=== PATIENT | female | born 1960 | race Caucasian/White ===

== ENCOUNTER 2020-02-04 23:28 | Inpatient (IN) | payer MEDICARE, MEDICAID, SELFPAY ==
--- NOTE | ~2020-02-04 | CT_ITS ---
EXAMINATION: CT brain wo con DATE: 02/05/2020 00:12 INDICATION: Altered mental status. TECHNIQUE: Computed tomography (CT) of the head was performed without intravenous contrast. Sagittal and coronal reconstructions were performed. The mA was adjusted according to patient size. Iterative reconstruction technique was employed. The dose-length product was 605.33 mGy-cm. COMPARISON: None FINDINGS: Regions of chronic encephalomalacia in the left middle cerebral artery vascular distribution includin g the left frontal and temporal lobes, intervening insula and left basal ganglia. Region of decreased attenuation in the right temporal lobe at the middle cranial fossa which appears more likely related to streak artifact than infarct. No acute intracranial hemorrhage or abnormal extra axial fluid macario ection. There is mild scattered white matter hypoattenuation consistent with chronic small vessel isc hemic disease. Mild expected dilation of the left lateral ventricle. Ventricles are otherwise normal. No mass/mass effect. The orbits, paranasal sinuses and mastoid air cells are normal. Intracranial ca lcified cerebral atherosclerosis is noted. IMPRESSION: 1. Encephalomalacia consistent with chronic infarct involving portions of the left middle cerebral ar thao vascular distribution. 2. Decreased attenuation in the right temporal lobe more likely streak artifact than age-indeterminat e infarct. 3. Moderate scattered white matter hypoattenuation consistent with chronic small vessel ischemic dise ase. Reviewed, dictated and finalized at location A. IMPRESSION: 1. Encephalomalacia consistent with chronic infarct involving portions of the l eft middle cerebral artery vascular distribution. 2. Decreased attenuation in the right temporal lobe more likely streak artifact than age-indeterminate infarct. 3. Moderate scattered white matter hypoattenuation consistent with chronic smal l vessel ischemic disease.
--- NOTE | ~2020-02-04 | XR_ITS ---
EXAMINATION: XR chest 2V DATE: 02/05/2020 00:18 INDICATION: Transient alteration of awareness TECHNIQUE: frontal and lateral views of the chest were obtained. COMPARISON: Chest radiograph dated 09/28/2019 FINDINGS: The lungs remain clear with no focal airspace opacities, pulmonary edema, pleural effusion or pneumot horax. The cardiomediastinal silhouette is normal. Visualized bones and soft tissues are unremarkable . IMPRESSION: 1. No acute cardiopulmonary disease. Reviewed, dictated and finalized at location A.
[2020-02-04 23:25] VITALS: BP 134/61; PULSE 58; RESP 16; TEMP 36.6; O2SAT 100
--- NOTE | 2020-02-04 23:27 | ED.GENADULT ---
HPI - General Adult General Chief complaint: Recheck/Abnormal Lab/Rx Stated complaint: abn labs Source: EMS Mode of arrival: EMS Limitations: altered mental status History of Present Illness HPI narrative: Patient is a 59-year-old female who presents to the emergency department via EMS from [facility] with abnormal labs. Patient reportedly had abnormal lab draw at the facility, and the physician's butcher's assistant had the patient sent to the emergency department tonight. Patient has a history of CVA with residual right-sided weakness, no longer can communicate due to CVA. Patient cannot provide any history. Per paper sent with patient, she seems has been elevation in her creatinine, potassium from previous labs. There is no additional history obtained from the patient's transfer sheets. Related Data Home Medications Medication Instructions Recorded Confirmed Antifungal (tolnaftate) 1 applic TOPICAL BID PRN 09/28/19 09/28/19 Basaglar KwikPen U-100 Insulin 24 unit SUBCUT HS 09/28/19 09/28/19 Vitamin D3 50,000 unit PO WEEKLY 09/28/19 09/28/19 acetaminophen 650 mg PO Q6H PRN 09/28/19 09/28/19 ascorbic acid (vitamin C) [Vitamin 500 mg PO DAILY 09/28/19 09/28/19 C] aspirin [Enteric Coated Aspirin] 81 mg PO DAILY 09/28/19 09/28/19 atorvastatin 80 mg PO HS 09/28/19 09/28/19 clopidogrel 75 mg PO DAILY 09/28/19 09/28/19 diphenhydramine HCl [Allergy 25 mg PO Q6H PRN 09/28/19 09/28/19 (diphenhydramine)] docusate sodium 100 mg PO DAILY PRN 09/28/19 09/28/19 fluoxetine 20 mg PO DAILY 09/28/19 09/28/19 gabapentin 300 mg PO TID 09/28/19 09/28/19 hydrocortisone 1 applic TOPICAL DAILY PRN 09/28/19 09/28/19 ibuprofen 600 mg PO Q6H PRN 09/28/19 09/28/19 insulin lispro [Admelog U-100 12 unit SUBCUT AC 09/28/19 09/28/19 Insulin lispro] insulin lispro [Admelog U-100 See Protocol SUBCUT AC 09/28/19 09/28/19 Insulin lispro] loperamide See Rx Instructions .ROUTE 09/28/19 09/28/19 .COMPLEX PRN MDD 8 CAPSULES PER DAY memantine 10 mg PO BID 09/28/19 09/28/19 multivitamin [Daily Vitamin 1 tablet PO DAILY 09/28/19 09/28/19 Formula] nystatin [Nystop] 1 applic TOPICAL BID PRN 09/28/19 09/28/19 Allergies Allergy/AdvReac Type Severity Reaction Status Date / Time No Known Allergies Allergy Unverified 02/02/19 08:54 Review of Systems Review of Systems: Narrative: Unable to obtain secondary to clinical condition PMFSH Past Medical History Medical History CVA (cerebral vascular accident) With expressive aphasia Dementia Eczema Essential hypertension Hyperlipidemia Obesity, morbid, BMI 50 or higher Type 2 diabetes mellitus, with long-term current use of insulin UTI (urinary tract infection) Vitamin D deficiency Surgical History Surgical History No pertinent past surgical history Family History Family History Other Unknown family medical history Social History Social History Social History: Patient is a long-term resident at [facility]. Patient evidently used to smoke heavily and quit smoking in 2014. Patient is denied history of alcohol use but is a poor historian. Code status: Full code Primary care physician: Dr. Giovanny Franco Smoking status: Former smoker Tobacco type: cigarettes Second hand tobacco smoke exposure: Yes Alcohol intake: never Substance use: never Substance use type: does not use Gender identity (if verbalized by the patient): Female Spiritual care concerns: No Agree to blood products: Yes Exam Narrative: Exam Narrative: GENERAL: Awake, alert, conversant HEAD: Normocephalic, atraumatic. EYES: PERRLA and EOMI. ENT: Nares clear, no rhinorrhea or epistaxis. Mucous membranes dry NECK: Supple. CHEST: No respiratory distress, mary
--- NOTE | 2020-02-04 23:28 | ECG_ITS ---
Measurements Intervals Half Way Rate: 60 P: 34 KS: 129 QRS: -27 QRSD: 93 T: 104 QT: 438 QTc: 438 Interpretive Statements SINUS RHYTHM DELAYED PRECORDIAL R/S TRANSITION BORDERLINE ST-T WAVE ABNORMALITY- LATERAL LEADS BASELINE WANDER- AVR, AVL, AVF, V4-V6 BORDERLINE ECG Electronically Signed On 02-05-2020 7:12:10 CDT by Anjel Parham D.O.
[2020-02-04 23:52] LABS: Glucose Point of Care 114 (65-105)
[2020-02-04 23:53] LABS: Basophils Absolute Auto 0.1 K/mm3 (0.0-0.1); Basophils Percent Auto 0.7 % (0.2-1.2); Eosinophils Absolute Auto 0.6 K/mm3 (0-0.3); Eosinophils Percent Auto 5.2 % (0-4.4); Hematocrit 35.7 % (37.0-47.0); Hemoglobin 11.6 g/dL (12.0-15.0); Immature Granulocyte Absolute 0.04 K/mm3 (0.00-0.031); Immature Granulocyte Percent A 0.4 % (0-0.5); Lymphocytes Absolute Auto 2.58 K/mm3 (0.9-3.2); Mean Corpuscular HGB Conc 32.5 g/dl (32-36); Mean Corpuscular Hemoglobin 28.2 pg (26-34); Mean Corpuscular Volume 86.7 fl (80-100); Mean Platelet Volume 10.3 fl (7.4-10.4); Monocytes Absolute Auto 0.7 K/mm3 (0.1-0.6); Monocytes Percent Auto 6.1 % (2.6-8.5); Neutrophils Absolute Auto 6.8 K/mm3 (1.3-6.7); Neutrophils Percent Auto 63.6 % (45.5-73.1); Platelet Count Result 315 k/mm3 (150-375); Red Blood Count 4.12 M/mm3 (4.2-5.4); Red Cell Distribution Width 14.5 % (11.5-14.5); White Blood Count 10.7 K/mm3 (4.5-10.0)
[2020-02-04 23:54] LABS: Alveolar/Arterial O2 Gradient 20.1 mmHg; Base Excess ABG -6.3 mEq/l (+/-2.0); Carboxyhemoglobin 0.2 % THb (0-2.0); Fractional Inspired Oxygen 21 %; HCO3 ABG 18.7 mEq/l (22.0-26.0); Methemoglobin ABG 0.1 %THb (0-1.5); Oxygen Content ABG 15.6 %vol (16.0-22.0); Oxygen Saturation ABG 96.2 % (95.0-100.0); Oxyhemoglobin 95.1 % THb (90.0-100.0); PCO2 ABG 35.7 mmHg (35.0-45.0); PO2 ABG 86.9 mmHg (80.0-100.0); PO2 FiO2 Ratio Arterial Blood 4.14 %; Reduced Hemoglobin 4.6 %THb (0-5.0); Total Hemoglobin 11.6 g/dL (12.0-18.0); pH ABG 7.338 (7.350-7.450)
[2020-02-04 23:55] LABS: Device ROOM AIR; Modified Allen's Test Pass; Site Drawn LEFT RADIAL
[2020-02-04] MEDS: SODIUM CHLORIDE 0.9% IV 1,000 ML 999 ML IV CONT (23:56)
[2020-02-05] VITALS (9 sets, daily range): BP systolic 117–146; BP diastolic 42–78; PULSE 56–62; RESP 12–20; TEMP 36.1–37.1; O2SAT 94–100; BMI 52.0
[2020-02-05 00:02] LABS: INR 0.9; Prothrombin Time 12.3 Seconds (11.1-14.7)
[2020-02-05 00:03] LABS: Partial Thromboplastin Time 28.8 SECONDS (22.3-36.8)
[2020-02-05 00:05] LABS: Alanine Aminotransferase 9 U/L (4-35); Albumin Level 3.9 g/dL (3.5-5.1); Alkaline Phosphatase 180 U/L (38-126); Aspartate Amino Transferase 16 U/L (14-36); Bilirubin,Total 0.4 mg/dL (0.2-1.3); Blood Urea Nitrogen 64 mg/dL (7-17); Calcium 9.1 mg/dL (8.4-10.2); Carbon Dioxide 24 mmol/L (22-30); Chloride 103 mmol/L (98-107); Estimated Glomerular Filt Rate 21; Glucose 111 mg/dL (65-105); Magnesium 1.8 mg/dL (1.6-2.3); Phosphorus 5.4 mg/dL (2.5-4.5); Potassium 4.8 mmol/L (3.4-5.0); Sodium 136 mmol/L (137-145)
[2020-02-05 00:09] LABS: Lactic Acid Reflex 0.9 mmol/L (0.7-2.1)
[2020-02-05 00:10] LABS: Ammonia < 9 umol/L (9-30)
[2020-02-05 00:13] LABS: Beta-Hydroxybutyrate/Acetoacetate 0.06 mmol/L (0.02-0.27)
[2020-02-05 00:16] LABS: Troponin I 0.014 ng/mL (0.000-0.034)
[2020-02-05 00:30] LABS: Add Urine Microscopic? YES; Appearance Urine Turbid (Clear); Bacteria Urine 3+ /hpf; Bilirubin Urine Negative (Negative); Blood Urine 1+ (Negative); Color Urine Yellow (Yellow); Glucose Urine UA Negative (Negative); Hyaline Casts Urine 15-19 /lpf; Ketones Urine Negative (Negative); Leukocyte Esterase Ur 3+ LEU/UL (Negative); Nitrate Urine Negative (Negative); Protein Urine 2+ mg/dL (Negative); Squamous Epithelial Cell Urine Occasional /hpf (Few); Urobilinogen Urine Negative mg/dL (<2.0); WBC Urine >75 /hpf
--- NOTE | 2020-02-05 02:28 | ADMGEN ---
This patient, Dalila Rose, was admitted to Medical Room 245-. Patient/family oriented to hospital policies and general routines including ID bracelet, bed and alarms, visiting hours, pain management, procedures, bathroom and other care routines, personal items, smoking policy, room service/diet, and visiting hours. Valuables list has been completed. Information on how to activate the Rapid Response Team has been discussed. Patient/Family are encouraged to report perceived risks to care and to ask questions if they do not understand what they are told or what they should do.
--- NOTE | 2020-02-05 03:11 | PM.IMHP ---
H&P: HPI History of Present Illness Chief complaint: Sent in from half-way for renal failure Narrative: Date and time of patient contact: 02/05/2020 at 4:00 a.m. Dalila Rose is a 59 year old female with a past medical history chronic kidney disease stage 3, dementia, multiple CVA's and multiple urinary tract infections who presented to the ER from [facility] due to abnormal labs. The patient a supposedly alert orient x3 according to EMS. Time of prior admissions the patient had also been confused. She does have some expressive aphasia due to history of CVA. She responds to her name. She otherwise did not provide me with any other answers to questions. When I asked her if she was having pain she shook her head no. Then with other questions she would initially shake her head no in then change it to a nod. So the reliability of the patient's history is in question. At the time of my evaluation the patient had marked pain palpation of the left lower quadrant. She became a quite irritated when I palpated the right lower quadrant. When I asked her if the rest of her abdomen hurt she emphatically said no. Source of information: Past medical records and ER records. Review of Systems Review of Systems: ROS unobtainable: Yes unobtainable due to medical condition and unobtainable due to mental status PMFSH Past Medical History Medical History CVA (cerebral vascular accident) With expressive aphasia Dementia Eczema Essential hypertension Hyperlipidemia Obesity, morbid, BMI 50 or higher Type 2 diabetes mellitus, with long-term current use of insulin UTI (urinary tract infection) Vitamin D deficiency Surgical History Surgical History No pertinent past surgical history Family History Family History Other Unknown family medical history Social History Social History Social History: Patient is a long-term resident at [facility]. Patient evidently used to smoke heavily and quit smoking in 2014. Patient is denied history of alcohol use but is a poor historian. Code status: Full code Primary care physician: Dr. Giovanny Franco Smoking status: Unknown if ever smoked Tobacco type: cigarettes Second hand tobacco smoke exposure: Yes Alcohol intake: never Substance use: never Substance use type: does not use Gender identity (if verbalized by the patient): Female Spiritual care concerns: No Agree to blood products: Yes Meds Home Medications and Allergies Home Medications Medication Instructions Recorded Confirmed Type Anabelle Lala U-100 Insulin 28 unit SUBCUT 09/28/19 02/05/20 History aspirin [Enteric Coated Aspirin] 81 mg PO DAILY 09/28/19 02/05/20 History fluoxetine 20 mg PO DAILY 09/28/19 02/05/20 History gabapentin 300 mg PO TID 09/28/19 02/05/20 History insulin lispro [Admelog U-100 16 unit SUBCUT 09/28/19 02/05/20 History Insulin lispro] insulin lispro [Admelog U-100 See Protocol SUBCUT 09/28/19 02/05/20 History Insulin lispro] memantine 10 mg PO BID 09/28/19 02/05/20 History furosemide 60 mg PO BID #60 tablet 10/03/19 02/05/20 Rx lisinopril 30 mg PO DAILY #30 tablet 10/03/19 02/05/20 Rx metoprolol succinate 50 mg PO HS #30 tablet 10/03/19 02/05/20 Rx Allergies Allergy/AdvReac Type Severity Reaction Status Date / Time No Known Allergies Allergy Unverified 02/02/19 08:54 Vital Signs Vital Signs - 24 hr 02/04/20 23:25 02/05/20 00:32 02/05/20 00:58 Temperature 97.9 F 98.7 F Pulse Rate 58 L 59 L 62 Respiratory Rate 16 15 13 Blood Pressure 134/61 137/52 L 138/78 Pulse Oximetry 100 99 100 02/05/20 01:46 02/05/20 02:20 Temperature 97 F L Pulse Rate 61 62 Respiratory Rate 12 20 Blood Pressure 137
[2020-02-05] MEDS: SODIUM CHLORIDE 0.9% IV 1,000 ML 125 ML IV CONT (03:19)
[2020-02-05 07:49] LABS: Glucose Point of Care 101 (65-105)
[2020-02-05 07:58] LABS: Blood Urea Nitrogen 62 mg/dL (7-17); Calcium 8.8 mg/dL (8.4-10.2); Carbon Dioxide 23 mmol/L (22-30); Chloride 108 mmol/L (98-107); Estimated CRCL calculation 32 ml/min; Estimated Glomerular Filt Rate 24; Glucose 109 mg/dL (65-105); Potassium 4.9 mmol/L (3.4-5.0); Sodium 138 mmol/L (137-145)
--- NOTE | 2020-02-05 09:00 | PM.IMPN ---
Progress Note: A&P Assessment and Plan (1) Acute UTI: Code(s): N39.0 - Urinary tract infection, site not specified Status: Acute Assessment and Plan: UA suggestive of UTI; Urine cultures pending. Empiric antibiotic therapy with Rocephin has been initiated; will continue Tailor antibiotics to culture/sensitivities (2) Acute renal failure: Qualifiers: Acute renal failure type: unspecified Qualified Code(s): N17.9 - Acute kidney failure, unspecified Code(s): N17.9 - Acute kidney failure, unspecified Status: Acute Assessment and Plan: Likely due to dehydration and medication effect. Cr 2.10 this morning; improvement Continue to hold Lasix and lisinopril. Continue IV fluid hydration at fluid rate of 100 mL/hr Trend BMP tomorrow Avoid nephrotoxic agents; renall dose medications if applicable (3) Type 2 diabetes mellitus, with long-term current use of insulin: Qualifiers: Diabetes mellitus complication status: with hyperglycemia Qualified Code(s): E11.65 - Type 2 diabetes mellitus with hyperglycemia; Z79.4 - ict development manager (current) use of insulin Code(s): E11.9 - Type 2 diabetes mellitus without complications; Z79.4 - ict development manager (current) use of insulin Status: Acute Assessment and Plan: BGL 100s this morning Will continue patient's home Lantus; reduce home mealtime bolus insulin to 12 units due to low BGL; will increase as patient PO intake improves Accuchecks ACHS, hypoglycemia protocol, correctional insulin, diabetic diet Monitor (4) CVA (cerebral vascular accident): Code(s): I63.9 - Cerebral infarction, unspecified Status: Acute Assessment and Plan: Known old CVA with expression aphasia and associate dementia Continue memantine (5) Essential hypertension: Code(s): I10 - Essential (primary) hypertension Status: Acute Assessment and Plan: BP reviewed and 140s sys Will continue home metoprolol Continue to hold Lasix and lisinopril due to MADAY Monitor Subjective Date/time seen: 02/05/20 09:00 Interval history: Patient is a 59 yo F with history of chronic kidney disease stage 3, dementia, multiple CVA's and multiple urinary tract infections who is here for likely UTI and MADAY. Patient able to answer yes/no questions and is able to say hello to me, smiling. However, history may be limited; she is unable to express herself. When asked where she is, she points to the board that says [facility] . When questioned, she denies f/c/s, cp/palpitations, sob/cough, n/v/d/c, abd pain, changes in BMs, dysuria, hematuria, cloudy urine, calf pain/swelling. Review of Systems Review of Systems: ROS unobtainable: Yes unobtainable due to medical condition (please see above) Exam Narrative: Exam Narrative: Patient sitting upright in bed, watching TV Const: General: cooperative, comfortable, no acute distress, well developed, alert and awake Nutritional Appearance: obese Orientation/consciousness: oriented to place (Points to [facility] on board in room) and Other orientation findings HENMT: Head: normocephalic and atraumatic General nose exam: Normal nares present Face and sinus: face symmetric Mouth: Yes dry mucous membranes Eyes: General: appearance normal, both eyes and all related structures EOM: EOMs intact bilaterally Neck: Neck: trachea midline and supple Resp: Effort & Inspection: normal respiratory effort Auscultation: clear to auscultation bilaterally Cardio: Rate: regular rate Rhythm: regular rhythm Heart sounds: no murmurs GI: Inspection: non-distended, Pannus present and obesity GI Palp: Yes abdominal tenderness (wincing in RLQ) and Yes Soft to palpation Auscultation: normal bowel sounds and
[2020-02-05] MEDS: GABAPENTIN 300 MG CAPSULE PO ×3 (09:18→17:22)
[2020-02-05] MEDS: FLUOXETINE HCL 20 MG CAP PO (09:18)
[2020-02-05] MEDS: MEMANTINE 10 MG TABLET PO ×2 (09:18→20:27)
[2020-02-05] MEDS: ENOXAPARIN 40 MG/0.4 ML SYRINGE SUB-Q (09:18)
[2020-02-05] MEDS: ASPIRIN 81 MG ENTERIC TABLET PO (09:18)
[2020-02-05 11:22] LABS: Glucose Point of Care 137 (65-105)
[2020-02-05] MEDS: INSULIN ASPART (*BKC) 100 UNITS/ML 12 UNITS SUB-Q (11:36)
[2020-02-05 16:17] LABS: Glucose Point of Care 97 (65-105)
[2020-02-05] MEDS: SODIUM CHLORIDE 0.9% IV 1,000 ML 100 ML IV CONT (17:22)
[2020-02-05] MEDS: METOPROLOL SUCCINATE EXT REL 50 MG TABCR PO (20:21)
[2020-02-05] MEDS: INSULIN GLARGINE (*BKC) 100 UNITS/ML 20 UNITS SUB-Q (20:58)
[2020-02-05 21:16] LABS: Glucose Point of Care 111 (65-105)
[2020-02-06 05:34] LABS: Basophils Absolute Auto 0.1 K/mm3 (0.0-0.1); Basophils Percent Auto 0.7 % (0.2-1.2); Eosinophils Absolute Auto 0.5 K/mm3 (0-0.3); Eosinophils Percent Auto 6.1 % (0-4.4); Hematocrit 30.4 % (37.0-47.0); Hemoglobin 9.8 g/dL (12.0-15.0); Immature Granulocyte Absolute 0.03 K/mm3 (0.00-0.031); Immature Granulocyte Percent A 0.4 % (0-0.5); Lymphocytes Absolute Auto 2.35 K/mm3 (0.9-3.2); Mean Corpuscular HGB Conc 32.2 g/dl (32-36); Mean Corpuscular Hemoglobin 28.7 pg (26-34); Mean Corpuscular Volume 89.1 fl (80-100); Mean Platelet Volume 10.6 fl (7.4-10.4); Monocytes Absolute Auto 0.5 K/mm3 (0.1-0.6); Monocytes Percent Auto 6.5 % (2.6-8.5); Neutrophils Absolute Auto 4.2 K/mm3 (1.3-6.7); Neutrophils Percent Auto 55.3 % (45.5-73.1); Platelet Count Result 227 k/mm3 (150-375); Red Blood Count 3.41 M/mm3 (4.2-5.4); Red Cell Distribution Width 14.5 % (11.5-14.5); White Blood Count 7.6 K/mm3 (4.5-10.0)
[2020-02-06 05:59] VITALS: BP 141/46; PULSE 57; RESP 20; TEMP 36.1; O2SAT 99
[2020-02-06 06:09] LABS: Blood Urea Nitrogen 51 mg/dL (7-17); Calcium 8.8 mg/dL (8.4-10.2); Carbon Dioxide 23 mmol/L (22-30); Chloride 112 mmol/L (98-107); Estimated CRCL calculation 39 ml/min; Estimated Glomerular Filt Rate 31; Glucose 90 mg/dL (65-105); Magnesium 1.8 mg/dL (1.6-2.3); Potassium 4.8 mmol/L (3.4-5.0); Sodium 140 mmol/L (137-145)
[2020-02-06 08:08] LABS: Glucose Point of Care 96 (65-105)
[2020-02-06] MEDS: GABAPENTIN 300 MG CAPSULE PO ×3 (09:20→17:30)
[2020-02-06] MEDS: MEMANTINE 10 MG TABLET PO ×2 (09:20→21:05)
[2020-02-06] MEDS: ASPIRIN 81 MG ENTERIC TABLET PO (09:20)
[2020-02-06] MEDS: ENOXAPARIN 40 MG/0.4 ML SYRINGE SUB-Q (09:20)
[2020-02-06] MEDS: FLUOXETINE HCL 20 MG CAP PO (09:20)
[2020-02-06 11:55] LABS: Glucose Point of Care 116 (65-105)
[2020-02-06 14:00] VITALS: BP 146/62; PULSE 62; RESP 18; TEMP 36.4; O2SAT 98
--- NOTE | 2020-02-06 15:21 | PM.IMPN ---
Progress Note: A&P Assessment and Plan (1) Acute UTI: Code(s): N39.0 - Urinary tract infection, site not specified Status: Acute Assessment and Plan: UC grew klebsiella pneumoniae; sensitive to rocephin. Patient appears to be clinically improving. Wants to leave Will continue with Rocephin; likely discharge on PO cefdinir at discharge (2) Acute renal failure: Qualifiers: Acute renal failure type: unspecified Qualified Code(s): N17.9 - Acute kidney failure, unspecified Code(s): N17.9 - Acute kidney failure, unspecified Status: Acute Assessment and Plan: Likely due to dehydration and medication effect. Cr 1.70 this morning; improvement Continue to hold Lasix and lisinopril. Continue IV fluid hydration at fluid rate of 100 mL/hr Trend BMP tomorrow Avoid nephrotoxic agents; renally dose medications if applicable (3) Type 2 diabetes mellitus, with long-term current use of insulin: Qualifiers: Diabetes mellitus complication status: with hyperglycemia Qualified Code(s): E11.65 - Type 2 diabetes mellitus with hyperglycemia; Z79.4 - remote computer terminal operator (current) use of insulin Code(s): E11.9 - Type 2 diabetes mellitus without complications; Z79.4 - remote computer terminal operator (current) use of insulin Status: Acute Assessment and Plan: BGL 90-100s this morning Will continue patient's home Lantus; mealtime bolus insulin of 12 units has been held due to lower BGL; will increase as patient PO intake/BGL improves Accuchecks ACHS, hypoglycemia protocol, correctional insulin, diabetic diet Monitor (4) CVA (cerebral vascular accident): Code(s): I63.9 - Cerebral infarction, unspecified Status: Acute Assessment and Plan: Known old CVA with expression aphasia and associate dementia Continue memantine (5) Essential hypertension: Code(s): I10 - Essential (primary) hypertension Status: Acute Assessment and Plan: BP reviewed and 140s sys Will continue home metoprolol Continue to hold Lasix and lisinopril due to MADAY Monitor Subjective Date/time seen: 02/06/20 roughly 14:45 Interval history: Patient is a 59 yo F with history of chronic kidney disease stage 3, dementia, multiple CVA's and multiple urinary tract infections who is here for likely UTI and MADAY. Patient able to answer yes/no questions and is able to say hello. She initially was answering yes/no questions but then shouted hospital , pointing out the window; when asked if she meant she wanted to go back to her NH, she nodded, then began to cry. When nursing entered room, it was explained she needed to stay for further monitoring. She seem to calm down and agreed for further treatment. ROS was limited as she refused to answer any furhter questions after denying f/c/s, cp/palpitations, or sob/cough. She refused physical exam today. Review of Systems Review of Systems: ROS unobtainable: Yes unobtainable due to medical condition (please see above) Exam Narrative: Exam Narrative: Patient lying in semi-murray's position at time of visit. Nursing entered room when patient began to get upset and cry. No other signs of distress; otherwise appears comfortable. Patient refused any further PE Objective Data Vital Signs Vital Signs: Last Vital Signs Temp 97.6 F 02/06/20 14:00 Pulse 62 02/06/20 14:00 Resp 18 02/06/20 14:00 BP 146/62 H 02/06/20 14:00 Pulse Ox 98 02/06/20 14:00 Intake/Output Intake/Output: Intake & Output 02/03/20 02/04/20 02/05/20 02/06/20 23:59 23:59 23:59 23:59 Intake Total 2825 620 Output Total 550 400 Balance 2275 220 Meds/Results Medications: Active Medications Generic Name Dose Route Start Last Admin Trade Name Freq PRN Reason Stop Dose Admi
[2020-02-06 16:44] LABS: Glucose Point of Care 102 (65-105)
--- NOTE | 2020-02-06 17:29 | PC.NURSE ---
Instructed patient to keep arm straight, pt removed arm board and refuses to allow it to be replaced. Attempts at a new IV site have been made by two RN's and the house decorator with no access available.
[2020-02-06] MEDS: METOPROLOL SUCCINATE EXT REL 50 MG TABCR PO (21:05)
[2020-02-06] MEDS: INSULIN GLARGINE (*BKC) 100 UNITS/ML 14 UNITS SUB-Q (21:07)
[2020-02-06 22:00] VITALS: BP 146/45; PULSE 66; RESP 20; TEMP 35.8; O2SAT 97
[2020-02-06 22:16] LABS: Glucose Point of Care 140 (65-105)
[2020-02-07 04:56] LABS: Hematocrit 31.4 % (37.0-47.0); Hemoglobin 10.1 g/dL (12.0-15.0); Mean Corpuscular HGB Conc 32.2 g/dl (32-36); Mean Corpuscular Hemoglobin 28.5 pg (26-34); Mean Corpuscular Volume 88.7 fl (80-100); Platelet Count Result 236 k/mm3 (150-375); Red Blood Count 3.54 M/mm3 (4.2-5.4); Red Cell Distribution Width 14.4 % (11.5-14.5); White Blood Count 7.3 K/mm3 (4.5-10.0)
[2020-02-07 05:25] LABS: Blood Urea Nitrogen 35 mg/dL (7-17); Calcium 8.9 mg/dL (8.4-10.2); Carbon Dioxide 26 mmol/L (22-30); Chloride 115 mmol/L (98-107); Estimated CRCL calculation 50 ml/min; Estimated Glomerular Filt Rate 42; Glucose 109 mg/dL (65-105); Magnesium 1.9 mg/dL (1.6-2.3); Potassium 4.9 mmol/L (3.4-5.0); Sodium 143 mmol/L (137-145)
[2020-02-07 05:30] VITALS: BP 156/59; PULSE 57; RESP 16; TEMP 35.9; O2SAT 99
[2020-02-07 07:52] LABS: Glucose Point of Care 91 (65-105)
[2020-02-07] MEDS: SODIUM CHLORIDE 0.9% IV 1,000 ML 100 ML IV CONT (07:59)
[2020-02-07] MEDS: ASPIRIN 81 MG ENTERIC TABLET PO (07:59)
[2020-02-07] MEDS: ENOXAPARIN 40 MG/0.4 ML SYRINGE SUB-Q (08:00)
[2020-02-07] MEDS: GABAPENTIN 300 MG CAPSULE PO (08:00)
[2020-02-07] MEDS: MEMANTINE 10 MG TABLET PO (08:00)
[2020-02-07] MEDS: FLUOXETINE HCL 20 MG CAP PO (08:00)
--- NOTE | 2020-02-07 09:19 | PM.DS ---
DS: Diagnosis Admitting Diagnosis Admitting Diagnosis: Urinary tract infection, site not specified Discharge Diagnosis (1) Acute UTI: Code(s): N39.0 - Urinary tract infection, site not specified Status: Acute Assessment and Plan: UC grew klebsiella pneumoniae; sensitive to rocephin. Patient appears to be clinically improving. Wants to leave; very excited about discharge. WBC WNL Discharge today on PO cefdinir through 02/09 (2) Acute renal failure: Qualifiers: Acute renal failure type: unspecified Qualified Code(s): N17.9 - Acute kidney failure, unspecified Code(s): N17.9 - Acute kidney failure, unspecified Status: Acute Assessment and Plan: Likely due to dehydration and medication effect. Cr 1.30 this morning; improvement Continue to hold Lasix and lisinopril at discharge; recommend resuming in 2-3 days or after OP BMP BMP on 02/09 Trend BMP tomorrow (3) Type 2 diabetes mellitus, with long-term current use of insulin: Qualifiers: Diabetes mellitus complication status: with hyperglycemia Qualified Code(s): E11.65 - Type 2 diabetes mellitus with hyperglycemia; Z79.4 - long term care social worker (current) use of insulin Code(s): E11.9 - Type 2 diabetes mellitus without complications; Z79.4 - [facility] (current) use of insulin Status: Acute Assessment and Plan: BGL 90-100s this morning Will continue home insulin regimen at [facility] Accuchecks ACHS, hypoglycemia protocol, correctional insulin, diabetic diet during stay Monitor (4) CVA (cerebral vascular accident): Code(s): I63.9 - Cerebral infarction, unspecified Status: Acute Assessment and Plan: Known old CVA with expression aphasia and associate dementia Continue memantine (5) Essential hypertension: Code(s): I10 - Essential (primary) hypertension Status: Acute Assessment and Plan: BP reviewed and 150s sys this morning prior to medications Will continue home metoprolol Continue to hold Lasix and lisinopril due to MADAY; recommend resuming in 2-3 days or after BMP and MADAY resolved. DS: Summary Hospital Course Reason for hospitalization: UTI, MADAY Hospital Course: Patient is a 59 yo F with history of chronic kidney disease stage 3, dementia, multiple CVA's and multiple urinary tract infections who presented to the ER on 02/03 from [facility] due to abnormal labs. Patient has expressive aphasia due to history of CVA but is able to answer yes/no questions. Upon arrival to ER, she was found to have UA suggestive of UTI and MADAY. Please see H&P for further details. Presenting VS: Temp Pulse Resp BP Pulse Ox 97.9 F 58 L 16 134/61 100 02/04/20 23:25 02/04/20 23:25 02/04/20 23:25 02/04/20 23:25 02/04/20 23:25 Presenting Pertinent labs: WBC 10.7, H&H 11.6/35.7, MCV 86.7, BUN 64, Cr 2.40 (02/06: 1.30). UA showed turbid urine, 2+ protein, 1+ blood, 3+ leuk est, 11-20 RBC, >75 WBC, occasional squam epith cells, 3+ bacteria, 15-19 hyaline casts Micro: UC grew klebsiella pnemoniae sensitive to Rocephin Imaging: Chest X-Ray 02/05/20 07:32 IMPRESSION: 1. No acute cardiopulmonary disease. Head CT 02/05/20 07:42 IMPRESSION: 1. Encephalomalacia consistent with chronic infarct involving portions of the left middle cerebral artery vascular distribution. 2. Decreased attenuation in the right temporal lobe more likely streak artifact than age-indeterminate infarct. 3. Moderate scattered white matter hypoattenuation consistent with chronic small vessel ischemic disease ECG: Interpretive Statements SINUS RHYTHM DELAYED PRECORDIAL R/S TRANSITION BORDERLINE ST-T WAVE ABNORMALITY- LATERAL LEADS BASELINE WANDER- AVR, AVL, AVF, V4-V6 BORDERLINE ECG Patient was admitted to the hospit
[2020-02-07] MEDS: CEFDINIR 300 MG CAPSULE PO (10:12)
== END 2020-02-07 10:48 | DRG 683 ==
LOC: ANHED 02-05 01:12 → ANH2MED 02-05 01:27
PROVIDERS: Physician Assistant; Admitting Provider Internal Medicine; Emergency Provider Emergency Medicine; Visit Provider Internal Medicine
DX: N17.9 Acute kidney failure, unspecified (principal); N39.0 Urinary tract infection, site not specified; I69.351 Hemiplegia and hemiparesis following cerebral infarction affecting right dominant side; Z68.43 Body mass index [BMI] 50.0-59.9, adult; E66.9 Obesity, unspecified; B96.1 Klebsiella pneumoniae [K. pneumoniae] as the cause of diseases classified elsewhere; E86.0 Dehydration; E11.22 Type 2 diabetes mellitus with diabetic chronic kidney disease; E11.65 Type 2 diabetes mellitus with hyperglycemia; I12.9 Hypertensive chronic kidney disease with stage 1 through stage 4 chronic kidney disease, or unspecified chronic kidney disease; N18.3 Chronic kidney disease, stage 3 (moderate); I69.320 Aphasia following cerebral infarction; I69.318 Other symptoms and signs involving cognitive functions following cerebral infarction; F01.50 Vascular dementia, unspecified severity, without behavioral disturbance, psychotic disturbance, mood disturbance, and anxiety; E55.9 Vitamin D deficiency, unspecified; L30.9 Dermatitis, unspecified; Z79.4 Long term (current) use of insulin; Z87.440 Personal history of urinary (tract) infections; Z87.891 Personal history of nicotine dependence
CPT/HCPCS: 36415; 36600; 51701; 70450; 71046; 80048; 80053; 81001; 82010; 82140; 82375; 82805; 82948; 83050; 83605; 83735; 84100; 84443; 84484; 85025; 85027; 85610; 85730; 87040; 87077; 87086; 87088; 87186; 93005; 96361; 96365; 96372; 99285; A9270; G0378; J0696; J1650; J1815; J7030

== ENCOUNTER 2020-08-18 13:11 | Emergency (ER) | payer MEDICARE, SELFPAY ==
[2020-08-18] VITALS (10 sets, daily range): BP systolic 162–168; BP diastolic 36–63; PULSE 52–57; RESP 11–18; TEMP 36.6–36.8; O2SAT 95–100
--- NOTE | 2020-08-18 13:29 | ED.RECABL ---
HPI - Recheck/Abnormal Lab/Rx General Chief Complaint: Recheck/Abnormal Lab/Rx Stated Complaint: ABN LABS Time Seen by Provider: 08/18/20 13:29 History of Present Illness HPI narrative: Brought in by EMS from [place] for abnormal labs. She reportedly had elevated BUN and creatinine, which they thought was new. No report of what these numbers were. The patient denies any symptoms. She reportedly tested negative for COVID-19 today. History limited by aphasia. Related Data Home Medications Medication Instructions Recorded Confirmed Basaglar KwikPen U-100 Insulin 28 unit SUBCUT HS 09/28/19 02/05/20 aspirin [Enteric Coated Aspirin] 81 mg PO DAILY 09/28/19 02/05/20 fluoxetine 20 mg PO DAILY 09/28/19 02/05/20 gabapentin 300 mg PO TID 09/28/19 02/05/20 insulin lispro [Admelog U-100 16 unit SUBCUT AC 09/28/19 02/05/20 Insulin lispro] insulin lispro [Admelog U-100 See Protocol SUBCUT AC 09/28/19 02/05/20 Insulin lispro] memantine 10 mg PO BID 09/28/19 02/05/20 Allergies Allergy/AdvReac Type Severity Reaction Status Date / Time No Known Allergies Allergy Unverified 02/02/19 08:54 Review of Systems Review of Systems: ROS unobtainable: Yes other (limited by aphasia) Constitutional: Constitutional: Denies fever(s) Cardiovascular: Cardiovascular: Denies chest pain Respiratory: Respiratory: Denies dyspnea Gastrointestinal: Gastrointestinal: Denies abdominal pain PMFSH Past Medical History Medical History (Updated 08/19/20 @ 00:00 by Background Daemon) CVA (cerebral vascular accident) With expressive aphasia Dementia Eczema Essential hypertension Hyperlipidemia Obesity, morbid, BMI 50 or higher Type 2 diabetes mellitus, with long-term current use of insulin UTI (urinary tract infection) Vitamin D deficiency Surgical History Surgical History No pertinent past surgical history Family History Family History Other Unknown family medical history Social History Social History Social History: Patient is a long-term resident at [facility]. Patient evidently used to smoke heavily and quit smoking in 2014. Patient is denied history of alcohol use but is a poor historian. Code status: Full code Primary care physician: Dr. Giovanny Franco Smoking status: Unknown if ever smoked Tobacco type: cigarettes Second hand tobacco smoke exposure: Yes Alcohol intake: never Substance use: never Substance use type: does not use Gender identity (if verbalized by the patient): Female Spiritual care concerns: No Agree to blood products: Yes Exam Const: General: no acute distress and alert Nutritional Appearance: obese HENMT: Head: normal to inspection Resp: Effort & Inspection: normal respiratory effort Auscultation: clear to auscultation bilaterally Cardio: Rate: regular rate Rhythm: regular rhythm GI: GI Palp: Yes Soft to palpation and No Tenderness to palpation present (GI) Skin: General skin exam: normal color Neuro: General: moves all extremities and CN's II-XI intact bilaterally Other: expressive aphasia Extrem: General: edema (1+) bilateral Course Vital Signs Vital signs: Vital Signs Temperature 36.6 C 08/18/20 13:46 Pulse Rate 53 L 08/18/20 13:46 Respiratory Rate 12 08/18/20 13:46 Blood Pressure 162/36 H 08/18/20 13:46 Pulse Oximetry 97 08/18/20 13:46 Temperature 36.8 C 08/18/20 15:51 Pulse Rate 53 L 08/18/20 15:17 Respiratory Rate 12 08/18/20 15:17 Blood Pressure 168/63 H 08/18/20 15:17 Pulse Oximetry 96 08/18/20 15:17 Procedures Other Procedure Procedure 1: Other Procedure: Ultrasound guided IV Location: left forearm Area cleaned with chlohexadine Hand hygiene and clean gloves used 20g IV catheter inserted under US guidance Good blood ret
[2020-08-18 14:44] LABS: Basophils Absolute Auto 0.1 K/mm3 (0.0-0.1); Basophils Percent Auto 0.7 % (0.2-1.2); Eosinophils Absolute Auto 0.6 K/mm3 (0-0.3); Eosinophils Percent Auto 5.1 % (0-4.4); Hematocrit 43.6 % (37.0-47.0); Hemoglobin 14.2 g/dL (12.0-15.0); Immature Granulocyte Absolute 0.04 K/mm3 (0.00-0.031); Immature Granulocyte Percent A 0.4 % (0-0.5); Lymphocytes Absolute Auto 2.48 K/mm3 (0.9-3.2); Lymphocytes Percent Auto 22.9 % (18.3-44.2); Mean Corpuscular HGB Conc 32.6 g/dl (32-36); Mean Corpuscular Hemoglobin 27.2 pg (26-34); Mean Corpuscular Volume 83.4 fl (80-100); Mean Platelet Volume 10.3 fl (7.4-10.4); Monocytes Absolute Auto 0.5 K/mm3 (0.1-0.6); Neutrophils Absolute Auto 7.1 K/mm3 (1.3-6.7); Neutrophils Percent Auto 65.9 % (45.5-73.1); Platelet Count Result 273 k/mm3 (150-375); Red Blood Count 5.23 M/mm3 (4.2-5.4); Red Cell Distribution Width 13.7 % (11.5-14.5); White Blood Count 10.8 K/mm3 (4.5-10.0)
[2020-08-18 14:52] LABS: INR 0.9; Prothrombin Time 13.1 Seconds (11.1-14.7)
[2020-08-18 14:53] LABS: Partial Thromboplastin Time 26.5 SECONDS (22.3-36.8)
[2020-08-18 14:54] LABS: Alanine Aminotransferase 8 U/L (4-35); Albumin Level 3.8 g/dL (3.5-5.1); Alkaline Phosphatase 158 U/L (38-126); Anion Gap 7 mmol/L (8-16); Aspartate Amino Transferase 20 U/L (14-36); Bilirubin,Total 0.7 mg/dL (0.2-1.3); Blood Urea Nitrogen 19 mg/dL (7-17); Calcium 9.2 mg/dL (8.4-10.2); Carbon Dioxide 36 mmol/L (22-30); Chloride 95 mmol/L (98-107); Estimated Glomerular Filt Rate 38; Glucose 99 mg/dL (65-105); Potassium 3.3 mmol/L (3.4-5.0); Sodium 138 mmol/L (137-145)
--- NOTE | 2020-08-18 15:32 | PC.NURSE ---
patient ready for discharge per MD. will discharge back to [place]. monitors removed. SL removed intact and without difficulty. no redness or swelling at site. ED insurance verification clerk has called for BLS transfer back to [facility]. patient is aware. copy of chart from this ED visit, labs and patient's discharge instructions all in envelope for EMS and transfer.
== END 2020-08-18 15:52 ==
PROVIDERS: Emergency Provider Emergency Medicine
DX: E11.22 Type 2 diabetes mellitus with diabetic chronic kidney disease (principal); I12.9 Hypertensive chronic kidney disease with stage 1 through stage 4 chronic kidney disease, or unspecified chronic kidney disease; N18.9 Chronic kidney disease, unspecified; I69.920 Aphasia following unspecified cerebrovascular disease; F03.90 Unspecified dementia, unspecified severity, without behavioral disturbance, psychotic disturbance, mood disturbance, and anxiety; E78.5 Hyperlipidemia, unspecified; E66.01 Morbid (severe) obesity due to excess calories; Z79.4 Long term (current) use of insulin; E55.9 Vitamin D deficiency, unspecified; Z87.440 Personal history of urinary (tract) infections
CPT/HCPCS: 36415; 80053; 85025; 85610; 85730; 99283

== ENCOUNTER 2020-10-14 08:53 | Outpatient (CLI) | payer MEDICARE, MEDICAID, SELFPAY ==
--- NOTE | ~2020-10-14 | CT_ITS ---
EXAMINATION: CT abdomen pelvis w con INDICATION: Abdominal wall mass TECHNIQUE: Computed tomographic images of the abdomen and pelvis were obtained after the administrati on of 100 cc of Omnipaque 350 intravenous contrast. The dose-length product (DLP) was 1486.54 mGy-cm. Automated exposure control and iterative reconstruction technique were employed. COMPARISON: None available FINDINGS: Minimal dependent atelectasis is present in the lung bases. The heart size is normal. The l iver, spleen, pancreas, and adrenal glands are normal. Stones are present in the nondistended gallbla dder. Cysts of the kidneys measure up to 1.8 cm on the left. There is mild atrophy of the right kidne y. There is calcified atherosclerosis of the aorta and many of the other arteries. No pathologically enlarged abdominal or pelvic lymph nodes are identified. There is no free intraperitoneal gas or evid ence of bowel obstruction. There is a large ventral hernia the right lower quadrant abdominal wall co ntaining fat. A calcified fibroid is present in the uterine fundus. There is severe lumbar spondylosi s at L4-5. IMPRESSION: 1. Large fat-containing ventral hernia of the right lower quadrant. 2. Cholelithiasis without evidence of cholecystitis. Reviewed, dictated and finalized at location A. CHDOWNS TOE FORMER
[2020-10-14 10:26] LABS: Estimated Glomerular Filt Rate 46
== END 2020-10-14 08:54 | disposition home or self-care (01) ==
DX: R19.00 Intra-abdominal and pelvic swelling, mass and lump, unspecified site (principal); K43.9 Ventral hernia without obstruction or gangrene; K80.20 Calculus of gallbladder without cholecystitis without obstruction
CPT/HCPCS: 74177; Q9967

== ENCOUNTER → 2020-11-19 07:43 | Day surgery (SDC) | payer MEDICARE, MEDICAID, SELFPAY ==
[2020-11-19 10:21] VITALS: BP 120/74; PULSE 72; RESP 18; TEMP 36.5; O2SAT 100
--- NOTE | 2020-11-19 13:46 | SUR.PREOP ---
1150 MD HERE TO SEE PT.
== END ==
PROVIDERS: Visit Provider Surgery
DX: R19.04 Left lower quadrant abdominal swelling, mass and lump (principal); Z53.9 Procedure and treatment not carried out, unspecified reason
CPT/HCPCS: 99211; G0463

== ENCOUNTER 2022-08-13 13:49 | Emergency (ER) | payer OTHER, SELFPAY ==
--- NOTE | ~2022-08-13 | XR_ITS ---
XR chest 1V portable DATE: 08/13/2022 16:30 INDICATION: Chest pain. Right lower extremity edema. History of congestive heart failure. TECHNIQUE: Portable supine AP chest on 08/13/2022 at 1625 hours COMPARISON: 02/05/2020 AP and lateral chest FINDINGS: Heart size is likely within normal limits considering magnification associated with AP proj ection. There is aortic arch calcification. There is mild elevation right leaf of the diaphragm. No pulmonary infiltrate or consolidation, pleural effusion or pulmonary vascular congestion or pneumo thorax is detected. Osteopenia. IMPRESSION: No active cardiac pulmonary disease Aortic atherosclerosis Reviewed, dictated and finalized at location A. P PICKER
--- NOTE | ~2022-08-13 | XR_ITS ---
XR tibia fibula RT 2V DATE: 08/13/2022 17:13 INDICATION: Right lower extremity pain. No injury. TECHNIQUE: AP and lateral views COMPARISON: None FINDINGS: Prominent diffuse osteopenia. No fracture or dislocation, periosteal reaction or bone destruction of the tibia or fibula is evident . Plantar calcaneal enthesopathy. Anterior and posterior tibial artery calcifications, dorsalis pedis and popliteal artery calcificatio n IMPRESSION: Osteopenia Plantar calcaneal enthesopathy Reviewed, dictated and finalized at location A. NTING BULK MATERIAL OPERATOR
--- NOTE | ~2022-08-13 | US_ITS ---
EXAMINATION: US venous doppler LE RT DATE: 08/13/2022 14:27 INDICATION: Right lower limb swelling and pain TECHNIQUE: Morrison scale images without and with compression and Doppler images of the right lower extre mity veins were obtained. COMPARISON: 02/03/2019 FINDINGS: The right common femoral vein, profunda femoral vein, femoral vein, popliteal vein, peronea l trunk, posterior tibial veins, and greater saphenous vein are patent. IMPRESSION: 1. Patent right lower extremity veins. No evidence of deep venous thrombosis. Reviewed, dictated and finalized at location A. RINARY PRACTITIONER
[2022-08-13 13:48] VITALS: BP 196/82; PULSE 106; RESP 15; TEMP 36.6; O2SAT 99
--- NOTE | 2022-08-13 13:56 | ED.EXTPRO ---
HPI - Extremity Problem General Chief complaint: Extremity Problem,Nontraumatic Stated complaint: r/o dvt History of Present Illness HPI Narrative: 62-year-old female history of CVA with right-sided weakness, expressive aphasia, CHF, hypertension diabetes obesity presents to the emergency room be but EMS from [facility] for evaluation of right calf swelling and tenderness for 4 days. Denies any shortness of breath or difficulty breathing. Related Data Home Medications Medication Instructions Recorded Confirmed aspirin 81 mg tablet,delayed 81 mg PO DAILY 09/28/19 12/29/20 release (Enteric Coated Aspirin) fluoxetine 20 mg capsule 20 mg PO DAILY 09/28/19 12/29/20 gabapentin 300 mg capsule 300 mg PO TID 09/28/19 12/29/20 insulin glargine 100 unit/mL (3 28 unit subcut HS 09/28/19 12/29/20 mL) subcutaneous pen (Basaglar KwikPen U-100 Insulin) insulin lispro 100 unit/mL 16 unit subcut AC 09/28/19 12/29/20 subcutaneous solution (Admelog U-100 Insulin lispro) insulin lispro 100 unit/mL See Protocol subcut AC 09/28/19 12/29/20 subcutaneous solution (Admelog U-100 Insulin lispro) memantine 10 mg tablet 10 mg PO BID 09/28/19 12/29/20 atorvastatin 10 mg tablet 10 mg PO DAILY 11/11/20 12/29/20 glucagon HCl 1 mg solution for 1 mg subcut Q20M PRN Hypoglycemia 11/11/20 12/29/20 injection (Glucagon (HCl) Emergency Kit) potassium chloride 10 mEq 10 meq PO DAILY 11/11/20 12/29/20 tablet,extended release (Klor-Con) loperamide 2 mg tablet 2 mg PO Q6H PRN 12/29/20 12/29/20 Allergies Allergy/AdvReac Type Severity Reaction Status Date / Time Bleach (Sodium Hypochlorite) AdvReac Unknown Verified 08/13/22 15:06 perfume AdvReac Unknown Verified 08/13/22 15:06 Review of Systems Review of Systems: CONSTITUTIONAL: Denies fever, chills, or sweats. EYES: Denies visual changes, redness, or discharge. ENT: Denies rhinorrhea, congestion, sore throat, or otalgia. CARDIOVASCULAR: Denies chest pain, palpitations, or edema. RESPIRATORY: Denies cough or dyspnea. GASTROINTESTINAL: Denies abdominal pain, nausea, vomiting, or diarrhea. GENITOURINARY: Denies dysuria or hematuria. SKIN: Denies rash or itching. MUSCULOSKELETAL: Reports right calf pain and swelling NEUROLOGIC: Denies headache, numbness, dizziness, or weakness. PSYCHIATRIC: Denies anxiety or depression. [facility] Past Medical History Medical History (Updated 08/13/22 @ 17:57 by Juan Sheridan APRN) CVA (cerebral vascular accident) With expressive aphasia Dementia Eczema Essential hypertension Hyperlipidemia Obesity, morbid, BMI 50 or higher Type 2 diabetes mellitus, with long-term current use of insulin UTI (urinary tract infection) Vitamin D deficiency Surgical History Surgical History No pertinent past surgical history Family History Family History Other Unknown family medical history Social History Social History Social History: Patient is a long-term resident at [facility]. Patient evidently used to smoke heavily and quit smoking in 2014. Patient is denied history of alcohol use but is a poor historian. Code status: Full code Primary care physician: Dr. Giovanny Franco Smoking status: Never smoker Tobacco type: cigarettes Second hand tobacco smoke exposure: Yes Alcohol intake: never Substance use: never Substance use type: does not use Gender identity (if verbalized by the patient): Female Spiritual care concerns: No Agree to blood products: Yes Exam Narrative: GENERAL: Well-appearing, well-nourished, no physical limitations, and in no acute distress. HEAD: Normocephalic, atraumatic. EYES: Conjunctivae normal, PERRLA and EOMI. CHEST: Clear to auscultation. No respiratory distress. No wheezes rales or rhonchi. HEART: Regular rate and
[2022-08-13 14:02] VITALS: BP 148/47; PULSE 85; RESP 17; O2SAT 97
--- NOTE | 2022-08-13 14:48 | PC.NURSE ---
Attempted to call sister twice. Went straight to a generic voicemail.
[2022-08-13 15:40] LABS: Basophils Absolute Auto 0.1 K/mm3 (0.0-0.1); Basophils Percent Auto 0.5 % (0.2-1.2); Eosinophils Absolute Auto 0.4 K/mm3 (0-0.3); Eosinophils Percent Auto 3.3 % (0-4.4); Hematocrit 37.8 % (37.0-47.0); Hemoglobin 11.9 g/dL (12.0-15.0); Immature Granulocyte Absolute 0.02 K/mm3 (0.00-0.031); Immature Granulocyte Percent A 0.2 % (0-0.5); Lymphocytes Absolute Auto 1.31 K/mm3 (0.9-3.2); Lymphocytes Percent Auto 12.4 % (18.3-44.2); Mean Corpuscular HGB Conc 31.5 g/dl (32-36); Mean Corpuscular Hemoglobin 29.1 pg (26-34); Mean Corpuscular Volume 92.4 fl (80-100); Mean Platelet Volume 10.2 fl (7.4-10.4); Monocytes Absolute Auto 0.7 K/mm3 (0.1-0.6); Monocytes Percent Auto 6.3 % (2.6-8.5); Neutrophils Absolute Auto 8.2 K/mm3 (1.3-6.7); Neutrophils Percent Auto 77.3 % (45.5-73.1); Platelet Count Result 260 k/mm3 (150-375); Red Blood Count 4.09 M/mm3 (4.2-5.4); Red Cell Distribution Width 13.3 % (11.5-14.5); White Blood Count 10.6 K/mm3 (4.5-10.0)
[2022-08-13 15:51] LABS: Anion Gap 14 mmol/L (8-16); Blood Urea Nitrogen 35 mg/dL (7-17); Carbon Dioxide 26 mmol/L (22-30); Chloride 102 mmol/L (98-107); Estimated Glomerular Filt Rate 33; Glucose 125 mg/dL (65-110); Potassium 4.5 mmol/L (3.4-5.0); Sodium 142 mmol/L (137-145)
[2022-08-13 15:53] LABS: INR 1.1; Prothrombin Time 13.5 Seconds (11.1-14.7)
[2022-08-13 15:54] LABS: Partial Thromboplastin Time 29.3 SECONDS (22.3-36.8)
[2022-08-13 16:00] LABS: NT Pro B Type Natriuretic Pept 3000 pg/mL (5-100)
[2022-08-13 17:31] LABS: SARS-CoV-2 RNA PCR Negative
--- NOTE | 2022-08-13 18:20 | PC.NURSE ---
Kajal Ems accepted return to [facility] on lana zhoa 20:00p trip # [phone]
--- NOTE | 2022-08-13 19:01 | PC.NURSE ---
Deputy Luis Manuel Arenas, [facility]. Dept at ED
[2022-08-14 00:26] VITALS: BP 196/87; PULSE 97; RESP 20; O2SAT 96
== END 2022-08-14 00:33 ==
PROVIDERS: Emergency Provider Nurse Practitioner Family
DX: R22.41 Localized swelling, mass and lump, right lower limb (principal); I11.0 Hypertensive heart disease with heart failure; I50.9 Heart failure, unspecified; E11.9 Type 2 diabetes mellitus without complications; E78.5 Hyperlipidemia, unspecified; F03.90 Unspecified dementia, unspecified severity, without behavioral disturbance, psychotic disturbance, mood disturbance, and anxiety; Z86.73 Personal history of transient ischemic attack (TIA), and cerebral infarction without residual deficits; Z20.822 Contact with and (suspected) exposure to COVID-19
CPT/HCPCS: 36415; 71045; 73590; 80048; 83880; 85025; 85610; 85730; 93971; 96365; 99284; J0131; U0003; U0005

== ENCOUNTER 2023-05-09 14:48 | Emergency (ER) | payer OTHER, SELFPAY ==
--- NOTE | ~2023-05-09 | XR_ITS ---
EXAM: XR ankle LT 2V DATE: 05/09/2023 17:31 HISTORY: Left ankle pain post fall . COMPARISON: None available. FINDINGS: Severely decreased mineralization. No fracture or dislocation. No lytic or blastic lesion. Moderate degenerative change in the tibiotalar joint. Large erosion along the posterior calcaneus. S ignificant diffuse cortical step-off along the superior margin of the calcaneus, likely related to re mote trauma. No erosion or periosteal change. Soft tissues within normal limits. IMPRESSION: Large erosion along the posterior aspect of the calcaneus. If accompanied by an overlying decubitus ulcer this would be suspicious for osteomyelitis. Otherwise this more likely to be seconda ry to inflammatory arthropathy such as rheumatoid arthritis. Reviewed, dictated and finalized at location K. IMPRESSION: Large erosion along the posterior aspect of the calcaneus. If accom panied by an overlying decubitus ulcer this would be suspicious for osteomyelit is. Otherwise this more likely to be secondary to inflammatory arthropathy such as rheumatoid arthritis.
--- NOTE | ~2023-05-09 | XR_ITS ---
EXAM: [id number]_[id number]_CR DATE: 05/09/2023 17:31 HISTORY: Left knee pain post fall . COMPARISON: None available. FINDINGS: Prior ACL repair. Severely decreased mineralization. No fracture or dislocation. No lytic or blastic lesion. Moderate medial and lateral joint space narrowing with osteophytosis and chondroca lcinosis. No erosion or periosteal change. Soft tissues within normal limits. IMPRESSION: Severe osteopenia. No definite acute osseous finding in the left knee. Reviewed, dictated and finalized at location K. IMPRESSION: Severe osteopenia. No definite acute osseous finding in the left kn ee.
--- NOTE | ~2023-05-09 | XR_ITS ---
EXAM: XR hip LT 2V w AP pelvis DATE: 05/09/2023 17:31 HISTORY: Left hip pain post fall . COMPARISON: 09/28/2019; CT abdomen pelvis 10/14/2020. FINDINGS: Severe mineralization. No fracture or dislocation. No lytic or blastic lesion. Lumbar dege nerative disc disease. Mild bilateral hip osteoarthritis. No erosion or periosteal change. Amorphous pelvic calcifications correspond to a calcified fibroid. IMPRESSION: Severe osteopenia. No definite acute osseous finding in the pelvis or left hip. Reviewed, dictated and finalized at location K.
--- NOTE | ~2023-05-09 | XR_ITS ---
EXAM: XR shoulder RT min 2V DATE: 05/09/2023 21:04 HISTORY: shoulder pain, repeat d/t inadequate position . COMPARISON: None available. FINDINGS: Severely limited examination due to body habitus and difficulties positioning. CT was atte mpted but could not be completed. Nondisplaced fracture at the surgical neck of the right humerus. Gr eater tuberosity fracture with slight distraction. IMPRESSION: Nondisplaced fracture of the surgical neck of the right humerus, with slightly distracted fracture of the greater tuberosity. Reviewed, dictated and finalized at location K. IMPRESSION: Nondisplaced fracture of the surgical neck of the right humerus, wi th slightly distracted fracture of the greater tuberosity.
--- NOTE | ~2023-05-09 | XR_ITS ---
EXAMINATION: XR shoulder RT min 2V DATE: 05/09/2023 17:22 INDICATION: Right shoulder pain. Fall. TECHNIQUE: 3 views of right shoulder were obtained. COMPARISON: None. FINDINGS: Sensitivity is decreased by nonstandard positioning. Bone alignment is normal. No fracture. There is mild osteoarthritis of acromioclavicular joint. The glenohumeral joint is not well profiled . IMPRESSION: 1. No fracture. Reviewed, dictated and finalized at location A. IMPRESSION: 1. No fracture.
--- NOTE | ~2023-05-09 | XR_ITS ---
EXAM: XR elbow RT 2V DATE: 05/09/2023 17:22 HISTORY: FALL/PAIN . COMPARISON: None available. FINDINGS: Severely decreased mineralization. No fracture or dislocation. No lytic or blastic lesion. Joint spaces are maintained. No erosion or periosteal change. Soft tissues within normal limits. IMPRESSION: Severe osteopenia. No definite acute osseous finding in the right elbow. Reviewed, dictated and finalized at location K. IMPRESSION: Severe osteopenia. No definite acute osseous finding in the right e lbow.
[2023-05-09 14:50] VITALS: BP 155/119; PULSE 95; RESP 20; TEMP 36.3; O2SAT 94
[2023-05-09] MEDS: HYDROmorphone HCL INJ (*CRX) 1 MG/ML SYR 0.5 MG IV PUSH (16:36)
--- NOTE | 2023-05-09 16:50 | ED.FALL ---
HPI - Fall General Chief Complaint: Fall Stated Complaint: fall Time Seen by Provider: 05/09/23 16:20 History of Present Illness HPI Narrative: Patient is a 62-year-old female with a history of CVA with expressive aphasia, diabetes, hyperlipidemia, hypertension, dementia presenting after a fall. Patient resides at a nursing facility and reportedly fell from a chair while they were trying to help her stand. Complaining of right shoulder and left hip pain since this time. She denies striking her head or losing consciousness. No neck or back pain. Currently states that her right shoulder and left ankle are bothering her. Denies further complaints. Related Data Home Medications Medication Instructions Recorded Confirmed aspirin 81 mg tablet,delayed 81 mg PO DAILY 09/28/19 12/29/20 release (Enteric Coated Aspirin) fluoxetine 20 mg capsule 20 mg PO DAILY 09/28/19 12/29/20 gabapentin 300 mg capsule 300 mg PO TID 09/28/19 12/29/20 insulin glargine 100 unit/mL (3 28 unit subcut HS 09/28/19 12/29/20 mL) subcutaneous pen (Basaglar KwikPen U-100 Insulin) insulin lispro 100 unit/mL 16 unit subcut AC 09/28/19 12/29/20 subcutaneous solution (Admelog U-100 Insulin lispro) insulin lispro 100 unit/mL See Protocol subcut AC 09/28/19 12/29/20 subcutaneous solution (Admelog U-100 Insulin lispro) memantine 10 mg tablet 10 mg PO BID 09/28/19 12/29/20 atorvastatin 10 mg tablet 10 mg PO DAILY 11/11/20 12/29/20 glucagon HCl 1 mg solution for 1 mg subcut Q20M PRN Hypoglycemia 11/11/20 12/29/20 injection (Glucagon (HCl) Emergency Kit) potassium chloride 10 mEq 10 meq PO DAILY 11/11/20 12/29/20 tablet,extended release (Klor-Con) loperamide 2 mg tablet 2 mg PO Q6H PRN 12/29/20 12/29/20 Allergies Allergy/AdvReac Type Severity Reaction Status Date / Time Bleach (Sodium Hypochlorite) AdvReac Unknown Verified 08/13/22 15:06 perfume AdvReac Unknown Verified 08/13/22 15:06 Review of Systems Review of Systems: All systems reviewed & are unremarkable except as noted in HPI and below PMFSH Past Medical History Medical History (Updated 05/11/23 @ 00:00 by Background Daemon) CVA (cerebral vascular accident) With expressive aphasia Dementia Eczema Essential hypertension Hyperlipidemia Obesity, morbid, BMI 50 or higher Type 2 diabetes mellitus, with long-term current use of insulin UTI (urinary tract infection) Vitamin D deficiency Surgical History Surgical History No pertinent past surgical history Family History Family History Other Unknown family medical history Social History Social History Social History: Patient is a long-term resident at [facility]. Patient evidently used to smoke heavily and quit smoking in 2014. Patient is denied history of alcohol use but is a poor historian. Code status: Full code Primary care physician: Dr. Giovanny Franco Smoking status: Never smoker Tobacco type: cigarettes Second hand tobacco smoke exposure: Yes Alcohol intake: never Substance use: never Substance use type: does not use Living arrangements: skilled nursing Gender identity (if verbalized by the patient): Female Spiritual care concerns: No Agree to blood products: Yes Exam Narrative: GENERAL: Chronically ill-appearing, intermittently screaming out secondary to pain HEAD: Normocephalic, atraumatic. EYES: PERRLA and EOMI. ENT: Nares clear, no rhinorrhea or epistaxis. Mucous membranes moist. NECK: Supple. CHEST: No respiratory distress. HEART: Regular rate and rhythm. Normal peripheral pulses. ABDOMEN: Soft, nontender EXTREMITIES: Diffuse tenderness of right upper extremity especially over right shoulder, unwilling to try to move it secondary to pain, tenderness of left ankle and left hip SKIN: Warm
[2023-05-09] MEDS: ONDANSETRON INJ 4 MG/2 ML VIAL IV PUSH (17:36)
--- NOTE | 2023-05-09 19:05 | PC.NURSE ---
This RN assumed care of patient. This RN took patient report from ZENON Martini.
--- NOTE | 2023-05-09 20:21 | PC.NURSE ---
Lianet from [facility] called for an update. This RN provided an update about pt.
[2023-05-09] MEDS: ONDANSETRON HCL ODT 4 MG TABLET PO (22:17)
[2023-05-09] MEDS: HYDROcodone/acetaminophen (*CRX) 5-325 MG TABLET 1 TAB PO (22:18)
--- NOTE | 2023-05-10 01:26 | PC.NURSE ---
[facility] ARRIVED @ 0125.
[2023-05-10 01:38] VITALS: BP 143/75; PULSE 100; RESP 18; O2SAT 95
== END 2023-05-10 01:33 | disposition home or self-care (01) ==
PROVIDERS: Emergency Provider Emergency Medicine
DX: M25.552 Pain in left hip (principal); S42.202A Unspecified fracture of upper end of left humerus, initial encounter for closed fracture; M25.572 Pain in left ankle and joints of left foot; I69.920 Aphasia following unspecified cerebrovascular disease; F03.90 Unspecified dementia, unspecified severity, without behavioral disturbance, psychotic disturbance, mood disturbance, and anxiety; I10 Essential (primary) hypertension; E78.5 Hyperlipidemia, unspecified; E11.9 Type 2 diabetes mellitus without complications; Z79.4 Long term (current) use of insulin; W07.XXXA Fall from chair, initial encounter
CPT/HCPCS: 73030; 73070; 73502; 73560; 73600; 96374; 96375; 99284; A4565; A9270; J1170; J2405

== ENCOUNTER 2023-06-28 17:12 | Inpatient (IN) | payer OTHER, SELFPAY ==
[2023-06-28] VITALS (28 sets, daily range): BP systolic 59–124; BP diastolic 25–80; PULSE 79–99; RESP 15–26; TEMP 38.4–38.8; O2SAT 92–100
--- NOTE | ~2023-06-28 | XR_ITS ---
EXAMINATION: XR chest 1V INDICATION: Fever, altered mental status TECHNIQUE: Frontal view of the chest is obtained. COMPARISON: 08/13/2022 FINDINGS: There is a mild diffuse interstitial pattern. No pleural effusion or pneumothorax. Cardiome carmelina is noted. IMPRESSION: 1. Mild diffuse interstitial pattern which could reflect pulmonary edema versus pneumonia. 2. Cardiomegaly. Reviewed, dictated and finalized at location F.
--- NOTE | ~2023-06-28 | CT_ITS ---
EXAMINATION: CT brain wo con INDICATION: Altered mental status COMPARISON: 02/05/2020 TECHNIQUE: Standard unenhanced head CT. The dose-length product (DLP) was 1135.00 mGy-cm. The mA was adjusted according to patient size. Iterative reconstruction technique was employed. FINDINGS: No acute intraparenchymal hemorrhage. No evidence of mass lesion. No evidence of acute infa rction. There is an old left middle cerebral artery distribution infarct. There is mild periventricul ar and subcortical hypodensity probably related to small vessel ischemic disease. There is mild promi nence of the sulci and ventricles related to cerebral atrophy. Intracranial calcified cerebral athero sclerosis is noted. No extra-axial collections. No mass effect or midline shift. The orbits and soft tissues are unremarkable. There is mild mucosal thickening of the paranasal sinuses. IMPRESSION: 1. Old left middle cerebral artery distribution infarct without acute intracranial abnormality. 2. Age related findings. Reviewed, dictated and finalized at location F. IMPRESSION: 1. Old left middle cerebral artery distribution infarct without acute intracran ial abnormality. 2. Age related findings.
--- NOTE | ~2023-06-28 | CT_ITS ---
EXAMINATION: CT abdomen pelvis wo con DATE: 06/28/2023 19:58 INDICATION: Urinary tract infection, septic shock TECHNIQUE: Computed tomography (CT) of the abdomen and pelvis was performed without intravenous contr ast. The dose-length product (DLP) was 1468.99 mGy-cm. Automated exposure control and iterative recon struction technique were employed. COMPARISON: 10/14/2020 FINDINGS: Minimal dependent atelectasis is present in the lung bases. The heart size is normal. There are stones in the gallbladder. The liver, spleen, pancreas, and adrenal glands are normal. There is cortical thinning of the kidneys. Nonobstructing stones of the right kidney measure up to 9 mm. There is calcified atherosclerosis of the aorta and many of the other arteries. No pathologically enlarged abdominal or pelvic lymph nodes are identified. No free intraperitoneal gas or evidence of bowel obs truction. There is a right lower abdominal wall hernia containing a short segment of the ascending co roberto carlos. Anasarca is noted. There are calcified uterine fibroids. IMPRESSION: 1. No CT correlate for the patient's symptoms. 2. Nonobstructing right nephrolithiasis. 3. Right lower abdominal hernia containing part of the nonobstructed ascending colon. Reviewed, dictated and finalized at location F.
--- NOTE | 2023-06-28 17:14 | ECG_ITS ---
Measurements Intervals [place] Rate: 100 P: 19 ME: 144 QRS: -12 QRSD: 88 T: 5 QT: 366 QTc: 474 Interpretive Statements SINUS TACHYCARDIA VENTRICULAR PREMATURE COMPLEX DELAYED PRECORDIAL R/S TRANSITION NONSPECIFIC ST & T-WAVE ABNORMALITY- INF/HIGH LAT LEADS BORDERLINE ECG COMPARED TO ECG 02/04/2020 23:42:40 SINUS TACHYCARDIA NOW PRESENT Electronically Signed On 06-29-2023 6:14:46 CDT by Anjel Parham D.O.
--- NOTE | 2023-06-28 17:21 | ED.AMS ---
HPI - Altered Mental Status General Chief Complaint: Altered Mental Status <CARL Haque Last Filed: 06/29/23 02:49> Stated Complaint: AMS <CARL Haque Last Filed: 06/29/23 02:49> Time Seen by Provider: 06/28/23 17:15 <CARL Haque Last Filed: 06/29/23 02:49> Source: patient and old records reviewed <CARL Haque Last Filed: 06/29/23 02:49> Mode of arrival: EMS <CARL Haque Last Filed: 06/29/23 02:49> Limitations: altered mental status and clinical condition <CARL Haque Last Filed: 06/29/23 02:49> History of Present Illness HPI narrative: Patient is a 63 y/o female, with PMH of CVA with expressive aphasia/chronic Rsided hemiplegia, who presents to the ED via EMS with report of AMS. Patient is a resident of [facility]. Per group home report, patient has history of CVA and has a limited vocabulary at baseline. Today, patient became increasingly altered, had a fever, and began yelling out repetitive words. Staff reported this is abnormal for her. She was then sent here for further evaluation. Patient unable to provide any useful information. Unable to tell me if she has any pain. Per group home report, patient was given medications for constipation today and had an appropriate bowel movement afterwards. <CARL Haque Last Filed: 06/29/23 02:49> Related Data Home Medications: Home Medications Medication Instructions Recorded Confirmed aspirin 81 mg tablet,delayed 81 mg PO DAILY 09/28/19 06/28/23 release (Enteric Coated Aspirin) gabapentin 300 mg capsule 300 mg PO TID 09/28/19 06/28/23 insulin glargine 100 unit/mL (3 33 unit subcut HS 09/28/19 06/29/23 mL) subcutaneous pen (Basaglar KwikPen U-100 Insulin) memantine 10 mg tablet 10 mg PO BID 09/28/19 06/28/23 atorvastatin 10 mg tablet 20 mg PO DAILY 11/11/20 06/28/23 glucagon HCl 1 mg solution for 1 mg subcut Q20M PRN Hypoglycemia 11/11/20 06/29/23 injection (Glucagon (HCl) Emergency Kit) potassium chloride 10 mEq 20 meq PO DAILY 11/11/20 06/28/23 tablet,extended release (Klor-Con) diphenhydramine HCl 25 mg tablet 25 mg PO Q6H PRN Itching 06/28/23 06/28/23 (Allergy (diphenhydramine)) famotidine 20 mg tablet 20 mg PO BID 06/28/23 06/28/23 glucagon 1 mg/0.2 mL subcutaneous 1 mg subcut ONCE PRN Hypoglycemia 06/28/23 06/28/23 syringe (Belly PFS 1-Pack) loratadine 10 mg tablet 10 mg PO DAILY 06/28/23 06/28/23 metolazone 2.5 mg tablet 2.5 mg PO DAILY 06/28/23 06/28/23 sennosides 8.6 mg-docusate sodium 1 tablet PO BID PRN Constipation 06/28/23 06/28/23 50 mg tablet (Senexon-S) silver sulfadiazine 1 % topical 1 applic topical DAILY 06/28/23 06/29/23 cream (SSD) tramadol 50 mg tablet 50 mg PO Q6H PRN Pain 06/28/23 06/28/23 furosemide 20 mg tablet 80 mg PO BID 06/29/23 06/28/23 insulin glargine 100 unit/mL (3 12 unit subcut DAILY 06/29/23 06/29/23 mL) subcutaneous pen (Basaglar KwikPen U-100 Insulin) <Анна Lopez PA-C - Last Filed: 06/29/23 02:49> Allergies/Adverse Reactions: Allergies Allergy/AdvReac Type Severity Reaction Status Date / Time Bleach (Sodium Hypochlorite) AdvReac Unknown Verified 08/13/22 15:06 perfume AdvReac Unknown Verified 08/13/22 15:06 <Анна Lopez PA-C - Last Filed: 06/29/23 02:49> Review of Systems Review of Systems: ROS unobtainable: Yes unobtainable due to mental status <Анна Lopez PA-C - Last Filed: 06/29/23 02:49> [facility] Past Medical History Medical History: Medical History CVA (cerebral vascular accident) (~2014) With expressive aphasia Dementia Eczema Essential hypertension Hyperlipidemia Obesity, morbid, BMI 50 or higher Obstructive sleep apnea Noncompliant with CPAP therapy Right heart failure due to pulmonary hyperten
[2023-06-28 17:54] LABS: Hematocrit 33.7 % (37.0-47.0); Immature Platelet Fraction Pct 5.8 % (0.9-11.2); Mean Corpuscular HGB Conc 29.7 g/dl (32-36); Mean Corpuscular Hemoglobin 28.7 pg (26-34); Mean Corpuscular Volume 96.6 fl (80-100); Platelet Count Result 200 k/mm3 (150-375); Red Blood Count 3.49 M/mm3 (4.2-5.4); Red Cell Distribution Width 16.8 % (11.5-14.5); White Blood Count 21.9 K/mm3 (4.5-10.0)
[2023-06-28 17:55] LABS: Glucose Point of Care 181 mg/dl (65-105)
--- NOTE | 2023-06-28 18:02 | PC.NURSE ---
attempted to call phlebotomy x3 at this time to get cultures and lactic. no one answered
[2023-06-28 18:10] LABS: Alanine Aminotransferase 20 U/L (6-35); Albumin Level 3.6 g/dL (3.5-5.1); Alkaline Phosphatase 136 U/L (38-126); Anion Gap 7 mmol/L (8-16); Aspartate Amino Transferase 28 U/L (14-36); Bilirubin,Total 0.9 mg/dL (0.2-1.3); Blood Urea Nitrogen 68 mg/dL (7-17); Calcium 8.6 mg/dL (8.4-10.2); Carbon Dioxide 29 mmol/L (22-30); Chloride 101 mmol/L (98-107); Estimated CRCL calculation 35 ml/min; Estimated Glomerular Filt Rate 24; Glucose 185 mg/dL (65-110); Potassium 4.4 mmol/L (3.4-5.0); Sodium 137 mmol/L (137-145)
[2023-06-28] MEDS: ACETAMINOPHEN 325 MG TABLET 650 MG PO (18:23)
[2023-06-28 18:32] LABS: Hypochromasia 1+ (NORMAL); Platelet Estimate Adequate (Adequate)
[2023-06-28 18:33] LABS: Ovalocytes 1+ (NORMAL); Schistocytes None Seen (NORMAL); Stomatocytes 1+ (NORMAL)
[2023-06-28] MEDS: LORazepam INJ (*CRX) 2 MG/ML VIAL 1 MG IV PUSH (18:42)
[2023-06-28] MEDS: SODIUM CHLORIDE 0.9% IV 1,000 ML 999 ML IV CONT (18:42)
[2023-06-28 18:46] LABS: Appearance Urine Turbid (Clear); Bacteria Urine 4+ /hpf; Bilirubin Urine Negative (Negative); Blood Urine 2+ (Negative); Color Urine Yellow (Yellow); Glucose Urine UA Negative (Negative); Ketones Urine Negative (Negative); Leukocyte Esterase Ur 3+ LEU/UL (Negative); Need Manual Microscopic Reviewed; Nitrate Urine Negative (Negative); Non Pathogenic Casts >20; Protein Urine 3+ mg/dL (Negative); RBC Urine 0-2 /hpf (0-2); Specific Grav Ur 1.014 (1.001-1.035); Squamous Epithelial Cell Urine Occasional /hpf (Few); WBC Urine >100 /hpf; pH Urine 6.5 (5.0-9.0)
[2023-06-28 18:48] LABS: Add Urine Microscopic? YES
[2023-06-28 19:00] LABS: CRP 6.1 mg/dL (<1.0)
[2023-06-28 19:17] LABS: NT Pro B Type Natriuretic Pept 17800 pg/mL (19.9-100)
[2023-06-28 19:20] LABS: Influenza A QL RT-PCR Negative (Negative); Influenza B QL RT-PCR Negative (Negative); SARS-CoV-2 RNA PCR Negative (Negative)
[2023-06-28 19:46] LABS: Lactic Acid Reflex 1.4 mmol/L (0.7-2.0)
[2023-06-28 19:46] LABS: Magnesium 1.7 mg/dL (1.6-2.3)
[2023-06-28 19:47] LABS: INR 1.2; Prothrombin Time 15.3 Seconds (11.1-14.7)
[2023-06-28 19:48] LABS: Partial Thromboplastin Time 31.4 SECONDS (22.3-36.8)
[2023-06-28] MEDS: NOREPINEPHRINE 8 MG/D5W 250 ML 8 MG/250 ML BAG 9.38 MG IV CONT (19:50)
[2023-06-28] MEDS: CEFEPIME 2 GM/NS 50 ML 2 GM/50 ML BAG IVPB (20:11)
--- NOTE | 2023-06-28 20:49 | PM.IMHP ---
H&P: HPI History of Present Illness Date/Time: 06/28/23 20:49 Chief Complaint: Fever Narrative: 63-year-old female with a past medical history of multiple CVAs, chronic kidney disease stage 3, insulin-dependent diabetes mellitus, essential hypertension, and dementia who presented [facility] due to fever and change in mentation. The patient usually can mumble a word or 2. Most of what she wants is communicated with her sister and nursing staff that knows her. But the patient historically cannot carry on a conversation. Thus most of they HPI comes from the sister's report who was at bedside. The patient's aunt is also at bedside. [facility] nursing rehab since the patient in due to her developing a fever. The patient is chronically incontinent of urine and bowel. She is bed bound in only he is transferred for via Jagdish lift at the alf. Today she began yelling and screaming more than usual. They thought the patient may be constipated she did not have bowel movement a couple days and received medications and had a bowel movement prior to EMS arrival. On arrival to the hospital patient was febrile temperature 101.8?. She was agitated and yelling out. She was repetitively trying to grab at staff and hold her hands. She was difficult to redirect. Her sister says that she is more agitated than usual but her ability to communicate isn't much changed from baseline. Her sister sees her on a daily basis. In the ER UA was obtained which demonstrated evidence of UTI. CT of the abdomen pelvis did not demonstrate any evidence of obstructing stone or other acute process. White count was elevated 21,000. Patient was tachycardic and the respiratory rate of 30. Patient was persistently hypotensive with blood pressures as low as 59/25 in the ER. The ER provider discussed central line placement with the family. They were not interested in aggressive interventions. They want the patient to be a DNR DNI but were okay with peripheral pressors and antibiotics. They are okay with IV fluids but understood that if these measures did not work that patient may . They agreed the patient's code status should be changed to DNR DNI and wanted to proceed with more conservative treatment options. I did discuss patient's care and options at bedside and family was still adamant that they wanted the patient to be treated only with peripheral pressors despite risk of complications of infiltration if you were to occur. Patient was on Levophed of 7 mcg per min in the ER patient's blood pressures were variable in the ER in would fluctuate widely between overtly hypotensive and hypertensive. Patient is chronically incontinent of urine a Lopez catheter was placed in the ER. On initial presentation patient was not having oxygen requirement. After only 1 L fluid bolus patient was requiring 2 L nasal cannula. Review of Systems Review of Systems: 12 systems were reviewed with pertinent positives and negatives per HPI. Except as documented in the HPI, all other systems were reviewed and are negative. [facility] Past Medical History Medical History (Updated 06/29/23 @ 02:01 by Deyanira Arguello DO) CVA (cerebral vascular accident) (~2014) With expressive aphasia Dementia Eczema Essential hypertension Hyperlipidemia Obesity, morbid, BMI 50 or higher Obstructive sleep apnea Noncompliant with CPAP therapy Right heart failure due to pulmonary hypertension Echocardiogram September 2019 demonstrated EF of 55-60% with severe pulmonary hypertension Severe pulmonary hypertension Type 2 diabetes mellitus, with long-term current use of insulin Umbilical hernia without obstruction and without gangrene UTI (urinary tract infection) Vitamin D deficiency Surgical History Surgical History (Updated 06/29/23 @ 01:49 by Deyanira Arguello DO) History of tonsillectomy Family History Family History (Reviewed 06/29/23 @ 01:52 by Deyanira Rock
[2023-06-28] MEDS: VANCOMYCIN 1,250 MG/NS 250 ML 1,250 MG/250 ML BAG 166.67 MG IVPB ×2 (20:57→23:18)
--- NOTE | 2023-06-28 21:24 | PC.NURSE ---
Per verbal order read back from Dr. Arguello keep Levophed running at 7mcg/min. Unable to obtain accurate blood pressure readings due to pt's current condition and pt agitation.
[2023-06-28] MEDS: SODIUM CHLORIDE 0.9% IV 1,000 ML 100 ML IV CONT (23:16)
[2023-06-28 23:24] LABS: Glucose Point of Care 178 mg/dl (65-105)
--- NOTE | 2023-06-28 23:46 | ADMGEN ---
22:30: This patient, Dalila Rose, was admitted to Intensive Care Unit-1. Patient/family oriented to hospital policies and general routines including ID bracelet, bed and alarms, visiting hours, pain management, procedures, bathroom and other care routines, personal items, smoking policy, room service/diet, and visiting hours. Information on how to activate the Rapid Response Team has been discussed. Patient/Family are encouraged to report perceived risks to care and to ask questions if they do not understand what they are told or what they should do.
[2023-06-29] VITALS (23 sets, daily range): BP systolic 95–136; BP diastolic 32–73; PULSE 67–82; RESP 15–30; TEMP 37.7–38.1; O2SAT 90–100; BMI 49.1
[2023-06-29 03:45] LABS: Hematocrit 33.7 % (37.0-47.0); Hemoglobin 9.8 g/dL (12.0-15.0); Mean Corpuscular HGB Conc 29.1 g/dl (32-36); Mean Corpuscular Hemoglobin 29.3 pg (26-34); Mean Corpuscular Volume 100.6 fl (80-100); Mean Platelet Volume 10.3 fl (7.4-10.4); Platelet Count Result 244 k/mm3 (150-375); Red Blood Count 3.35 M/mm3 (4.2-5.4); White Blood Count 23.6 K/mm3 (4.5-10.0)
[2023-06-29 03:57] LABS: Alanine Aminotransferase 18 U/L (6-35); Albumin Level 3.4 g/dL (3.5-5.1); Alkaline Phosphatase 124 U/L (38-126); Anion Gap 10 mmol/L (8-16); Aspartate Amino Transferase 25 U/L (14-36); Bilirubin,Total 1.1 mg/dL (0.2-1.3); Blood Urea Nitrogen 67 mg/dL (7-17); Calcium 8.4 mg/dL (8.4-10.2); Carbon Dioxide 26 mmol/L (22-30); Chloride 103 mmol/L (98-107); Estimated CRCL calculation 32 ml/min; Estimated Glomerular Filt Rate 21; Glucose 190 mg/dL (65-110); Potassium 4.3 mmol/L (3.4-5.0); Sodium 139 mmol/L (137-145)
--- NOTE | 2023-06-29 06:06 | PC.NURSE ---
MD Arguello notified that levophed remains at 9 mcg/min
--- NOTE | 2023-06-29 09:30 | WPDCNINT ---
Assessment and Plan Assessment and plan (1) Septic shock: Code(s): A41.9 - Sepsis, unspecified organism; R65.21 - Severe sepsis with septic shock Status: Acute Assessment and Plan: Patient presented with septic shock secondary to urinary tract infection Urine and blood cultures have been sent Continue empiric broad spectrum antibiotics for now vanco and cefepime Patient only received limited amount of IV fluids due to concerns of congestive heart failure and the fact the patient is DNR Continue Levophed titration to maintain arterial pressure I will give 500 cc of 5% albumin bolus Add hydrocortisone if pressor requirements remain high (2) UTI (urinary tract infection): Qualifiers: Hematuria presence: without hematuria Urinary tract infection type: acute cystitis Qualified Code(s): N30.00 - Acute cystitis without hematuria Code(s): N39.0 - Urinary tract infection, site not specified Status: Acute Assessment and Plan: See above (3) Kidney stone on right side: Code(s): N20.0 - Calculus of kidney Status: Acute Assessment and Plan: Nonobstructive kidney stone on the right. No intervention at this time (4) Acute on chronic renal failure: Code(s): N17.9 - Acute kidney failure, unspecified; N18.9 - Chronic kidney disease, unspecified Status: Acute Assessment and Plan: Last recorded creatinine was 1.6 in August of 2022. Patient presented with creatinine of 2.1 which is at 2.3 this morning Likely multifactorial failure secondary to sepsis hypotension and shock Conservative IV fluids due to congestive heart failure. Maintain mean arterial pressure with Levophed Hold diuretics Monitor urine output electrolytes and creatinine (5) Congestive heart failure: Code(s): I50.9 - Heart failure, unspecified Status: Acute Assessment and Plan: Patient has elevated BNP and chest x-ray suggestive of congestive heart failure. Bases of the lung on CT abdomen do not show significant pulmonary edema but patient does have anasarca and lower extremity edema. I will give albumin bolus to see if I can wean down Levophed. Will have to be conservative with IV fluids considering patient is DNI (6) Type 2 diabetes mellitus, with long-term current use of insulin: Qualifiers: Diabetes mellitus complication status: with hyperglycemia Qualified Code(s): E11.65 - Type 2 diabetes mellitus with hyperglycemia; Z79.4 - MCC (current) use of insulin Code(s): E11.9 - Type 2 diabetes mellitus without complications; Z79.4 - intermediate designer (current) use of insulin Status: Acute Assessment and Plan: Continue Lantus and sliding scale insulin Plan DVT prophylaxis -start Lovenox Stress ulcer prophylaxis -patient is on PPI Nutrition -consult speech for swallow evaluation Code Status -patient is DNR DNI and family does not want any invasive procedures. I confirmed this with patient's aunt at bedside. They want to try conservative approach with fluids medications and antibiotics to see patient improved and keep her comfortable. I explained them the patient is currently in septic shock and has kidney failure and possibly heart failure and current plan. I answered their questions Total Critical Care Time - 40 minutes Due to a high probability of clinically significant, life threatening deterioration, the patient required my highest level of preparedness to intervene emergently and I personally spent this critical care time directly and personally managing the patient. This critical care time included obtaining a history; examining the patient; pulse oximetry; ordering and review of studies; arranging urgent treatment with development of a management plan; evaluation of patient's response to treatment; frequent reassessment; and discussions with other providers. It was exclusive of separately billable procedures and treating other patients and teachi
[2023-06-29] MEDS: CEFEPIME 1 GM/NS 50 ML 1 GM/50 ML BAG IVPB (09:34)
[2023-06-29] MEDS: PANTOPRAZOLE SODIUM IV 40 MG VIAL IV PUSH (09:34)
[2023-06-29] MEDS: MIDODRINE HCL 10 MG TABLET PO ×3 (09:35→17:08)
[2023-06-29] MEDS: INSULIN GLARGINE (*BKC) 100 UNITS/ML 12 UNITS SUB-Q (09:35)
[2023-06-29] MEDS: ALBUMIN HUMAN 5% 25 GM/500 ML BTL IV CONT (09:35)
[2023-06-29] MEDS: SODIUM CHLORIDE 0.9% IV 1,000 ML 100 ML IV CONT (10:06)
[2023-06-29 10:26] LABS: Glucose Point of Care 245 mg/dl (65-105)
[2023-06-29 12:47] LABS: Glucose Point of Care 198 mg/dl (65-105)
--- NOTE | 2023-06-29 12:50 | PCSTNOTE ---
Bedside swallowing evaluation completed. Patient positioned upright in bed with head of bed elevated. Cursory oral peripheral examination completed and results are within functional limits. Trials of thin liquid by spoon, cup, and straw, moderately thick liquids by cup and pureed consistency by spoon were all within functional limits. No signs of aspiration. Based on the results of this evaluation recommendation is for regular diet with thin liquids. No further speech therapy is recommended. Please note that silent aspiration cannot be ruled out at bedside and can be evaluated with a modified barium swallow study. Thank you for the referral of this patient.
[2023-06-29] MEDS: CEFEPIME 2 GM/NS 50 ML 2 GM/50 ML BAG IVPB (15:25)
--- NOTE | 2023-06-29 15:48 | PM.IMPN ---
Progress Note: A&P Assessment and Plan (1) Septic shock: Code(s): A41.9 - Sepsis, unspecified organism; R65.21 - Severe sepsis with septic shock Status: Acute Assessment and Plan: Patient presents with altered mental status and found to have septic shock. Blood pressure was 59/25 in the emergency room. CXR showing mild diffuse interstitial pattern. Central line was placed and patient was started on Levophed after limited fluid resuscitation (due to concern for CHF). CT A/P showing nonobstructing right nephrolithiasis and right lower abd hernia with nonobstructing ascending colon. UA consistent with UTI. Etiology of sepsis felt related to UTI. WBC 22K and higher today. BCx 06/28 NGTD UCx 06/28 pending MRSA screen 06/28 pending. Patient started on empiric broad spectrum antibiotics with Vancomycin and cefepime Levophed weaned off today. Albumin ordered. Appreciate public transportation inspector input. (2) UTI (urinary tract infection): Qualifiers: Hematuria presence: without hematuria Urinary tract infection type: acute cystitis Qualified Code(s): N30.00 - Acute cystitis without hematuria Code(s): N39.0 - Urinary tract infection, site not specified Status: Acute Assessment and Plan: UA consistent with UTI. Prior UCx grew Klebsiella that was turner sensitive. As above. Follow up on UCx. (3) Acute on chronic renal failure: Code(s): N17.9 - Acute kidney failure, unspecified; N18.9 - Chronic kidney disease, unspecified Status: Acute Assessment and Plan: Last recorded creatinine was 1.6 in August of 2022. Patient presented with creatinine of 2.1. MADAY likely multifactorial secondary to dehydration, sepsis, UTI and shock. Conservative IV fluids due to congestive heart failure. Maintain MAP for renal perfusion Hold diuretics. Repeat Cr 2.3 today. Monitor urine output, electrolytes and renal function (4) Congestive heart failure: Code(s): I50.9 - Heart failure, unspecified Status: Acute Assessment and Plan: Patient has elevated BNP to 17.8K. CXR as above. Concerning for CHF exacerbation so she was not aggressively hydrated. Suspect she is still intravascular depleted related to above. Levophed weaned off. Albumin bolus given. Diet started. Allow patient to rehydrate orally. Lasix held. Check Echo (5) Type 2 diabetes mellitus, with long-term current use of insulin: Qualifiers: Diabetes mellitus complication status: with hyperglycemia Qualified Code(s): E11.65 - Type 2 diabetes mellitus with hyperglycemia; Z79.4 - bed bug exterminator (current) use of insulin Code(s): E11.9 - Type 2 diabetes mellitus without complications; Z79.4 - bed bug exterminator (current) use of insulin Status: Acute Assessment and Plan: The patient's blood glucose was reviewed on 06/29 Glucose remains elevated at times Continue AccuCheks covering with sliding scale. Hypoglycemia protocol available as needed. Continue to monitor (6) Kidney stone on right side: Code(s): N20.0 - Calculus of kidney Status: Acute Assessment and Plan: Nonobstructive kidney stones of the right kidney noted by CT scan. No intervention needed at this time Plan DVT prophylaxis - Lovenox Stress ulcer prophylaxis - PPI Nutrition - no swallowing concerns per Speech. Diabetic diet Code Status - DNR DNI Subjective Date/time seen: 06/29/23 15:48 Interval history: 63-year-old female with a past medical history of multiple CVAs, chronic kidney disease stage 3, insulin-dependent diabetes mellitus, essential hypertension, and dementia who presented [facility] the [facility] due to fever and change in mentation.?? Assuming care. Chart reviewed. Levophed has been weaned off earlier today. 5% albumin is being given. Patient denies any chest pain or abdominal pain. She does not wear oxygen at the custodial. Patient denies shortness of mary
[2023-06-29 17:15] LABS: Glucose Point of Care 178 mg/dl (65-105)
[2023-06-29] MEDS: MEMANTINE 10 MG TABLET PO (19:55)
[2023-06-29] MEDS: SENNA/DOCUSATE SODIUM TABLET 1 TAB PO (19:55)
[2023-06-29 20:02] LABS: Glucose Point of Care 167 mg/dl (65-105)
[2023-06-30] VITALS (12 sets, daily range): BP systolic 95–151; BP diastolic 43–86; PULSE 61–83; RESP 12–28; TEMP 36.2–37.7; O2SAT 91–100
--- NOTE | 2023-06-30 | ECHO_ITS ---
Patient Info Name: Dalila Rose Age: 63 years : 1960 Gender: Female Ht: 64 in Wt: 286 lbs BSA: 2.50 m2 HR: 68 bpm BP: 115 / 59 mmHg Heart Rhythm: Sinus Rhythm Technical Quality: Poor Exam Date: 06/30/2023 10:24 AM Exam Location: [facility] Room: ICU1 Patient Status: Inpatient Admit Date: 06/28/2023 Staff Ordering Physician: Facundo Olivas MD Underground Electrician: Gretel Wells RDCS Attending Provider: Deyanira Arguello DO Exam Type: CA echo dop color flow w con Study Info Indications - CHF Complete two-dimensional, color flow and Doppler transthoracic echocardiogram is performed with contrast to opacify the left ventricle and to improve the deliniation of the left ventricle endocardial borders. Contrast/Agitated Saline Contrast/Ag. Saline: Definity Amount: 2.00 ml Administered By: Gretel Wells [facility] Existing IV Access: Yes IV Access Condition: patent with no signs of infiltration Reason for Poor Study: patient body habitus Summary 1. Technically challenging echocardiogram because of obesity, definity contrast utilized. 2. Normal left ventricular size and systolic function with concentric LVH. 3. Grade 2 diastolic noncompliance. 4. Mild mitral regurgitation. 5. Tricuspid regurgitant velocity suggests that PA pressures are severely elevated. Left Ventricle Left ventricular chamber dimension is normal. Left ventricular systolic function is normal, estimated at 60-65%. There is mild concentric increased left ventricular wall thickness. The left ventricular diastolic function is grade II diastolic dysfunction. Right Ventricle Right ventricular chamber dimension is not well visualized. Left Atria Left atrial chamber dimension is mildly enlarged. Right Atria Right atrial chamber dimension is not well visualized. Aortic Valve The aortic valve is trileaflet. There is mild aortic valve sclerosis. Pulmonic Valve The pulmonic valve is not well visualized. Mitral Valve The mitral valve has normal leaflets. There is mild mitral valve regurgitation. The mitral valve annulus is mildly calcified. Tricuspid Valve The tricuspid valve leaflets are not well visualized. There is mild tricuspid valve regurgitation. Severe pulmonary hypertension, estimated pulmonary arterial systolic pressure is 77 mmHg. Pericardium/Pleural The pericardium appears normal. Aorta The aortic root size at the sinus of Valsalva is normal. Left Ventricular Outflow Tract Name Value Normal LVOT 2D LVOT Diameter 2.09 cm LVOT Doppler LVOT Peak Gradient 5 mmHg LVOT Mean Gradient 3 mmHg LVOT VTI 27.15 cm LVOT VTI/AV VTI Ratio 0.89 LVOT Stroke Volume 93.01 ml LVOT CO 18.22 l/min LVOT CI 7.29 L/min/m2 Pulmonic Valve Name Value Normal PV Doppler
[2023-06-30 03:45] LABS: Hematocrit 28.6 % (37.0-47.0); Hemoglobin 8.7 g/dL (12.0-15.0); Mean Corpuscular HGB Conc 30.4 g/dl (32-36); Mean Corpuscular Hemoglobin 29.2 pg (26-34); Mean Platelet Volume 10.5 fl (7.4-10.4); Platelet Count Result 179 k/mm3 (150-375); Red Blood Count 2.98 M/mm3 (4.2-5.4); Red Cell Distribution Width 16.8 % (11.5-14.5); White Blood Count 11.1 K/mm3 (4.5-10.0)
[2023-06-30 04:01] LABS: Alanine Aminotransferase 14 U/L (6-35); Albumin Level 3.2 g/dL (3.5-5.1); Alkaline Phosphatase 99 U/L (38-126); Anion Gap 5 mmol/L (8-16); Aspartate Amino Transferase 18 U/L (14-36); Bilirubin,Total 0.8 mg/dL (0.2-1.3); Blood Urea Nitrogen 67 mg/dL (7-17); Calcium 8.2 mg/dL (8.4-10.2); Carbon Dioxide 29 mmol/L (22-30); Chloride 105 mmol/L (98-107); Estimated CRCL calculation 39 ml/min; Estimated Glomerular Filt Rate 29; Glucose 135 mg/dL (65-110); Magnesium 1.9 mg/dL (1.6-2.3); Phosphorus 4.2 mg/dL (2.5-4.5); Potassium 3.9 mmol/L (3.4-5.0); Sodium 139 mmol/L (137-145)
[2023-06-30] MEDS: CEFEPIME 2 GM/NS 50 ML 2 GM/50 ML BAG IVPB ×2 (04:29→15:10)
--- NOTE | 2023-06-30 07:51 | PM.IMPN ---
Progress Note: A&P Assessment and Plan (1) Septic shock: Code(s): A41.9 - Sepsis, unspecified organism; R65.21 - Severe sepsis with septic shock Status: Acute Assessment and Plan: Patient presents with altered mental status and found to have septic shock. Blood pressure was 59/25 in the emergency room. CXR showing mild diffuse interstitial pattern. Patient was started on Levophed after limited fluid resuscitation (due to concern for CHF). CT A/P showing nonobstructing right nephrolithiasis and right lower abd hernia with nonobstructing ascending colon. UA consistent with UTI. Etiology of sepsis felt related to UTI. WBC 22K and febrile. LA normal. BCx 06/28 NGTD UCx 06/28 pending MRSA screen 06/28 pending. Patient started on empiric broad spectrum antibiotics with Vancomycin and cefepime Levophed weaned off 06/29. Albumin given x 1 WBC 11K. Fevers waning. Appreciate percussion tuner input. (2) UTI (urinary tract infection): Qualifiers: Hematuria presence: without hematuria Urinary tract infection type: acute cystitis Qualified Code(s): N30.00 - Acute cystitis without hematuria Code(s): N39.0 - Urinary tract infection, site not specified Status: Acute Assessment and Plan: UA consistent with UTI. Prior UCx grew Klebsiella that was turner sensitive. As above. Follow up on UCx. (3) Acute on chronic renal failure: Code(s): N17.9 - Acute kidney failure, unspecified; N18.9 - Chronic kidney disease, unspecified Status: Acute Assessment and Plan: Last recorded creatinine was 1.6 in August of 2022. Patient presented with creatinine of 2.1. MADAY likely multifactorial secondary to dehydration, sepsis, UTI and shock. Conservative IV fluids due to congestive heart failure. Maintain MAP for renal perfusion Hold diuretics. Repeat Cr 1.8 Monitor urine output, electrolytes and renal function (4) Congestive heart failure: Code(s): I50.9 - Heart failure, unspecified Status: Acute Assessment and Plan: Patient has elevated BNP to 17.8K. CXR as above. Concerning for CHF exacerbation so she was not aggressively hydrated. Suspect she is still intravascular depleted related to above. Levophed weaned off. Albumin bolus given. Diet started. Allow patient to rehydrate orally. Lasix held. Echo ordered (5) Type 2 diabetes mellitus, with long-term current use of insulin: Qualifiers: Diabetes mellitus complication status: with hyperglycemia Qualified Code(s): E11.65 - Type 2 diabetes mellitus with hyperglycemia; Z79.4 - shelter (current) use of insulin Code(s): E11.9 - Type 2 diabetes mellitus without complications; Z79.4 - terminal gauger (current) use of insulin Status: Acute Assessment and Plan: The patient's blood glucose was reviewed on 06/30 Glucose better controlled Continue AccuCheks covering with sliding scale. Hypoglycemia protocol available as needed. Continue to monitor (6) Kidney stone on right side: Code(s): N20.0 - Calculus of kidney Status: Acute Assessment and Plan: Nonobstructive kidney stones of the right kidney noted by CT scan. No intervention needed at this time Plan Bed sore - present on admission. Not visualized today. Pictures taken on admission reviewed. Wound care consulted. Continue current wound care. DVT prophylaxis - Lovenox Stress ulcer prophylaxis - PPI Nutrition - no swallowing concerns per Speech. Diabetic diet Code Status - DNR DNI Subjective Date/time seen: 06/30/23 07:51 Interval history: 63-year-old female with a past medical history of multiple CVAs, chronic kidney disease stage 3, insulin-dependent diabetes mellitus, essential hypertension, and dementia who presented to the ER from [facility] due to fever and change in mentation.?? Patient slept well. No CP or abd pain. No SOB or cough. Patient did have a right buttock bed
[2023-06-30 08:17] LABS: Glucose Point of Care 172 mg/dl (65-105)
--- NOTE | 2023-06-30 09:03 | WPDINTPN ---
Progress Note: A&P Assessment and Plan (1) Septic shock: Code(s): A41.9 - Sepsis, unspecified organism; R65.21 - Severe sepsis with septic shock Status: Acute Assessment and Plan: Patient presented with septic shock secondary to urinary tract infection Urine and blood cultures have been sent Continue empiric broad spectrum antibiotics for now vanco and cefepime Patient only received limited amount of IV fluids due to concerns of congestive heart failure and the fact the patient is DNR/DNI to minimize risk of pulmonary edema. Patient was also given a 5% albumin bolus Levophed has been weaned Monitor (2) UTI (urinary tract infection): Qualifiers: Hematuria presence: without hematuria Urinary tract infection type: acute cystitis Qualified Code(s): N30.00 - Acute cystitis without hematuria Code(s): N39.0 - Urinary tract infection, site not specified Status: Acute Assessment and Plan: See above (3) Kidney stone on right side: Code(s): N20.0 - Calculus of kidney Status: Acute Assessment and Plan: Nonobstructive kidney stone on the right. No intervention at this time (4) Acute on chronic renal failure: Code(s): N17.9 - Acute kidney failure, unspecified; N18.9 - Chronic kidney disease, unspecified Status: Acute Assessment and Plan: Last recorded creatinine was 1.6 in August of 2022. Patient presented with creatinine of 2.1 which is at 2.3 this morning Likely multifactorial failure secondary to sepsis hypotension and shock Conservative IV fluids given due to congestive heart failure. Maintain mean arterial pressure with Levophed Creatinine has improved and is close to baseline at 1.8 today Monitor urine output electrolytes and creatinine (5) Congestive heart failure: Code(s): I50.9 - Heart failure, unspecified Status: Acute Assessment and Plan: Patient has elevated BNP and chest x-ray suggestive of congestive heart failure. Bases of the lung on CT abdomen do not show significant pulmonary edema but patient does have anasarca and lower extremity edema. Patient was given albumin bolus and conservative IV fluids considering patient is DNI (6) Type 2 diabetes mellitus, with long-term current use of insulin: Qualifiers: Diabetes mellitus complication status: with hyperglycemia Qualified Code(s): E11.65 - Type 2 diabetes mellitus with hyperglycemia; Z79.4 - buttermaker (current) use of insulin Code(s): E11.9 - Type 2 diabetes mellitus without complications; Z79.4 - FDC (current) use of insulin Status: Acute Assessment and Plan: Continue Lantus and sliding scale insulin Plan DVT prophylaxis -start Lovenox Stress ulcer prophylaxis -patient is on PPI Nutrition -tolerating p.o. diet Code Status -patient is DNR DNI and family does not want any invasive procedures. I I spoke to her sister at bedside and requested her to update the patient's POLST form to be consistent with patient's goals of care PT OT consult Transfer out of ICU today Subjective Date/time seen: 06/30/23 Overnight events reviewed. Afebrile Off vasopressor Much more awake this morning and able to hold conversation. Denies any complaints. Denies any abdominal pain today. Patient denies fever, chest pain, shortness of breath, cough, nausea vomiting, , diarrhea, headache or constipation. All other systems were reviewed and were negative although her review of system is not very reliable. Tolerating p.o. diet Other vitals acceptable Interval history: 63-year-old female with a past medical history of multiple CVAs, chronic kidney disease stage 3, insulin-dependent diabetes mellitus, essential hypertension, and dementia who presented to the ER from [facility] due to fever and change in mentation and was found to be having UTI and sepsis Review of Systems Review of Systems: All systems reviewed & are unremark
[2023-06-30] MEDS: ASPIRIN 81 MG ENTERIC TABLET PO (09:27)
[2023-06-30] MEDS: ATORVASTATIN 20 MG TABLET PO (09:27)
[2023-06-30] MEDS: ENOXAPARIN 40 MG/0.4 ML SYRINGE SUB-Q (09:27)
[2023-06-30] MEDS: INSULIN GLARGINE (*BKC) 100 UNITS/ML 12 UNITS SUB-Q (09:28)
[2023-06-30] MEDS: PANTOPRAZOLE SODIUM IV 40 MG VIAL IV PUSH (09:29)
[2023-06-30] MEDS: MIDODRINE HCL 10 MG TABLET PO ×3 (09:29→17:34)
[2023-06-30] MEDS: polyethylene glycoL 3350 17 GM POWD.PACK PO (09:29)
[2023-06-30] MEDS: MEMANTINE 10 MG TABLET PO ×2 (09:29→21:15)
--- NOTE | 2023-06-30 10:50 | PCFNICU ---
ICU Rounding Note: Pt current nutrition is DBCC with Mickey BID Last recorded weight is 129.4 kg, stable Bowel Motility:No BM reported. Labs Reviewed:Glu 135, Cr 1.8,BUN 67, GFR 29, Alb 3.2,Hct 28.6,Hgb 8.7 Meds Noted: Miralax, Lovenox, Senokot Skin: Stage III-right saccum Additional Notes: Patient remains on a DBCC diet with Mickey BID. Oral Intake reported about 85% of meal yesterday. Refused breakfast this morning. She is a very picky eater according to family. She has been consuming protein modular of Mickey BID for wound healing. Agree with diet orders. Following daily in ICU rounds. Will monitor, weight, labs, skin, oral intake every 5 days.
[2023-06-30] MEDS: PERFLUTREN LIPID MICROSPHERES 1.5 ML VIAL DILUTED TO 10 ML TOTAL VOLUME IV PUSH (11:10)
[2023-06-30 11:47] LABS: Glucose Point of Care 204 mg/dl (65-105)
[2023-06-30] MEDS: INSULIN ASPART (*BKC) 100 UNITS/ML SUB-Q (11:57)
--- NOTE | 2023-06-30 12:10 | IVDEFINITY ---
Prior to administration of IV Definity the patient was educated on the risks and benefits of the imaging enhancing agent including potential adverse side effects. The patient verbalized understanding. Allergies were verified. No exclusion criteria were identified and at least one of the following inclusion criteria were met: 1) physician request, 2) patient technically difficult to image (per the [place] [employer] guidelines of two or more segments not discernable within the apical view), or 3) questionable left ventricular function. ?
[2023-06-30 17:05] LABS: Glucose Point of Care 112 mg/dl (65-105)
--- NOTE | 2023-06-30 17:36 | PC.NURSE ---
This patient, Dalila Rose, was transferred to [facility] on 06/30/23 at 1736. Personal belongings sent with patient. Report given to ZENON Gtz. Appropriate documentation sent with patient.
--- NOTE | 2023-06-30 18:13 | PC.NURSE ---
Called sibling Ladi Castro at [phone] to notify of patient's move to room 328. No answer. Left message to call back.
[2023-06-30 20:02] LABS: Glucose Point of Care 140 mg/dl (65-105)
[2023-06-30] MEDS: ACETAMINOPHEN 325 MG TABLET 650 MG PO (21:14)
[2023-06-30] MEDS: SENNA/DOCUSATE SODIUM TABLET 1 TAB PO (21:15)
--- NOTE | 2023-06-30 21:16 | PC.NURSE ---
patient calling out May May hurts! tylenol administered and patient repositioned will follow up with pain reassessment
[2023-07-01] MEDS: CEFEPIME 2 GM/NS 50 ML 2 GM/50 ML BAG IVPB ×2 (02:22→15:14)
[2023-07-01 05:48] VITALS: BP 149/64; PULSE 84; RESP 16; TEMP 36; O2SAT 98
[2023-07-01 06:36] LABS: Hematocrit 32.2 % (37.0-47.0); Hemoglobin 9.6 g/dL (12.0-15.0); Mean Corpuscular HGB Conc 29.8 g/dl (32-36); Mean Corpuscular Hemoglobin 28.7 pg (26-34); Mean Corpuscular Volume 96.1 fl (80-100); Mean Platelet Volume 10.6 fl (7.4-10.4); Platelet Count Result 205 k/mm3 (150-375); Red Blood Count 3.35 M/mm3 (4.2-5.4); Red Cell Distribution Width 16.5 % (11.5-14.5); White Blood Count 8.1 K/mm3 (4.5-10.0)
[2023-07-01 06:49] LABS: Alanine Aminotransferase 12 U/L (6-35); Albumin Level 3.5 g/dL (3.5-5.1); Alkaline Phosphatase 109 U/L (38-126); Anion Gap 4 mmol/L (8-16); Aspartate Amino Transferase 17 U/L (14-36); Blood Urea Nitrogen 56 mg/dL (7-17); Carbon Dioxide 32 mmol/L (22-30); Chloride 104 mmol/L (98-107); Estimated CRCL calculation 51 ml/min; Estimated Glomerular Filt Rate 35; Glucose 171 mg/dL (65-110); Magnesium 2.2 mg/dL (1.6-2.3); Phosphorus 3.7 mg/dL (2.5-4.5); Potassium 4.1 mmol/L (3.4-5.0); Sodium 140 mmol/L (137-145)
[2023-07-01 07:49] LABS: Glucose Point of Care 172 mg/dl (65-105)
[2023-07-01 09:15] LABS: Vancomycin Trough 16.5 ug/mL (10.0-20.0)
[2023-07-01] MEDS: ONDANSETRON INJ 4 MG/2 ML VIAL IV PUSH (09:54)
[2023-07-01] MEDS: INSULIN GLARGINE (*BKC) 100 UNITS/ML 12 UNITS SUB-Q (09:54)
[2023-07-01] MEDS: ENOXAPARIN 40 MG/0.4 ML SYRINGE SUB-Q (09:55)
[2023-07-01] MEDS: ATORVASTATIN 20 MG TABLET PO (09:55)
[2023-07-01] MEDS: MIDODRINE HCL 2.5 MG TABLET 5 MG PO ×2 (09:55→12:08)
[2023-07-01] MEDS: ASPIRIN 81 MG ENTERIC TABLET PO (09:55)
[2023-07-01] MEDS: polyethylene glycoL 3350 17 GM POWD.PACK PO (09:55)
[2023-07-01] MEDS: MEMANTINE 10 MG TABLET PO ×2 (09:55→20:58)
[2023-07-01] MEDS: PANTOPRAZOLE SODIUM IV 40 MG VIAL IV PUSH (09:55)
[2023-07-01 11:48] LABS: Glucose Point of Care 216 mg/dl (65-105)
[2023-07-01] MEDS: INSULIN ASPART (*BKC) 100 UNITS/ML SUB-Q (12:08)
[2023-07-01 14:00] VITALS: BP 201/79; PULSE 90; RESP 18; TEMP 35.9; O2SAT 97
[2023-07-01 14:15] VITALS: BP 178/75
--- NOTE | 2023-07-01 15:45 | PM.IMPN ---
Progress Note: A&P Assessment and Plan (1) Septic shock: Code(s): A41.9 - Sepsis, unspecified organism; R65.21 - Severe sepsis with septic shock Status: Acute Assessment and Plan: Patient presents with altered mental status and found to have septic shock. Blood pressure was 59/25 in the emergency room. CXR showing mild diffuse interstitial pattern. Patient was started on Levophed after limited fluid resuscitation (due to concern for CHF). CT A/P showing nonobstructing right nephrolithiasis and right lower abd hernia with nonobstructing ascending colon. UA consistent with UTI. Etiology of sepsis felt related to UTI. WBC 22K and febrile. LA normal. BCx 06/28 NGTD UCx 06/28 NGTD MRSA screen 06/28 positive Patient started on empiric broad spectrum antibiotics with Vancomycin and cefepime Levophed weaned off 06/29. Albumin given x 1 WBC normal. Fevers resolved Change abx to Augmentin and Doxycycline. (2) UTI (urinary tract infection): Qualifiers: Hematuria presence: without hematuria Urinary tract infection type: acute cystitis Qualified Code(s): N30.00 - Acute cystitis without hematuria Code(s): N39.0 - Urinary tract infection, site not specified Status: Acute Assessment and Plan: UA consistent with UTI but UCx negative. UTI ruled out (3) Acute on chronic renal failure: Code(s): N17.9 - Acute kidney failure, unspecified; N18.9 - Chronic kidney disease, unspecified Status: Acute Assessment and Plan: Last recorded creatinine was 1.6 in August of 2022. Patient presented with creatinine of 2.1. MADAY likely multifactorial secondary to dehydration, sepsis, UTI and shock. Conservative IV fluids due to congestive heart failure. Maintain MAP for renal perfusion Hold diuretics. Repeat Cr 1.5 Monitor urine output, electrolytes and renal function (4) Congestive heart failure: Code(s): I50.9 - Heart failure, unspecified Status: Acute Assessment and Plan: Patient has elevated BNP to 17.8K. CXR as above. Concerning for CHF exacerbation so she was not aggressively hydrated. Suspect she is still intravascular depleted related to above. Echo showing EF 60-65% with Grade II diastolic dysfunction and severe pulmonary HTN. Related to NENA? Levophed weaned off. Albumin bolus given. Diet started. Allow patient to rehydrate orally. Lasix on hold (5) Type 2 diabetes mellitus, with long-term current use of insulin: Qualifiers: Diabetes mellitus complication status: with hyperglycemia Qualified Code(s): E11.65 - Type 2 diabetes mellitus with hyperglycemia; Z79.4 - assistant terminal manager (current) use of insulin Code(s): E11.9 - Type 2 diabetes mellitus without complications; Z79.4 - FPC (current) use of insulin Status: Acute Assessment and Plan: The patient's blood glucose was reviewed on 07/01 Glucose better controlled Continue AccuCheks covering with sliding scale. Hypoglycemia protocol available as needed. Continue to monitor (6) Kidney stone on right side: Code(s): N20.0 - Calculus of kidney Status: Acute Assessment and Plan: Nonobstructive kidney stones of the right kidney noted by CT scan. No intervention needed at this time Plan Bed sore - present on admission. Pictures taken on admission reviewed. Wound care consulted. Continue current wound care. DVT prophylaxis - Lovenox Stress ulcer prophylaxis - PPI Nutrition - no swallowing concerns per Speech. Diabetic diet Code Status - DNR DNI Subjective Date/time seen: 07/01/23 15:45 Interval history: 63-year-old female with a past medical history of multiple CVAs, chronic kidney disease stage 3, insulin-dependent diabetes mellitus, essential hypertension, and dementia who presented to the ER from [facility] due to fever and change in mentation.?? Slept okay. Off O2 now. Exam Narrative: AF 96.8 149/64
[2023-07-01 16:47] LABS: Glucose Point of Care 143 mg/dl (65-105)
[2023-07-01] MEDS: GABAPENTIN 300 MG CAPSULE PO (17:33)
[2023-07-01] MEDS: SENNA/DOCUSATE SODIUM TABLET 1 TAB PO (20:58)
[2023-07-01] MEDS: DOXYCYCLINE HYCLATE 100 MG TABLET PO (20:58)
[2023-07-01] MEDS: ACETAMINOPHEN 325 MG TABLET 650 MG PO (20:58)
[2023-07-01] MEDS: AMOXICILLIN/CLAVULANATE K 875-125 MG TAB 1 TABLET PO (20:58)
[2023-07-01] MEDS: FAMOTIDINE 20 MG TABLET PO (20:59)
[2023-07-01] MEDS: METOPROLOL SUCCINATE EXT REL 12.5 MG TABCR PO (20:59)
[2023-07-01 21:36] LABS: Glucose Point of Care 135 mg/dl (65-105)
[2023-07-01 22:00] VITALS: BP 179/58; PULSE 87; RESP 16; TEMP 35.8; O2SAT 96
[2023-07-01 23:00] VITALS: BP 148/48; PULSE 76; RESP 16; TEMP 36.6; O2SAT 95
[2023-07-02 06:00] VITALS: BP 148/59; PULSE 77; RESP 16; TEMP 36.7; O2SAT 99
[2023-07-02 06:28] LABS: Basophils Percent Auto 0.5 % (0.2-1.2); Eosinophils Absolute Auto 0.4 K/mm3 (0-0.3); Eosinophils Percent Auto 6.2 % (0-4.4); Hematocrit 31.4 % (37.0-47.0); Hemoglobin 9.4 g/dL (12.0-15.0); Immature Granulocyte Absolute 0.03 K/mm3 (0.00-0.031); Immature Granulocyte Percent A 0.5 % (0-0.5); Lymphocytes Absolute Auto 0.77 K/mm3 (0.9-3.2); Lymphocytes Percent Auto 12.6 % (18.3-44.2); Mean Corpuscular HGB Conc 29.9 g/dl (32-36); Mean Corpuscular Hemoglobin 28.6 pg (26-34); Mean Corpuscular Volume 95.4 fl (80-100); Mean Platelet Volume 10.4 fl (7.4-10.4); Monocytes Absolute Auto 0.3 K/mm3 (0.1-0.6); Monocytes Percent Auto 5.1 % (2.6-8.5); Neutrophils Absolute Auto 4.6 K/mm3 (1.3-6.7); Neutrophils Percent Auto 75.1 % (45.5-73.1); Platelet Count Result 190 k/mm3 (150-375); Red Blood Count 3.29 M/mm3 (4.2-5.4); Red Cell Distribution Width 16.1 % (11.5-14.5); White Blood Count 6.1 K/mm3 (4.5-10.0)
[2023-07-02 06:42] LABS: Albumin Level 3.4 g/dL (3.5-5.1); Anion Gap 8 mmol/L (8-16); Blood Urea Nitrogen 42 mg/dL (7-17); Calcium 8.9 mg/dL (8.4-10.2); Carbon Dioxide 30 mmol/L (22-30); Chloride 104 mmol/L (98-107); Estimated CRCL calculation 67 ml/min; Estimated Glomerular Filt Rate 50; Glucose 136 mg/dL (65-110); Phosphorus 2.9 mg/dL (2.5-4.5); Potassium 3.5 mmol/L (3.4-5.0); Sodium 142 mmol/L (137-145)
[2023-07-02 06:57] LABS: Anisocytosis 1+ (NORMAL); Hypochromasia 1+ (NORMAL); Platelet Estimate Adequate (Adequate); Schistocytes None Seen (NORMAL)
[2023-07-02 07:25] LABS: Hemoglobin A1C 5.7 % (<5.7)
[2023-07-02 07:59] LABS: Glucose Point of Care 132 mg/dl (65-105)
[2023-07-02 08:00] VITALS: O2SAT 95
[2023-07-02] MEDS: GABAPENTIN 300 MG CAPSULE PO ×3 (08:49→17:01)
[2023-07-02] MEDS: ASPIRIN 81 MG ENTERIC TABLET PO (08:49)
[2023-07-02] MEDS: FAMOTIDINE 20 MG TABLET PO (08:49)
[2023-07-02] MEDS: ATORVASTATIN 20 MG TABLET PO (08:49)
[2023-07-02] MEDS: AMOXICILLIN/CLAVULANATE K 875-125 MG TAB 1 TABLET PO (08:49)
[2023-07-02] MEDS: polyethylene glycoL 3350 17 GM POWD.PACK PO (08:50)
[2023-07-02] MEDS: INSULIN GLARGINE (*BKC) 100 UNITS/ML 15 UNITS SUB-Q (08:52)
[2023-07-02] MEDS: ENOXAPARIN 40 MG/0.4 ML SYRINGE SUB-Q (08:56)
[2023-07-02] MEDS: DOXYCYCLINE HYCLATE 100 MG TABLET PO (08:56)
[2023-07-02] MEDS: MEMANTINE 10 MG TABLET PO (08:56)
[2023-07-02 10:26] VITALS: O2SAT 95
[2023-07-02 11:24] LABS: Glucose Point of Care 153 mg/dl (65-105)
--- NOTE | 2023-07-02 13:03 | PM.DS ---
DS: Admitting Diagnosis Discharge Date 07/02/23 Admitting Diagnosis Fever DS: Discharge Diagnosis Discharge Diagnosis (1) Septic shock: Code(s): A41.9 - Sepsis, unspecified organism; R65.21 - Severe sepsis with septic shock Status: Acute (2) UTI (urinary tract infection): Qualifiers: Hematuria presence: without hematuria Urinary tract infection type: acute cystitis Qualified Code(s): N30.00 - Acute cystitis without hematuria Code(s): N39.0 - Urinary tract infection, site not specified Status: Acute (3) Acute on chronic renal failure: Code(s): N17.9 - Acute kidney failure, unspecified; N18.9 - Chronic kidney disease, unspecified Status: Acute (4) Congestive heart failure: Code(s): I50.9 - Heart failure, unspecified Status: Acute (5) Type 2 diabetes mellitus, with long-term current use of insulin: Qualifiers: Diabetes mellitus complication status: with hyperglycemia Qualified Code(s): E11.65 - Type 2 diabetes mellitus with hyperglycemia; Z79.4 - terminal make up operator (current) use of insulin Code(s): E11.9 - Type 2 diabetes mellitus without complications; Z79.4 - terminal make up operator (current) use of insulin Status: Acute (6) Kidney stone on right side: Code(s): N20.0 - Calculus of kidney Status: Acute DS: Summary Hospital Course Reason for hospitalization: 63-year-old female with a past medical history of multiple CVAs, chronic kidney disease stage 3, insulin-dependent diabetes mellitus, essential hypertension, and dementia who presented to the ER from [facility] due to fever and change in mentation.?Please see H&P for details. Hospital Course: Patient presents with altered mental status and found to have septic shock.?Blood pressure was 59/25 in the emergency room.? CXR showing mild diffuse interstitial pattern. Patient was started on Levophed after limited fluid resuscitation (due to concern for CHF).?CT A/P showing nonobstructing right nephrolithiasis and right lower abd hernia with nonobstructing ascending colon. UA consistent with UTI but UCx negative. UTI ruled out. Etiology of sepsis felt related to PNA. WBC 22K and febrile. LA normal. Influenza and COVID PCR negative. BCx 06/28 NGTD. MRSA screen 06/28 positive. Patient started on empiric broad spectrum antibiotics with Vancomycin and cefepime. Levophed weaned off 06/29. Albumin given x 1 and started on midodrine. Blood pressure improved. WBC normal. Fevers resolved. Changed abx to Augmentin and Doxycycline. Able to stop midodrine and begin to add back her anti-HTN medications. Patient also with acute on chronic renal failure. Last recorded creatinine was 1.6 in August of 2022.? Patient presented with creatinine of 2.1. MADAY likely multifactorial secondary to dehydration, sepsis and shock. Conservative IV fluids due to congestive heart failure.?We held diuretics. Repeat Cr 1.1. Patient has elevated BNP to 17.8K. CXR as above. Concerning for CHF exacerbation so she was not aggressively hydrated. Suspect she was intravascular depleted related to above. Echo showing EF 60-65% with Grade II diastolic dysfunction and severe pulmonary HTN. Diet started. Patient allow to rehydrate orally. Bed sore - present on admission. Pictures taken on admission reviewed. Wound care consulted. Patient overall did well and was able to be discharged on 07/02/23. left message with sister Status at Discharge Cognitive/behavioral status at discharge: stable Time Spent with Patient Time attestation: Total time spent providing and/or coordinating discharge services: 38 minutes Time spent: Greater than 30 minutes Exam Narrative: AF 98.0 148/59 77 16 95% RA Gen - NARD sitting up in bed Chest -lungs are clear anteriorly in the flanks. CV - RRR S1/S2 with 2/6 systolic murmur USB Abd -soft. Obese. Positive bowel sounds -Lopez catheter secured draining clear yellow urine (was being removed).
[2023-07-02 14:00] VITALS: BP 169/56; PULSE 89; RESP 20; TEMP 36.4; O2SAT 96
[2023-07-02 15:27] LABS: SARS-CoV-2 RNA PCR Negative (Negative)
[2023-07-02 16:38] LABS: Glucose Point of Care 106 mg/dl (65-105)
== END 2023-07-02 18:20 | DRG 871 ==
LOC: ANHED 19:40 → ANHICU 20:58 → ANH3MEDSUR 06-30 18:11
PROVIDERS: Emergency Medicine; Internal Medicine; Physician Assistant; Admitting Provider Internal Medicine; Emergency Provider Emergency Medicine; Visit Provider Internal Medicine
DX: A41.9 Sepsis, unspecified organism (principal); J18.9 Pneumonia, unspecified organism; R65.21 Severe sepsis with septic shock; J96.01 Acute respiratory failure with hypoxia; I13.0 Hypertensive heart and chronic kidney disease with heart failure and stage 1 through stage 4 chronic kidney disease, or unspecified chronic kidney disease; N17.9 Acute kidney failure, unspecified; I50.32 Chronic diastolic (congestive) heart failure; I69.351 Hemiplegia and hemiparesis following cerebral infarction affecting right dominant side; Z68.43 Body mass index [BMI] 50.0-59.9, adult; I69.320 Aphasia following cerebral infarction; E11.22 Type 2 diabetes mellitus with diabetic chronic kidney disease; N18.30 Chronic kidney disease, stage 3 unspecified; Z20.822 Contact with and (suspected) exposure to COVID-19; E11.65 Type 2 diabetes mellitus with hyperglycemia; E86.0 Dehydration; N20.0 Calculus of kidney; L30.9 Dermatitis, unspecified; G47.33 Obstructive sleep apnea (adult) (pediatric); F01.50 Vascular dementia, unspecified severity, without behavioral disturbance, psychotic disturbance, mood disturbance, and anxiety; E66.01 Morbid (severe) obesity due to excess calories; E78.5 Hyperlipidemia, unspecified; Z79.4 Long term (current) use of insulin; Z79.82 Long term (current) use of aspirin; Z87.891 Personal history of nicotine dependence; I27.29 Other secondary pulmonary hypertension; Z22.322 Carrier or suspected carrier of Methicillin resistant Staphylococcus aureus
CPT/HCPCS: 36415; 70450; 71045; 74176; 80053; 80069; 80202; 81001; 82948; 83036; 83605; 83735; 83880; 84100; 85025; 85027; 85055; 85610; 85730; 86140; 87040; 87081; 87086; 87088; 87635; 87636; 92610; 93005; 96361; 96365; 96366; 96367; 96375; 96376; 99285; A9270; C8929; C9113; G0378; J0692; J1650; J1815; J2060; J2405; J3370; J7030; P9045; Q9957

== ENCOUNTER 2024-01-19 02:25 | Inpatient (IN) | payer OTHER, SELFPAY ==
[2024-01-19] VITALS (16 sets, daily range): BP systolic 90–149; BP diastolic 38–84; PULSE 82–105; RESP 15–21; TEMP 36.4–39.6; O2SAT 86–100; BMI 47.7
--- NOTE | ~2024-01-19 | CT_ITS ---
CT of the Abdomen and Pelvis: Indication: Abdominal pain Technique: 2.5 mm axial scans were obtained through the abdomen and pelvis following intravenous adm inistration of 100 cc of Omnipaque 350. Dose reduction technique was used on this scan by utilizing a utomated exposure control and iterative reconstruction technique. The dose-length product (DLP) was 1 715.24 mGy-cm. COMPARISON: 06/28/2030 Findings: Scans through the lung bases are unremarkable. The liver, spleen, pancreas, adrenals and kidneys are within normal limits. Distended gallbladder pre sent, with tiny gallstones. There are atherosclerotic calcifications of the aorta. No lymphadenopath y. Large umbilical hernia is present, containing a large amount of mesenteric fat, as well as the centra l third of the transverse colon. No bowel obstruction or bowel wall thickening. Images through the pelvis were performed. Urinary bladder unremarkable. Calcified uterine fibroids ar e present. No ascites. Impression: Large amount focal hernia containing mesenteric fat and central third of the transverse colon, essent ially stable from prior exam. No bowel obstruction or bowel wall thickening. Tiny gallstones. Calcified uterine fibroids. Reviewed, dictated and finalized at location . Impression: Large amount focal hernia containing mesenteric fat and central third of the tr ansverse colon, essentially stable from prior exam. No bowel obstruction or bow el wall thickening. Tiny gallstones. Calcified uterine fibroids.
--- NOTE | ~2024-01-19 | XR_ITS ---
Portable chest x-ray Comparison: 06/28/2023 Clinical History: Shortness of breath Findings: Questionable minimal central congestive changes. No consolidation or pleural effusion. Ca rdiomediastinal silhouette is stable. Bones and soft tissues are unremarkable. Impression: Questionable minimal central congestive changes. Reviewed, dictated and finalized at location . Impression: Questionable minimal central congestive changes.
--- NOTE | ~2024-01-19 | NM_ITS ---
EXAMINATION: NM hepatobiliary w pharm DATE: 01/22/2024 11:14 INDICATION: Abdominal pain. Abnormal liver function tests. COMPARISON: CT abdomen and pelvis 01/19/2024 TECHNIQUE: 5 mCi Tc-99m mebrofenin (Choletec) was administered intravenously. Scintigraphic images o f the abdomen were obtained for one hour. Then, 2.6 mcg sincalide (Kinevac) IV was administered, and imaging was continued for 30 minutes. FINDINGS: There is normal clearance of radiotracer from the blood pool. There is homogeneous tracer u ptake by the liver. Activity progresses to the bowel and gallbladder. Gallbladder ejection fraction (GBEF) was 62%. Note that most patients with gallbladder dysfunction have GBEF < 35%, which overlaps with the broad normal range of 10-90%. IMPRESSION: 1. Normal hepatobiliary scintigraphy. Reviewed, dictated and finalized at location E.
--- NOTE | ~2024-01-19 | US_ITS ---
EXAMINATION: US venous doppler UE RT DATE: 01/20/2024 11:15 INDICATION: Right arm edema TECHNIQUE: Morrison scale images with and without compression and Doppler images of the right upper extre mity veins were obtained. COMPARISON: None. FINDINGS: The right internal jugular vein, subclavian vein, axillary vein, brachial veins, basilic vein, cephal ic vein, radial vein, and ulnar vein are patent. IMPRESSION: 1. Patent right upper extremity veins. No evidence of deep venous thrombosis. Reviewed, dictated and finalized at location A.
--- NOTE | ~2024-01-19 | US_ITS ---
US renal BI 01/21/2024 12:35 Procedure: Realtime transabdominal ultrasound of the kidneys and bladder. Indication: Elevated creatinine Comparison: CT dated 01/19/2024 Findings: The right kidney is not well visualized, likely due to combination of bowel content and pat ient body habitus. Left renal echotexture is unremarkable without hydronephrosis, contour deforming m ass or renal calculi. Left kidney measures 14.3 cm. Bladder is not distended for evaluation. Impression: 1: Unremarkable left kidney. Right kidney not adequately visualized for evaluation. Reviewed, dictated and finalized at location A. Impression: 1: Unremarkable left kidney. Right kidney not adequately visualized for evaluat ion.
--- NOTE | ~2024-01-19 | US_ITS ---
EXAMINATION:US venous doppler LE RT INDICATION:Right leg edema TECHNIQUE: Multiple grayscale, color flow and Doppler images of the right lower extremity deep venous systems were obtained and reviewed. COMPARISON:08/13/2022 FINDINGS: The common femoral, superficial femoral and popliteal veins demonstrate normal respiratory variation, augmentation and compressibility. Color flow is also seen within the posterior tibial, pe roneal, greater saphenous and profunda veins. IMPRESSION: 1: No lower extremity deep venous thrombosis. Reviewed, dictated and finalized at location A.
--- NOTE | ~2024-01-19 | US_ITS ---
US right upper quadrant INDICATION: Abdominal pain PROCEDURE: Realtime right upper abdominal ultrasound. COMPARISON: CT dated 01/19/2024 FINDINGS: Study significantly limited due to patient body habitus and lack of acoustic windows. The p ancreas is normal without focal mass or pancreatic ductal dilation. Liver echotexture is heterogeneo us, most likely fatty infiltration. There is normal directional flow in the portal vein. There are gallstones. No significant gallbladder wall thickening., And ducts not visualized. IMPRESSION: 1: Technically limited study. Gallstones. 2: Fatty infiltration of the liver. Reviewed, dictated and finalized at location B.
--- NOTE | 2024-01-19 04:42 | ED.ABDPAIN ---
HPI - Abdominal Pain General Chief Complaint: Abdominal Pain <Nnamdi Malone MD - Last Filed: 01/22/24 14:49> Time Seen by Provider: 01/19/24 02:25 <Nnamdi Malone MD - Last Filed: 01/22/24 14:49> History of Present Illness HPI narrative: Patient is a 63-year-old female who presents the ER with abdominal pain and nausea vomiting. Sudden onset tonight. Patient only orient x2. Found to be febrile in the ER. Incontinent of stool on herself. Stool is dark for Hemoccult negative. Patient cannot provide additional history about her illness. Limited history due to dementia, what we know was provided by EMS. <Nnamdi Malone MD - Last Filed: 01/22/24 14:49> Related Data Home Medications: Home Medications Medication Instructions Recorded Confirmed aspirin 81 mg tablet,delayed 81 mg PO DAILY 09/28/19 01/19/24 release (Enteric Coated Aspirin) gabapentin 300 mg capsule 100 mg PO TID 09/28/19 01/19/24 insulin glargine 100 unit/mL (3 18 unit subcut HS 09/28/19 01/19/24 mL) subcutaneous pen (Basaglar KwikPen U-100 Insulin) memantine 10 mg tablet 10 mg PO BID 09/28/19 01/19/24 atorvastatin 10 mg tablet 20 mg PO HS 11/11/20 01/19/24 famotidine 20 mg tablet 20 mg PO BID 06/28/23 01/19/24 glucagon 1 mg/0.2 mL subcutaneous 1 mg subcut ONCE PRN Hypoglycemia 06/28/23 01/19/24 syringe (Gvoke PFS 1-Pack) loratadine 10 mg tablet 10 mg PO DAILY 06/28/23 01/19/24 metolazone 2.5 mg tablet 2.5 mg PO DAILY 06/28/23 01/19/24 sennosides 8.6 mg-docusate sodium 1 tablet PO BID PRN Constipation 06/28/23 01/19/24 50 mg tablet (Senexon-S) tramadol 50 mg tablet 50 mg PO Q6H PRN Pain 06/28/23 01/19/24 acetaminophen 650 mg tablet 650 mg PO Q6H PRN Pain 01/19/24 01/19/24 buspirone 10 mg tablet 10 mg PO QPM 01/19/24 01/19/24 buspirone 5 mg tablet 5 mg PO QAM 01/19/24 01/19/24 cholecalciferol (vitamin D3) 1,250 1,250 mcg PO WEEKLY 01/19/24 01/19/24 mcg (50,000 unit) tablet diphenhydramine HCl 25 mg tablet 25 mg PO Q6H PRN Itching 01/19/24 01/19/24 (Allergy (diphenhydramine)) ferrous sulfate 324 mg (65 mg 324 mg PO DAILY 01/19/24 01/19/24 iron) tablet,delayed release fluoxetine 20 mg capsule 20 mg PO DAILY 01/19/24 01/19/24 furosemide 20 mg tablet 40 mg PO DAILY 01/19/24 01/19/24 insulin aspart (niacinamide) 2 unit subcut TIDWM 01/19/24 01/19/24 (U-100) 100 unit/mL subcutaneous solution (Fiasp U-100 Insulin) zinc oxide-white petrolatum 1 applic topical TID 01/19/24 01/19/24 topical ointment <Nnamdi Malone MD - Last Filed: 01/22/24 14:49> Allergies/Adverse Reactions: Allergies Allergy/AdvReac Type Severity Reaction Status Date / Time Bleach (Sodium Hypochlorite) AdvReac Unknown Verified 08/13/22 15:06 perfume AdvReac Unknown Verified 08/13/22 15:06 <Nnamdi Malone MD - Last Filed: 01/22/24 14:49> Review of Systems Review of Systems: ROS unobtainable: Yes unobtainable due to mental status <Nnamdi Malone MD - Last Filed: 01/22/24 14:49> [facility] Past Medical History Medical History: Medical History (Updated 01/19/24 @ 20:12 by Adina Milton PA-C) Cerebrovascular accident (2015) Resultant expressive aphasia and right-sided weakness. Chronic anemia Chronic kidney disease, stage 3 Dementia Eczema Essential hypertension Hyperlipidemia Insulin dependent diabetes mellitus Obstructive sleep apnea Noncompliant with CPAP therapy Right heart failure due to pulmonary hypertension Echocardiogram September 2019 demonstrated EF of 55-60% with severe pulmonary hypertension Severe pulmonary hypertension Umbilical hernia without obstruction and without gangrene Vitamin D deficiency <Nnamdi Malone MD - Last Filed: 01/22/24 14:49> Surgical History Surgical History: Surgical History History of tonsillectomy <Nnamdi Malone MD - Last Filed: 01/22/24 14:49> Family History Family History: Fa
[2024-01-19 05:12] LABS: Basophils Percent Auto 0.4 % (0.2-1.2); Eosinophils Absolute Auto 0.1 K/mm3 (0-0.3); Eosinophils Percent Auto 0.5 % (0-4.4); Hematocrit 29.6 % (37.0-47.0); Hemoglobin 9.3 g/dL (12.0-15.0); Immature Granulocyte Absolute 0.06 K/mm3 (0.00-0.031); Immature Granulocyte Percent A 0.6 % (0-0.5); Lymphocytes Absolute Auto 0.34 K/mm3 (0.9-3.2); Lymphocytes Percent Auto 3.2 % (18.3-44.2); Mean Corpuscular HGB Conc 31.4 g/dl (32-36); Mean Corpuscular Hemoglobin 30.7 pg (26-34); Mean Corpuscular Volume 97.7 fl (80-100); Monocytes Absolute Auto 0.5 K/mm3 (0.1-0.6); Neutrophils Absolute Auto 9.7 K/mm3 (1.3-6.7); Neutrophils Percent Auto 90.3 % (45.5-73.1); Platelet Count Result 172 k/mm3 (150-375); Red Blood Count 3.03 M/mm3 (4.2-5.4); Red Cell Distribution Width 14.5 % (11.5-14.5); White Blood Count 10.7 K/mm3 (4.5-10.0)
[2024-01-19 05:22] LABS: INR 1.1
[2024-01-19 05:23] LABS: Partial Thromboplastin Time 29.7 Seconds (22.3-36.8)
[2024-01-19 05:38] LABS: Alanine Aminotransferase 67 U/L (6-35); Albumin Level 3.5 g/dL (3.5-5.1); Alkaline Phosphatase 279 U/L (38-126); Anion Gap 6 mmol/L (4-12); Aspartate Amino Transferase 121 U/L (14-36); Bilirubin,Total 1.7 mg/dL (0.2-1.3); Blood Urea Nitrogen 42 mg/dL (7-17); Calcium 8.8 mg/dL (8.4-10.2); Carbon Dioxide 29 mmol/L (22-30); Chloride 104 mmol/L (98-107); Estimated CRCL calculation 48 ml/min; Estimated Glomerular Filt Rate 35; Glucose 267 mg/dL (65-110); Lipase 55 U/L (23-300); Sodium 139 mmol/L (137-145)
[2024-01-19 05:40] LABS: Anisocytosis 1+; Hypochromasia 1+; Microcytosis 1+ (NORMAL); Platelet Estimate Slightly Decreased (Adequate); Schistocytes None Seen
[2024-01-19 05:58] LABS: Lactic Acid Reflex 2.2 mmol/L (0.7-2.0)
[2024-01-19 06:58] LABS: Appearance Urine Turbid (Clear); Bacteria Urine None Seen /hpf; Bilirubin Urine 1+ (Negative); Blood Urine 2+ (Negative); Color Urine Dark Yellow (Yellow); Glucose Urine UA Negative (Negative); Ketones Urine Negative (Negative); Leukocyte Esterase Ur 3+ LEU/UL (Negative); Need Manual Microscopic Reviewed; Nitrate Urine Positive (Negative); Protein Urine 2+ mg/dL (Negative); RBC Urine 0-2 /hpf (0-2); Specific Grav Ur 1.015 (1.001-1.035); Squamous Epithelial Cell Urine Occasional /hpf (Few); WBC Clumps Urine Present /HPF; WBC Urine >100 /hpf (0-3); pH Urine 5.5 (5.0-9.0)
[2024-01-19 07:05] LABS: Add Urine Microscopic? YES
--- NOTE | 2024-01-19 07:38 | PC.NURSE ---
This RN spoke with Ladi VALLEJO regarding pt status
[2024-01-19 08:07] LABS: Reflex Lactic Acid Yes or No Add Lactic
[2024-01-19 09:30] LABS: Lactic Acid 1.4 mmol/L (0.7-2.0)
--- NOTE | 2024-01-19 10:41 | PC.NURSE ---
This RN spoke with Ladi pt POA regarding pt status. Ladi requested we call with any updates at [phone]
--- NOTE | 2024-01-19 11:09 | PC.NURSE ---
Report given to Chari YARBROUGH, all questions answered
[2024-01-19] MEDS: SODIUM CHLORIDE 0.9% IV 1,000 ML 125 ML IV CONT (11:24)
--- NOTE | 2024-01-19 12:25 | ADMGEN ---
This patient, Dalila Rose, was admitted to Medical Room 349-01. Patient/family oriented to hospital policies and general routines including ID bracelet, bed and alarms, visiting hours, pain management, procedures, bathroom and other care routines, personal items, smoking policy, room service/diet, and visiting hours. Information on how to activate the Rapid Response Team has been discussed. Patient/Family are encouraged to report perceived risks to care and to ask questions if they do not understand what they are told or what they should do.
--- NOTE | 2024-01-19 14:06 | PM.IMHP ---
H&P: HPI History of Present Illness Date/Time: 01/19/24 13:15 Chief Complaint: Abdominal pain. Narrative: This is a 63-year-old female with history of stroke and residual expressive aphasia right-sided weakness, dementia, hypertension, hyperlipidemia, right-sided congestive heart failure, pulmonary hypertension, obstructive sleep apnea, insulin-dependent diabetes mellitus, chronic kidney disease, and anemia who presented to the emergency department via EMS from [facility] for evaluation of abdominal pain. She is not able to provide an accurate history and most of the following is obtained from her EMR and information provided by her facility. Last night she complained of abdominal pain and reportedly had multiple episodes of nonbloody and nonbilious emesis. Due to ongoing complaints she was brought in for evaluation today. At the time my evaluation she has difficulties telling me exactly where she was having pain for what it felt like. She seems to be tender wherever I touch her. She does not have any pain or nausea at this time and reports that she ate dinner without any issue. She goes on to say that she does occasionally have abdominal pain with eating however this may not be reliable. She denies fever, chest pain, shortness of breath, current abdominal pain and nausea, dysuria, and diarrhea. On arrival to the ED she was tachycardic with a fever 103.2? F in a blood pressure of 90/60. Labs were significant for WBC count of 10.7, hemoglobin 9.3, BUN 42, creatinine 1.50, lactic acid 2.2, total bilirubin 1.7, AST 121, ALT 67, alkaline phosphatase 279. Urine was positive for 2+ protein, 2+ blood, positive nitrates, 3+ leukocyte esterase, greater than 100 WBC, WBC clumps, and occasional squamous cells; no bacteria were seen on microscopy. Chest x-ray showed questionable minimal central congestive changes. CT of the abdomen and pelvis showed a large umbilical hernia which was stable compared to prior exam, tiny gallstones, and calcified uterine fibroids. Right upper quadrant ultrasound was limited due to body habitus but did note gallstones and fatty infiltration of the liver. She received 1 g of ceftriaxone and was started on normal saline and is being admitted in this setting for further treatment and evaluation Review of Systems Review of Systems: Unable to obtain given clinical condition. [facility] Past Medical History Medical History (Updated 01/19/24 @ 20:12 by Adina Milton PA-C) Cerebrovascular accident (2015) Resultant expressive aphasia and right-sided weakness. Chronic anemia Chronic kidney disease, stage 3 Dementia Eczema Essential hypertension Hyperlipidemia Insulin dependent diabetes mellitus Obstructive sleep apnea Noncompliant with CPAP therapy Right heart failure due to pulmonary hypertension Echocardiogram September 2019 demonstrated EF of 55-60% with severe pulmonary hypertension Severe pulmonary hypertension Umbilical hernia without obstruction and without gangrene Vitamin D deficiency Surgical History Surgical History History of tonsillectomy Family History Family History Father Hypertension Irregular heart beat Mother Hypertension Cerebrovascular accident Other Unknown family medical history Social History Social History (Updated 01/19/24 @ 14:29 by Adina Milton PA-C) Social History: Healthcare power of compliance attorney: Ladi Castro (sister). Code status: Full code. Smoking status: Former smoker Second hand tobacco smoke exposure: Yes Alcohol intake: never Substance use: never Substance use type: does not use Living arrangements: long-term Additional living arrangements comments: Resident of [facility]. Spiritual care concerns: No Agree to blood products: Yes Meds Home Medications and Allergies Home Medications Medi
[2024-01-19 16:29] LABS: Hepatitis B Surface Antigen Negative (Negative)
[2024-01-19 16:35] LABS: HAV RESULT Negative (Negative); Hepatitis B Core IgM Result Negative (Negative)
[2024-01-19 16:47] LABS: Hepatitis C Virus Antibody Negative (Negative)
[2024-01-19] MEDS: metroNIDAZOLE 500 MG/ISO 100ML 500 MG/100 ML BAG 100 MG IVPB ×2 (17:02→21:16)
[2024-01-19 17:12] LABS: Glucose Point of Care 140 mg/dl (65-105)
[2024-01-19] MEDS: INSULIN GLARGINE (*BKC) 100 UNITS/ML 18 UNITS SUB-Q (21:17)
[2024-01-19] MEDS: GABAPENTIN 100 MG CAPSULE PO (21:19)
[2024-01-19] MEDS: MEMANTINE 10 MG TABLET PO (21:19)
[2024-01-19] MEDS: FAMOTIDINE 20 MG TABLET PO (21:19)
[2024-01-19] MEDS: METOPROLOL SUCCINATE EXT REL 25 MG TABCR PO (21:19)
[2024-01-19] MEDS: busPIRone HCL 10 MG TABLET PO (21:19)
[2024-01-19] MEDS: ZINC OXIDE 20% OINT 30 GM TUBE 1 APPLIC TOPICAL (21:30)
[2024-01-19] MEDS: traMADol HCL (*CRX) 50 MG TABLET PO (21:32)
[2024-01-19 22:00] LABS: Influenza A QL RT-PCR Negative (Negative); Influenza B QL RT-PCR Negative (Negative); RSV RNA, RT-PCR Negative (Negative); SARS-CoV-2 RNA PCR Negative (Negative)
[2024-01-20] VITALS (7 sets, daily range): BP systolic 108–133; BP diastolic 50–68; PULSE 73–83; RESP 12–21; TEMP 36.3–36.4; O2SAT 93–100
[2024-01-20 05:01] LABS: Hematocrit 27.6 % (37.0-47.0); Hemoglobin 8.5 g/dL (12.0-15.0); Mean Corpuscular HGB Conc 30.8 g/dl (32-36); Mean Corpuscular Hemoglobin 30.6 pg (26-34); Mean Corpuscular Volume 99.3 fl (80-100); Mean Platelet Volume 10.7 fl (7.4-10.4); Platelet Count Result 142 k/mm3 (150-375); Red Blood Count 2.78 M/mm3 (4.2-5.4); Red Cell Distribution Width 14.6 % (11.5-14.5); White Blood Count 7.7 K/mm3 (4.5-10.0)
[2024-01-20 05:16] LABS: Alanine Aminotransferase 47 U/L (6-35); Albumin Level 3.2 g/dL (3.5-5.1); Alkaline Phosphatase 222 U/L (38-126); Anion Gap 3 mmol/L (4-12); Aspartate Amino Transferase 40 U/L (14-36); Bilirubin,Total 1.8 mg/dL (0.2-1.3); Blood Urea Nitrogen 47 mg/dL (7-17); Calcium 8.5 mg/dL (8.4-10.2); Carbon Dioxide 29 mmol/L (22-30); Chloride 104 mmol/L (98-107); Creatine Kinase 56 U/L (30-135); Estimated CRCL calculation 36 ml/min; Estimated Glomerular Filt Rate 25; Glucose 137 mg/dL (65-110); Sodium 136 mmol/L (137-145)
[2024-01-20] MEDS: GABAPENTIN 100 MG CAPSULE PO ×3 (05:54→21:31)
[2024-01-20] MEDS: metroNIDAZOLE 500 MG/ISO 100ML 500 MG/100 ML BAG 100 MG IVPB ×3 (05:54→21:32)
[2024-01-20 08:13] LABS: Glucose Point of Care 123 mg/dl (65-105)
[2024-01-20] MEDS: metOLazone 2.5 MG TABLET PO (08:37)
[2024-01-20] MEDS: FLUoxetine HCL 20 MG CAPSULE PO (08:37)
[2024-01-20] MEDS: FERROUS SULFATE 325 MG TABLET DR PO (08:37)
[2024-01-20] MEDS: busPIRone HCL 5 MG TABLET PO (08:37)
[2024-01-20] MEDS: MEMANTINE 10 MG TABLET PO ×2 (08:37→21:31)
[2024-01-20] MEDS: FUROSEMIDE 40 MG TABLET PO (08:37)
[2024-01-20] MEDS: FAMOTIDINE 20 MG TABLET PO ×2 (08:37→17:39)
[2024-01-20] MEDS: LORATADINE 10 MG TABLET PO (08:37)
[2024-01-20] MEDS: ASPIRIN 81 MG ENTERIC TABLET PO (08:37)
[2024-01-20] MEDS: ENOXAPARIN 40 MG/0.4 ML SYRINGE SUB-Q (08:38)
[2024-01-20] MEDS: ZINC OXIDE 20% OINT 30 GM TUBE 1 APPLIC TOPICAL ×3 (08:39→17:39)
--- NOTE | 2024-01-20 08:50 | P.PNIM_ITS ---
Progress Note: A&P Assessment and Plan (1) Sepsis: Code(s): A41.9 - Sepsis, unspecified organism Status: Acute Assessment and Plan: Triggering sepsis given leukocytosis, low blood pressure, lactic, tachycardia, and fever of 103.2 on arrival * Not clear if she received fluid bolus in ED for sepsis. IV fluid intake documented is 1500 ml since admission. Lactic did clear from 2.2 to 1.4 in four hours. * Started on IVF NS at 75 ml per hour * Rocephin 2 gram and Flagyl ordered * Tylenol prn for fever * Blood and urine cultures pending * Unclear source of infection. UTI vs acute cholecystitis vs pyelonephritis * RUQ ultrasound shows gall stones but study is limited due to body habitus. * HIDA scan ordered * Lipase is normal (2) Transaminitis: Code(s): R74.01 - Elevation of levels of liver transaminase levels Status: Acute Assessment and Plan: T bili 1.7, AST 121, ALT 67, Alk phos 279 * trend labs * HIDA scan pending * AST and ALT down this morning * Tbili increased to 1.8 (3) Pyuria: Code(s): R82.81 - Pyuria Status: Acute Assessment and Plan: UA with concerns for UTI but no bacteria present. * urine culture sent * started on abx (4) Chronic kidney disease, stage 3: Code(s): N18.30 - Chronic kidney disease, stage 3 unspecified Status: Acute Assessment and Plan: Cr baseline seems to run 1.1-1.6 mg/dL; GFR 25 * Cr on admission was 1.5, now increased to 2.00 today * IV fluids at 75 ml per hour * holding diuretic and lisinopril * avoid nephrotoxic medications and renally dose agents (5) Chronic anemia: Code(s): D64.9 - Anemia, unspecified Status: Acute Assessment and Plan: Hgb 8.5 g/dL, MCHC low 30.8 g/dl * added on iron panel * currently on ferrous sulfate 324 mg daily * no active sources of bleeding (6) Insulin dependent diabetes mellitus: Status: Acute Assessment and Plan: Unknown A1C, on Lantus 18 units at home and aspart TIDWM * ordered a1c * Decreased home Lantus dosing by 20%. Receiving 14 units nightly * Moderate SSI with meals * Hypoglycemia protocol (7) Essential hypertension: Code(s): I10 - Essential (primary) hypertension Status: Acute Assessment and Plan: Blood pressures reviewed and are stable but on the lower side of her normal. On lasix, metolazone, metoprolol succinate at home. * Holding lasix and metolazone * monitor daily (8) Right heart failure due to pulmonary hypertension: Code(s): I27.29 - Other secondary pulmonary hypertension; I50.810 - Right heart failure, unspecified Status: Acute (9) Hernia: Code(s): K46.9 - Unspecified abdominal hernia without obstruction or gangrene Status: Acute Assessment and Plan: CT shows large focal hernia with mesenteric fat and central third of the transverse colon, stable from prior exam. No bowel obstruction of bowel wall thickening. Plan awaiting HIDA scan urine culture pending Subjective Date/time seen: 01/20/24 08:50 Interval history: This is a 63-year-old female with history of stroke and residual expressive aphasia right-sided weakness, dementia, hypertension, hyperlipidemia, right- sided congestive heart failure, pulmonary hypertension, obstructive sleep apnea, insulin-dependent diabetes mellitus, chronic kidney disease, and anemia who presented to the emergency department via EMS from [facility] for evaluation of abdominal pain. 01/19: This is a very sweet w
--- NOTE | 2024-01-20 08:50 | PM.IMPN ---
Progress Note: A&P Assessment and Plan (1) Sepsis: Code(s): A41.9 - Sepsis, unspecified organism Status: Acute Assessment and Plan: Triggering sepsis given leukocytosis, low blood pressure, lactic, tachycardia, and fever of 103.2 on arrival Not clear if she received fluid bolus in ED for sepsis. IV fluid intake documented is 1500 ml since admission. Lactic did clear from 2.2 to 1.4 in four hours. Started on IVF NS at 75 ml per hour Rocephin 2 gram and Flagyl ordered Tylenol prn for fever Blood and urine cultures pending Unclear source of infection. UTI vs acute cholecystitis vs pyelonephritis RUQ ultrasound shows gall stones but study is limited due to body habitus. HIDA scan ordered Lipase is normal (2) Transaminitis: Code(s): R74.01 - Elevation of levels of liver transaminase levels Status: Acute Assessment and Plan: T bili 1.7, AST 121, ALT 67, Alk phos 279 trend labs HIDA scan pending AST and ALT down this morning Tbili increased to 1.8 (3) Pyuria: Code(s): R82.81 - Pyuria Status: Acute Assessment and Plan: UA with concerns for UTI but no bacteria present. urine culture sent started on abx (4) Chronic kidney disease, stage 3: Code(s): N18.30 - Chronic kidney disease, stage 3 unspecified Status: Acute Assessment and Plan: Cr baseline seems to run 1.1-1.6 mg/dL; GFR 25 Cr on admission was 1.5, now increased to 2.00 today IV fluids at 75 ml per hour holding diuretic and lisinopril avoid nephrotoxic medications and renally dose agents (5) Chronic anemia: Code(s): D64.9 - Anemia, unspecified Status: Acute Assessment and Plan: Hgb 8.5 g/dL, MCHC low 30.8 g/dl added on iron panel currently on ferrous sulfate 324 mg daily no active sources of bleeding (6) Insulin dependent diabetes mellitus: Status: Acute Assessment and Plan: Unknown A1C, on Lantus 18 units at home and aspart TIDWM ordered a1c Decreased home Lantus dosing by 20%. Receiving 14 units nightly Moderate SSI with meals Hypoglycemia protocol (7) Essential hypertension: Code(s): I10 - Essential (primary) hypertension Status: Acute Assessment and Plan: Blood pressures reviewed and are stable but on the lower side of her normal. On lasix, metolazone, metoprolol succinate at home. Holding lasix and metolazone monitor daily (8) Right heart failure due to pulmonary hypertension: Code(s): I27.29 - Other secondary pulmonary hypertension; I50.810 - Right heart failure, unspecified Status: Acute (9) Hernia: Code(s): K46.9 - Unspecified abdominal hernia without obstruction or gangrene Status: Acute Assessment and Plan: CT shows large focal hernia with mesenteric fat and central third of the transverse colon, stable from prior exam. No bowel obstruction of bowel wall thickening. Plan awaiting HIDA scan urine culture pending Subjective Date/time seen: 01/20/24 08:50 Interval history: This is a 63-year-old female with history of stroke and residual expressive aphasia right-sided weakness, dementia, hypertension, hyperlipidemia, right-sided congestive heart failure, pulmonary hypertension, obstructive sleep apnea, insulin-dependent diabetes mellitus, chronic kidney disease, and anemia who presented to the emergency department via EMS from [facility] for evaluation of abdominal pain. 01/19: This is a very sweet woman who has impairments after her stroke including right sided weakness and expressive asphasia. When asked if she has pain, she points to her suprapubic region. She also says she has bilateral flank pain and has abdominal guarding with deep palpation to her RUQ. She is wearing oxygen at 2 l NC which is new for her. When asked if she is feeling short of breath she states I don't know . She denies chest pain. She is no longer having nause
[2024-01-20 09:53] LABS: Iron 31 ug/dL (37-170)
[2024-01-20 09:55] LABS: Hemoglobin A1C 6.5 % (<5.7)
[2024-01-20 10:06] LABS: Percent Iron Saturation 15 % (20-50)
[2024-01-20] MEDS: SODIUM CHLORIDE 0.9% IV 1,000 ML 75 ML IV CONT (11:02)
[2024-01-20] MEDS: traMADol HCL (*CRX) 50 MG TABLET PO (12:27)
[2024-01-20 12:36] LABS: Glucose Point of Care 121 mg/dl (65-105)
[2024-01-20 17:08] LABS: Glucose Point of Care 107 mg/dl (65-105)
[2024-01-20] MEDS: busPIRone HCL 10 MG TABLET PO (17:39)
[2024-01-20] MEDS: METOPROLOL SUCCINATE EXT REL 25 MG TABCR PO (21:31)
[2024-01-20] MEDS: INSULIN GLARGINE (*BKC) 100 UNITS/ML 14 UNITS SUB-Q (21:58)
[2024-01-21] VITALS (10 sets, daily range): BP systolic 128–146; BP diastolic 51–58; PULSE 60–88; RESP 11–20; TEMP 36.1–36.6; O2SAT 94–99
[2024-01-21 00:56] LABS: Glucose Point of Care 89 mg/dl (65-105)
[2024-01-21] MEDS: SODIUM CHLORIDE 0.9% IV 1,000 ML 75 ML IV CONT (03:18)
[2024-01-21 05:22] LABS: Basophils Percent Auto 0.6 % (0.2-1.2); Eosinophils Absolute Auto 0.4 K/mm3 (0-0.3); Hematocrit 28.9 % (37.0-47.0); Hemoglobin 8.7 g/dL (12.0-15.0); Immature Granulocyte Absolute 0.02 K/mm3 (0.00-0.031); Immature Granulocyte Percent A 0.3 % (0-0.5); Lymphocytes Absolute Auto 0.66 K/mm3 (0.9-3.2); Lymphocytes Percent Auto 9.4 % (18.3-44.2); Mean Corpuscular HGB Conc 30.1 g/dl (32-36); Mean Corpuscular Hemoglobin 30.3 pg (26-34); Mean Corpuscular Volume 100.7 fl (80-100); Mean Platelet Volume 11.1 fl (7.4-10.4); Monocytes Absolute Auto 0.6 K/mm3 (0.1-0.6); Monocytes Percent Auto 9.1 % (2.6-8.5); Neutrophils Absolute Auto 5.3 K/mm3 (1.3-6.7); Neutrophils Percent Auto 75.6 % (45.5-73.1); Platelet Count Result 142 k/mm3 (150-375); Red Blood Count 2.87 M/mm3 (4.2-5.4); Red Cell Distribution Width 14.3 % (11.5-14.5)
[2024-01-21 05:49] LABS: Alanine Aminotransferase 39 U/L (6-35); Albumin Level 3.4 g/dL (3.5-5.1); Alkaline Phosphatase 250 U/L (38-126); Anion Gap 10 mmol/L (4-12); Aspartate Amino Transferase 34 U/L (14-36); Bilirubin,Total 1.5 mg/dL (0.2-1.3); Blood Urea Nitrogen 53 mg/dL (7-17); Calcium 8.5 mg/dL (8.4-10.2); Carbon Dioxide 21 mmol/L (22-30); Chloride 103 mmol/L (98-107); Estimated CRCL calculation 30 ml/min; Estimated Glomerular Filt Rate 20; Glucose 96 mg/dL (65-110); Magnesium 2.1 mg/dL (1.6-2.3); Potassium 4.7 mmol/L (3.4-5.0); Sodium 134 mmol/L (137-145)
[2024-01-21] MEDS: metroNIDAZOLE 500 MG/ISO 100ML 500 MG/100 ML BAG 100 MG IVPB ×3 (06:04→22:08)
[2024-01-21] MEDS: GABAPENTIN 100 MG CAPSULE PO ×3 (06:04→22:08)
[2024-01-21 06:09] LABS: CRP 16.8 mg/dL (<1.0)
[2024-01-21] MEDS: FAMOTIDINE 20 MG TABLET PO ×2 (08:20→17:42)
[2024-01-21] MEDS: ENOXAPARIN 40 MG/0.4 ML SYRINGE SUB-Q (08:20)
[2024-01-21] MEDS: ASPIRIN 81 MG ENTERIC TABLET PO (08:20)
[2024-01-21] MEDS: LORATADINE 10 MG TABLET PO (08:20)
[2024-01-21] MEDS: MEMANTINE 10 MG TABLET PO ×2 (08:20→22:06)
[2024-01-21] MEDS: FLUoxetine HCL 20 MG CAPSULE PO (08:20)
[2024-01-21] MEDS: FERROUS SULFATE 325 MG TABLET DR PO ×2 (08:20→17:42)
[2024-01-21] MEDS: busPIRone HCL 5 MG TABLET PO (08:20)
[2024-01-21] MEDS: cefTRIAXone 2 GM/NS 100 ML 2 GM/100 ML BAG IVPB (08:21)
[2024-01-21 08:28] LABS: Glucose Point of Care 77 mg/dl (65-105)
--- NOTE | 2024-01-21 08:54 | P.PNIM_ITS ---
Progress Note: A&P Assessment and Plan (1) Sepsis: Code(s): A41.9 - Sepsis, unspecified organism Status: Acute Assessment and Plan: Triggering sepsis given leukocytosis, low blood pressure, lactic, tachycardia, and fever of 103.2 on arrival * Not clear if she received fluid bolus in ED for sepsis. IV fluid intake documented is 1500 ml since admission. Lactic did clear from 2.2 to 1.4 in four hours. * Started on IVF NS at 75 ml per hour * Rocephin 2 gram and Flagyl ordered * Tylenol prn for fever * Blood and urine cultures pending * Unclear source of infection. UTI vs acute cholecystitis vs pyelonephritis * RUQ ultrasound shows gall stones but study is limited due to body habitus. * HIDA scan ordered * Lipase is normal 01/20: * Blood pressures stable 140's * Leukocytosis resolved * afebrile * Gram negative bacilli in urine with enterobacter * Stopped Rocephin started cefepime 1 g q.day * Will speak with ID pharmacy tomorrow (2) Transaminitis: Code(s): R74.01 - Elevation of levels of liver transaminase levels Status: Acute Assessment and Plan: T bili 1.7, AST 121, ALT 67, Alk phos 279 * trend labs * HIDA scan pending * AST and ALT down this morning * Tbili increased to 1.8 01/20: * T bili down trending * LFT down trending * HIDA pending (3) Pyuria: Code(s): R82.81 - Pyuria Status: Acute Assessment and Plan: UA with concerns for UTI but no bacteria present. * urine culture sent * started on abx 01/20: * + Culture with GNB * Blood cultures with NGTD (4) Chronic kidney disease, stage 3: Code(s): N18.30 - Chronic kidney disease, stage 3 unspecified Status: Acute Assessment and Plan: Cr baseline seems to run 1.1-1.6 mg/dL; GFR 25 * Cr on admission was 1.5, now increased to 2.00 today * IV fluids at 75 ml per hour * holding diuretic and lisinopril * avoid nephrotoxic medications and renally dose agents 01/20: * Worsening acute renal failure, Cr 2.40 today * Lopez to be placed for accurate I&O and double check * Stat renal US * May need to consult nephrology * FeNA labs ordered (5) Chronic anemia: Code(s): D64.9 - Anemia, unspecified Status: Acute Assessment and Plan: Hgb 8.5 g/dL, MCHC low 30.8 g/dl * added on iron panel * currently on ferrous sulfate 324 mg daily * no active sources of bleeding 01/20: * Iron low at 31 * Increased ferrous sulfate BID (6) Insulin dependent diabetes mellitus: Status: Acute Assessment and Plan: Unknown A1C, on Lantus 18 units at home and aspart TIDWM * ordered a1c * Decreased home Lantus dosing by 20%. Receiving 14 units nightly * Moderate SSI with meals * Hypoglycemia protocol 01/20: * Blood glucose reviewed and are stable (7) Essential hypertension: Code(s): I10 - Essential (primary) hypertension Status: Acute Assessment and Plan: Blood pressures reviewed and are stable but on the lower side of her normal. On lasix, metolazone, metoprolol succinate at home. * Holding lasix and metolazone * monitor daily (8) Right heart failure due to pulmonary hypertension: Code(s): I27.29 - Other secondary pulmonary hypertension; I50.810 - Right heart failure, unspecified Status: Acute (9) Hernia: Code(s): K46.9 - Unspecified abdominal hernia without obstruction or gangrene Status: Acute Assessment and Plan: CT shows large foc
--- NOTE | 2024-01-21 08:54 | PM.IMPN ---
Progress Note: A&P Assessment and Plan (1) Sepsis: Code(s): A41.9 - Sepsis, unspecified organism Status: Acute Assessment and Plan: Triggering sepsis given leukocytosis, low blood pressure, lactic, tachycardia, and fever of 103.2 on arrival Not clear if she received fluid bolus in ED for sepsis. IV fluid intake documented is 1500 ml since admission. Lactic did clear from 2.2 to 1.4 in four hours. Started on IVF NS at 75 ml per hour Rocephin 2 gram and Flagyl ordered Tylenol prn for fever Blood and urine cultures pending Unclear source of infection. UTI vs acute cholecystitis vs pyelonephritis RUQ ultrasound shows gall stones but study is limited due to body habitus. HIDA scan ordered Lipase is normal 01/20: Blood pressures stable 140's Leukocytosis resolved afebrile Gram negative bacilli in urine with enterobacter Stopped Rocephin started cefepime 1 g q.day Will speak with ID pharmacy tomorrow (2) Transaminitis: Code(s): R74.01 - Elevation of levels of liver transaminase levels Status: Acute Assessment and Plan: T bili 1.7, AST 121, ALT 67, Alk phos 279 trend labs HIDA scan pending AST and ALT down this morning Tbili increased to 1.8 01/20: T bili down trending LFT down trending HIDA pending (3) Pyuria: Code(s): R82.81 - Pyuria Status: Acute Assessment and Plan: UA with concerns for UTI but no bacteria present. urine culture sent started on abx 01/20: + Culture with GNB Blood cultures with NGTD (4) Chronic kidney disease, stage 3: Code(s): N18.30 - Chronic kidney disease, stage 3 unspecified Status: Acute Assessment and Plan: Cr baseline seems to run 1.1-1.6 mg/dL; GFR 25 Cr on admission was 1.5, now increased to 2.00 today IV fluids at 75 ml per hour holding diuretic and lisinopril avoid nephrotoxic medications and renally dose agents 01/20: Worsening acute renal failure, Cr 2.40 today Lopez to be placed for accurate I&O and double check Stat renal US May need to consult nephrology FeNA labs ordered (5) Chronic anemia: Code(s): D64.9 - Anemia, unspecified Status: Acute Assessment and Plan: Hgb 8.5 g/dL, MCHC low 30.8 g/dl added on iron panel currently on ferrous sulfate 324 mg daily no active sources of bleeding 01/20: Iron low at 31 Increased ferrous sulfate BID (6) Insulin dependent diabetes mellitus: Status: Acute Assessment and Plan: Unknown A1C, on Lantus 18 units at home and aspart TIDWM ordered a1c Decreased home Lantus dosing by 20%. Receiving 14 units nightly Moderate SSI with meals Hypoglycemia protocol 01/20: Blood glucose reviewed and are stable (7) Essential hypertension: Code(s): I10 - Essential (primary) hypertension Status: Acute Assessment and Plan: Blood pressures reviewed and are stable but on the lower side of her normal. On lasix, metolazone, metoprolol succinate at home. Holding lasix and metolazone monitor daily (8) Right heart failure due to pulmonary hypertension: Code(s): I27.29 - Other secondary pulmonary hypertension; I50.810 - Right heart failure, unspecified Status: Acute (9) Hernia: Code(s): K46.9 - Unspecified abdominal hernia without obstruction or gangrene Status: Acute Assessment and Plan: CT shows large focal hernia with mesenteric fat and central third of the transverse colon, stable from prior exam. No bowel obstruction of bowel wall thickening. Plan awaiting HIDA scan urine culture + GNB Investigate MADAY wtih renal US and possible nephrology consult Subjective Date/time seen: 01/21/24 08:54 Interval history: This is a 63-year-old female with history of stroke and residual expressive aphasia right-sided weakness, dementia, hypertension, hyperlipidemia, right-sided congestive heart failure, pul
[2024-01-21 12:11] LABS: Glucose Point of Care 107 mg/dl (65-105)
[2024-01-21 13:46] LABS: Sodium Urine Random 22 meq/L
[2024-01-21] MEDS: CEFEPIME 1 GM/NS 50 ML 1 GM/50 ML BAG IVPB (13:49)
[2024-01-21] MEDS: ZINC OXIDE 20% OINT 30 GM TUBE 1 APPLIC TOPICAL ×2 (13:50→17:42)
[2024-01-21 13:56] LABS: Creatine Kinase 54 U/L (30-135)
[2024-01-21 17:24] LABS: Glucose Point of Care 75 mg/dl (65-105)
[2024-01-21] MEDS: busPIRone HCL 10 MG TABLET PO (17:42)
[2024-01-21] MEDS: traMADol HCL (*CRX) 50 MG TABLET PO (18:09)
[2024-01-21] MEDS: METOPROLOL SUCCINATE EXT REL 25 MG TABCR PO (22:06)
[2024-01-21] MEDS: INSULIN GLARGINE (*BKC) 100 UNITS/ML 14 UNITS SUB-Q (22:07)
[2024-01-21] MEDS: TOLNAFTATE 1% POWDER 45 GM BTL 1 APPLIC TOPICAL (22:08)
[2024-01-21 22:18] LABS: Glucose Point of Care 94 mg/dl (65-105)
[2024-01-22 04:25] VITALS: BP 144/50; PULSE 78; RESP 18; TEMP 36.2; O2SAT 95
[2024-01-22] MEDS: SODIUM CHLORIDE 0.9% IV 1,000 ML 75 ML IV CONT (06:05)
[2024-01-22 06:06] LABS: Basophils Percent Auto 0.6 % (0.2-1.2); Eosinophils Absolute Auto 0.3 K/mm3 (0-0.3); Hematocrit 29.4 % (37.0-47.0); Immature Granulocyte Absolute 0.03 K/mm3 (0.00-0.031); Immature Granulocyte Percent A 0.5 % (0-0.5); Lymphocytes Absolute Auto 0.74 K/mm3 (0.9-3.2); Lymphocytes Percent Auto 11.4 % (18.3-44.2); Mean Corpuscular HGB Conc 30.6 g/dl (32-36); Mean Corpuscular Hemoglobin 30.1 pg (26-34); Mean Corpuscular Volume 98.3 fl (80-100); Mean Platelet Volume 11.1 fl (7.4-10.4); Monocytes Absolute Auto 0.5 K/mm3 (0.1-0.6); Neutrophils Absolute Auto 4.9 K/mm3 (1.3-6.7); Neutrophils Percent Auto 75.5 % (45.5-73.1); Platelet Count Result 152 k/mm3 (150-375); Red Blood Count 2.99 M/mm3 (4.2-5.4); Red Cell Distribution Width 14.1 % (11.5-14.5); White Blood Count 6.5 K/mm3 (4.5-10.0)
[2024-01-22] MEDS: metroNIDAZOLE 500 MG/ISO 100ML 500 MG/100 ML BAG 100 MG IVPB (06:06)
[2024-01-22] MEDS: GABAPENTIN 100 MG CAPSULE PO ×3 (06:06→21:00)
[2024-01-22 06:29] LABS: Alanine Aminotransferase 27 U/L (6-35); Albumin Level 3.3 g/dL (3.5-5.1); Alkaline Phosphatase 295 U/L (38-126); Anion Gap 9 mmol/L (4-12); Aspartate Amino Transferase 30 U/L (14-36); Bilirubin,Total 1.3 mg/dL (0.2-1.3); Blood Urea Nitrogen 51 mg/dL (7-17); CRP 7.8 mg/dL (<1.0); Calcium 8.3 mg/dL (8.4-10.2); Carbon Dioxide 21 mmol/L (22-30); Chloride 105 mmol/L (98-107); Estimated CRCL calculation 29 ml/min; Estimated Glomerular Filt Rate 20; Glucose 81 mg/dL (65-110); Magnesium 2.2 mg/dL (1.6-2.3); Potassium 4.4 mmol/L (3.4-5.0); Sodium 135 mmol/L (137-145)
[2024-01-22 08:16] LABS: Glucose Point of Care 68 mg/dl (65-105)
[2024-01-22] MEDS: CEFEPIME 1 GM/NS 50 ML 1 GM/50 ML BAG IVPB (08:22)
[2024-01-22] MEDS: TOLNAFTATE 1% POWDER 45 GM BTL 1 APPLIC TOPICAL ×2 (08:23→21:00)
[2024-01-22] MEDS: ZINC OXIDE 20% OINT 30 GM TUBE 1 APPLIC TOPICAL ×3 (08:23→16:57)
[2024-01-22 08:37] LABS: Glucose Point of Care 87 mg/dl (65-105)
--- NOTE | 2024-01-22 09:15 | PC.NURSE ---
Pt. down to HIDA scan via stretcher.
--- NOTE | 2024-01-22 11:06 | ECG_ITS ---
SEE SCANNED COPY FOR CONFIRMED REPORT MTDD
[2024-01-22] MEDS: FERROUS SULFATE 325 MG TABLET DR PO ×2 (11:21→16:58)
[2024-01-22] MEDS: FLUoxetine HCL 20 MG CAPSULE PO (11:21)
[2024-01-22] MEDS: LORATADINE 10 MG TABLET PO (11:21)
[2024-01-22] MEDS: busPIRone HCL 5 MG TABLET PO (11:21)
[2024-01-22] MEDS: ENOXAPARIN 40 MG/0.4 ML SYRINGE SUB-Q (11:21)
[2024-01-22] MEDS: MEMANTINE 10 MG TABLET PO ×2 (11:21→21:00)
[2024-01-22] MEDS: polyethylene glycoL 3350 17 GM POWD.PACK PO (11:22)
[2024-01-22] MEDS: FAMOTIDINE 20 MG TABLET PO ×2 (11:22→16:58)
[2024-01-22] MEDS: ASPIRIN 81 MG ENTERIC TABLET PO (11:22)
[2024-01-22 12:15] LABS: Glucose Point of Care 84 mg/dl (65-105)
--- NOTE | 2024-01-22 15:10 | P.PNIM_ITS ---
Progress Note: A&P Assessment and Plan (1) Sepsis: Code(s): A41.9 - Sepsis, unspecified organism Status: Acute Assessment and Plan: Triggering sepsis given leukocytosis, low blood pressure, lactic, tachycardia, and fever of 103.2 on arrival * Not clear if she received fluid bolus in ED for sepsis. IV fluid intake documented is 1500 ml since admission. Lactic did clear from 2.2 to 1.4 in four hours. * Started on IVF NS at 75 ml per hour * Rocephin 2 gram and Flagyl ordered * Tylenol prn for fever * Blood and urine cultures pending * Unclear source of infection. UTI vs acute cholecystitis vs pyelonephritis * RUQ ultrasound shows gall stones but study is limited due to body habitus. * HIDA scan ordered * Lipase is normal 01/20: * Blood pressures stable 140's * Leukocytosis resolved * afebrile * Gram negative bacilli in urine with enterobacter * Stopped Rocephin started cefepime 1 g q.day * Will speak with ID pharmacy tomorrow 01/21: * Antibiotics changed to p.o. Levaquin * Hemodynamically stable * Leukocytosis resolved * CRP is down trending. Was 16.8 on admission now 7.8 (2) Transaminitis: Code(s): R74.01 - Elevation of levels of liver transaminase levels Status: Acute Assessment and Plan: T bili 1.7, AST 121, ALT 67, Alk phos 279 * trend labs * HIDA scan pending * AST and ALT down this morning * Tbili increased to 1.8 01/20: * T bili down trending * LFT down trending * HIDA pending 01/21: * HIDA scan normal * LFTs resolving, alk-phos 295 (3) Pyuria: Code(s): R82.81 - Pyuria Status: Acute Assessment and Plan: UA with concerns for UTI but no bacteria present. * urine culture sent * started on abx 01/20: * + Culture with GNB * Blood cultures with NGTD 01/21: * Urine culture Enterobacter * Started on Levaquin * Blood cultures with no growth to date (4) Chronic kidney disease, stage 3: Code(s): N18.30 - Chronic kidney disease, stage 3 unspecified Status: Acute Assessment and Plan: Cr baseline seems to run 1.1-1.6 mg/dL; GFR 25 * Cr on admission was 1.5, now increased to 2.00 today * IV fluids at 75 ml per hour * holding diuretic and lisinopril * avoid nephrotoxic medications and renally dose agents 01/20: * Worsening acute renal failure, Cr 2.40 today * Lopez to be placed for accurate I&O and double check * Stat renal US * May need to consult nephrology * FeNA labs ordered 01/21: * Renal with unremarkable left kidney. Right kidney was not adequately visualized. * CT abdomen and pelvis from 01/18 shows 'kidneys with in normal limits' * UOP 1075 ml over the last 24 hours; net negative 706 ml * Cr peaked at 2.5 * Continue to hold insulting agents but will stop IVF as she is taking in good PO (5) Chronic anemia: Code(s): D64.9 - Anemia, unspecified Status: Acute Assessment and Plan: Hgb 8.5 g/dL, MCHC low 30.8 g/dl * added on iron panel * currently on ferrous sulfate 324 mg daily * no active sources of bleeding 01/20: * Iron low at 31 * Increased ferrous sulfate BID 01/21: * Stable * H/H 9.0/29.4% (6) Insulin dependent diabetes mellitus: Status: Acute Assessment and Plan: Unknown A1C, on Lantus 18 units at home and aspart TIDWM * ordered a1c * Decreased home Lantus dosing by 20%. Receiving 14 units nightly * Moderate SSI with meals * Hypoglycemia protocol
--- NOTE | 2024-01-22 15:10 | PM.IMPN ---
Progress Note: A&P Assessment and Plan (1) Sepsis: Code(s): A41.9 - Sepsis, unspecified organism Status: Acute Assessment and Plan: Triggering sepsis given leukocytosis, low blood pressure, lactic, tachycardia, and fever of 103.2 on arrival Not clear if she received fluid bolus in ED for sepsis. IV fluid intake documented is 1500 ml since admission. Lactic did clear from 2.2 to 1.4 in four hours. Started on IVF NS at 75 ml per hour Rocephin 2 gram and Flagyl ordered Tylenol prn for fever Blood and urine cultures pending Unclear source of infection. UTI vs acute cholecystitis vs pyelonephritis RUQ ultrasound shows gall stones but study is limited due to body habitus. HIDA scan ordered Lipase is normal 01/20: Blood pressures stable 140's Leukocytosis resolved afebrile Gram negative bacilli in urine with enterobacter Stopped Rocephin started cefepime 1 g q.day Will speak with ID pharmacy tomorrow 01/21: Antibiotics changed to p.o. Levaquin Hemodynamically stable Leukocytosis resolved CRP is down trending. Was 16.8 on admission now 7.8 (2) Transaminitis: Code(s): R74.01 - Elevation of levels of liver transaminase levels Status: Acute Assessment and Plan: T bili 1.7, AST 121, ALT 67, Alk phos 279 trend labs HIDA scan pending AST and ALT down this morning Tbili increased to 1.8 01/20: T bili down trending LFT down trending HIDA pending 01/21: HIDA scan normal LFTs resolving, alk-phos 295 (3) Pyuria: Code(s): R82.81 - Pyuria Status: Acute Assessment and Plan: UA with concerns for UTI but no bacteria present. urine culture sent started on abx 01/20: + Culture with GNB Blood cultures with NGTD 01/21: Urine culture Enterobacter Started on Levaquin Blood cultures with no growth to date (4) Chronic kidney disease, stage 3: Code(s): N18.30 - Chronic kidney disease, stage 3 unspecified Status: Acute Assessment and Plan: Cr baseline seems to run 1.1-1.6 mg/dL; GFR 25 Cr on admission was 1.5, now increased to 2.00 today IV fluids at 75 ml per hour holding diuretic and lisinopril avoid nephrotoxic medications and renally dose agents 01/20: Worsening acute renal failure, Cr 2.40 today Lopez to be placed for accurate I&O and double check Stat renal US May need to consult nephrology FeNA labs ordered 01/21: Renal with unremarkable left kidney. Right kidney was not adequately visualized. CT abdomen and pelvis from 01/18 shows 'kidneys with in normal limits' UOP 1075 ml over the last 24 hours; net negative 706 ml Cr peaked at 2.5 Continue to hold insulting agents but will stop IVF as she is taking in good PO (5) Chronic anemia: Code(s): D64.9 - Anemia, unspecified Status: Acute Assessment and Plan: Hgb 8.5 g/dL, MCHC low 30.8 g/dl added on iron panel currently on ferrous sulfate 324 mg daily no active sources of bleeding 01/20: Iron low at 31 Increased ferrous sulfate BID 01/21: Stable H/H 9.0/29.4% (6) Insulin dependent diabetes mellitus: Status: Acute Assessment and Plan: Unknown A1C, on Lantus 18 units at home and aspart TIDWM ordered a1c Decreased home Lantus dosing by 20%. Receiving 14 units nightly Moderate SSI with meals Hypoglycemia protocol 01/20: Blood glucose reviewed and are stable 01/21: AM blood glucose was 75. Decreased Lantus to 10 units nightly (7) Essential hypertension: Code(s): I10 - Essential (primary) hypertension Status: Acute Assessment and Plan: Blood pressures reviewed and are stable but on the lower side of her normal. On lasix, metolazone, metoprolol succinate at home. Holding lasix and metolazone monitor daily 01/21: SBP mildly elevated 144/50 Anticipate re-starting BP medications tomorrow (8) Right heart failure due to
[2024-01-22 15:33] VITALS: BP 101/77; PULSE 88; RESP 18; TEMP 36.6; O2SAT 94
--- NOTE | 2024-01-22 15:35 | PC.NURSE ---
Spoke with care coordination to coordinate CPAP set up at [facility] when patient discharges. Process started today 01/22/24.
[2024-01-22] MEDS: busPIRone HCL 10 MG TABLET PO (16:58)
[2024-01-22 17:01] LABS: Glucose Point of Care 63 mg/dl (65-105)
[2024-01-22 18:01] LABS: Glucose Point of Care 105 mg/dl (65-105)
[2024-01-22 20:00] VITALS: PULSE 60; RESP 18; O2SAT 94
[2024-01-22 21:00] VITALS: PULSE 60
[2024-01-22] MEDS: METOPROLOL SUCCINATE EXT REL 25 MG TABCR PO (21:00)
[2024-01-22] MEDS: levoFLOXacin 750 MG TABLET PO (21:01)
[2024-01-22] MEDS: INSULIN GLARGINE (*BKC) 100 UNITS/ML 10 UNITS SUB-Q (21:01)
[2024-01-22 21:32] LABS: Glucose Point of Care 138 mg/dl (65-105)
[2024-01-22 21:57] VITALS: BP 127/50; PULSE 79; RESP 16; TEMP 36.7; O2SAT 95
[2024-01-22 22:08] LABS: Toxigenic C. Diff NEGATIVE (NEGATIVE)
[2024-01-23] MEDS: GABAPENTIN 100 MG CAPSULE PO ×2 (05:12→14:15)
[2024-01-23 05:46] LABS: Basophils Percent Auto 0.7 % (0.2-1.2); Eosinophils Absolute Auto 0.3 K/mm3 (0-0.3); Eosinophils Percent Auto 4.7 % (0-4.4); Hematocrit 30.4 % (37.0-47.0); Hemoglobin 9.7 g/dL (12.0-15.0); Immature Granulocyte Absolute 0.02 K/mm3 (0.00-0.031); Immature Granulocyte Percent A 0.3 % (0-0.5); Lymphocytes Absolute Auto 0.67 K/mm3 (0.9-3.2); Lymphocytes Percent Auto 11.1 % (18.3-44.2); Mean Corpuscular HGB Conc 31.9 g/dl (32-36); Mean Corpuscular Hemoglobin 30.8 pg (26-34); Mean Corpuscular Volume 96.5 fl (80-100); Monocytes Absolute Auto 0.5 K/mm3 (0.1-0.6); Monocytes Percent Auto 7.6 % (2.6-8.5); Neutrophils Absolute Auto 4.6 K/mm3 (1.3-6.7); Neutrophils Percent Auto 75.6 % (45.5-73.1); Platelet Count Result 184 k/mm3 (150-375); Red Blood Count 3.15 M/mm3 (4.2-5.4); Red Cell Distribution Width 14.3 % (11.5-14.5)
[2024-01-23 05:58] LABS: Alanine Aminotransferase 22 U/L (6-35); Albumin Level 3.3 g/dL (3.5-5.1); Alkaline Phosphatase 341 U/L (38-126); Anion Gap 7 mmol/L (4-12); Aspartate Amino Transferase 29 U/L (14-36); Bilirubin,Total 1.1 mg/dL (0.2-1.3); Blood Urea Nitrogen 48 mg/dL (7-17); CRP 6.2 mg/dL (<1.0); Calcium 8.5 mg/dL (8.4-10.2); Carbon Dioxide 23 mmol/L (22-30); Chloride 108 mmol/L (98-107); Estimated CRCL calculation 31 ml/min; Estimated Glomerular Filt Rate 21; Glucose 98 mg/dL (65-110); Potassium 4.2 mmol/L (3.4-5.0); Sodium 138 mmol/L (137-145)
[2024-01-23 06:00] VITALS: BP 136/68; PULSE 79; RESP 16; TEMP 36.2; O2SAT 95
[2024-01-23] MEDS: ASPIRIN 81 MG ENTERIC TABLET PO (08:27)
[2024-01-23] MEDS: busPIRone HCL 5 MG TABLET PO (08:27)
[2024-01-23] MEDS: MEMANTINE 10 MG TABLET PO (08:28)
[2024-01-23] MEDS: FERROUS SULFATE 325 MG TABLET DR PO (08:28)
[2024-01-23] MEDS: FAMOTIDINE 20 MG TABLET PO (08:28)
[2024-01-23] MEDS: ENOXAPARIN 40 MG/0.4 ML SYRINGE SUB-Q (08:28)
[2024-01-23] MEDS: LORATADINE 10 MG TABLET PO (08:28)
[2024-01-23] MEDS: TOLNAFTATE 1% POWDER 45 GM BTL 1 APPLIC TOPICAL (08:32)
[2024-01-23] MEDS: ZINC OXIDE 20% OINT 30 GM TUBE 1 APPLIC TOPICAL ×2 (08:33→12:28)
[2024-01-23 08:40] LABS: Glucose Point of Care 87 mg/dl (65-105)
[2024-01-23] MEDS: FLUoxetine HCL 20 MG CAPSULE PO (08:42)
[2024-01-23 09:06] VITALS: O2SAT 94
[2024-01-23 12:00] LABS: Glucose Point of Care 118 mg/dl (65-105)
[2024-01-23 14:00] VITALS: BP 132/56; PULSE 79; RESP 20; TEMP 36.6; O2SAT 96
[2024-01-23 16:05] LABS: Osmolality, Urine 382 mOsm/kg (50-1200)
[2024-01-29 08:08] LABS: Glucose Point of Care 191 mg/dl (65-105)
== END 2024-01-23 15:40 | DRG 872 ==
LOC: ANHED 11:10 → ANH3MED 12:12
PROVIDERS: Emergency Medicine; Internal Medicine; Physician Assistant; Admitting Provider Hospitalist; Emergency Provider Family Medicine; Visit Provider Nurse Practitioner Acute Care
DX: A41.9 Sepsis, unspecified organism (principal); I69.353 Hemiplegia and hemiparesis following cerebral infarction affecting right non-dominant side; I13.0 Hypertensive heart and chronic kidney disease with heart failure and stage 1 through stage 4 chronic kidney disease, or unspecified chronic kidney disease; N39.0 Urinary tract infection, site not specified; N17.9 Acute kidney failure, unspecified; N18.30 Chronic kidney disease, stage 3 unspecified; I12.9 Hypertensive chronic kidney disease with stage 1 through stage 4 chronic kidney disease, or unspecified chronic kidney disease; E11.22 Type 2 diabetes mellitus with diabetic chronic kidney disease; I50.812 Chronic right heart failure; I27.29 Other secondary pulmonary hypertension; I69.320 Aphasia following cerebral infarction; D64.9 Anemia, unspecified; E55.9 Vitamin D deficiency, unspecified; K80.20 Calculus of gallbladder without cholecystitis without obstruction; K42.9 Umbilical hernia without obstruction or gangrene; G47.33 Obstructive sleep apnea (adult) (pediatric); R74.01 Elevation of levels of liver transaminase levels; F03.90 Unspecified dementia, unspecified severity, without behavioral disturbance, psychotic disturbance, mood disturbance, and anxiety; Z20.822 Contact with and (suspected) exposure to COVID-19; Z79.4 Long term (current) use of insulin; Z79.82 Long term (current) use of aspirin
CPT/HCPCS: 36415; 71045; 74177; 76705; 76775; 78227; 80053; 80074; 81001; 82550; 82948; 83036; 83540; 83550; 83605; 83690; 83735; 83935; 84300; 85025; 85027; 85610; 85730; 86140; 87040; 87045; 87077; 87086; 87088; 87186; 87427; 87449; 87493; 87637; 93005; 93971; 96361; 96365; 96372; 96376; 99285; A9270; A9537; G0378; J0692; J0696; J1650; J1815; J1836; J2805; J7030; Q9967

== ENCOUNTER 2024-03-03 07:09 | Inpatient (IN) | payer OTHER, SELFPAY ==
[2024-03-03] VITALS (12 sets, daily range): BP systolic 106–146; BP diastolic 31–97; PULSE 67–92; RESP 12–20; TEMP 36.4–36.8; O2SAT 94–98; BMI 64.6
--- NOTE | ~2024-03-03 | US_ITS ---
EXAMINATION: US venous doppler [facility] DATE: 03/04/2024 14:48 INDICATION: Lower limb edema. TECHNIQUE: Grayscale ultrasound images without and with compression and Doppler ultrasound images of the bilateral lower extremity veins were obtained. COMPARISON: Ultrasound 01/20/2024 FINDINGS: The visualized portions of right common femoral vein, profunda (deep) femoral vein, femoral vein, pop liteal vein, posterior tibial veins, and greater saphenous vein outflow are patent. The peroneal vein s are not visualized. The visualized portions of left common femoral vein, profunda femoral vein, femoral vein, popliteal v ein, posterior tibial veins, and greater saphenous vein outflow are patent. The peroneal veins are no t visualized. IMPRESSION: 1. No deep venous thrombosis. Reviewed, dictated and finalized at location A.
--- NOTE | ~2024-03-03 | XR_ITS ---
EXAMINATION: XR chest 1V portable 03/03/2024 09:03 INDICATION: CHF and shortness of breath PROCEDURE: AP portable chest COMPARISON: Comparison to multiple prior studies sequentially, with oldest reviewed study dated 03/2020. FINDINGS: The lungs are clear. Cardiomegaly. There are no pleural effusions. There is no pneumothora x suspected. IMPRESSION: 1: NO ACUTE CARDIOPULMONARY DISEASE. Reviewed, dictated and finalized at location B.
--- NOTE | ~2024-03-03 | XR_ITS ---
EXAM: XR abdomen/kub 1V DATE: 03/04/2024 15:01 HISTORY: Abdominal pain . COMPARISON: CT abdomen pelvis 01/19/2024. FINDINGS: Exam limited by body habitus. Clear lung bases. Enlarged liver. Normal bowel gas pattern. C alcified fibroid. Decreased osseous mineralization. No fracture. Lumbar degenerative disc disease. At herosclerotic vascular calcifications. IMPRESSION: No radiographic evidence of obstruction or ileus. Hepatomegaly. Reviewed, dictated and finalized at location K.
--- NOTE | ~2024-03-03 | US_ITS ---
EXAMINATION: US venous doppler [facility] DATE: 03/04/2024 14:48 INDICATION: Upper limb edema. TECHNIQUE: Grayscale ultrasound images without and with compression and Doppler ultrasound images of the bilateral upper extremity veins were obtained. COMPARISON: Ultrasound 01/20/2024 FINDINGS: The visualized portions of the right internal jugular vein, subclavian vein, axillary vein, brachial veins, cephalic vein, radial vein, and ulnar vein are patent. The basilic vein is not well visualized due to patient noncompliance. The visualized portions of the left internal jugular vein, subclavian vein, axillary vein, brachial v eins, basilic vein, cephalic vein, radial vein, and ulnar vein are patent. IMPRESSION: 1. No deep venous thrombosis. Reviewed, dictated and finalized at location A.
--- NOTE | 2024-03-03 07:17 | ECG_ITS ---
[facility] [address] Test Date: 2024-03-03 Pat Name: Dalila Rose Department: Room: Gender: F Student Specialist: : 1960 Requested By: Basilio Alvaardo Order Number: [id number] Duran MD: Baljinder Alvarado M.D. Measurements Intervals [place] Rate: 74 P: 19 [place]: 131 QRS: -7 QRSD: 105 T: 70 QT: 432 QTc: 482 Interpretive Statements SINUS RHYTHM No previous ECG available for comparison Electronically Signed On 03-03-2024 12:09:17 CDT by Baljinder Alvarado M.D.
[2024-03-03 07:52] LABS: Basophils Absolute Auto 0.1 K/mm3 (0.0-0.1); Basophils Percent Auto 0.7 % (0.2-1.2); Eosinophils Absolute Auto 0.4 K/mm3 (0-0.3); Eosinophils Percent Auto 4.1 % (0-4.4); Hematocrit 34.5 % (37.0-47.0); Hemoglobin 10.4 g/dL (12.0-15.0); Immature Granulocyte Absolute 0.02 K/mm3 (0.00-0.031); Immature Granulocyte Percent A 0.2 % (0-0.5); Lymphocytes Absolute Auto 1.05 K/mm3 (0.9-3.2); Lymphocytes Percent Auto 11.9 % (18.3-44.2); Mean Corpuscular HGB Conc 30.1 g/dl (32-36); Mean Corpuscular Hemoglobin 29.8 pg (26-34); Mean Corpuscular Volume 98.9 fl (80-100); Mean Platelet Volume 10.5 fl (7.4-10.4); Monocytes Absolute Auto 0.5 K/mm3 (0.1-0.6); Neutrophils Absolute Auto 6.8 K/mm3 (1.3-6.7); Neutrophils Percent Auto 77.1 % (45.5-73.1); Platelet Count Result 212 k/mm3 (150-375); Red Blood Count 3.49 M/mm3 (4.2-5.4); White Blood Count 8.9 K/mm3 (4.5-10.0)
[2024-03-03 08:01] LABS: Alanine Aminotransferase 14 U/L (6-35); Albumin Level 3.6 g/dL (3.5-5.1); Alkaline Phosphatase 212 U/L (38-126); Anion Gap 6 mmol/L (4-12); Aspartate Amino Transferase 21 U/L (14-36); Blood Urea Nitrogen 38 mg/dL (7-17); Calcium 8.9 mg/dL (8.4-10.2); Carbon Dioxide 32 mmol/L (22-30); Chloride 103 mmol/L (98-107); Estimated CRCL calculation 45 ml/min; Estimated Glomerular Filt Rate 33; Glucose 175 mg/dL (65-110); Potassium 4.3 mmol/L (3.4-5.0); Sodium 141 mmol/L (137-145)
[2024-03-03 08:13] LABS: NT Pro B Type Natriuretic Pept 7710 pg/mL (19.9-100); Troponin I < 0.012 ng/mL (0.000-0.034)
--- NOTE | 2024-03-03 10:27 | ED.SOB ---
HPI - SOB/Dyspnea General Chief Complaint: Shortness of Breath/Dyspnea Stated Complaint: fluid rentention Time Seen by Provider: 03/03/24 07:15 Source: EMS Mode of arrival: EMS Limitations: no limitations History of Present Illness HPI Narrative: 63-year-old with a history of hypertension, morbid obesity, diabetes, CHF here with a complaint of 6 lb weight gain since yesterday. Patient denies having any chest pain. Patient is a poor historian, states Oh God for every question asked. Pertinent past history: congestive heart failure and diabetes Onset (ago): day(s) (1) Timing: constant Exacerbating factors: nothing Relieving factors: nothing Known history of: congestive heart failure Associated symptoms: denies other symptoms Treatment prior to arrival: none Related Data Home Medications Medication Instructions Recorded Confirmed aspirin 81 mg tablet,delayed 81 mg PO DAILY 09/28/19 01/19/24 release (Enteric Coated Aspirin) gabapentin 300 mg capsule 100 mg PO TID 09/28/19 01/19/24 insulin glargine 100 unit/mL (3 18 unit subcut HS 09/28/19 01/19/24 mL) subcutaneous pen (Basaglar KwikPen U-100 Insulin) memantine 10 mg tablet 10 mg PO BID 09/28/19 01/19/24 atorvastatin 10 mg tablet 20 mg PO HS 11/11/20 01/19/24 famotidine 20 mg tablet 20 mg PO BID 06/28/23 01/19/24 glucagon 1 mg/0.2 mL subcutaneous 1 mg subcut ONCE PRN Hypoglycemia 06/28/23 01/19/24 syringe (Gvoke PFS 1-Pack) loratadine 10 mg tablet 10 mg PO DAILY 06/28/23 01/19/24 metolazone 2.5 mg tablet 2.5 mg PO DAILY 06/28/23 01/19/24 sennosides 8.6 mg-docusate sodium 1 tablet PO BID PRN Constipation 06/28/23 01/19/24 50 mg tablet (Senexon-S) tramadol 50 mg tablet 50 mg PO Q6H PRN Pain 06/28/23 01/19/24 acetaminophen 650 mg tablet 650 mg PO Q6H PRN Pain 01/19/24 01/19/24 buspirone 10 mg tablet 10 mg PO QPM 01/19/24 01/19/24 buspirone 5 mg tablet 5 mg PO QAM 01/19/24 01/19/24 cholecalciferol (vitamin D3) 1,250 1,250 mcg PO WEEKLY 01/19/24 01/19/24 mcg (50,000 unit) tablet diphenhydramine HCl 25 mg tablet 25 mg PO Q6H PRN Itching 01/19/24 01/19/24 (Allergy (diphenhydramine)) ferrous sulfate 324 mg (65 mg 324 mg PO DAILY 01/19/24 01/19/24 iron) tablet,delayed release fluoxetine 20 mg capsule 20 mg PO DAILY 01/19/24 01/19/24 furosemide 20 mg tablet 40 mg PO DAILY 01/19/24 01/19/24 insulin aspart (niacinamide) 2 unit subcut TIDWM 01/19/24 01/19/24 (U-100) 100 unit/mL subcutaneous solution (Fiasp U-100 Insulin) zinc oxide-white petrolatum 1 applic topical TID 01/19/24 01/19/24 topical ointment Allergies Allergy/AdvReac Type Severity Reaction Status Date / Time Bleach (Sodium Hypochlorite) AdvReac Unknown Verified 08/13/22 15:06 perfume AdvReac Unknown Verified 08/13/22 15:06 Review of Systems Review of Systems: All systems reviewed & are unremarkable except as noted in HPI and below Constitutional: Constitutional: Reports no additional constitutional complaints ENT: Reports system reviewed and no additional complaints, except as documented Cardiovascular: Cardiovascular: Reports no additional cardiovascular complaints Respiratory: Respiratory: Reports no additional respiratory complaints Musculoskeletal: Musculoskeletal: Reports as per HPI [facility] Past Medical History Medical History Cerebrovascular accident (2014) Resultant expressive aphasia and right-sided weakness. Chronic anemia Chronic kidney disease, stage 3 Dementia Eczema Essential hypertension Hyperlipidemia Insulin dependent diabetes mellitus Obstructive sleep apnea Noncompliant with CPAP therapy Right heart failure due to pulmonary hypertension Echocardiogram September 2019 demonstrated EF of 55-60% with severe pulmonary hypertension Severe pulmonary hypertension Umbilical hernia without obstruction and without gangrene Vitamin D deficiency Surgical History Surgical History (Reviewed 03/03/24 @ 10:45 by Naga
[2024-03-03] MEDS: FUROSEMIDE INJ 40 MG/4 ML VIAL 60 MG IV PUSH (10:42)
--- NOTE | 2024-03-03 11:05 | ADMGEN ---
This patient, Dalila Rose, was admitted to Medical Room 249-01. Patient/family oriented to hospital policies and general routines including ID bracelet, bed and alarms, visiting hours, pain management, procedures, bathroom and other care routines, personal items, smoking policy, room service/diet, and visiting hours. Information on how to activate the Rapid Response Team has been discussed. Patient/Family are encouraged to report perceived risks to care and to ask questions if they do not understand what they are told or what they should do.
[2024-03-03 12:31] LABS: Glucose Point of Care 139 mg/dl (65-105)
--- NOTE | 2024-03-03 13:18 | PM.IMHP ---
H&P: HPI History of Present Illness Date/Time: 03/03/24 13:30 Chief Complaint: ?6 lb weight gain.? Narrative: This is a 63-year-old female with expressive aphasia and right-sided weakness from previous stroke, dementia, hypertension, hyperlipidemia, heart failure with preserved ejection fraction, pulmonary hypertension, obstructive sleep apnea, insulin-dependent diabetes mellitus, chronic kidney disease, and anemia who presented to the emergency department via EMS from [facility] for evaluation after she reportedly gained 6 lb overnight. She is not able to provide any history given her expressive aphasia and a majority the following is obtained via a review of her EMR. According to the triage note she has become more edematous and reportedly gained 6 lb overnight which prompted them to send her in for evaluation. No other information was given. She is alert at the time my evaluation and attempts to answer questions however is unable to do so and she ended up frustrated, yelling out, and crying. In the ED: She was afebrile on arrival with stable vital signs an SpO2 in the mid to upper 90s on room air. Labs were significant for a WBC count of 8.9, hemoglobin 10.4, BUN 38, creatinine 1.60, glucose 175, troponin less than 0.012, proBNP 7710. EKG showed normal sinus rhythm. Chest x-ray showed no acute cardiopulmonary disease. She was given 40 mg IV furosemide and was admitted to the floor for further diuresis. Review of Systems Review of Systems: Unable to obtain given expressive aphasia. [facility] Past Medical History Medical History (Updated 03/03/24 @ 21:04 by Adina Milton PA-C) Cerebrovascular accident (2014) Resultant expressive aphasia and right-sided weakness. Chronic anemia Chronic kidney disease, stage 3 Dementia Eczema Essential hypertension Heart failure with preserved ejection fraction Echocardiogram in June 2023 showed normal LV size and function with concentric LVH and grade 2 diastolic noncompliance. Hyperlipidemia Insulin dependent diabetes mellitus Obstructive sleep apnea Noncompliant with CPAP therapy Pulmonary hypertension Echocardiogram September 2019 demonstrated EF of 55-60% with severe pulmonary hypertension. 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 Code status: Full code. Smoking status: Former smoker Second hand tobacco smoke exposure: Yes Alcohol intake: never Substance use: never Substance use type: does not use Living arrangements: longterm Additional living arrangements comments: Resident of [facility]. Spiritual care concerns: No Agree to blood products: Yes Meds Home Medications and Allergies Home Medications Medication Instructions Recorded Confirmed Type aspirin 81 mg tablet,delayed 81 mg PO DAILY 09/28/19 03/03/24 History release (Enteric Coated Aspirin) gabapentin 300 mg capsule 100 mg PO TID 09/28/19 03/03/24 History insulin glargine 100 unit/mL (3 8 unit subcut HS 09/28/19 03/03/24 History mL) subcutaneous pen (Basaglar KwikPen U-100 Insulin) memantine 10 mg tablet 10 mg PO BID 09/28/19 03/03/24 History atorvastatin 10 mg tablet 10 mg PO HS 11/11/20 03/03/24 History famotidine 20 mg tablet 20 mg PO BID 06/28/23 03/03/24 History glucagon 1 mg/0.2 mL subcutaneous 1 mg subcut ONCE PRN Hypoglycemia 06/28/23 03/03/24 History syringe (Gvoke PFS 1-Pack) loratadine 10 mg tablet 1
[2024-03-03 13:20] LABS: Troponin I < 0.012 ng/mL (0.000-0.034)
[2024-03-03 16:31] LABS: Troponin I < 0.012 ng/mL (0.000-0.034)
[2024-03-03 17:07] LABS: Glucose Point of Care 149 mg/dl (65-105)
[2024-03-03] MEDS: MEMANTINE 10 MG TABLET PO (17:51)
[2024-03-03] MEDS: GABAPENTIN 100 MG CAPSULE PO (17:51)
[2024-03-03] MEDS: FAMOTIDINE 20 MG TABLET PO (17:51)
[2024-03-03] MEDS: busPIRone HCL 10 MG TABLET PO (17:51)
[2024-03-03] MEDS: TOLNAFTATE 1% POWDER 45 GM BTL 1 APPLIC TOPICAL (20:21)
[2024-03-03] MEDS: INSULIN GLARGINE (*BKC) 100 UNITS/ML 8 UNITS SUB-Q (20:22)
[2024-03-03] MEDS: ATORVASTATIN 10 MG TABLET PO (20:22)
[2024-03-03] MEDS: METOPROLOL SUCCINATE EXT REL 25 MG TABCR PO (20:22)
[2024-03-03 20:57] LABS: Glucose Point of Care 168 mg/dl (65-105)
[2024-03-04] VITALS (12 sets, daily range): BP systolic 125–154; BP diastolic 39–75; PULSE 70–90; RESP 20–22; TEMP 36–37.3; O2SAT 91–98
--- NOTE | 2024-03-04 | ECHO_ITS ---
Patient Info Name: Dalila Rose Age: 63 years : 1960 Gender: Female Ht: 60 in Wt: 330 lbs BSA: 2.63 m2 HR: 81 bpm BP: 154 / 75 mmHg Heart Rhythm: Sinus Rhythm Technical Quality: Fair Exam Date: 03/04/2024 3:46 PM Exam Location: Echo Lab Patient Status: Outpatient Admit Date: 03/03/2024 Staff Ordering Physician: Janelle Chowdhury PA-C Slotter Operator: Mario Price RDCS Attending Provider: Janelle Chowdhury PA-C Referring Physician: Ternton ARAUZ; Exam Type: CA echo dop color flow w con Study Info Indications I50.20 - Unspecified systolic (congestive) heart failure Complete two-dimensional, color flow and Doppler transthoracic echocardiogram is performed with contrast to opacify the left ventricle and to improve the deliniation of the left ventricle endocardial borders. Contrast/Agitated Saline Contrast/Ag. Saline: Definity Amount: 3.00 ml Summary 1. Technically difficult study with limited views. 2. Left ventricular chamber dimension is normal. 3. Left ventricular systolic function is mildly reduced, estimated at 45-50%. 4. There is mildly increased left ventricular wall thickness. 5. There is mild to moderate mitral valve regurgitation. The severity of the regurgitation may be underestimated due to the eccentricity of the jet. 6. There is moderate tricuspid valve regurgitation. 7. Pulmonary hypertension. Estimated pulmonary arterial systolic pressure is 70 mmHg. Left Ventricle Left ventricular chamber dimension is normal. Left ventricular systolic function is mildly reduced, estimated at 45-50%. There is mildly increased left ventricular wall thickness. Right Ventricle Right ventricular chamber dimension is not well visualized. Left Atria Left atrial chamber dimension is normal. Right Atria Right atrial chamber dimension is not well visualized. Atrial Septum Intact interatrial septum visualized by color flow imaging. Aortic Valve The aortic valve is not well visualized. There is no aortic valve regurgitation. Pulmonic Valve The pulmonic valve is not well visualized. Mitral Valve The mitral valve has thickened leaflets. There is mild to moderate mitral valve regurgitation. The severity of the regurgitation may be underestimated due to the eccentricity of the jet. The mitral valve annulus is moderately calcified. Tricuspid Valve There is moderate tricuspid valve regurgitation. Pulmonary hypertension. Estimated pulmonary arterial systolic pressure is 70 mmHg. Pericardium/Pleural There is no pericardial effusion. Inferior Vena Cava Normal inferior vena cava with <50% collapse upon inspiration consistent with elevated right atrial pressure, 8 mmHg. Aorta The aortic root size at the sinus of Valsalva is normal. Left Ventricular Outflow Tract Name Value Normal LVOT 2D LVOT Diameter 1.93 cm LVOT Doppler LVOT Peak Gradient 2 mmHg LVOT Mean Gradient 1 mmHg LVOT VTI 15.08 cm LVOT VTI/AV VTI Ratio 0.52 LVOT Stroke Volume 44.09 ml LVOT CO 3.29 l/min
[2024-03-04 05:32] LABS: Hematocrit 35.4 % (37.0-47.0); Hemoglobin 10.7 g/dL (12.0-15.0); Mean Corpuscular HGB Conc 30.2 g/dl (32-36); Mean Corpuscular Volume 99.2 fl (80-100); Mean Platelet Volume 10.7 fl (7.4-10.4); Platelet Count Result 198 k/mm3 (150-375); Red Blood Count 3.57 M/mm3 (4.2-5.4); Red Cell Distribution Width 14.6 % (11.5-14.5); White Blood Count 8.8 K/mm3 (4.5-10.0)
[2024-03-04 05:50] LABS: Anion Gap 6 mmol/L (4-12); Blood Urea Nitrogen 36 mg/dL (7-17); Carbon Dioxide 33 mmol/L (22-30); Chloride 102 mmol/L (98-107); Estimated CRCL calculation 52 ml/min; Estimated Glomerular Filt Rate 38; Glucose 191 mg/dL (65-110); Magnesium 2.1 mg/dL (1.6-2.3); Potassium 4.4 mmol/L (3.4-5.0); Sodium 141 mmol/L (137-145)
--- NOTE | 2024-03-04 07:27 | PM.IMPN ---
Progress Note: A&P Assessment and Plan (1) Acute on chronic diastolic congestive heart failure: Code(s): I50.33 - Acute on chronic diastolic (congestive) heart failure Status: Acute Assessment and Plan: Patient reported to ED for 6lb weight gain overnight. She has significant swelling of the bilateral legs and right upper extremity, however per chart review this is unchanged from prior visit and is likely related to patients immobility. Patient received IV diuresis overnight and was transitioned to oral lasix this am. - Symptoms: 6lb weight gain overnight - Current medications: lasix 40 mg daily, metoprolol 25 mg daily - Supportive treatment Tyl and ibu prn Nebs prn - BNP: 7710 - EKG: Sinus rhythm - Chest XR: No acute cardiopulmonary disease - Echo 06/30/23: LVEF 60-65% - Echo ordered to reassess heart function - Venous doppler US BUE/BLE negative - Monitor vital signs, I&Os, BUN/creatinine, daily weights, neuro status and patient is a fall risk - Monitor serum electrolytes, Keep serum Potassium>4 and serum Magnesium>2 and CBC (2) Chronic kidney disease, stage 3: Code(s): N18.30 - Chronic kidney disease, stage 3 unspecified Status: Acute Assessment and Plan: BUN/Cr appear to be at baseline. - Monitor vital signs, I&Os, BUN/creatinine, daily weights - Monitor serum electrolytes, Keep serum Potassium>4 and serum Magnesium>2 and CBC (3) Chronic anemia: Code(s): D64.9 - Anemia, unspecified Status: Acute Assessment and Plan: H/H appears to be at baseline. - Continue iron supplementation - Monitor with daily labs (4) Insulin dependent diabetes mellitus: Status: Acute Assessment and Plan: - hypoglycemia protocol - POC blood glucose ACHS - home medication - 2 units novolog TID, 8 units lantus HS - correct regimen ordered - low dose TIDWM and continue long acting insulin - A1C 01/20/24: 6.5 (5) Essential hypertension: Code(s): I10 - Essential (primary) hypertension Status: Acute Assessment and Plan: Chronic, stable on home medications. - metoprolol 25 mg daily - lasix 40 mg daily (6) Dementia: Code(s): F03.90 - Unspecified dementia, unspecified severity, without behavioral disturbance, psychotic disturbance, mood disturbance, and anxiety Status: Acute (7) Noncompliance with CPAP treatment: Code(s): Z91.199 - Patient's noncompliance with other medical treatment and regimen due to unspecified reason Status: Acute Assessment and Plan: Patient is noncompliant with CPAP at facility. Will encourage CPAP use while inpatient. Time Spent With Patient Time with patient: 25 - 35 minutes Subjective Date/time seen: 03/04/24 07:27 Interval history: 63-year-old female with expressive aphasia and right-sided weakness from previous stroke, dementia, hypertension, hyperlipidemia, heart failure with preserved ejection fraction, pulmonary hypertension, obstructive sleep apnea, insulin-dependent diabetes mellitus, chronic kidney disease, and anemia who presented to the emergency department via EMS from [facility] for evaluation after she reportedly gained 6 lb overnight. Patient is pleasant lying comfortably in bed. She continues to have bilateral lower extremity edema and severe right upper extremity edema. Likely due to a combination of heart failure and immobility. Venous Dopplers were negative. Echo ordered to reassess patients heart function as the most recent was 06/2023. On exam patient had umbilical tenderness to palpation. KUB was negative. She denies dysuria, hematuria, burning sensation, and increased urgency/frequency of urination as well as changes in bowel. Will continue to monitor. Review of Systems Review of Systems: All systems reviewed & are unremarkable except as noted in HPI and below Exam Narrative: AF HR 90 RR 22 SpO2 94 BP 137/63 General: obese female in no acute respiratory dist
[2024-03-04 08:19] LABS: Glucose Point of Care 168 mg/dl (65-105)
[2024-03-04] MEDS: ENOXAPARIN 40 MG/0.4 ML SYRINGE SUB-Q (09:20)
[2024-03-04] MEDS: LORATADINE 10 MG TABLET PO (09:20)
[2024-03-04] MEDS: FAMOTIDINE 20 MG TABLET PO ×2 (09:20→17:19)
[2024-03-04] MEDS: metOLazone 2.5 MG TABLET PO (09:20)
[2024-03-04] MEDS: FLUoxetine HCL 20 MG CAPSULE PO (09:20)
[2024-03-04] MEDS: FERROUS SULFATE 325 MG TABLET DR 324 MG BY MOUTH (09:20)
[2024-03-04] MEDS: ASPIRIN 81 MG ENTERIC TABLET PO (09:20)
[2024-03-04] MEDS: GABAPENTIN 100 MG CAPSULE PO ×3 (09:20→17:19)
[2024-03-04] MEDS: MEMANTINE 10 MG TABLET PO ×2 (09:21→17:19)
[2024-03-04] MEDS: FUROSEMIDE 40 MG TABLET PO (09:21)
[2024-03-04] MEDS: TOLNAFTATE 1% POWDER 45 GM BTL 1 APPLIC TOPICAL ×2 (09:21→20:53)
[2024-03-04 12:13] LABS: Glucose Point of Care 171 mg/dl (65-105)
[2024-03-04] MEDS: PERFLUTREN LIPID MICROSPHERES 1.5 ML VIAL DILUTED TO 10 ML TOTAL VOLUME IV PUSH (16:20)
[2024-03-04 17:15] LABS: Glucose Point of Care 166 mg/dl (65-105)
[2024-03-04] MEDS: busPIRone HCL 10 MG TABLET PO (17:19)
[2024-03-04 20:42] LABS: Glucose Point of Care 189 mg/dl (65-105)
[2024-03-04] MEDS: ATORVASTATIN 10 MG TABLET PO (20:52)
[2024-03-04] MEDS: INSULIN GLARGINE (*BKC) 100 UNITS/ML 8 UNITS SUB-Q (20:52)
[2024-03-04] MEDS: METOPROLOL SUCCINATE EXT REL 25 MG TABCR PO (20:52)
[2024-03-05] VITALS (11 sets, daily range): BP systolic 101–138; BP diastolic 41–70; PULSE 67–79; RESP 18–21; TEMP 35.9–36.9; O2SAT 92–99
[2024-03-05 08:09] LABS: Basophils Absolute Auto 0.1 K/mm3 (0.0-0.1); Basophils Percent Auto 0.9 % (0.2-1.2); Eosinophils Absolute Auto 0.2 K/mm3 (0-0.3); Hematocrit 34.9 % (37.0-47.0); Hemoglobin 10.3 g/dL (12.0-15.0); Immature Granulocyte Absolute 0.04 K/mm3 (0.00-0.031); Immature Granulocyte Percent A 0.5 % (0-0.5); Lymphocytes Absolute Auto 1.03 K/mm3 (0.9-3.2); Lymphocytes Percent Auto 12.8 % (18.3-44.2); Mean Corpuscular HGB Conc 29.5 g/dl (32-36); Mean Corpuscular Hemoglobin 29.9 pg (26-34); Mean Corpuscular Volume 101.2 fl (80-100); Mean Platelet Volume 10.7 fl (7.4-10.4); Monocytes Absolute Auto 0.5 K/mm3 (0.1-0.6); Monocytes Percent Auto 6.2 % (2.6-8.5); Neutrophils Absolute Auto 6.1 K/mm3 (1.3-6.7); Neutrophils Percent Auto 76.6 % (45.5-73.1); Platelet Count Result 176 k/mm3 (150-375); Red Blood Count 3.45 M/mm3 (4.2-5.4); Red Cell Distribution Width 14.7 % (11.5-14.5)
[2024-03-05 08:10] LABS: Glucose Point of Care 151 mg/dl (65-105)
[2024-03-05 08:20] LABS: Alanine Aminotransferase 10 U/L (6-35); Albumin Level 3.5 g/dL (3.5-5.1); Alkaline Phosphatase 148 U/L (38-126); Anion Gap 5 mmol/L (4-12); Aspartate Amino Transferase 24 U/L (14-36); Bilirubin,Total 1.6 mg/dL (0.2-1.3); Blood Urea Nitrogen 36 mg/dL (7-17); Calcium 8.6 mg/dL (8.4-10.2); Carbon Dioxide 29 mmol/L (22-30); Chloride 105 mmol/L (98-107); Estimated CRCL calculation 53 ml/min; Estimated Glomerular Filt Rate 42; Glucose 154 mg/dL (65-110); Potassium 4.4 mmol/L (3.4-5.0); Sodium 139 mmol/L (137-145)
[2024-03-05 08:51] LABS: Anisocytosis 1+; Hypochromasia 1+; Platelet Estimate Adequate (Adequate); Schistocytes None Seen
[2024-03-05] MEDS: FUROSEMIDE 40 MG TABLET PO (09:08)
[2024-03-05] MEDS: ASPIRIN 81 MG ENTERIC TABLET PO (09:08)
[2024-03-05] MEDS: FAMOTIDINE 20 MG TABLET PO ×2 (09:08→17:33)
[2024-03-05] MEDS: FERROUS SULFATE 325 MG TABLET DR 324 MG BY MOUTH (09:08)
[2024-03-05] MEDS: metOLazone 2.5 MG TABLET PO (09:08)
[2024-03-05] MEDS: ENOXAPARIN 40 MG/0.4 ML SYRINGE SUB-Q (09:08)
[2024-03-05] MEDS: LORATADINE 10 MG TABLET PO (09:08)
[2024-03-05] MEDS: MEMANTINE 10 MG TABLET PO ×2 (09:08→17:33)
[2024-03-05] MEDS: FLUoxetine HCL 20 MG CAPSULE PO (09:08)
[2024-03-05] MEDS: GABAPENTIN 100 MG CAPSULE PO ×3 (09:08→17:33)
[2024-03-05] MEDS: TOLNAFTATE 1% POWDER 45 GM BTL 1 APPLIC TOPICAL ×2 (09:09→20:08)
[2024-03-05] MEDS: ZINC OXIDE 20% OINT 30 GM TUBE 1 APPLIC TOPICAL ×3 (09:09→17:33)
--- NOTE | 2024-03-05 11:36 | PM.IMPN ---
Progress Note: A&P Assessment and Plan (1) Acute on chronic diastolic congestive heart failure: Code(s): I50.33 - Acute on chronic diastolic (congestive) heart failure Status: Acute Assessment and Plan: Patient reported to ED for 6lb weight gain overnight. She has significant swelling of the bilateral legs and right upper extremity, however per chart review this is unchanged from prior visit and is likely related to patients immobility. Patient received IV diuresis overnight and was transitioned to oral lasix this am. - Symptoms: 6lb weight gain overnight - Current medications: lasix 40 mg daily, metoprolol 25 mg daily - Supportive treatment Tyl and ibu prn Nebs prn - BNP: 7710 - EKG: Sinus rhythm - Chest XR: No acute cardiopulmonary disease - Echo 06/30/23: LVEF 60-65% - Echo 03/04/24: LVEF 45-50% with MR/TR and pulmonary hypertension - Venous doppler US BUE/BLE negative - Monitor vital signs, I&Os, BUN/creatinine, daily weights, neuro status and patient is a fall risk - Monitor serum electrolytes, Keep serum Potassium>4 and serum Magnesium>2 and CBC - Cardiology consulted for GDMT, appreciate recommendations (2) Chronic kidney disease, stage 3: Code(s): N18.30 - Chronic kidney disease, stage 3 unspecified Status: Acute Assessment and Plan: BUN/Cr appear to be at baseline. - Monitor vital signs, I&Os, BUN/creatinine, daily weights - Monitor serum electrolytes, Keep serum Potassium>4 and serum Magnesium>2 and CBC (3) Chronic anemia: Code(s): D64.9 - Anemia, unspecified Status: Acute Assessment and Plan: H/H appears to be at baseline. - Continue iron supplementation - Monitor with daily labs (4) Insulin dependent diabetes mellitus: Status: Acute Assessment and Plan: - hypoglycemia protocol - POC blood glucose ACHS - home medication - 2 units novolog TID, 8 units lantus HS - correct regimen ordered - low dose TIDWM and continue long acting insulin - A1C 01/20/24: 6.5 (5) Essential hypertension: Code(s): I10 - Essential (primary) hypertension Status: Acute Assessment and Plan: Chronic, stable on home medications. - metoprolol 25 mg daily - lasix 40 mg daily (6) Dementia: Code(s): F03.90 - Unspecified dementia, unspecified severity, without behavioral disturbance, psychotic disturbance, mood disturbance, and anxiety Status: Acute (7) Noncompliance with CPAP treatment: Code(s): Z91.199 - Patient's noncompliance with other medical treatment and regimen due to unspecified reason Status: Acute Assessment and Plan: Patient is noncompliant with CPAP at facility. Will encourage CPAP use while inpatient. Time Spent With Patient Time with patient: 25 - 35 minutes Subjective Date/time seen: 03/05/24 11:36 Interval history: 63-year-old female with expressive aphasia and right-sided weakness from previous stroke, dementia, hypertension, hyperlipidemia, heart failure with preserved ejection fraction, pulmonary hypertension, obstructive sleep apnea, insulin-dependent diabetes mellitus, chronic kidney disease, and anemia who presented to the emergency department via EMS from [facility] for evaluation after she reportedly gained 6 lb overnight. Patient is pleasant lying comfortably in bed. She continues to have pitting edema to the lower extremities and right upper extremity likely related to a combination of heart failure and immobility. An echo was performed and showed reduced ejection fraction, MR/TR and pulmonary hypertension. Cardiology was consulted for GDMT. Patient denies chest pain, shortness of breath, nausea/vomiting, and changes in bowel/bladder. She is no longer having abdominal pain. Review of Systems Review of Systems: All systems reviewed & are unremarkable except as noted in HPI and below Exam Narrative: AF HR 75 RR 21 SpO2 94 BP 138/63the 40 General: obese female in no acute re
[2024-03-05 12:22] LABS: Glucose Point of Care 147 mg/dl (65-105)
--- NOTE | 2024-03-05 15:24 | PM.CNCAR ---
Assessment and Plan Assessment and plan (1) Cardiomyopathy: Code(s): I42.9 - Cardiomyopathy, unspecified Status: Acute Assessment and Plan: Will check TSH level. Continue Toprol 25mg once daily. Will start Entresto. Continue PO Lasix and PO Metolazone. (2) Severe pulmonary hypertension: Code(s): I27.20 - Pulmonary hypertension, unspecified Status: Acute Assessment and Plan: Likely due to uncontrolled NENA (patient is non compliant with CPAP). Encouraged CPAP use. (3) Acute exacerbation of CHF (congestive heart failure): Qualifiers: Heart failure type: unspecified Qualified Code(s): I50.9 - Heart failure, unspecified Code(s): I50.9 - Heart failure, unspecified Status: Acute Assessment and Plan: As above. (4) Essential hypertension: Code(s): I10 - Essential (primary) hypertension Status: Acute Assessment and Plan: Stable. Start Entresto. Continue Lasix, Metoprolol. (5) CVA (cerebral vascular accident): Onset Date: ~2014 Qualifiers: CVA mechanism: unspecified Qualified Code(s): I63.9 - Cerebral infarction, unspecified Code(s): I63.9 - Cerebral infarction, unspecified Status: Acute Assessment and Plan: Continue ASA. Patient is on Atorvastatin 10mg. Given her history of CVA, recommend increasing it to the high-intensity dose. (6) Type 2 diabetes mellitus, with long-term current use of insulin: Qualifiers: Diabetes mellitus complication status: with hyperglycemia Qualified Code(s): E11.65 - Type 2 diabetes mellitus with hyperglycemia; Z79.4 - long-term (current) use of insulin Code(s): E11.9 - Type 2 diabetes mellitus without complications; Z79.4 - long-term (current) use of insulin Status: Acute Assessment and Plan: Management as per primary team. History of Present Illness History of Present Illness Consult date/time: 03/05/24 15:24 Requesting physician: Janelle Chowdhury PA-C Consult reason: congestive heart failure Reason For Visit: chf Narrative: We are consulted for CHF GDMT. This is a 63 year old female with CVA with expressive aphasia and right sided weakness, dementia, hypertension, hyperlipidemia, heart failure with preserved LVEF, pulmonary hypertension, NENA noncompliant with CPAP, insulin-dependent diabetes, CKD, anemia who presented to [facility] for 6lb weight gain overnight. CXR negative for acute findings. She was given IV Lasix with improvement and has now been switched to oral Lasix. She has bilateral lower extremity edema and swelling in RUE that has been chronic and thought to be from immobility from her stroke, and it is noted that the swelling is not markedly worse compared to before. Workup shows NT pro BNP of 7710. Troponins are negative. CXR shows clear lungs. Venous duplex is negative. Echocardiogram this admission shows LVEF 45-50%, mild-moderate MR, moderate TR, pulmonary hypertension with estimated PASP of 70mmHg. Previous echocardiogram from June 2023 shows LVEF 60-65%. Patient reports feeling okay this afternoon. No shortness of breath, orthopnea, chest pain. Review of Systems Review of Systems: All systems reviewed & are unremarkable except as noted in HPI and below (HPI) FORMERLY [facility], [facility] Past Medical History Medical History Cerebrovascular accident (2014) Resultant expressive aphasia and right-sided weakness. Chronic anemia Chronic kidney disease, stage 3 Dementia Eczema Essential hypertension Heart failure with preserved ejection fraction Echocardiogram in June 2023 showed normal LV size and function with concentric LVH and grade 2 diastolic noncompliance. Hyperlipidemia Insulin dependent diabetes mellitus Obstructive sleep apnea Noncompliant with CPAP therapy Pulmonary hypertension Echocardiogram September 2019 demonstrated EF of 55-60% with severe pulmonary hypertension
[2024-03-05 17:09] LABS: Glucose Point of Care 129 mg/dl (65-105)
[2024-03-05] MEDS: busPIRone HCL 10 MG TABLET PO (17:33)
[2024-03-05] MEDS: METOPROLOL SUCCINATE EXT REL 25 MG TABCR PO (20:05)
[2024-03-05] MEDS: ATORVASTATIN 10 MG TABLET PO (20:05)
[2024-03-05] MEDS: SACUBITRIL/VALSARTAN 24-26 MG TABLET 1 TAB PO (20:05)
[2024-03-05] MEDS: INSULIN GLARGINE (*BKC) 100 UNITS/ML 8 UNITS SUB-Q (20:06)
[2024-03-05 20:38] LABS: Glucose Point of Care 148 mg/dl (65-105)
[2024-03-06] VITALS (10 sets, daily range): BP systolic 109–137; BP diastolic 38–93; PULSE 67–79; RESP 16–20; TEMP 36.2–36.9; O2SAT 92–100
[2024-03-06 04:41] LABS: Basophils Absolute Auto 0.1 K/mm3 (0.0-0.1); Basophils Percent Auto 0.9 % (0.2-1.2); Eosinophils Absolute Auto 0.3 K/mm3 (0-0.3); Eosinophils Percent Auto 4.3 % (0-4.4); Hematocrit 31.9 % (37.0-47.0); Hemoglobin 9.9 g/dL (12.0-15.0); Immature Granulocyte Absolute 0.02 K/mm3 (0.00-0.031); Immature Granulocyte Percent A 0.3 % (0-0.5); Lymphocytes Percent Auto 13.3 % (18.3-44.2); Mean Corpuscular Hemoglobin 30.3 pg (26-34); Mean Corpuscular Volume 97.6 fl (80-100); Mean Platelet Volume 10.6 fl (7.4-10.4); Monocytes Absolute Auto 0.5 K/mm3 (0.1-0.6); Monocytes Percent Auto 7.7 % (2.6-8.5); Neutrophils Percent Auto 73.5 % (45.5-73.1); Platelet Count Result 159 k/mm3 (150-375); Red Blood Count 3.27 M/mm3 (4.2-5.4); Red Cell Distribution Width 14.6 % (11.5-14.5); White Blood Count 6.8 K/mm3 (4.5-10.0)
[2024-03-06 04:59] LABS: Alanine Aminotransferase 9 U/L (6-35); Albumin Level 3.3 g/dL (3.5-5.1); Alkaline Phosphatase 150 U/L (38-126); Anion Gap 6 mmol/L (4-12); Aspartate Amino Transferase 17 U/L (14-36); Bilirubin,Total 1.5 mg/dL (0.2-1.3); Blood Urea Nitrogen 34 mg/dL (7-17); Calcium 8.6 mg/dL (8.4-10.2); Carbon Dioxide 31 mmol/L (22-30); Chloride 102 mmol/L (98-107); Estimated CRCL calculation 49 ml/min; Estimated Glomerular Filt Rate 38; Glucose 125 mg/dL (65-110); Potassium 3.7 mmol/L (3.4-5.0); Sodium 139 mmol/L (137-145)
--- NOTE | 2024-03-06 07:31 | P.PNIM_ITS ---
Progress Note: A&P Assessment and Plan (1) Acute on chronic diastolic congestive heart failure: Code(s): I50.33 - Acute on chronic diastolic (congestive) heart failure Status: Acute Assessment and Plan: Patient reported to ED for 6lb weight gain overnight. She has significant swelling of the bilateral legs and right upper extremity, however per chart review this is unchanged from prior visit and is likely related to patients immobility. Patient received IV diuresis overnight and was transitioned to oral lasix this am. - Symptoms: 6lb weight gain overnight - Current medications: lasix 40 mg daily, metoprolol 25 mg daily - Supportive treatment Tyl and ibu prn Nebs prn - BNP: 7710 - EKG: Sinus rhythm - Chest XR: No acute cardiopulmonary disease - Echo 06/30/23: LVEF 60-65% - Echo 03/04/24: LVEF 45-50% with MR/TR and pulmonary hypertension - Venous doppler US BUE/BLE negative - Monitor vital signs, I&Os, BUN/creatinine, daily weights, neuro status and patient is a fall risk - Monitor serum electrolytes, Keep serum Potassium>4 and serum Magnesium>2 and CBC - Cardiology consulted for GDMT, appreciate recommendations * 03/06 seen per caRD: start entresto, continue metoprolol, asa, will need dose increase in statin-will increase now to 20 mg- then in2-4 weeks- need increase to 40 mg. GFR had been around 38- will consider Jardiance (2) Chronic kidney disease, stage 3: Code(s): N18.30 - Chronic kidney disease, stage 3 unspecified Status: Acute Assessment and Plan: BUN/Cr appear to be at baseline. - Monitor vital signs, I&Os, BUN/creatinine, daily weights - Monitor serum electrolytes, Keep serum Potassium>4 and serum Magnesium>2 and CBC (3) Chronic anemia: Code(s): D64.9 - Anemia, unspecified Status: Acute Assessment and Plan: H/H appears to be at baseline. - Continue iron supplementation - Monitor with daily labs (4) Insulin dependent diabetes mellitus: Status: Acute Assessment and Plan: - hypoglycemia protocol - POC blood glucose ACHS - home medication - 2 units novolog TID, 8 units lantus HS - correct regimen ordered - low dose TIDWM and continue long acting insulin - A1C 01/20/24: 6.5 (5) Essential hypertension: Code(s): I10 - Essential (primary) hypertension Status: Acute Assessment and Plan: Chronic, stable on home medications. - metoprolol 25 mg daily - lasix 40 mg daily po-continue (6) Dementia: Code(s): F03.90 - Unspecified dementia, unspecified severity, without behavioral disturbance, psychotic disturbance, mood disturbance, and anxiety Status: Acute (7) Noncompliance with CPAP treatment: Code(s): Z91.199 - Patient's noncompliance with other medical treatment and regimen due to unspecified reason Status: Acute Assessment and Plan: Patient is noncompliant with CPAP at facility. Will encourage CPAP use while inpatient. Time Spent With Patient Time with patient: 25 - 35 minutes Subjective Date/time seen: 03/06/24 07:31 Interval history: 63-year-old female with expressive aphasia and right-sided weakness from previous stroke, dementia, hypertension, hyperlipidemia, heart failure with preserved ejection fraction, pulmonary hypertension, obstructive sleep apnea, insulin-dependent diabetes mellitus, chronic kidney disease, and anemia who presented to the emergency department via EMS from [facility] for evaluation after she reportedly gained 6 lb overnight. Patient is pleasant lying comfortably in bed. She continue
[2024-03-06 07:52] LABS: Glucose Point of Care 125 mg/dl (65-105)
--- NOTE | 2024-03-06 09:26 | PM.PNCARD ---
Progress Note: A&P Assessment and Plan (1) Elevated TSH: Code(s): R79.89 - Other specified abnormal findings of blood chemistry Status: Acute Assessment and Plan: TSH level is 8.350. Further management of elevated TSH level as per primary team. (2) Cardiomyopathy: Code(s): I42.9 - Cardiomyopathy, unspecified Status: Acute Assessment and Plan: Continue Toprol 25mg once daily. Started Entresto, tolerating it well. Continue with Entresto. Continue PO Lasix and PO Metolazone. Further GDMT uptitration can be done as outpatient. Will arrange for follow up in our office. (3) Severe pulmonary hypertension: Code(s): I27.20 - Pulmonary hypertension, unspecified Status: Acute Assessment and Plan: Likely due to uncontrolled NENA (patient is non compliant with CPAP). Encouraged CPAP use. (4) Acute exacerbation of CHF (congestive heart failure): Qualifiers: Heart failure type: unspecified Qualified Code(s): I50.9 - Heart failure, unspecified Code(s): I50.9 - Heart failure, unspecified Status: Acute Assessment and Plan: As above. (5) Essential hypertension: Code(s): I10 - Essential (primary) hypertension Status: Acute Assessment and Plan: Stable. Continue Entresto, Lasix, Metoprolol. (6) CVA (cerebral vascular accident): Onset Date: ~2014 Qualifiers: CVA mechanism: unspecified Qualified Code(s): I63.9 - Cerebral infarction, unspecified Code(s): I63.9 - Cerebral infarction, unspecified Status: Acute Assessment and Plan: Continue ASA. Patient is on Atorvastatin. Given her history of CVA, recommend increasing it to the high-intensity dose. (7) Type 2 diabetes mellitus, with long-term current use of insulin: Qualifiers: Diabetes mellitus complication status: with hyperglycemia Qualified Code(s): E11.65 - Type 2 diabetes mellitus with hyperglycemia; Z79.4 - computer terminal operator (current) use of insulin Code(s): E11.9 - Type 2 diabetes mellitus without complications; Z79.4 - computer terminal operator (current) use of insulin Status: Acute Assessment and Plan: Management as per primary team. Plan Okay for discharge from my standpoint. Will arrange outpatient follow up in our office. Recommendations and plan discussed with Hospitalist. Subjective Date/time seen: 03/06/24 09:26 Interval history: Reason for visit: CHF HPI: We are consulted for CHF GDMT. This is a 63 year old female with CVA with expressive aphasia and right sided weakness, dementia, hypertension, hyperlipidemia, heart failure with preserved LVEF, pulmonary hypertension, NENA noncompliant with CPAP, insulin-dependent diabetes, CKD, anemia who presented to [place] for 6lb weight gain overnight. CXR negative for acute findings. She was given IV Lasix with improvement and has now been switched to oral Lasix. She has bilateral lower extremity edema and swelling in RUE that has been chronic and thought to be from immobility from her stroke, and it is noted that the swelling is not markedly worse compared to before. Workup shows NT pro BNP of 7710. Troponins are negative. CXR shows clear lungs. Venous duplex is negative. Echocardiogram this admission shows LVEF 45-50%, mild-moderate MR, moderate TR, pulmonary hypertension with estimated PASP of 70mmHg. Previous echocardiogram from June 2023 shows LVEF 60-65%. Patient reports feeling okay this afternoon. No shortness of breath, orthopnea, chest pain. Date of service 03/06: Patient reports that she is feeling well this morning. Review of Systems Review of Systems: All systems reviewed & are unremarkable except as noted in HPI and below (HPI) Exam Const: General: no acute distress Other: Morbidly obese female HENMT: Mouth: Yes moist mucous membranes Eyes: General: appearance normal, both eyes and all related structures Sclera: sclerae normal Resp: Effort &
[2024-03-06] MEDS: SACUBITRIL/VALSARTAN 24-26 MG TABLET 1 TAB PO ×2 (09:34→21:00)
[2024-03-06] MEDS: metOLazone 2.5 MG TABLET PO (09:34)
[2024-03-06] MEDS: ASPIRIN 81 MG ENTERIC TABLET PO (09:34)
[2024-03-06] MEDS: FAMOTIDINE 20 MG TABLET PO ×2 (09:35→17:07)
[2024-03-06] MEDS: LORATADINE 10 MG TABLET PO (09:35)
[2024-03-06] MEDS: ENOXAPARIN 40 MG/0.4 ML SYRINGE SUB-Q (09:35)
[2024-03-06] MEDS: FERROUS SULFATE 325 MG TABLET DR 324 MG BY MOUTH (09:35)
[2024-03-06] MEDS: FLUoxetine HCL 20 MG CAPSULE PO (09:35)
[2024-03-06] MEDS: FUROSEMIDE 40 MG TABLET PO (09:35)
[2024-03-06] MEDS: MEMANTINE 10 MG TABLET PO ×2 (09:35→17:07)
[2024-03-06] MEDS: GABAPENTIN 100 MG CAPSULE PO ×3 (09:35→17:07)
[2024-03-06] MEDS: TOLNAFTATE 1% POWDER 45 GM BTL 1 APPLIC TOPICAL ×2 (09:37→21:01)
[2024-03-06] MEDS: ZINC OXIDE 20% OINT 30 GM TUBE 1 APPLIC TOPICAL ×3 (09:37→17:07)
[2024-03-06 11:05] LABS: Toxigenic C. Diff NEGATIVE (NEGATIVE)
[2024-03-06 11:42] LABS: Glucose Point of Care 113 mg/dl (65-105)
[2024-03-06 16:47] LABS: Glucose Point of Care 111 mg/dl (65-105)
[2024-03-06] MEDS: busPIRone HCL 10 MG TABLET PO (17:07)
[2024-03-06] MEDS: METOPROLOL SUCCINATE EXT REL 25 MG TABCR PO (21:00)
[2024-03-06] MEDS: ATORVASTATIN 20 MG TABLET PO (21:00)
[2024-03-06] MEDS: ACETAMINOPHEN 325 MG TABLET 650 MG PO (21:00)
[2024-03-06 21:11] LABS: Glucose Point of Care 124 mg/dl (65-105)
[2024-03-07] VITALS: BP 99/33; PULSE 67; PULSE 70; RESP 18; TEMP 36.5; O2SAT 95
[2024-03-07 04:00] VITALS: BP 107/81; PULSE 66; PULSE 71; RESP 18; TEMP 36.5; O2SAT 98
[2024-03-07 05:02] LABS: Basophils Absolute Auto 0.1 K/mm3 (0.0-0.1); Basophils Percent Auto 0.9 % (0.2-1.2); Eosinophils Absolute Auto 0.3 K/mm3 (0-0.3); Eosinophils Percent Auto 4.5 % (0-4.4); Hematocrit 32.5 % (37.0-47.0); Immature Granulocyte Absolute 0.02 K/mm3 (0.00-0.031); Immature Granulocyte Percent A 0.4 % (0-0.5); Lymphocytes Absolute Auto 0.86 K/mm3 (0.9-3.2); Lymphocytes Percent Auto 15.5 % (18.3-44.2); Mean Corpuscular HGB Conc 30.8 g/dl (32-36); Mean Corpuscular Hemoglobin 30.1 pg (26-34); Mean Corpuscular Volume 97.9 fl (80-100); Mean Platelet Volume 10.6 fl (7.4-10.4); Monocytes Absolute Auto 0.4 K/mm3 (0.1-0.6); Monocytes Percent Auto 7.4 % (2.6-8.5); Neutrophils Percent Auto 71.3 % (45.5-73.1); Platelet Count Result 169 k/mm3 (150-375); Red Blood Count 3.32 M/mm3 (4.2-5.4); Red Cell Distribution Width 14.7 % (11.5-14.5); White Blood Count 5.6 K/mm3 (4.5-10.0)
[2024-03-07 05:10] LABS: Alanine Aminotransferase 8 U/L (6-35); Albumin Level 3.1 g/dL (3.5-5.1); Alkaline Phosphatase 148 U/L (38-126); Anion Gap 4 mmol/L (4-12); Aspartate Amino Transferase 16 U/L (14-36); Bilirubin,Total 1.5 mg/dL (0.2-1.3); Blood Urea Nitrogen 31 mg/dL (7-17); Calcium 8.5 mg/dL (8.4-10.2); Carbon Dioxide 32 mmol/L (22-30); Chloride 102 mmol/L (98-107); Estimated CRCL calculation 52 ml/min; Estimated Glomerular Filt Rate 42; Glucose 118 mg/dL (65-110); Potassium 3.6 mmol/L (3.4-5.0); Sodium 138 mmol/L (137-145)
--- NOTE | 2024-03-07 07:23 | PM.IMPN ---
Progress Note: A&P Assessment and Plan (1) Acute on chronic diastolic congestive heart failure: Code(s): I50.33 - Acute on chronic diastolic (congestive) heart failure Status: Acute Assessment and Plan: Patient reported to ED for 6lb weight gain overnight. She has significant swelling of the bilateral legs and right upper extremity, however per chart review this is unchanged from prior visit and is likely related to patients immobility. Patient received IV diuresis overnight and was transitioned to oral lasix this am. - Symptoms: 6lb weight gain overnight - Current medications: lasix 40 mg daily, metoprolol 25 mg daily - Supportive treatment Tyl and ibu prn Nebs prn - BNP: 7710 - EKG: Sinus rhythm - Chest XR: No acute cardiopulmonary disease - Echo 06/30/23: LVEF 60-65% - Echo 03/04/24: LVEF 45-50% with MR/TR and pulmonary hypertension - Venous doppler US BUE/BLE negative - Monitor vital signs, I&Os, BUN/creatinine, daily weights, neuro status and patient is a fall risk - Monitor serum electrolytes, Keep serum Potassium>4 and serum Magnesium>2 and CBC - Cardiology consulted for GDMT, appreciate recommendations 03/06 seen per caRD: start entresto, continue metoprolol, asa, will need dose increase in statin-will increase now to 20 mg- then in2-4 weeks- need increase to 40 mg. GFR had been around 38- will consider Jardiance (2) Chronic kidney disease, stage 3: Code(s): N18.30 - Chronic kidney disease, stage 3 unspecified Status: Acute Assessment and Plan: BUN/Cr appear to be at baseline. - Monitor vital signs, I&Os, BUN/creatinine, daily weights - Monitor serum electrolytes, Keep serum Potassium>4 and serum Magnesium>2 and CBC (3) Chronic anemia: Code(s): D64.9 - Anemia, unspecified Status: Acute Assessment and Plan: H/H appears to be at baseline. - Continue iron supplementation - Monitor with daily labs (4) Insulin dependent diabetes mellitus: Status: Acute Assessment and Plan: - hypoglycemia protocol - POC blood glucose ACHS - home medication - 2 units novolog TID, 8 units lantus HS - correct regimen ordered - low dose TIDWM and continue long acting insulin - A1C 01/20/24: 6.5 (5) Essential hypertension: Code(s): I10 - Essential (primary) hypertension Status: Acute Assessment and Plan: Chronic, stable on home medications. - metoprolol 25 mg daily - lasix 40 mg daily po-continue (6) Dementia: Code(s): F03.90 - Unspecified dementia, unspecified severity, without behavioral disturbance, psychotic disturbance, mood disturbance, and anxiety Status: Acute (7) Noncompliance with CPAP treatment: Code(s): Z91.199 - Patient's noncompliance with other medical treatment and regimen due to unspecified reason Status: Acute Assessment and Plan: Patient is noncompliant with CPAP at facility. Will encourage CPAP use while inpatient. Time Spent With Patient Time with patient: 25 - 35 minutes Subjective Date/time seen: 03/07/24 07:23 Interval history: 63-year-old female with expressive aphasia and right-sided weakness from previous stroke, dementia, hypertension, hyperlipidemia, heart failure with preserved ejection fraction, pulmonary hypertension, obstructive sleep apnea, insulin-dependent diabetes mellitus, chronic kidney disease, and anemia who presented to the emergency department via EMS from [facility] for evaluation after she reportedly gained 6 lb overnight. Patient is pleasant lying comfortably in bed. She continues to have pitting edema to the lower extremities and right upper extremity likely related to a combination of heart failure and immobility. An echo was performed and showed reduced ejection fraction, MR/TR and pulmonary hypertension. Cardiology was consulted for GDMT. Patient denies chest pain, shortness of breath, nausea/vomiting, and changes in bowel/bladder. She is no longer having ab
[2024-03-07 08:00] VITALS: BP 118/78; PULSE 68; PULSE 73; RESP 18; TEMP 36.4; O2SAT 98
[2024-03-07 08:08] VITALS: O2SAT 97
[2024-03-07 08:20] LABS: Glucose Point of Care 132 mg/dl (65-105)
[2024-03-07] MEDS: MEMANTINE 10 MG TABLET PO (08:57)
[2024-03-07] MEDS: LORATADINE 10 MG TABLET PO (08:57)
[2024-03-07] MEDS: GABAPENTIN 100 MG CAPSULE PO (08:57)
[2024-03-07] MEDS: FERROUS SULFATE 325 MG TABLET DR 324 MG BY MOUTH (08:57)
[2024-03-07] MEDS: metOLazone 2.5 MG TABLET PO (08:57)
[2024-03-07] MEDS: SACUBITRIL/VALSARTAN 24-26 MG TABLET 1 TAB PO (08:57)
[2024-03-07] MEDS: ASPIRIN 81 MG ENTERIC TABLET PO (08:57)
[2024-03-07] MEDS: FUROSEMIDE 40 MG TABLET PO (08:58)
[2024-03-07] MEDS: ENOXAPARIN 40 MG/0.4 ML SYRINGE SUB-Q (08:58)
[2024-03-07] MEDS: FAMOTIDINE 20 MG TABLET PO (08:58)
[2024-03-07] MEDS: TOLNAFTATE 1% POWDER 45 GM BTL 1 APPLIC TOPICAL (08:58)
[2024-03-07] MEDS: FLUoxetine HCL 20 MG CAPSULE PO (08:58)
[2024-03-07] MEDS: ZINC OXIDE 20% OINT 30 GM TUBE 1 APPLIC TOPICAL (08:58)
--- NOTE | 2024-03-07 11:08 | PM.DS ---
DS: Admitting Diagnosis Discharge Date 03/07 Admitting Diagnosis 6 pounds weight gain DS: Discharge Diagnosis Discharge Diagnosis (1) Acute on chronic diastolic congestive heart failure: Code(s): I50.33 - Acute on chronic diastolic (congestive) heart failure Status: Acute Assessment and Plan: Patient reported to ED for 6lb weight gain overnight. She has significant swelling of the bilateral legs and right upper extremity, however per chart review this is unchanged from prior visit and is likely related to patients immobility. Patient received IV diuresis overnight and was transitioned to oral lasix this am. - Symptoms: 6lb weight gain overnight - Current medications: lasix 40 mg daily, metoprolol 25 mg daily - Supportive treatment Tyl and ibu prn Nebs prn - BNP: 7710 - EKG: Sinus rhythm - Chest XR: No acute cardiopulmonary disease - Echo 06/30/23: LVEF 60-65% - Echo 03/04/24: LVEF 45-50% with MR/TR and pulmonary hypertension - Venous doppler US BUE/BLE negative - Monitor vital signs, I&Os, BUN/creatinine, daily weights, neuro status and patient is a fall risk - Monitor serum electrolytes, Keep serum Potassium>4 and serum Magnesium>2 and CBC - Cardiology consulted for GDMT, appreciate recommendations 03/06 seen per caRD: start entresto, continue metoprolol, asa, will need dose increase in statin-will increase now to 20 mg- then in2-4 weeks- need increase to 40 mg. GFR had been around 38- will consider Jardiance (2) Chronic kidney disease, stage 3: Code(s): N18.30 - Chronic kidney disease, stage 3 unspecified Status: Acute Assessment and Plan: BUN/Cr appear to be at baseline. - Monitor vital signs, I&Os, BUN/creatinine, daily weights - Monitor serum electrolytes, Keep serum Potassium>4 and serum Magnesium>2 and CBC (3) Chronic anemia: Code(s): D64.9 - Anemia, unspecified Status: Acute Assessment and Plan: H/H appears to be at baseline. - Continue iron supplementation - Monitor with daily labs (4) Insulin dependent diabetes mellitus: Status: Acute Assessment and Plan: - hypoglycemia protocol - POC blood glucose ACHS - home medication - 2 units novolog TID, 8 units lantus HS - correct regimen ordered - low dose TIDWM and continue long acting insulin - A1C 01/20/24: 6.5 (5) Essential hypertension: Code(s): I10 - Essential (primary) hypertension Status: Acute Assessment and Plan: Chronic, stable on home medications. - metoprolol 25 mg daily - lasix 40 mg daily po-continue (6) Dementia: Code(s): F03.90 - Unspecified dementia, unspecified severity, without behavioral disturbance, psychotic disturbance, mood disturbance, and anxiety Status: Acute (7) Noncompliance with CPAP treatment: Code(s): Z91.199 - Patient's noncompliance with other medical treatment and regimen due to unspecified reason Status: Acute Assessment and Plan: Patient is noncompliant with CPAP at facility. Will encourage CPAP use while inpatient. Plan Final dx: Acute on chronic diastolic (congestive) heart failure Cardiomyopathy pt was seen per card- started on entresto. On beta shelli-metoprolol, Continue PO Lasix and PO Metolazone. asa statin was increased- will need to titrate up in 4 weeks or so Elevated TSH- subclinical hypothyroidism-continue thyroid meds and will need to f/u with PCP DS: Summary Hospital Course Hospital Course: 63-year-old female with expressive aphasia and right-sided weakness from previous stroke, dementia, hypertension, hyperlipidemia, heart failure with preserved ejection fraction, pulmonary hypertension, obstructive sleep apnea, insulin-dependent diabetes mellitus, chronic kidney disease, and anemia who presented to the emergency department via EMS from [facility] for evaluation after she reportedly gained 6 lb overnight. Patient is pleasant lying comfortably in bed. She continues to have pit
[2024-03-07 12:00] VITALS: BP 116/74; PULSE 66; RESP 18; TEMP 36.6; O2SAT 99
[2024-03-07 12:06] LABS: Glucose Point of Care 137 mg/dl (65-105)
[2024-03-07 12:51] LABS: SARS-CoV-2 RNA PCR Negative (Negative)
--- NOTE | 2024-03-22 14:49 | IVDEFINITY ---
Prior to administration of IV Definity the patient was educated on the risks and benefits of the imaging enhancing agent including potential adverse side effects. The patient verbalized understanding. Allergies were verified. No exclusion criteria were identified and at least one of the following inclusion criteria were met: 1) physician request, 2) patient technically difficult to image (per the [employer] guidelines of two or more segments not discernable within the apical view), or 3) questionable left ventricular function. ?
== END 2024-03-07 14:15 | DRG 291 ==
LOC: ANHED 07:49 → ANH2MED 10:46
PROVIDERS: Internal Medicine; Physician Assistant; Student in an Organized Health Care Education/Training Program; Admitting Provider Hospitalist; Emergency Provider Family Medicine; Visit Provider Nurse Practitioner
DX: I13.0 Hypertensive heart and chronic kidney disease with heart failure and stage 1 through stage 4 chronic kidney disease, or unspecified chronic kidney disease (principal); I50.33 Acute on chronic diastolic (congestive) heart failure; R47.01 Aphasia; I69.351 Hemiplegia and hemiparesis following cerebral infarction affecting right dominant side; I69.320 Aphasia following cerebral infarction; D63.1 Anemia in chronic kidney disease; E03.9 Hypothyroidism, unspecified; E55.9 Vitamin D deficiency, unspecified; E11.22 Type 2 diabetes mellitus with diabetic chronic kidney disease; E78.5 Hyperlipidemia, unspecified; F03.90 Unspecified dementia, unspecified severity, without behavioral disturbance, psychotic disturbance, mood disturbance, and anxiety; G47.33 Obstructive sleep apnea (adult) (pediatric); I43 Cardiomyopathy in diseases classified elsewhere; I27.20 Pulmonary hypertension, unspecified; I08.1 Rheumatic disorders of both mitral and tricuspid valves; N18.30 Chronic kidney disease, stage 3 unspecified; Z11.52 Encounter for screening for COVID-19; Z79.4 Long term (current) use of insulin; Z79.82 Long term (current) use of aspirin; Z79.85 Long-term (current) use of injectable non-insulin antidiabetic drugs; Z91.199 Patient's noncompliance with other medical treatment and regimen due to unspecified reason; Z99.89 Dependence on other enabling machines and devices
CPT/HCPCS: 36415; 71045; 74018; 80048; 80053; 82948; 83735; 83880; 84443; 84484; 85025; 85027; 87493; 87635; 93005; 93970; 96372; 96374; 99285; A9270; C8929; G0378; J1650; J1815; J1940; Q9957

== ENCOUNTER 2025-04-22 14:44 | Inpatient (IN) | payer OTHER, SELFPAY ==
--- NOTE | ~2025-04-22 | US_ITS ---
EXAM: RENAL ULTRASOUND HISTORY: ELEV CR COMPARISON: Reference is made to a CT examination of the abdomen and pelvis dated 01/19/2024 which dem onstrated bilateral renal atrophy, multiple cysts and diffuse cortical thinning FINDINGS: RIGHT KIDNEY: Despite prolonged interrogation, the right kidney was not able to be visualized seconda ry to poor acoustic penetration. LEFT KIDNEY: Despite prolonged interrogation, the left kidney was not able to be visualized secondary to poor acoustic penetration. BLADDER: Decompressed with a Lopez catheter, limiting its evaluation. IMPRESSION: Limited evaluation secondary to poor acoustic penetration (given patient's body habitus). Cross-sectional imaging may be performed, if the patient is clinically able. Reviewed, dictated and finalized at location A.
--- NOTE | ~2025-04-22 | US_ITS ---
EXAMINATION: US venous doppler UE RT DATE: 04/25/2025 14:04 INDICATION: Edema TECHNIQUE: Morrison scale images with and without compression and Doppler images of the right upper extre mity veins were obtained. COMPARISON: None. FINDINGS: The right internal jugular vein, subclavian vein, axillary vein, brachial veins, basilic vein, cephal ic vein, are patent. The radial and ulnar veins are not evaluated. IMPRESSION: 1. Patent right upper extremity veins. No evidence of deep venous thrombosis. Reviewed, dictated and finalized at location A.
--- NOTE | ~2025-04-22 | XR_ITS ---
EXAMINATION: XR chest 1V portable Exam Date/Time: 04/22/2025 15:35 CDT HISTORY: weakness Comparison: 03/03/2024. RESULT: Lines, tubes, and devices: None. Lungs and pleura: Mild diffuse reticular opacities. Subsegmental streaky right basilar opacities. Mi ld right costophrenic angle blunting. Cardiomediastinal silhouette: Stable. Other: No acute osseous or upper abdominal finding. IMPRESSION: Pulmonary opacities, may represent interstitial edema in the appropriate clinical context. Subsegment al right basilar atelectasis/consolidation. Possible small right pleural effusion. Reviewed, dictated and finalized at location K. IMPRESSION: Pulmonary opacities, may represent interstitial edema in the appropriate clinic al context. Subsegmental right basilar atelectasis/consolidation. Possible smal l right pleural effusion.
--- NOTE | ~2025-04-22 | XR_ITS ---
EXAMINATION: XR chest 1V portable DATE: 04/25/2025 16:12 INDICATION: Shortness of breath TECHNIQUE: frontal view of the chest was obtained. COMPARISON: Chest radiograph dated 04/22/2025 FINDINGS: Significant improvement in previously seen mild pulmonary edema essentially resolved on the right and minimal residual edema at the left lung base. No new airspace opacities, pleural effusion or pneumot horax. The cardiomediastinal silhouette is within normal limits for AP technique. Old healed proximal right humeral fracture. IMPRESSION: 1. Significant improvement in prior pulmonary edema with minimal residual pulmonary edema at the left lung base. Reviewed, dictated and finalized at location A. IMPRESSION: 1. Significant improvement in prior pulmonary edema with minimal residual pulmo nary edema at the left lung base.
--- NOTE | ~2025-04-22 | US_ITS ---
EXAMINATION: US venous doppler [facility] DATE: 04/22/2025 21:10 INDICATION: Edema . TECHNIQUE: Grayscale images without and with compression and Doppler images of the right lower extrem ity veins were obtained. COMPARISON: None FINDINGS: The right common femoral vein, profunda (deep) femoral vein, femoral vein, popliteal vein, peroneal v ein, posterior tibial veins, gastrocnemius vein, and greater saphenous vein are all poorly visualized due to significant leg edema and intolerance for transducer pressure on the legs. IMPRESSION: Nondiagnostic ultrasound venous Doppler examination of the right lower extremity. Reviewed, dictated and finalized at location K. IMPRESSION: Nondiagnostic ultrasound venous Doppler examination of the right lower extremit anum
--- NOTE | ~2025-04-22 | XR_ITS ---
XR abdomen/kub 1V 04/24/2025 09:33 Indication: Kidney stones Procedure: KUB Comparison: 03/04/2024 Findings: Bowel gas pattern nonobstructive. There are coarse amorphous calcifications right pelvis, c onsistent with calcified uterine fibroid. There is atherosclerosis of the pelvic vessels. There are c holecystectomy clips. No definite renal stones. Impression: 1: No acute abdominal abnormality. Reviewed, dictated and finalized at location A. Impression: 1: No acute abdominal abnormality.
[2025-04-22 14:49] VITALS: PULSE 77; RESP 16; TEMP 36.5; O2SAT 94
--- NOTE | 2025-04-22 14:56 | ECG_ITS ---
Test Date: 2025-04-22 15:16:15 Measurements Intervals [place] Rate: 92 P: 0 RI: 0 QRS: -3 QRSD: 94 T: 143 QT: 379 QTc: 471 Interpretive Statements ATRIAL FIBRILLATION LOW QRS VOLTAGE IN PRECORDIAL LEADS [QRS DEFLECTION < 1.0 mV IN CHEST LEADS] POSSIBLE ANTERIOR MYOCARDIAL INFARCTION , OF INDETERMINATE AGE [30 ms Q WAVE IN V3/V4, OR R < 0.2 mV IN V4] ABNORMAL ECG Compared to ECG 03/03/2024 07:21:44 Low QRS voltage now present Myocardial infarct finding now present Sinus rhythm no longer present Electronically Signed On 04-23-2025 09:55:44 CDT by Juan Shaikh M.D.
[2025-04-22 14:58] VITALS: PULSE 72
[2025-04-22 15:54] LABS: Hematocrit 31.3 % (37.0-47.0); Hemoglobin 9.4 g/dL (12.0-15.0); Immature Granulocyte Percent A 0.2 % (0-0.5); Lymphocytes Absolute Auto 0.77 K/mm3 (0.9-3.2); Mean Corpuscular HGB Conc 30.0 g/dl (32-36); Mean Corpuscular Hemoglobin 30.4 pg (26-34); Mean Corpuscular Volume 101.3 fl (80-100); Nucleated Red Blood Cells Absolute Auto 0.000 K/mm3 (0.0-0.012); Nucleated Red Blood Cells Perc 0.0 % (0.0-0.2); Platelet Count Result 159 k/mm3 (150-375); Red Blood Count 3.09 M/mm3 (4.2-5.4); White Blood Count 4.9 K/mm3 (4.5-10.0)
[2025-04-22 16:12] LABS: Alanine Aminotransferase 13 U/L (6-35); Albumin Level 3.4 g/dL (3.5-5.1); Alkaline Phosphatase 176 U/L (38-126); Anion Gap 9 mmol/L (4-12); Aspartate Amino Transferase 21 U/L (14-36); Bilirubin,Total 0.4 mg/dL (0.2-1.3); Blood Urea Nitrogen 63 mg/dL (7-17); Calcium 8.5 mg/dL (8.4-10.2); Carbon Dioxide 26 mmol/L (22-30); Chloride 104 mmol/L (98-107); Estimated CRCL calculation 27 ml/min; Estimated Glomerular Filt Rate 15; Glucose 137 mg/dL (65-110); Potassium 5.1 mmol/L (3.4-5.0); Sodium 139 mmol/L (137-145); Total Protein 6.8 g/dL (6.3-8.2)
[2025-04-22 16:16] LABS: Add Urine Microscopic? YES; Appearance Urine Turbid (Clear); Glucose Urine UA Negative (Negative); Leukocyte Esterase Ur 3+ LEU/UL (Negative); Need Manual Microscopic Reviewed; Nitrate Urine Positive (Negative); Specific Grav Ur 1.013 (1.001-1.035)
--- OUTSIDE RECORDS SUMMARY | 2025-04-22 16:17 | XMS_ITS | Clinical Summary ---
Author Organization [facility] Address [address] [place] [address] Care Team Providers Care Welder Gun Name Role Phone Unavailable Primary Care Provider Unavailabl e Encounters Date Type Department Care Team Description 01/27/2025 [facility] [address] [place] [address] Keny Kwan MD from Last 3 Months Immunizations Immunization Administration Dates Next Due Covid-19, Mrna, Lnp-s, Pf, 30 Mcg/0.3 Ml Dose (P fizer) 08/06/2021 Social History Tobacco Use Types Packs/Day Years Used Date Smoking Tobacco: Never Assessed Comments Unknown Sex and Gender Information Value Date Recorded Sex Assigned at Not on file Legal Sex Female 11:32 AM CDT Gender Identity Not on file Sexual Orientation Not on file Plan of Treatment Health Maintenance Due Date Last Done Comments Hepatitis C Virus (HCV) Screening 1961 Mammogram 1961 TdaP Immunization 1961 Pap Smear 1982 Cervical Cancer Screening (CCS) 1991 HPV/Cotest 1991 Colonoscopy 2006 Colorectal Cancer Screening 2006 Cologuard 2011 Immunochemical Fecal Occult Blood 2011 Zoster Immunization (1 of 2) 2011 Pneumococcal Immunization (5 0+ years) (2 of 2 - PCV) 05/23/2016 05/23/2015 SARS-COV-2 Immunization (4 - season) 2024 08/06/2021, 10/28/2020, 10/07/2020 Influenza Immunization (Seas on Ended) 2025 Respiratory Syncytial Virus (RSV) Immunization (Adult) (1 - 1-dose 75+ series) 2036 Pneumococcal Immunization Combined Discontinued 05/23/2015 Hepatitis B Immunization Aged Out No longer eligible based on patient's age to complete this topic Meningococcal Immunization (ACWY) Aged Out No longer eligible based on patient's age to complete this topic Rotavirus Immunization Aged Out No lo nger eligible based on patient's age to complete this topic Procedures Procedure Name Priority Date/Time Associated Diagnosis Comments CBC WITH AUTO DIFFERENTIAL Routine 01/27/2025 6:00 PM CDT COMPLETE BLOOD COUNT (CBC) WITH DIFF Routine 01/27/2025 6:00 PM CDT CMP (COMPREHENSIVE METABOLIC PANEL) Routine 01/27/2025 6:00 PM CDT from Last 3 Months Results * (ABNORMAL) CBC WITH AUTO DIFFERENTIAL (01/27/2025 6:00 PM CDT) WBC 7.16 4.00 - 12.00 10(3)/mcL 01/27/2025 8:58 PM CDT [facility] RBC 3.33(L) 3.80 - 5.30 10(6)/mcL 01/27/2025 8:58 PM CDT [facility] HEMOGLOBIN (HGB) 10.4(L) 12.0 - 15.8 g/dL 01/27/2025 8:58 PM CDT [facility] HEMATOCRIT (HCT) 33.1(L) 36.0 - 47.0 % 01/27/2025 8:58 PM CDT [facility] MCV 99.4(H) 82.0 - 96.0 fL 01/27/2025 8:58 PM CDT [facility] MCH 31.2 26.0 - 34.0 pg 01/27/2025 8:58 PM CDT [facility] MCHC 31.4 31.0 - 36.0 g/dL 01/27/2025 8:58 PM CDT [facility] PLATELET COUNT 213 140 - 440 10(3)/mcL 01/27/2025 8:58 PM CDT [facility] RDW 14.1 11.8 - 15.5 % 01/27/2025 8:58 PM CDT [facility] MPV 10.8 9.7 - 12.4 fL 01/27/2025 8:58 PM CDT [facility] NEUTROPHILS 75.0(H) 47.0 - 73.0 % 01/27/2025 8:58 PM CDT [facility] LYMPHOCYTES 15.6(L) 18.0 - 42.0 % 01/27/2025 8:58 PM CDT [facility] MONOCYTES 4.7 4.0 - 12.0 % 01/27/2025 8:58 PM CDT [facility] EOSINOPHILS 4.1 0.0 - 5.0 % 01/27/2025 8:58 PM CDT [facility] BASOPHILS 0.6 0.0 - 1.0 % 01/27/2025 8:58 PM CDT [facility] ABSOLUTE NEUTROPHILS 5.37 1.60 - 7.70 10(3)/mcL 01/27/2025 8:58 PM CDT [facility] ABSOLUTE LYMPHOCYTES 1.12(L) 1.30 - 3.20 10(3)/[facility] 01/27/2025 8:58 PM CDT [facility] ABSOLUTE MONOCYTES 0.34 0.20 - 1.00 10(3)/[facility] 01/27/2025 8:58 PM CDT [facility] ABSOLUTE EOSINOPHIL 0.29 0.00 - 0.40 10(3)/[facility] 01/27/2025 8:58 PM CDT [facility] ABSOLUTE BASOPHILS 0.04 0.00 - 0.10 10(3)/[facility] 01/27/2025 8:58 PM CDT [facility] NRBC PER 100 WBC 0 01/28/20 8:58 PM CDT [facility] Blood No Phlebotomy Charged / Unknown 01/27/2025 6:00 PM CDT 01/27/2025 8:51 PM CDT us Keny Kwan MD HEMATOLOGY ORDERABLES Neyda l Result [facility] [place] [address] * (ABNORMAL) CMP (COMPREHENSIVE METABOLIC PANEL) (01/27/2025 6:00 PM CDT) SODIUM 142 136 - 145 mmol/L 01/27/2025 9:25 PM CDT [facility] POTASSIUM 3.9 3.5 - 5.1 mmol/L 01/27/2025 9:25 PM CDT [facility] CHLORIDE 103 98 - 107 mmol/L 01/27/2025 9:25 PM CDT [facility] CO2, VENOUS 28 22 - 30 mmol/L 01/27/2025 9:25 PM CDT [facility] ANION GAP 14.9 <18.0 mmol/L 01/27/2025 9:25 PM CDT [facility] GLUCOSE 124(H) 70 - 99 mg/dL 01/27/2025 9:25 PM CDT [facility] BUN 36(H) 10 - 20 mg/dL 01/27/2025 9:25 PM CDT [facility] CREATININE, BLOOD 1.66(H) 0.60 - 1.00 mg/dL 01/27/2025 9:25 PM CDT [facility] BUN/CREATININE RATIO 22(H) 12 - 20 ratio 01/27/2025 9:25 PM CDT [facility] TOTAL PROTEIN 6.7 6.0 - 8.0 g/dL 01/27/2025 9:25 PM CDT [facility] ALBUMIN 2.9(L) 3.5 - 5.0 g/dL 01/27/2025 9:25 PM CDT [facility] A/G RATIO 0.8(L) 1.0 - 2.2 01/27/2025 9:25 PM CDT [facility] CALCIUM 8.7 8.7 - 10.5 mg/dL 01/27/2025 9:25 PM CDT [facility] T BILI 0.4 0.2 - 1.2 mg/dL 01/27/2025 9:25 PM CDT [facility] SGOT (AST) 22 <43 U/L 01/27/2025 9:25 PM CDT [facility] SGPT (ALT) 11 <56 U/L 01/27/2025 9:25 PM CDT [facility] ALKALINE PHOSPHATASE 209(H) 40 - 150 U/L 01/27/2025 9:25 PM CDT [facility] GFR, ESTIMATED 34(L) >=60 01/27/2025 9:25 PM CDT [facility] Comment: Creatinine Clearance is the preferred criteria for selecting drug dose adjustments in renally impaired patients. The GFR is provided as additional pertinent clinical information. GFR is reported in mL/min/1.73 sq m. Calculation based on the Chronic Kidney Disease Epidemiology Collaboration (CKD- EPI) equation refit without adjustment for race. GFR, EST. 38(L) >=60 025 9:25 PM CDT [facility] GFR, EST. NONAFRICAN 31(L) >=60 01/27/2025 9:25 PM CDT [facility] Blood No Phlebotomy Charged / Unknown 01/27/2025 6:00 PM CDT 01/27/2025 8:51 PM CDT us Keny Kwan MD CHEMISTRY ORDERABLES Final Result [facility] [place] [address] from Last 3 Months
--- OUTSIDE RECORDS SUMMARY | 2025-04-22 16:17 | XMS_ITS | Encounter Summary ---
Author Organization [facility] Address [address] [place] [address] Phone Care Team Providers Care Supervisor Customer Records Division Name Role Phone Unavailable Primary Care Provider Unavailabl e Encounter Details Date Type Department Care Team (Late st Contact Info) Description 01/27/2025 [facility] [address] [place] [address] Keny Kwan MD [facility] [place] [address] Social History Tobacco Use Types Packs/Day Years Used Date Smoking Tobacco: Never Assessed Comments Unknown Sex and Gender Information Value Date Recorded Sex Assigned at Not on file Legal Sex Female 11:32 AM CDT Gender Identity Not on file Sexual Orientation Not on file documented as of this encounter Plan of Treatment Not on file documented as of this encounter Procedures Procedure Name Priority Date/Time Associated Diagnosis Comments CBC WITH AUTO DIFFERENTIAL Routine 01/27/2025 6:00 PM CDT CMP (COMPREHENSIVE METABOLIC PANEL) Routine 01/27/2025 6:00 PM CDT COMPLETE BLOOD COUNT (CBC) WITH DIFF Routine 01/27/2025 6:00 PM CDT documented in this encounter Results * (ABNORMAL) CBC WITH AUTO DIFFERENTIAL (01/27/2025 6:00 PM CDT) WBC 7.16 4.00 - 12.00 10(3)/mcL 01/27/2025 8:58 PM CDT [facility] RBC 3.33(L) 3.80 - 5.30 10(6)/mcL 01/27/2025 8:58 PM CDT [facility] HEMOGLOBIN (HGB) 10.4(L) 12.0 - 15.8 g/dL 01/27/2025 8:58 PM CDT [facility] HEMATOCRIT (HCT) 33.1(L) 36.0 - 47.0 % 01/27/2025 8:58 PM CDT [facility] MCV 99.4(H) 82.0 - 96.0 fL 01/27/2025 8:58 PM CDT [facility] MCH 31.2 26.0 - 34.0 pg 01/27/2025 8:58 PM CDT [facility] MCHC 31.4 31.0 - 36.0 g/dL 01/27/2025 8:58 PM CDT [facility] PLATELET COUNT 213 140 - 440 10(3)/mcL 01/27/2025 8:58 PM CDT [facility] RDW 14.1 11.8 - 15.5 % 01/27/2025 8:58 PM CDT [facility] MPV 10.8 9.7 - 12.4 fL 01/27/2025 8:58 PM CDT [facility] NEUTROPHILS 75.0(H) 47.0 - 73.0 % 01/27/2025 8:58 PM CDT [facility] LYMPHOCYTES 15.6(L) 18.0 - 42.0 % 01/27/2025 8:58 PM CDT [facility] MONOCYTES 4.7 4.0 - 12.0 % 01/27/2025 8:58 PM CDT [facility] EOSINOPHILS 4.1 0.0 - 5.0 % 01/27/2025 8:58 PM CDT [facility] BASOPHILS 0.6 0.0 - 1.0 % 01/27/2025 8:58 PM CDT [facility] ABSOLUTE NEUTROPHILS 5.37 1.60 - 7.70 10(3)/mcL 01/27/2025 8:58 PM CDT [facility] ABSOLUTE LYMPHOCYTES 1.12(L) 1.30 - 3.20 10(3)/[facility] 01/27/2025 8:58 PM CDT [facility] ABSOLUTE MONOCYTES 0.34 0.20 - 1.00 10(3)/mcL 01/27/2025 8:58 PM CDT [facility] ABSOLUTE EOSINOPHIL 0.29 0.00 - 0.40 10(3)/[facility] 01/27/2025 8:58 PM CDT [facility] ABSOLUTE BASOPHILS 0.04 0.00 - 0.10 10(3)/[facility] 01/27/2025 8:58 PM CDT [facility] NRBC PER 100 WBC 0 01/28/20 8:58 PM CDT [facility] Blood No Phlebotomy Charged / Unknown 01/27/2025 6:00 PM CDT 01/27/2025 8:51 PM CDT Keny Kwan MD HEMATOLOGY ORDERABLES Neyda walker Result [facility] [place] [address] * (ABNORMAL) CMP (COMPREHENSIVE METABOLIC PANEL) (01/27/2025 6:00 PM CDT) SODIUM 142 136 - 145 mmol/L 01/27/2025 9:25 PM CDT [facility] POTASSIUM 3.9 3.5 - 5.1 mmol/L 01/27/2025 9:25 PM CDT [facility] CHLORIDE 103 98 - 107 mmol/L 01/27/2025 9:25 PM CDT [facility] CO2, VENOUS 28 22 - 30 mmol/L 01/27/2025 9:25 PM CDT [facility] ANION GAP 14.9 <18.0 mmol/L 01/27/2025 9:25 PM CDT [facility] GLUCOSE 124(H) 70 - 99 mg/dL 01/27/2025 9:25 PM CDT [facility] BUN 36(H) 10 - 20 mg/dL 01/27/2025 9:25 PM T [facility] CREATININE, BLOOD 1.66(H) 0.60 - 1.00 mg/dL 01/27/2025 9:25 PM T [facility] BUN/CREATININE RATIO 22(H) 12 - 20 ratio 01/27/2025 9:25 PM CDT [facility] TOTAL PROTEIN 6.7 6.0 - 8.0 g/dL 01/27/2025 9:25 PM T [facility] ALBUMIN 2.9(L) 3.5 - 5.0 g/dL 01/27/2025 9:25 PM [facility] A/G RATIO 0.8(L) 1.0 - 2.2 01/27/2025 9:25 PM T [facility] CALCIUM 8.7 8.7 - 10.5 mg/dL 01/27/2025 9:25 PM CDT [facility] T BILI 0.4 0.2 - 1.2 mg/dL 01/27/2025 9:25 PM [facility] SGOT (AST) 22 <43 U/L 01/27/2025 9:25 PM [facility] SGPT (ALT) 11 <56 U/L 01/27/2025 9:25 PM [facility] ALKALINE PHOSPHATASE 209(H) 40 - 150 U/L 01/27/2025 9:25 PM [facility] GFR, ESTIMATED 34(L) >=60 01/27/2025 9:25 PM [facility] Comment: Creatinine Clearance is the preferred criteria for selecting drug dose adjustments in renally impaired patients. The GFR is provided as additional pertinent clinical information. GFR is reported in mL/min/1.73 sq m. Calculation based on the Chronic Kidney Disease Epidemiology Collaboration (CKD- EPI) equation refit without adjustment for race. GFR, EST. 38(L) >=60 025 9:25 PM CDT [facility] GFR, EST. NONAFRICAN 31(L) >=60 01/27/2025 9:25 PM CDT [facility] Blood No Phlebotomy Charged / Unknown 01/27/2025 6:00 PM CDT 01/27/2025 8:51 PM CDT Keny Kwan MD CHEMISTRY ORDERABLES Final Result [facility] [place] [address] documented in this encounter Visit Diagnoses Not on filedocumented in this encounter
--- OUTSIDE RECORDS SUMMARY | 2025-04-22 16:17 | XMS_ITS | Clinical Summary ---
Author Organization [facility] Address [address] [place] [address] Care Team Providers Care Physician Office Rep Name Role Phone Saroj Gary MD Unavailable [phone] Earnest Arthur MD Unavailable Saroj Gary MD Primary Care Provider [phone] Qi LUND MD, Clive Bojorquez Unavailable [phone] Allergies Active Allergy Reactions Criticality Noted Date Comments Bleach (Sodium Hypochlorite) Unknown 024 Medications memantine (NAMENDA) 10 mg tabletIndicatio ns:Moderate to Severe Alzheimer's Type Dementia Take 1 tablet (10 mg total) by mouth 2 (two) times a day Active atorvastatin (LIPITOR) 20 mg tablet Take 1 tablet (20 mg total) by mouth nightly Active metoprolol XL (TOPROL-XL) 25 mg extended release tablet Take 1 tablet (25 mg total) by mouth nightly Active ferrous sulfate ER 324 mg (65 mg iron) EC tabletIndicatio ns:Iron Deficiency Anemia Take 65 mg by mouth daily with breakfast Active FLUoxetine (PROzac) 20 mg capsule Take 1 capsule (20 mg total) by mouth daily Active famotidine (PEPCID) 20 mg tablet Take 1 tablet (20 mg total) by mouth 2 (two) times a day Active aspirin 81 mg enteric coated tablet Take 1 tablet (81 mg total) by mouth daily Active nystatin cream Apply 1 Application topically 3 (three) times a day Abdominal folds and groin Active senna-docusate (PERICOLACE) 8.6-50 mg Take 1 tablet by mouth 2 (two) times a day as needed for constipation Active acetaminophen (TYLENOL) 325 mg tablet Take 2 tablets (650 mg total) by mouth every 6 (six) hours as needed for pain, fever or headaches Active loratadine (CLARITIN) 10 mg tablet Take 1 tablet (10 mg total) by mouth daily Active polyethylene glycol (MIRALAX) 17 gram packetIndicatio ns:constipation Take 1 packet (17 g total) by mouth daily Active furosemide (LASIX) 40 mg tablet Take 1 tablet (40 mg total) by mouth daily 3 Active gabapentin (NEURONTIN) 100 mg capsule Take 1 capsule (100 mg total) by mouth 3 (three) times a day 3 Active insulin glargine (LANTUS, SEMGLEE) 100 unit/mL vial for injectionIndica tions:Diabetes Mellitus Inject 15 Units under the skin nightly 3 Active metOLazone (ZAROXOLYN) 2.5 mg tabletIndicatio ns:Peripheral Edema due to Chronic Heart Failure Take 1 tablet (2.5 mg total) by mouth every other day 3 Active Entresto 24-26 mg tablet Take 1 tablet by mouth daily Active busPIRone (BUSPAR) 10 mg tablet Take 1 tablet (10 mg total) by mouth 2 (two) times a day Active insulin lispro (HumaLOG, ADMELOG) 100 unit/mL vial for injection Inject 2 Units under the skin 3 (three) times a day before meals Active cholecalciferol (VITAMIN D-3) 50,000 unit capsule Take 1 capsule (50,000 Units total) by mouth once a week On Monday Active oxyCODONE-aceta minophen (PERCOCET) 5-325 mg per tabletIndicatio ns:Pain Take 1 tablet by mouth every 4 (four) hours as needed for pain 10 tablet 5 Active Active Problems Problem Noted Date Diagnosed Date Abnormal EKG 12/10/2024 Class 3 severe obesity due t o excess calories with serious comorbidity and body mass index (BMI) of 40.0 to 44.9 in adult 12/10/2024 Obstructive sleep apnea 12/10/2024 Cirrhosis 10/29/2024 Elevated LFTs 10/28/2024 Acute cystitis without hematuria 10/27/2024 Diabetes mellitus due to und erlying condition with hyperosmolarity without coma, without long-term current use of insulin 10/27/2024 Hyperlipidemia 10/27/2024 Morbid obesity with BMI of 45.0-49.9, adult 10/03 History of chronic CHF 10/27/2024 Hepatic encephalopathy 10/27/2024 Dementia due to Parkinson's disease, without behavioral disturbance, psychotic disturbance, mood disturbance, or anxiety 10/27/2024 Transaminitis 10/27/2024 Hyperbilirubinemia 10/27/2024 Jaundice 10/27/2024 Renal cyst, right 10/27/2024 Abdominal wall hernia 10/27/2024 Uterine leiomyoma 10/27/2024 Calculus of gallbladder with biliary obstruction but without cholecystitis 10/26/2024 Acute kidney injury 04/13/2024 Anemia in chronic kidney disease 04/12/2024 Acute on chronic congestive heart failure, unspecified heart failure type 09/08/2023 Stage 3b chronic kidney disease 06/14/2023 Essential (primary) hypertension 04/19/2023 Type 2 diabetes mellitus 04/19/2023 Cerebral infarction 01/03/2017 Overview (01/12/2018): Description: Darrel presented Oct-Nov 2016 with mild L MCA syndrome that then completed. Etiology was focal L M1 atherosclerosis and other etiologic workup negative. Impression: Patient continues to do well, though has signficant aphasia and motor deficits; she continues to work with therapy on this. She does not smoke. For secondary prevention she is on ASA 325mg and clopidogrel 75mg daily. After 3 months of dual antiplatelet therapy, this can be reduced to ASA single agent 81mg or 325mg per day, unless there is another indication for dual antiplatelet (evidence from the SAMPRIS trial of symptomatic intracranial atherosclerosis as cause for stroke). She has stopped her fluoxetine. She should continue PCP follow up for diabetes and HTN (target 140/90). She has had a cardioembolic workup with TTE and loop monitor. I will plan to see her only PRN as the risk reduction can be done by her PCP. Immunizations Immunization Administration Dates Next Due Influenza, Unspecified 07/30/2024 Surgical History Surgery Date Site/Laterality Comments NV BALLN ANGIOPLASTY PERC,BRACHIOCEPH NON LICENSED NUCLEAR EQUIPMENT OPERATOR Middle Cerebral Artery Left - (Added by TW Conv) Medical History Medical History Date Comments Personal history of other di seases of the circulatory system History of hypertension - (A dded by TW Conv) Personal history of other en docrine, nutritional and metabolic disease History of hyperlipi demia - (Added by TW Conv) Personal history of other en docrine, nutritional and metabolic disease History of type 2 di abetes mellitus - (Added by TW Conv) CKD (chronic kidney disease) , stage III (HCC) Dementia (HCC) CHF (congestive heart failure) (HCC) Expressive aphasia Parkinson's disease (HCC) GERD (gastroesophageal reflux disease) Eczema Morbid obesity (HCC) Family History Medical History Relation Name Comments Diabetes type II Father Family hist ory of type 2 diabetes mellitus - (Added by TW Conv) Hypertension Father Family history of hypertension - (Added by TW Conv) Hypertension Mother Family history of hypertension - (Added by Gemisimo) Relation Name Status Comments Father Mother Social History Tobacco Use Types Packs/Day Years Used Date Smoking Tobacco: Former [facility] Utilities Answer Date Recorded In the past 12 months has e [employer], gas, oil, or water [employer] threatened to shut off services in your home? No 10/28/2024 Social Connection and Isolation Panel [NHANES] A nswer Date Recorded In a typical week, how many times do you talk on the phone with family, friends, or neighbors? Once a week 10/28/2024 How often do you get together with friends or re latives? Once a week 10/28/2024 How often do you attend pentecostal or caodaism serv ices? Never 10/28/2024 Do you belong to any clubs o r organizations such as pentecostal groups, unions, fraternal or athletic groups, or school groups? No 10/28/2024 How often do you attend meet ings of the clubs or organizations you belong to? Never 10/28/2024 Are you , , di vorced, , never , or living with a partner? Never 10/28/2024 AUDIT-C Answer Date Recorded Q1: How often do you have a drink containing alcohol? Never 10/27/2024 Q2: How many drinks containi ng alcohol do you have on a typical day when you are drinking? Patient does not drink Q3: How often do you have si x or more drinks on one occasion? Never 10/27/2024 Overall Financial Resource Strain (CARDIA) Answe r Date Recorded How hard is it for you to pa y for the very basics like food, housing, medical care, and heating? Not very hard 10/28/2024 Hunger Vital Sign Answer Date Recorded Within the past 12 months, y ou worried that your food would run out before you got the money to buy more. Never true 10/28/19 25 Within the past 12 months, t he food you bought just didn't last and you didn't have money to get more. Never true 10/28/2024 PRAPARE - Transportation Answer Date Re corded In the past 12 months, has l ack of transportation kept you from medical appointments or from getting medications? No 10/03 In the past 12 months, has l ack of transportation kept you from meetings, work, or from getting things needed for daily living? No 10/28/2024 Housing Stability Vital Sign Answer Cornelio e Recorded In the last 12 months, was t here a time when you were not able to pay the mortgage or rent on time? No 09/11/2023 In the last 12 months, how many places have you lived? 1 09/11/2023 In the last 12 months, was t here a time when you did not have a steady place to sleep or slept in a jail (including now)? No 09/11/2023 Housing Stability Vital Sign Answer Cornelio e Recorded In the last 12 months, was t here a time when you were not able to pay the mortgage or rent on time? No 10/28/2024 In the past 12 months, how m any times have you moved where you were living? 0 10/28/2024 At any time in the past 12 m [facility], were you homeless or living in a jail (including now)? No 10/28/2024 Personal Safety Answer Date Recorded Have you ever been in or are you currently in a harmful physical or emotional relationship or is someone making you feel afraid or unsafe? Denies 10/27/2024 Comments Unknown Sex and Gender Information Value Date Recorded Sex Assigned at Not on file Legal Sex Female 9:19 AM STRATEGY EXECUTION CONSULTANT Gender Identity Not on file Sexual Orientation Not on file Obstetrics History Last Filed Vital Signs Vital Sign Reading Time Taken Comments Blood Pressure 128/76 12/10/2024 1:14 PM CDT Pulse 66 12/10/2024 1:14 PM CDT Temperature 36.4 C (97.5 F) 10/30/2024 4:06 PM STRATEGY EXECUTION CONSULTANT Respiratory Rate 20 12/10/2024 1:14 PM CDT Oxygen Saturation 96% 12/10/2024 1:14 PM CDT Inhaled Oxygen Concentration - - Weight 126.2 kg (278 lb 3.5 oz) 025 12:07 PM STRATEGY EXECUTION CONSULTANT Height 170.5 cm (5' 7.13) 12/10/2024 1:14 PM CD T Body Mass Index 43.41 10/28/2024 12:07 PM STRATEGY EXECUTION CONSULTANT Plan of Treatment Health Maintenance Due Date Last Done Comments Albumin Creatinine Ratio, Urine 1961 Breast Cancer Screening-Mammogram 1961 Cervical Cancer Screening 1961 Colon Cancer Screening-Colonoscopy 1961 Depression Screening 1961 Dilated Eye Exam 1961 Foot Exam 1961 DTaP/Tdap/Td Vaccine (1 - Tdap) 1972 Hepatitis B Screening 1979 Regular Well Visit/Exam 18-64 1979 Zoster Vaccine (1 of 2) 2011 Pneumococcal vaccine <65 (2 of 2 - PCV) 05/23/2016 05/23/2015 Lipid Panel 11/02/2019 11/02/2018, 10/03, 10/29/2016 Covid-19 Vaccine (2 - 2023-2 5 season) 2024 08/06/2021 Hemoglobin A1C 04/26/2025 10/27/2024, 09/09/2023 Influenza Vaccine (#1) 2025 07/30/2024 eGFR 10/30/2025 10/30/2024, 10/03, 10/28/2024, Additional history exists Hepatitis C Screening Completed 10/26/2024 Procedures Procedure Name Priority Date/Time Associated Diagnosis Comments EGFR Routine 10/30/2024 6:36 AM STRATEGY EXECUTION CONSULTANT HEMOGLOBIN A1C Routine 10/27/2024 2:29 AM STRATEGY EXECUTION CONSULTANT HEPATITIS PANEL, ACUTE STAT 10/26/2024 8:42 PM STRATEGY EXECUTION CONSULTANT TNI WITH LIPID PANEL Routine 11/02/2018 8:16 PM STRATEGY EXECUTION CONSULTANT from Last 3 Months or Most Recently Relevant to Health Maintenance Results * (ABNORMAL) eGFR (10/30/2024 6:36 AM STRATEGY EXECUTION CONSULTANT) eGFR 35(L) >=60 mL/min/1. 73 m2 Comment: Interpretive Data Reference Interval Normal >/= 90 mL/min/1.73m2 Mildly decreased* 60 - 89 mL/min/1.73m2 Mildly to moderately decreased 45 - 59 mL/min/1.73m2 Moderately to severely decreased 30 - 44 mL/min/1.73m2 Severely decreased 15 - 29 mL/min/1.73m2 Kidney Failure < 15 mL/min/1.73m2 *Relative to young adult level Estimated glomerular filtration rate is determined by the 2020 CKD-EPI equation recommended by the National Kidney Foundation (A Unifying Approach to GFR Estimation: Recommendations of the NKF-ASK Task Force on Reassessing the Inclusion of Race in Diagnosing Kidney Disease, JASN 2020). The CKD-EPI equation should not be used for patients with unstable renal function and has not been validated in children and those over 70. Current interpretive data was last reviewed 2021. Blood 10/30/2024 6:36 AM STRATEGY EXECUTION CONSULTANT 10/30/2024 6:48 AM STRATEGY EXECUTION CONSULTANT us Edilson Citlaly Reeder NP LAB BLOOD ORDERABLES Fin al Result [facility] [address] [facility] Department of Laboratories [place], [place] [id number] * (ABNORMAL) Hemoglobin A1c (10/27/2024 2:29 AM STRATEGY EXECUTION CONSULTANT) Hgb A1C 6.1(H) 4.0 - 5.6 % Estimated Average Glucose 128 mg/dL [facility] Comment: The ADA recommends reporting an estimated Average Glucose (eAG) with all Hemoglobin A1c results using the equation derived from a study of 507 normal and diabetic adults. Minority populations were underrepresented and children were not included. (Diabetes Care 31:5882-9808, 2008). The eAG is not equivalent to a fasting glucose. Blood 10/27/2024 2:29 AM STRATEGY EXECUTION CONSULTANT 10/27/2024 2:36 AM STRATEGY EXECUTION CONSULTANT Edilson Reeder NP LAB BLOOD ORDERABLES Fin al Result Performing Organization Address City/[facility]/ZIP Co de Phone Number [facility] [address] [facility] [place] [address] * Hepatitis panel, acute Blood (10/26/2024 8:42 PM STRATEGY EXECUTION CONSULTANT) Hep A IgM Nonreactive Nonreactive Comment: Interpretive Data: If Hep A IgM Ab is reported as Equivocal, a new sample should be drawn in two weeks for testing. Current interpretive data was last revised on 19. Hep B core IgM Nonreactive Nonreactive [facility] Comment: Interpretive Data If HepB Core IgM Ab is reported as Equivocal, a new sample should be drawn in two weeks for testing. Current interpretive data was last revised on 19. Hep C Ab Nonreactive Nonreactive [facility] Comment: Antibodies to HCV not detected. Does NOT exclude the possibility of recent exposure to HCV. Current interpretive data was last revised on 22 Interpretive Data Nonreactive: Antibodies to HCV not detected. Does NOT exclude the possibility of recent exposure to HCV. Equivocal: Equivocal for HCV antibodies. Supplemental molecular testing will be automatically performed to determine infection status in accordance with current CDC screening recommendations. Reactive: Positive for HCV antibodies. This may represent current or past HCV infection. Supplemental molecular testing will be automatically performed to determine current infection status in accordance with current CDC screening recommendations. Interpretive data was last revised on 2019. HepBsAg Nonreactive Nonreactive [facility] Blood 10/26/2024 8:42 PM STRATEGY EXECUTION CONSULTANT 10/26/2024 8:45 PM STRATEGY EXECUTION CONSULTANT Nnamdi Loza MD LAB MICROBIOLOGY - GENERAL ORDERABLES Final Result Performing Organization Address City/[facility]/ZIP Co de Phone Number [facility] [address] [place] [address] * (ABNORMAL) TNI with LIPID PANEL (11/02/2018 8:16 PM STRATEGY EXECUTION CONSULTANT) Troponin I < 0.300 0.000 - 0.300 ng/mL 11/02/2018 8:48 PM [facility] HISTORICAL RESULTS Comment: Reference using LOLA Chemiluminescence Negative: Repeat in 4-6 hours as indicated. Triglycerides 214(H) 0 - 149 mg/dL 11/02/2018 8:53 PM [facility] HISTORICAL RESULTS Comment: National Lipid Association/NCEP Guidelines: Normal < 150 mg/dL Borderline high 150-199 mg/dL High 200-499 mg/dL Very High >=500 mg/dL Cholesterol 121 0 - 199 mg/dL 11/02/2018 8:53 PM [facility] HISTORICAL RESULTS Comment: National Lipid Association/NCEP Guidelines: Desirable < 200 mg/dL Borderline high: 200-239 mg/dL High Risk: >=240 mg/dL HDL Cholesterol 26 mg/dL 9 8:53 PM STRATEGY EXECUTION CONSULTANT [facility] HISTORICAL RESULTS Comment: Reference Ranges: Males: >=40 mg/dL Females: >=50 mg/dL LDL Cholesterol, Calc 52 0 - 129 mg/dL 11/02/2018 8:53 PM [facility] HISTORICAL RESULTS Comment: National Lipid Association/NCEP Guidelines: Optimal < 100 mg/dL Near Optimal 100-129 mg/dL Borderline high 130-159 mg/dL High >=160 mg/dL Cholesterol/HDL Ratio 4.7 11/02/2018 8:53 PM [facility] HISTORICAL RESULTS Comment: Optimal < 3.5:1 High > 5:1 11/02/2018 8:16 PM STRATEGY EXECUTION CONSULTANT 11/02/2018 8:25 PM STRATEGY EXECUTION CONSULTANT Otis Alvarado MD LAB BLOOD ORDERABLES Final Resul t FORMER[facility] NAMED [facility] HISTORICAL RESULTS from Last 3 Months or Most Recently Relevant to Health Maintenance Additional Health Concerns Infection Onset Date Last 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 09/08/2023 09/08/2023 Insurance [facility] [place] [address] [facility] [place] Member Subscriber Plan / Payer (Ef fective 2021-Present) Name:Dalila Rose Relation to Subscriber:Self Name:Dalila Rose Payer ID:[id number] (NAIC) Type:MEDICARE RISK OTHER Address: [facility] ATTN: CLAIMS [address] [place] [id number] [facility] Member Subscriber Plan / Payer (Ef fective 2023-Present) Name:Dalila Rose Relation to Subscriber:Self Name:Dalila Rose Payer ID:[id number] (NAIC) Group ID:Not on file Type:MEDICAID RISK OTHER Address: ATTN: CLAIMS DEPT [address] [place] [phone] Advance Directives For more information, please contact: [phone] Documents on File Type Date Recorded Patient Can Top Setter Expl anation ADVANCE DIRECTIVE 10/31/2024 1:01 PM Power of Ship Boat Or Barge Mate-Medical ADVANCE DIRECTIVE 09/15/2023 1:54 PM POLS T - Phys Order for PT Preferences ADVANCE DIRECTIVE 11/07/2018 12:00 AM DNR * LIMITED - No CPR (Latest Code Status on File) Date Activated Date Inactivated Comments 10/27/2024 12:20 AM 10/31/2024 5:08 AM Question Answer Comments Provide aggressive medical m anagement before a full cardiopulmonary arrest occurs. Use antibiotics, IV Fluids, and medical treatment unless specifically selected below: No intubation * LIMITED - No CPR Date Activated Date Inactivated Comments 04/15/2024 7:50 AM 04/17/2024 6:56 PM Question Answer Comments Provide aggressive medical m anagement before a full cardiopulmonary arrest occurs. Use antibiotics, IV Fluids, and medical treatment unless specifically selected below: No intubation * LIMITED - No CPR Date Activated Date Inactivated Comments 04/14/2024 12:42 AM 04/15/2024 7:50 AM * LIMITED - No CPR Date Activated Date Inactivated Comments 09/08/2023 8:41 PM 09/14/2023 5:09 PM Question Answer Comments Provide aggressive medical m anagement before a full cardiopulmonary arrest occurs. Use antibiotics, IV Fluids, and medical treatment unless specifically selected below: No intubationNo non-invasive ventilationNo cardioversionNo internal / external pacemakerNo vasopressors * Full Code Date Activated Date Inactivated Comments 09/08/2023 8:41 PM 09/08/2023 8:41 PM Care Teams Physician Office Rep Relationship Specialty Start Date End Date Saroj Gary MD PCP - General Internal Medicine 04/17/24 Saroj Gary MD Referring Physician Internal Medicine 09/14/23 Earnest Arthur MD Consulting Physician Emergency Medicine 09/14/23 Clive Busby IV, MD [address] [place] [id number] Consulting Physician General Surgery 10/30/24
--- OUTSIDE RECORDS SUMMARY | 2025-04-22 16:17 | XMS_ITS | Referral Summary ---
Author Organization [facility] Address [address] [place] [address] Care Team Providers Care Manager Contract Name Role Phone Saroj Gary MD Unavailable [phone] Earnest Arthur MD Unavailable Saroj Gary MD Primary Care Provider [phone] Qi LUND MD, Clive Bojorquez Unavailable [phone] Allergies Active Allergy Reactions Criticality Noted Date [...] Administration Dates Next Due Influenza, Unspecified 07/30/2024 Social History Tobacco Use Types Packs/Day Years Used Date Smoking Tobacco: Former [facility] Utilities Answer Date Recorded In the past 12 months has th e electric, gas, oil, or water company threatened to shut off services in your home? No 10/28/2024 Social Connection and Isolation Panel [NHANES] A nswer Date Recorded In a typical week, how many times do you talk on the phone with family, friends, or neighbors? Once a week 10/28/2024 How often do you get together with friends or re latives? Once a week 10/28/2024 How often do you attend religion or orthodox serv ices? Never 10/28/2024 Do you belong to any clubs o r organizations such as religion groups, unions, fraternal or athletic groups, or [...] place to sleep or slept in a mcc (including now)? No 09/11/2023 Housing Stability Vital Sign Answer Cornelio e Recorded In the last 12 months, was t here a time when you were not able to pay the mortgage or rent on time? No 10/28/2024 In the past 12 months, how m any times have you moved where you were living? 0 10/28/2024 At any time in the past 12 m [facility], were you homeless or living in a mcc (including now)? No 10/28/2024 Personal Safety Answer Date Recorded Have you ever been in or are you currently in a harmful physical or emotional relationship or is someone making you feel afraid or unsafe? Denies 10/27/2024 Comments Unknown Sex and Gender Information Value Date Recorded Sex Assigned at Not on file Legal Sex Female 9:19 AM [employer] ST[facility]ER Gender Identity Not on file Sexual Orientation Not on file Last Filed Vital Signs Vital Sign Reading Time Taken Comments Blood Pressure 128/76 12/10/2024 1:14 PM CDT Pulse 66 12/10/2024 1:14 PM CDT Temperature 36.4 C (97.5 F) 10/30/2024 4:06 PM [facility] ST[facility]ER Respiratory Rate 20 12/10/2024 1:14 PM CDT Oxygen Saturation 96% 12/10/2024 1:14 PM CDT Inhaled Oxygen Concentration - - Weight 126.2 kg (278 lb 3.5 oz) 025 12:07 PM [employer] STITCHER Height 170.5 cm (5' 7.13) 12/10/2024 1:14 PM CD T Body Mass Index 43.41 10/28/2024 12:07 PM [facility]ER Plan of Treatment Not on file Procedures Procedure Name Priority Date/Time Associated Diagnosis Comments EGFR Routine 10/30/2024 6:36 AM [facility] STITCHER HEMOGLOBIN A1C Routine 10/27/2024 2:29 AM [facility] STITCHER HEPATITIS PANEL, ACUTE STAT 10/26/2024 8:42 PM [facility] ST[facility]ER TNI WITH LIPID PANEL Routine 11/02/2018 8:16 PM [facility] ST[facility]ER from Last 3 Months or Most Recently Relevant to Health Maintenance Results * (ABNORMAL) eGFR (10/30/2024 6:36 AM TOP STITCHER) eGFR 35(L) >=60 mL/min/1. 73 m2 Comment: [...] last reviewed 2021. Blood 10/30/2024 6:36 AM TOP STITCHER 10/30/2024 6:48 AM TOP STITCHER us Edilson Citlaly Reeder NP LAB BLOOD ORDERABLES Fin al Result [facility] [address] [facility] [place] [address] * (ABNORMAL) Hemoglobin A1c (10/27/2024 2:29 AM TOP STITCHER) Hgb A1C 6.1(H) 4.0 - 5.6 % Estimated Average Glucose 128 mg/dL [facility] Comment: The ADA recommends reporting an estimated Average Glucose (eAG) with all Hemoglobin A1c results using the equation derived from a study of 507 normal and diabetic adults. Minority populations were underrepresented and children were not included. (Diabetes Care 31:2722-9443, 2008). The eAG is not equivalent to a fasting glucose. Blood 10/27/2024 2:29 AM TOP STITCHER 10/27/2024 2:36 AM TOP STITCHER Edilson Reeder NP LAB BLOOD ORDERABLES Fin al Result Performing Organization Address City/[facility]/ZIP Co de Phone Number [facility] [address] [facility] [place] [address] * Hepatitis panel, acute Blood (10/26/2024 8:42 PM [facility] STITCHER) Hep A IgM Nonreactive Nonreactive Comment: Interpretive Data: If Hep A IgM Ab is reported as Equivocal, a new sample should be drawn in two weeks for testing. Current interpretive data was last revised on 19. Hep B core IgM Nonreactive Nonreactive [facility] Comment: Interpretive Data If HepB Core IgM Ab is reported as Equivocal, a new sample should be drawn in two weeks for testing. Current interpretive data was last revised on 19. Hep C Ab Nonreactive Nonreactive [facility] Comment: Antibodies to HCV not detected. [...] last revised on 2019. HepBsAg Nonreactive Nonreactive [facility] Blood 10/26/2024 8:42 PM [facility] ST[facility]ER 10/26/2024 8:45 PM [employer] ST[facility]ER Nnamdi Loza MD LAB MICROBIOLOGY - GENERAL ORDERABLES Final Result Performing Organization Address City/[facility]/ZIP Co de Phone Number [facility] [address] [facility] [place] [address] * (ABNORMAL) TNI with LIPID PANEL (11/02/2018 8:16 PM [facility] ST[facility]ER) Troponin I < 0.300 0.000 - 0.300 ng/mL 11/02/2018 8:48 PM [facility] HISTORICAL RESULTS Comment: Reference using LOLA Chemiluminescence Negative: Repeat in 4-6 hours as indicated. Triglycerides 214(H) 0 - 149 mg/dL 11/02/2018 8:53 PM [facility] [employer] HISTORICAL RESULTS Comment: National Lipid Association/NCEP Guidelines: Normal < 150 mg/dL Borderline high 150-199 mg/dL High 200-499 mg/dL Very High >=500 mg/dL Cholesterol 121 0 - 199 mg/dL 11/02/2018 8:53 PM [facility] [employer] HISTORICAL RESULTS Comment: National Lipid Association/NCEP Guidelines: Desirable < 200 mg/dL Borderline high: 200-239 mg/dL High Risk: >=240 mg/dL HDL Cholesterol 26 mg/dL 9 8:53 PM [employer] [facility] [employer] HISTORICAL RESULTS Comment: Reference Ranges: Males: >=40 mg/dL Females: >=50 mg/dL LDL Cholesterol, Calc 52 0 - 129 mg/dL 11/02/2018 8:53 PM [facility] [employer] HISTORICAL RESULTS Comment: National Lipid Association/NCEP Guidelines: Optimal < 100 mg/dL Near Optimal 100-129 mg/dL Borderline high 130-159 mg/dL High >=160 mg/dL Cholesterol/HDL Ratio 4.7 11/02/2018 8:53 PM [facility] [employer] HISTORICAL RESULTS Comment: Optimal < 3.5:1 High > 5:1 11/02/2018 8:16 PM [facility]ER 11/02/2018 8:25 PM [employer] [facility] us Otis Alvarado MD LAB BLOOD ORDERABLES Final Resul t [facility] HISTORICAL RESULTS from Last 3 Months or Most Recently Relevant to Health Maintenance Additional Health Concerns Infection Onset Date Last 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 09/08/2023 09/08/2023 Insurance [facility] [place] [address] [facility] Member Subscriber Plan / Payer (Ef fective 2021-Present) Name:Dalila Rose Relation to Subscriber:Self Name:Dalila Rose Payer ID:[id number] (NAIC) Type:MEDICARE RISK OTHER Address: [facility] ATTN: CLAIMS [address] Advance Directives For more information, please contact: [phone] Documents on File Type Date Recorded Patient Senior Strategy Manager Expl anation ADVANCE DIRECTIVE 10/31/2024 1:01 PM Power of Paint Grinder-Medical ADVANCE DIRECTIVE 09/15/2023 1:54 PM POLS T [...] 8:41 PM 09/08/2023 8:41 PM Care Teams Manager Contract Relationship Specialty Start Date End Date Saroj Gary MD PCP - General Internal Medicine 04/17/24 Saroj Gary MD Referring Physician Internal Medicine 09/14/23 Earnest Arthur MD Consulting Physician Emergency Medicine 09/14/23 Clive Busby IV, MD [address] [place] [id number] Consulting Physician General Surgery 10/30/24
--- NOTE | 2025-04-22 16:55 | ED_ITS ---
HPI - General Adult General Chief complaint: Unspecified Stated complaint: no urine output x 8 hours Time Seen by Provider: 04/22/25 16:11 History of Present Illness HPI narrative: 64-year-old female presents emergency department from a local prison for worsening lower extremity edema and decreased urine output. Patient does have history of morbid obesity, CVA, right-sided deficit, right-sided edema, heart failure, chronic kidney disease, high cholesterol, hypertension, anemia, diabetes presented emergency department for evaluation for urinary symptoms, decreased urinary output and increased right lower extremity edema. 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 Family states that this is worse than normal. Patient also reports decreased urinary output. Related Data Home Medications ?Medication ?Instructions ?Recorded ?Confirmed ?Last Taken ?Type aspirin 81 mg tablet,delayed 81 mg PO DAILY 09/28/19 03/03/24 06/28/23 08:00 History release (Enteric Coated Aspirin) gabapentin 300 mg capsule 100 mg PO TID 09/28/19 03/03/24 06/28/23 12:00 History insulin glargine 100 unit/mL (3 8 unit subcut HS 09/28/19 03/03/24 06/27/23 20:00 History mL) subcutaneous pen (Basaglar KwikPen U-100 Insulin) memantine 10 mg tablet 10 mg PO BID 09/28/19 03/03/24 06/28/23 08:00 History famotidine 20 mg tablet 20 mg PO BID 06/28/23 03/03/24 06/28/23 08:00 History glucagon 1 mg/0.2 mL subcutaneous 1 mg subcut ONCE PRN Hypoglycemia 06/28/23 03/03/24 Unknown History syringe (Gvoke PFS 1-Pack) loratadine 10 mg tablet 10 mg PO DAILY 06/28/23 03/03/24 06/28/23 08:00 History metolazone 2.5 mg tablet 2.5 mg PO DAILY 06/28/23 03/03/24 06/28/23 08:00 History sennosides 8.6 mg-docusate sodium 1 tablet PO BID PRN Constipation 06/28/23 03/03/24 Unknown History 50 mg tablet (Senexon-S) tramadol 50 mg tablet 50 mg PO Q6H PRN Pain 06/28/23 03/03/24 Unknown History acetaminophen 650 mg tablet 650 mg PO Q6H PRN Pain 01/19/24 03/03/24 Unknown History buspirone 10 mg tablet 10 mg PO QPM 01/19/24 03/03/24 Unknown History cholecalciferol (vitamin D3) 1,250 1,250 mcg PO WEEKLY 01/19/24 03/03/24 Unknown History mcg (50,000 unit) tablet diphenhydramine HCl 25 mg tablet 25 mg PO Q6H PRN Itching 01/19/24 03/03/24 Unknown History (Allergy (diphenhydramine)) ferrous sulfate 324 mg (65 mg 324 mg PO DAILY 01/19/24 03/03/24 Unknown History iron) tablet,delayed release fluoxetine 20 mg capsule 20 mg PO DAILY 01/19/24 03/03/24 Unknown History furosemide 20 mg tablet 40 mg PO DAILY 01/19/24 03/03/24 Unknown History zinc oxide-white petrolatum 1 applic topical TID 01/19/24 03/03/24 Unknown History topical ointment insulin aspart U-100 100 unit/mL 2 unit subcut TID 03/03/24 03/03/24 Unknown History subcutaneous solution (Novolog U-100 Insulin aspart) Allergies Allergy/AdvReac Type Severity Reaction Status Date / Time Bleach (Sodium Hypochlorite) AdvReac Unknown Verified 04/22/25 18:45 perfume AdvReac Unknown Verified 04/22/25 18:45 Review of Systems 2 Review of Systems: All systems reviewed & are unremarkable except as noted in HPI and below PMFSH Past Medical History Medical History (Updated 04/22/25 @ 21:40 by Adina Milton PA-C) Heart failure with mildly reduced ejection fraction Pulmonary hypertension Echocardiogram September 2019 demonstrated EF of 55-60% with severe pulmonary hypertension. Insulin dependent diabetes mellitus Chronic anemia Chronic kidney disease, stage 3 Cerebrovascular accident (2014) Resultant expressive aphasia and right-sided weakness. Obstructive sleep apnea Noncompliant with CPAP therapy Umbilical hernia without obstruction and without gangrene Eczema Hyperlipidemia Essential hypertension Dementia Vitamin D deficiency Surgical History Surgical History History of tonsillectomy Family History Family History Father Hypertension Irregular heart beat Mother Hypertension Cerebrovascular accident Other Unknown family medical history Social History Social History (Updated 04/22/25 @ 21:25 by Adina Milton PA-C) Social History: Healthcare power of document review attorney: Ladi Castro (sister). Code status: Full code. Smoking status: Unknown if ever smoked Second hand tobacco smoke exposure: Yes Alcohol intake: unknown Substance use: unknown Substance use type: unknown Living arrangements: prison Additional living arrangements comments: Resident of [facility]. Spiritual care concerns: No Agree to blood products: Yes Exam 2 Narrative: APPEARANCE: Ill-appearing HEAD: normocephalic, atraumatic. EYES: PERRLA/EOMI, conjunctivae clear. NOSE: Normal no drainage EARS:TMS clear with good light reflex. THROAT: Pharynx clear, no exudate. NECK: Supple. No adenopathy, no masses. RESPIRATORY: Airway patent, respirations nonlabored. Clear to auscultation bilaterally, no rales, rhonchi, wheezing. CARDIOVASCULAR: Regular rate and rhythm without murmurs rubs or gallops. ABDOMINAL: Soft, nontender, nondistended, normal bowel sounds MUSCULOSKELETAL: Right upper and right lower extremity edema NEURO: Alert. Cranial nerves II through XII intact. Grossly intact SKIN: Warm, dry. Normal Color Course Vital Signs Vital signs: Vital Signs Temperature 97.7 F 04/22/25 14:49 Pulse Rate 77 04/22/25 14:49 Respiratory Rate 16 04/22/25 14:49 Pulse Oximetry 94 04/22/25 14:49 Oxygen Delivery Room Air 04/22/25 14:49 Temperature 97.8 F 04/22/25 21:30 Pulse Rate 73 04/22/25 21:30 Respiratory Rate 20 04/22/25 21:30 Blood Pressure 98/60 L 04/22/25 21:30 Pulse Oximetry 98 04/22/25 21:30 Oxygen Delivery Room Air 04/22/25 20:13 Fraction of Inspired Oxygen 04/22/25 20:13 Medical Decision Making MDM Narrative Medical decision making narrative: 64-year-old female presents emergency department for evaluation for right lower extremity edema right upper extremity edema. Patient does have edema the right side due to her flaccid paralysis. Family states that this is acutely worsened though. Patient is currently afebrile with no leukocytosis hemoglobin of 9.4. Patient is complaining of urinary symptoms. Patient does have creatinine of 2.8 which is similar to her baseline as her baseline as a retic. Patient does have an elevated BUN at 59. Potassium of 5.1. UA was positive for an infection and Lopez catheter was placed. Patient is drain adequate amount of urine. Chest x- ray does show interstitial edema. Case discussed with hospitalist patient was accepted for admission. Patient was started on Levaquin due to previous urine culture profiles. Patient family are comfortable plan admission. All questions concerns were addressed. Differential Diagnosis Differential Diagnosis: DVT, edema, urinary obstruction, UTI Vital Signs Vital Signs: Vital Signs Temperature 97.7 F 04/22/25 14:49 Pulse Rate 77 04/22/25 14:49 Respiratory Rate 16 04/22/25 14:49 Pulse Oximetry 94 04/22/25 14:49 Oxygen Delivery Room Air 04/22/25 14:49 Temperature 97.8 F 04/22/25 21:30 Pulse Rate 73 04/22/25 21:30 Respiratory Rate 20 04/22/25 21:30 Blood Pressure 98/60 L 04/22/25 21:30 Pulse Oximetry 98 04/22/25 21:30 Oxygen Delivery Room Air 04/22/25 20:13 Fraction of Inspired Oxygen 21 04/22/25 20:13 Lab Data Lab results reviewed: Yes I reviewed the patient's lab results. 04/22/25 15:39 04/22/25 20:32 Labs: Lab Results 04/22/25 04/22/25 Range/Units 15:38 15:39 WBC 4.9 (4.5-10.0) K/mm3 RBC 3.09 L (4.2-5.4) M/mm3 Hgb 9.4 L (12.0-15.0) g/dL Hct 31.3 L (37.0-47.0) % MCV 101.3 H (80-100) fl MCH 30.4 (26-34) pg MCHC 30.0 L (32-36) g/dl RDW 13.9 (11.5-14.5) % Plt Count 159 (150-375) k/mm3 MPV 10.9 H (7.4-10.4) fl Immature Gran % (Auto) 0.2 (0-0.5) % Neut % (Auto) 72.3 (45.5-73.1) % Lymph % (Auto) 15.6 L (18.3-44.2) % [place] % (Auto) 7.9 (2.6-8.5) % Eos % (Auto) 3.4 (0-4.4) % Baso % (Auto) 0.6 (0.2-1.2) % Lymph # (Auto) 0.77 L (0.9-3.2) K/mm3 [place] # (Auto) 0.4 (0.1-0.6) K/mm3 Eos # (Auto) 0.2 (0-0.3) K/mm3 Baso # (Auto) 0.0 (0.0-0.1) K/mm3 Abs Immat Gran (auto) 0.01 (0.00-0.031) K/mm3 Absolute Neuts (auto) 3.6 (1.3-6.7) K/mm3 Absolute Nucleated RBC 0.000 (0.0-0.012) K/mm3 Nucleated RBC % 0.0 (0.0-0.2) % Sodium 139 (137-145) mmol/L Potassium 5.1 H (3.4-5.0) mmol/L Chloride 104 (98-107) mmol/L Carbon Dioxide 26 (22-30) mmol/L Anion Gap 9 (4-12) mmol/L BUN 63 H D (7-17) mg/dL Creatinine 3.06 H (0.7-1.0) mg/dL Estim Creat Clear Calc 27 ml/min Estimated GFR 15 L (59 - ) Glucose 137 H (65-110) mg/dL Calcium 8.5 (8.4-10.2) mg/dL Total Bilirubin 0.4 (0.2-1.3) mg/dL AST 21 (14-36) U/L ALT 13 (6-35) U/L Alkaline Phosphatase 176 H (38-126) U/L NT-Pro-B Natriuret Pep 09627 H (19.9-100) pg/mL Total Protein 6.8 (6.3-8.2) g/dL Albumin 3.4 L (3.5-5.1) g/dL Urine Color Yellow (Yellow) Urine Appearance Turbid H (Clear) Urine pH 5.0 (5.0-9.0) Ur Specific [place] 1.013 (1.001-1.035) Urine Protein 1+ H (Negative) mg/dL Urine Glucose (UA) Negative (Negative) mg/dL Urine Ketones Negative (Negative) mg/dL Ur Blood (Man) 2+ H (Negative) Urine Nitrate Positive H (Negative) Urine Bilirubin Negative (Negative) Urine Urobilinogen 0.2 (<2.0) mg/dL Add Ur Microanalysis Reviewed Leukocyte Esterase Rfl 3+ H (Negative) JOANNE/UL Urine RBC 11-20 H (0-2) /hpf Urine WBC >100 H (0-3) /hpf Urine WBC Clumps Present H (None) /HPF Ur Squamous Epith Cells Many H (Few) /hpf Urine Bacteria 1+ H /hpf Urine Casts 6-10 Imaging Data Radiologist's impression: Impressions Chest X-Ray 04/22/25 15:44 IMPRESSION: Pulmonary opacities, may represent interstitial edema in the appropriate clinical context. Subsegmental right basilar atelectasis/consolidation. Possible small right pleural effusion. Discharge Plan Discharge Clinical Impression: Acute kidney injury, UTI (urinary tract infection), Leg edema Patient Disposition: Still a Patient Condition: Stable
[2025-04-22 17:02] LABS: NT Pro B Type Natriuretic Pept 10700 pg/mL (19.9-100)
--- NOTE | 2025-04-22 17:15 | PC.NURSE ---
Will start antibiotic after cultures drawn
--- NOTE | 2025-04-22 17:22 | PC.NURSE ---
Phlebotomy called to obtain blood cultures
[2025-04-22 18:07] VITALS: BP 90/49; PULSE 78; RESP 17; O2SAT 99
--- NOTE | 2025-04-22 18:14 | PC.NURSE ---
Phlebotomy at bedside to attempt to obtain blood cultures
--- NOTE | 2025-04-22 18:22 | PC.NURSE ---
phlebotomy unable to obtain blood cultures
[2025-04-22] MEDS: LACTATED RINGERS 1,000 ML 999 ML IV CONT (18:34)
[2025-04-22 18:41] VITALS: BMI 59.8
--- NOTE | 2025-04-22 18:42 | ADMGEN ---
This patient, Dalila Rose, was admitted to [facility] Surg Room 307-01. Patient/family oriented to hospital policies and general routines including ID bracelet, bed and alarms, visiting hours, pain management, procedures, bathroom and other care routines, personal items, smoking policy, room service/diet, and visiting hours. Information on how to activate the Rapid Response Team has been discussed. Patient/Family are encouraged to report perceived risks to care and to ask questions if they do not understand what they are told or what they should do.
[2025-04-22 20:00] VITALS: PULSE 78
--- NOTE | 2025-04-22 20:00 | PM.IMHP ---
H&P: HPI History of Present Illness Date/Time: 04/22/25 20:00 Chief Complaint: Decreased urine output, swelling. Narrative: This is a 64-year-old female with history of stroke with expressive aphasia and right-sided weakness, dementia, hypertension, hyperlipidemia, heart failure with mildly reduced ejection fraction, pulmonary hypertension, obstructive sleep apnea, insulin-dependent diabetes mellitus, chronic kidney disease, and chronic anemia who presented to the emergency department via EMS from [facility] for evaluation of decreased urine output and swelling. She is able to answer yes and no questions and says a few words here and there however due to her expressive aphasia it is difficult to obtain history. Her sister, Ladi, at bedside provides the majority of the following history. The patient is bed bound and transfers with a Jagdish. She is incontinent of bladder and bowel at baseline. Over the last couple of weeks, the patient has been complaining to her sister that it [place] when she urinates and that her urine smells strong. Apparently the patient had little urine output overnight and staff sent her in for evaluation. At the time the patient complains that her legs feel tight and uncomfortable. She has no other complaints and states that her appetite is good without nausea, vomiting, or diarrhea. She also denies fever, headache, chest pain, shortness of breath, and pleuritic pain. She says she has been eating and drinking as per usual. In the ED: She was afebrile on arrival. Blood pressure was 90/49. Labs are significant for WBC count of 4.9, hemoglobin 9.4, hematocrit 31.3%, MCV 101.3, platelet 159 cares, potassium 5.1, BUN 63, creatinine 3.06, glucose 137, proBNP 19727. She was unable to produce a urine specimen and a Lopez catheter was inserted as she stated she had not urinated since the prior day. Urinalysis was positive for 1+ protein, 2+ blood, nitrates, 3+ leukocyte esterase, 11 to 20 RBC, greater than 100 WBC, many squamous cells, and 1+ bacteria. Chest x-ray showed pulmonary opacities which may represent interstitial edema. She was given lactated Ringer's 1 L and levofloxacin 750 mg. She is being admitted in this setting with an acute kidney injury, anasarca, and abnormal urinalysis with urinary symptoms. Review of Systems Review of Systems: 12 systems were reviewed and are negative except for as per HPI. [facility] Past Medical History Medical History (Updated 04/22/25 @ 21:40 by Adina Milton PA-C) Heart failure with mildly reduced ejection fraction Pulmonary hypertension Echocardiogram September 2019 demonstrated EF of 55-60% with severe pulmonary hypertension. Insulin dependent diabetes mellitus Chronic anemia Chronic kidney disease, stage 3 Cerebrovascular accident (2015) Resultant expressive aphasia and right-sided weakness. Obstructive sleep apnea Noncompliant with CPAP therapy Umbilical hernia without obstruction and without gangrene Eczema Hyperlipidemia Essential hypertension Dementia Vitamin D deficiency Surgical History Surgical History History of tonsillectomy Family History Family History Father Hypertension Irregular heart beat Mother Hypertension Cerebrovascular accident Other Unknown family medical history Social History Social History (Updated 04/22/25 @ 21:25 by Adina Milton PA-C) Social History: Healthcare power of contracts attorney: Ladi Castro (sister). Code status: Full code. Smoking status: Unknown if ever smoked Second hand tobacco smoke exposure: Yes Alcohol intake: unknown Substance use: unknown Substance use type: unknown Living arrangements: care home Additional living arrangements comments: Resident of [facility]. Spiritual care concerns: No Agree to blood products: Yes Meds Home Medications and Allergies Home Medications ?Medication ?Instructions ?Recorded ?Confirmed ?Type aspirin 81 mg tablet,delayed 81 mg PO DAILY 09/28/19 03/03/24 History release (Enteric Coated Aspirin) gabapentin 300 mg capsule 100 mg PO TID 09/28/19 03/03/24 History insulin glargine 100 unit/mL (3 8 unit subcut HS 09/28/19 03/03/24 History mL) subcutaneous pen (Basaglar KwikPen U-100 Insulin) memantine 10 mg tablet 10 mg PO BID 09/28/19 03/03/24 History famotidine 20 mg tablet 20 mg PO BID 06/28/23 03/03/24 History glucagon 1 mg/0.2 mL subcutaneous 1 mg subcut ONCE PRN Hypoglycemia 06/28/23 03/03/24 History syringe (Gvoke PFS 1-Pack) loratadine 10 mg tablet 10 mg PO DAILY 06/28/23 03/03/24 History metolazone 2.5 mg tablet 2.5 mg PO DAILY 06/28/23 03/03/24 History sennosides 8.6 mg-docusate sodium 1 tablet PO BID PRN Constipation 06/28/23 03/03/24 History 50 mg tablet (Senexon-S) tramadol 50 mg tablet 50 mg PO Q6H PRN Pain 06/28/23 03/03/24 History metoprolol succinate 50 mg 25 mg (1/2 x 50 mg) PO HS #30 tabs 07/02/23 03/03/24 Rx tablet,extended release 24 hr polyethylene glycol 3350 17 gram 17 g PO QAM #30 ea 07/02/23 03/03/24 Rx oral powder packet (Miralax) acetaminophen 650 mg tablet 650 mg PO Q6H PRN Pain 01/19/24 03/03/24 History buspirone 10 mg tablet 10 mg PO QPM 01/19/24 03/03/24 History cholecalciferol (vitamin D3) 1,250 1,250 mcg PO WEEKLY 01/19/24 03/03/24 History mcg (50,000 unit) tablet diphenhydramine HCl 25 mg tablet 25 mg PO Q6H PRN Itching 01/19/24 03/03/24 History (Allergy (diphenhydramine)) ferrous sulfate 324 mg (65 mg 324 mg PO DAILY 01/19/24 03/03/24 History iron) tablet,delayed release fluoxetine 20 mg capsule 20 mg PO DAILY 01/19/24 03/03/24 History furosemide 20 mg tablet 40 mg PO DAILY 01/19/24 03/03/24 History zinc oxide-white petrolatum 1 applic topical TID 01/19/24 03/03/24 History topical ointment tolnaftate 1 % topical powder 1 applic topical Q12HR #45 grams 01/23/24 03/03/24 Rx insulin aspart U-100 100 unit/mL 2 unit subcut TID 03/03/24 03/03/24 History subcutaneous solution (Novolog U-100 Insulin aspart) atorvastatin 20 mg tablet 20 mg PO HS #30 tabs 03/07/24 Rx atorvastatin 40 mg tablet 40 mg PO HS #30 tabs 03/07/24 Rx sacubitril 24 mg-valsartan 26 mg 1 tablet PO Q12HR #30 tabs 03/07/24 Rx tablet (Entresto) Allergies Allergy/AdvReac Type Severity Reaction Status Date / Time Bleach (Sodium Hypochlorite) AdvReac Unknown Verified 04/22/25 18:45 perfume AdvReac Unknown Verified 04/22/25 18:45 Vital Signs Vital Signs - 24 hr 04/22/25 14:49 04/22/25 14:58 04/22/25 18:07 Temperature 97.7 F Pulse Rate 77 72 78 Respiratory Rate 16 17 Blood Pressure 90/49 L Pulse Oximetry 94 99 Oxygen Delivery Room Air Exam Narrative: General: Morbidly obese female in the semi-Blunt position in no acute distress. She is in good spirits. Weight: 163 kg. BMI: 59.8. HEENT: PERRL, EOMI. Sclera anicteric. Tacky mucous membranes. Crowded oropharynx. Neck: Supple. Exam limited due to neck circumference. Respiratory: Respirations are nonlabored. Lung sounds are a bit diminished due to body habitus. Cardiovascular: Regular rate and rhythm with S1-S2. Systolic murmur heard at the left sternal border in apex. Gastrointestinal: Abdomen is morbidly obese with positive bowel sounds. She has pitting edema of the lower abdomen into the flanks and she is tender to palpation in this regions. Skin: Warm and dry. Faint erythema of the lower legs due to significant swelling. Shallow ulcerations noted on lower panniculus. Extremities: No cyanosis or clubbing. Significant pitting edema of the legs (right greater than left) to the abdomen. Upper extremities are also edematous, right greater than left. Neurological: Alert. No facial asymmetry. Speech is clear but she does have expressive aphasia. Dense hemiplegia on the right. Psychiatric: Pleasant and cooperative. She is in good spirits. H&P: Results Labs Labs: Short CBC 04/22/25 Range/Units 15:39 WBC 4.9 (4.5-10.0) K/mm3 Hgb 9.4 L (12.0-15.0) g/dL Hct 31.3 L (37.0-47.0) % Plt Count 159 (150-375) k/mm3 BMP 04/22/25 15:39 Sodium 139 Potassium 5.1 H Chloride 104 Carbon Dioxide 26 BUN 63 H D Creatinine 3.06 H Glucose 137 H Calcium 8.5 Liver Function 04/22/25 Range/Units 15:39 Total Bilirubin 0.4 (0.2-1.3) mg/dL AST 21 (14-36) U/L ALT 13 (6-35) U/L Alkaline Phosphatase 176 H (38-126) U/L Albumin 3.4 L (3.5-5.1) g/dL Urine 04/22/25 Range/Units 15:39 Urine Color Yellow (Yellow) Urine Appearance Turbid H (Clear) Urine pH 5.0 (5.0-9.0) Ur Specific [employer] 1.013 (1.001-1.035) Urine Protein 1+ H (Negative) mg/dL Urine Glucose (UA) Negative (Negative) mg/dL Impressions Chest X-Ray 04/22/25 15:44 IMPRESSION: Pulmonary opacities, may represent interstitial edema in the appropriate clinical context. Subsegmental right basilar atelectasis/consolidation. Possible small right pleural effusion. Venous Doppler Study 04/22/25 21:20 IMPRESSION: Nondiagnostic ultrasound venous Doppler examination of the right lower extremity. Assessment and Plan Assessment and plan (1) Acute on chronic renal failure: Code(s): N17.9 - Acute kidney failure, unspecified; N18.9 - Chronic kidney disease, unspecified Status: Acute (2) Heart failure with mildly reduced ejection fraction: Code(s): I50.20 - Unspecified systolic (congestive) heart failure Status: Acute (3) Anasarca: Code(s): R60.1 - Generalized edema Status: Acute (4) Macrocytic anemia: Code(s): D53.9 - Nutritional anemia, unspecified Status: Acute (5) Type 2 diabetes mellitus, with long-term current use of insulin: Qualifiers: Diabetes mellitus complication status: with hyperglycemia Qualified Code(s): E11.65 - Type 2 diabetes mellitus with hyperglycemia; Z79.4 - intermediate (current) use of insulin Code(s): E11.9 - Type 2 diabetes mellitus without complications; Z79.4 - exterminator termite (current) use of insulin Status: Acute (6) Bacteriuria with pyuria: Code(s): R82.71 - Bacteriuria; R82.81 - Pyuria Status: Acute Plan The patient presented to the emergency department for evaluation of increasing edema and decreased urine output as detailed in HPI. Labs, imaging, EKG, and all reports were personally reviewed. She has an acute on chronic renal failure with a creatinine of 3.06 today and a baseline creatinine which appears to range from 1.30 to 2.30. She states she has been eating and drinking as per usual and her mucous membranes are moist. However she is on furosemide and metolazone daily and she may be intravascularly dry. At this time her blood pressures do not allow for diuresis. She received 1 L of lactated Ringer's in the ED and depending on her blood pressures this evening, I may give her another half of a L. She will eventually need to be diuresed. Lopez catheter was inserted in the ED but there is no documentation to state how much urine was yielded upon insertion. Monitor strict I/O and daily weights. Hold furosemide, metolazone, and Entresto for now. Nephrology has been consulted for recommendations. Urinalysis is grossly abnormal however is contaminated with many squamous cells. At this time we will hold on further antibiotics, pending urine culture. She is afebrile and has a normal white blood cell count. The discomfort she has been having may very well be related to the fact that she had not been able to urinate much. Check iron studies, B12, and folate for evaluation of anemia. Check venous Doppler ultrasound to rule out DVTs. Continue basal insulin. Initiate sliding scale insulin, Accu-Cheks, and hypoglycemic protocol. Her home medications will be reviewed and resumed as appropriate. Findings and treatment plan were discussed with the patient and her sister Ladi who was at bedside. Questions were solicited and answered to satisfaction. The patient's medical management will be taken over by the hospitalist team in a.m. Quality VTE Prophylaxis VTE prophylaxis: pharmacologic ordered The patient has been admitted under observation status. Hospitalist MIPS Advance Care Plan I have confirmed that the patient's Advanced Care Plan is present, code status is documented, or surrogate decision maker is listed in patient medical record.: Yes Medication Reconciliation I have utilized all available resources to obtain, update and review the patients current medications (includes all prescriptions, OTC, herbals, cannabis, and nutritional supplements).: Yes
[2025-04-22 20:13] VITALS: O2SAT 91
[2025-04-22] MEDS: levoFLOXacin 750 MG/D5W 150 ML 750 MG/150 ML BAG 100 MG IVPB (20:52)
[2025-04-22 21:30] VITALS: BP 98/60; PULSE 73; RESP 20; TEMP 36.6; O2SAT 98
[2025-04-22 21:40] LABS: Anion Gap 6 mmol/L (4-12); Blood Urea Nitrogen 59 mg/dL (7-17); Calcium 8.6 mg/dL (8.4-10.2); Carbon Dioxide 27 mmol/L (22-30); Chloride 104 mmol/L (98-107); Estimated CRCL calculation 29 ml/min; Estimated Glomerular Filt Rate 17; Glucose 114 mg/dL (65-110); Magnesium 2.1 mg/dL (1.6-2.3); Potassium 5.1 mmol/L (3.4-5.0); Sodium 137 mmol/L (137-145)
[2025-04-22 22:01] LABS: Iron 57 ug/dL (37-170)
[2025-04-22 22:02] LABS: Hemoglobin A1C 5.3 % (<5.7)
[2025-04-22 22:10] LABS: Thyroid Stimulating Hormone Reflex 4.370 uIU/mL (0.465-4.68)
[2025-04-22 22:11] LABS: Percent Iron Saturation 22 % (20-50)
[2025-04-22 22:42] LABS: Ferritin 57.70 ng/mL (11.1-264)
[2025-04-22 23:09] LABS: Vitamin B12 343.0 pg/mL (239-931)
[2025-04-22] MEDS: LACTATED RINGERS 1,000 ML 100 ML IV CONT (23:16)
[2025-04-23] VITALS (10 sets, daily range): BP systolic 86–107; BP diastolic 30–69; PULSE 66–80; RESP 14–20; TEMP 36.3–36.8; O2SAT 93–98
[2025-04-23 02:23] LABS: Free T4 Free Thyroxine Reflex 1.16 ng/dL (0.78-2.19)
--- NOTE | 2025-04-23 02:43 | WNDPHOTO ---
PHOTO ONLY - See Nursing Notes and/ or assessments for documentation.
[2025-04-23 04:31] LABS: Total Triiodothyronine (T3) 0.88 NG/ML (0.82-1.58)
[2025-04-23 05:58] LABS: Hematocrit 28.9 % (37.0-47.0); Hemoglobin 8.5 g/dL (12.0-15.0); Mean Corpuscular HGB Conc 29.4 g/dl (32-36); Mean Corpuscular Hemoglobin 29.9 pg (26-34); Mean Corpuscular Volume 101.8 fl (80-100); Platelet Count Result 133 k/mm3 (150-375); Red Blood Count 2.84 M/mm3 (4.2-5.4); White Blood Count 4.1 K/mm3 (4.5-10.0)
[2025-04-23 06:24] LABS: Alanine Aminotransferase 10 U/L (6-35); Albumin Level 2.8 g/dL (3.5-5.1); Alkaline Phosphatase 141 U/L (38-126); Anion Gap 6 mmol/L (4-12); Aspartate Amino Transferase 20 U/L (14-36); Bilirubin,Total 0.3 mg/dL (0.2-1.3); Blood Urea Nitrogen 59 mg/dL (7-17); Calcium 8.1 mg/dL (8.4-10.2); Carbon Dioxide 24 mmol/L (22-30); Chloride 107 mmol/L (98-107); Creatine Kinase 49 U/L (30-135); Estimated CRCL calculation 30 ml/min; Estimated Glomerular Filt Rate 17; Glucose 98 mg/dL (65-110); Magnesium 2.2 mg/dL (1.6-2.3); Potassium 5.3 mmol/L (3.4-5.0); Sodium 137 mmol/L (137-145); Total Protein 5.7 g/dL (6.3-8.2)
[2025-04-23] MEDS: ACETAMINOPHEN 325 MG TABLET 650 MG PO ×2 (09:03→18:50)
--- NOTE | 2025-04-23 09:14 | P.PNIM_ITS ---
Progress Note: A&P Assessment and Plan (1) Acute on chronic renal failure: Code(s): N17.9 - Acute kidney failure, unspecified; N18.9 - Chronic kidney disease, unspecified Status: Acute (2) Heart failure with mildly reduced ejection fraction: Code(s): I50.20 - Unspecified systolic (congestive) heart failure Status: Acute (3) Anasarca: Code(s): R60.1 - Generalized edema Status: Acute (4) Macrocytic anemia: Code(s): D53.9 - Nutritional anemia, unspecified Status: Acute (5) Type 2 diabetes mellitus, with long-term current use of insulin: Qualifiers: Diabetes mellitus complication status: with hyperglycemia Qualified Code(s): E11.65 - Type 2 diabetes mellitus with hyperglycemia; Z79.4 - retirement (current) use of insulin Code(s): E11.9 - Type 2 diabetes mellitus without complications; Z79.4 - long term (current) use of insulin Status: Acute (6) Bacteriuria with pyuria: Code(s): R82.71 - Bacteriuria; R82.81 - Pyuria Status: Acute Plan The patient presented to the emergency department for evaluation of increasing edema and decreased urine output MADAY on CKD Labs, imaging, EKG, a an acute on chronic renal failure with a creatinine of 3.06 today and a baseline creatinine which appears to range from 1.30 to 2.30. eating and drinking as per usual a she is on furosemide and metolazone daily and she may be intravascularly dry. received 1 L of lactated Ringer's in the ED and depending on her blood pressures this evening, Lopez catheter was inserted in the ED but there is no documentation to state how much urine was yielded upon insertion. Monitor strict I/O and daily weights. Nephrology has been consulted for recommendations. Continue D5 normal saline IV 100 mL/hour Chronic heart failure Compensated Hold furosemide, metolazone, and Entresto for now. UTI UA showed cloudy urine positive nitrate, pyuria, hematuria Urine culture pending Start ceftriaxone IV 1 g daily Anemia Check iron studies, B12, and folate for evaluation of anemia. Right arm and leg swelling Check venous Doppler ultrasound to rule out DVTs. per radiologist tachy report, patient cannot tolerate because of pain Will control pain and repeated tomorrow Insulin-dependent diabetes Continue basal insulin. Initiate sliding scale insulin, Accu-Cheks, and hypoglycemic protocol. Subjective Date/time seen: 04/23/25 09:14 Interval history: Saw exam patient. Patient afebrile blood pressure stable Labs reviewed potassium 5.3, creatinine is trending down 2.7 8 today Exam Narrative: General: Morbidly obese female in the semi-Blunt position in no acute distress. She is in good spirits. Weight: 163 kg. BMI: 59.8. HEENT: PERRL, EOMI. Sclera anicteric. Tacky mucous membranes. Crowded oropharynx. Neck: Supple. Exam limited due to neck circumference. Respiratory: Respirations are nonlabored. Lung sounds are a bit diminished due to body habitus. Cardiovascular: Regular rate and rhythm with S1-S2. Systolic murmur heard at the left sternal border in apex. Gastrointestinal: Abdomen is morbidly obese with positive bowel sounds. She has pitting edema of the lower abdomen into the flanks and she is tender to palp ation in this regions. Skin: Warm and dry. Faint erythema of the lower legs due to significant swelling. Shallow ulcerations noted on lower panniculus. Extremities: No cyanosis or clubbing. Significant pitting edema of the legs (right greater than left) to the abdomen. Upper extremities are also edematous, right greater than left. Neurological: Alert. No facial asymmetry. Speech is clear but she does have expressive aphasia. residual hemiplegia on the right. Psychiatric: Pleasant and cooperative. She is in good spirits. Objective Data Vital Signs Vital Signs: Vital Signs - 24 hr 04/22/25 14:49 04/22/25 14:58 04/22/25 18:07 Temperature 97.7 F Pulse Rate 77 72 78 Respiratory Rate 16 17 Blood Pressure 90/49 L Pulse Oximetry 94 99 Oxygen Delivery Room Air Fraction of Inspired Oxygen 04/22/25 20:00 04/22/25 20:13 04/22/25 21:30 Temperature 97.8 F Pulse Rate 78 73 Respiratory Rate 20 Blood Pressure 98/60 L Pulse Oximetry 91 98 Oxygen Delivery Room Air Fraction of Inspired Oxygen 21 04/23/25 00:00 04/23/25 04:00 04/23/25 05:07 Temperature 97.4 F L Pulse Rate 66 76 74 Respiratory Rate 20 Blood Pressure 107/53 L Pulse Oximetry 94 Oxygen Delivery Fraction of Inspired Oxygen Intake/Output Intake/Output: Intake & Output 04/20/25 04/21/25 04/22/25 04/23/25 23:59 23:59 23:59 23:59 Intake Total 300 Output Total 600 150 Balance -600 150 Meds/Results Medications: Active Medications Generic Name Dose Route Start Last Admin Trade Name Freq PRN Reason Stop Dose Admin Acetaminophen 650 mg 04/22/25 21:47 04/23/25 09:03 Acetaminophen 325 Mg Tablet PO 650 mg Q6H PRN Administration Mild Pain (1-3) or Fever Dextrose 12.5 gm 04/22/25 21:47 Dextrose 50% 25 Gm/50 Ml Syringe IV PUSH PRN PRN Hypoglycemia Protocol Glucagon 1 mg 04/22/25 21:47 Glucagon For Inj 1 Mg Vial IM PRN PRN Hypoglycemia Protocol Glucose 15 gm 04/22/25 21:47 Glucose Oral Gel 15 Gm Of Glucse In 37.5 Gm Tube PO PRN PRN Hypoglycemia Protocol Heparin Sodium (Porcine) 5,000 units 04/23/25 09:00 04/23/25 09:03 Heparin Sodium 5,000 Units/Ml Vial SUB-Q 5,000 units Q12HR BRIANNA Administration Levofloxacin/Dextrose 750 mg in 150 mls @ 100 mls/hr 04/24/25 21:00 Levaquin 750 Mg/D5w 150 Ml IVPB Q48H BRIANNA Dextrose 1,000 mls @ 100 mls/hr 04/22/25 21:47 Dextrose 5% 1,000 Ml IVPB PRN PRN Hypoglycemia Protocol Insulin Aspart 2 - 4 units 04/22/25 21:55 04/22/25 23:15 Insulin Aspart (*Bkc) 100 Units/Ml SUB-Q Not Given HS [facility] Protocol Insulin Aspart 4 - 8 units 04/23/25 08:00 04/23/25 08:10 Insulin Aspart (*Bkc) 100 Units/Ml SUB-Q Not Given TIDWM [facility] Protocol Perflutren Lipid Microsphere 0 ml 04/22/25 21:45 Perflutren Lipid Microspheres 1.5 Ml Vial Diluted To 10 Ml Total Volume IV PUSH 04/25/25 21:45 ONCE PRN adequate visualization Protocol Radiology Results: ITS Impressions Chest X-Ray 04/22/25 15:44 IMPRESSION: Pulmonary opacities, may represent interstitial edema in the appropriate clinical context. Subsegmental right basilar atelectasis/consolidation. Possible small right pleural effusion. Venous Doppler Study 04/22/25 21:20 IMPRESSION: Nondiagnostic ultrasound venous Doppler examination of the right lower extremity. Labs Labs: Laboratory Results - last 24 hr 04/22/25 04/22/25 04/22/25 15:38 15:39 20:32 WBC 4.9 RBC 3.09 L Hgb 9.4 L Hct 31.3 L MCV 101.3 H MCH 30.4 MCHC 30.0 L RDW 13.9 Plt Count 159 MPV 10.9 H Immature Gran % (Auto) 0.2 Neut % (Auto) 72.3 Lymph % (Auto) 15.6 L Lynn % (Auto) 7.9 Eos % (Auto) 3.4 Baso % (Auto) 0.6 Lymph # (Auto) 0.77 L Lynn # (Auto) 0.4 Eos # (Auto) 0.2 Baso # (Auto) 0.0 Abs Immat Gran (auto) 0.01 Absolute Neuts (auto) 3.6 Absolute Nucleated RBC 0.000 Nucleated RBC % 0.0 Sodium 139 137 Potassium 5.1 H 5.1 H Chloride 104 104 Carbon Dioxide 26 27 Anion Gap 9 6 BUN 63 H D 59 H Creatinine 3.06 H 2.88 H Estim Creat Clear Calc 27 29 Estimated GFR 15 L 17 L Glucose 137 H 114 H POC Capillary Glucose Hemoglobin A1c 5.3 Calcium 8.5 8.6 Phosphorus Magnesium 2.1 Iron 57 TIBC 262 % Saturation 22 Ferritin 57.70 Total Bilirubin 0.4 AST 21 ALT 13 Alkaline Phosphatase 176 H Total Creatine Kinase NT-Pro-B Natriuret Pep 50451 H Total Protein 6.8 Albumin 3.4 L Vitamin B12 343.0 Folate 7.3 TSH (Reflex) 4.370 Free T4 1.16 Total T3 0.88 Urine Color Yellow Urine Appearance Turbid H Urine pH 5.0 Ur Specific [place] 1.013 Urine Protein 1+ H Urine Glucose (UA) Negative Urine Ketones Negative Ur Blood (Man) 2+ H Urine Nitrate Positive H Urine Bilirubin Negative Urine Urobilinogen 0.2 Add Ur Microanalysis Reviewed Leukocyte Esterase Rfl 3+ H Urine RBC 11-20 H Urine WBC >100 H Urine WBC Clumps Present H Ur Squamous Epith Cells Many H Urine Bacteria 1+ H Urine Casts 6-10 04/22/25 04/23/2525 23:11 05:15 08:01 WBC 4.1 L RBC 2.84 L Hgb 8.5 L Hct 28.9 L MCV 101.8 H MCH 29.9 MCHC 29.4 L RDW 13.7 Plt Count 133 L MPV 11.1 H Immature Gran % (Auto) Neut % (Auto) Lymph % (Auto) Lynn % (Auto) Eos % (Auto) Baso % (Auto) Lymph # (Auto) Lynn # (Auto) Eos # (Auto) Baso # (Auto) Abs Immat Gran (auto) Absolute Neuts (auto) Absolute Nucleated RBC Nucleated RBC % Sodium 137 Potassium 5.3 H Chloride 107 Carbon Dioxide 24 Anion Gap 6 BUN 59 H Creatinine 2.78 H Estim Creat Clear Calc 30 Estimated GFR 17 L Glucose 98 POC Capillary Glucose 105 97 Hemoglobin A1c Calcium 8.1 L Phosphorus 4.9 H Magnesium 2.2 Iron TIBC % Saturation Ferritin Total Bilirubin 0.3 AST 20 ALT 10 Alkaline Phosphatase 141 H Total Creatine Kinase 49 NT-Pro-B Natriuret Pep Total Protein 5.7 L Albumin 2.8 L Vitamin B12 Folate TSH (Reflex) Free T4 Total T3 Urine Color Urine Appearance Urine pH Ur Specific [place] Urine Protein Urine Glucose (UA) Urine Ketones Ur Blood (Man) Urine Nitrate Urine Bilirubin Urine Urobilinogen Add Ur Microanalysis Leukocyte Esterase Rfl Urine RBC Urine WBC Urine WBC Clumps Ur Squamous Epith Cells Urine Bacteria Urine Casts
--- NOTE | 2025-04-23 10:25 | P.CONNP_ITS ---
Assessment and Plan Assessment and plan (1) Chronic kidney disease, stage 3b: Code(s): N18.32 - Chronic kidney disease, stage 3b Status: Acute Assessment and Plan: Patient has chronic kidney disease. This is likely related to longstanding hypertension and diabetes. She also has chronic pre renal azotemia due to her severe pulmonary hypertension, mild reduction in her EF, and chronic diuretics. (2) Acute kidney injury: Code(s): N17.9 - Acute kidney failure, unspecified Status: Acute Assessment and Plan: The patient's creatinine is higher than usual now. There are multiple possibilities for causes. The patient has pyuria. But the patient has a chronic Lopez as well. Unclear whether this is an infection or just colonization. Will see what the culture shows. So far no signs of severe infection The patient's blood pressure was low on admission Over-diuresis is a possibility Will check a renal ultrasound, urine electrolytes, fractional excretion of urea, urine protein to creatinine ratio, and a CK I think will to cut back on the diuretics. Will stop the metolazone but leave the furosemide in place for now. (3) CHF (congestive heart failure): Qualifiers: Heart failure chronicity: acute on chronic Heart failure type: systolic Qualified Code(s): I50.23 - Acute on chronic systolic (congestive) heart failure Code(s): I50.9 - Heart failure, unspecified Status: Acute Assessment and Plan: The patient has a mildly low ejection fraction but more importantly has severe pulmonary hypertension with moderate tricuspid regurg. This is why she is so swollen. Is very difficult to treat this as the more diuretics we use the harder it is on the kidneys. She may end up needing a higher creatinine to treat to this swelling but for now let us treat the UTI, decreased diuretics, and then reassess need for diuretics down the line. (4) Insulin dependent diabetes mellitus: Status: Acute Assessment and Plan: Hospitalists to manage this (5) Kidney stone on right side: Code(s): N20.0 - Calculus of kidney Status: Acute Assessment and Plan: Will see if the stones are causing any trouble with the ultrasound (6) UTI (urinary tract infection): Qualifiers: Hematuria presence: without hematuria Urinary tract infection type: a cute cystitis Qualified Code(s): N30.00 - Acute cystitis without hematuria Code(s): N39.0 - Urinary tract infection, site not specified Status: Acute Assessment and Plan: The patient has pyuria She has a chronic Lopez Peripheral white count is okay and there is no fever. The patient does not look toxic. Will see with culture show (7) History of CVA (cerebrovascular accident): Code(s): Z86.73 - Personal history of transient ischemic attack (TIA), and cerebral infarction without residual deficits Status: Acute Assessment and Plan: The patient is aphasic. She communicates really well though. She does follow command she seems to understand what I say and her answers seem appropriate. She does not look encephalopathic to me (8) Essential hypertension: Code(s): I10 - Essential (primary) hypertension Status: Acute Assessment and Plan: Blood pressure is under good control Will continue the Entresto but otherwise not give any other diuretics (9) Hyperlipidemia: Code(s): E78.5 - Hyperlipidemia, unspecified Status: Acute Assessment and Plan: She takes atorvastatin as an outpatient History of Present Illness Reason for Consult Consult date: 04/23/25 Chief Complaint Chief complaint: MADAY, UTI, edema History of Present Illness Narrative: Dalila is a very pleasant 64-year-old lady who has multiple medical problems including chronic kidney disease the baseline creatinine of around 1.5-2, anemia, diabetes, hypertension, hyperlipidemia, stroke in 2015 with resultant expressive aphasia and right-sided weakness, sleep apnea but does use a CPAP mask, eczema, dementia, congestive heart failure, pulmonary hypertension. The patient came on the hospital because of swelling and decreased urine output. She was evaluated in the emergency room and her blood pressure was low. She was given IV fluids. Tests showed urine with white cells and chest x-ray showed pulmonary opacities but her oxygenation was fine. Her creatinine was also elevated above its baseline. She was given IV fluids in the ER but none overnight. Her blood pressure is a little better. Her creatinine has fallen a little bit. Her diuretics were continued She does have severe swelling in both legs and also in the right arm more than the left arm. The patient had an echocardiogram showing an EF of 45-50%. She has [id number] mitral valve regurgitation moderate tricuspid valve regurgitation and severe pulmonary hypertension [id number]. Venous Doppler showed no clot. She has some protein in the blood not quantified. Her albumin level is mildly low. At the long term she is on furosemide and metolazone daily. Review of Systems 2 Constitutional: Constitutional: Reports no additional constitutional complaints Eyes: Eyes: Reports no additional eye complaints ENT: Reports system reviewed and no additional complaints, except as documented Cardiovascular: Cardiovascular: Reports no additional cardiovascular complaints Respiratory: Respiratory: Reports no additional respiratory complaints Gastrointestinal: Gastrointestinal: Reports no additional gastrointestinal complaints Genitourinary: Genitourinary: Reports no additional female genitourinary complaints Musculoskeletal: Musculoskeletal: Reports no additional musculoskeletal complaints Integumentary/Breasts: Skin/Breast: Reports system reviewed and no additional complaints, except as docu Neurologic: Reports system reviewed and no additional complaints, except as documented Psychiatric: Psychiatric: Reports no additional psychiatric complaints Endocrine: Endocrine: Reports no additional endocrine complaints [facility] Past Medical History Medical History (Updated 04/23/25 @ 10:33 by Kiet Almanza MD) Heart failure with mildly reduced ejection fraction Pulmonary hypertension Echocardiogram September 2019 demonstrated EF of 55-60% with severe pulmonary hypertension. Insulin dependent diabetes mellitus Chronic anemia Chronic kidney disease, stage 3 Cerebrovascular accident (2014) Resultant expressive aphasia and right-sided weakness. Obstructive sleep apnea Noncompliant with CPAP therapy Umbilical hernia without obstruction and without gangrene Eczema Hyperlipidemia Essential hypertension Dementia Vitamin D deficiency Surgical History Surgical History History of tonsillectomy Family History Family History Father Hypertension Irregular heart beat Mother Hypertension Cerebrovascular accident Other Unknown family medical history Social History Social History Social History: Healthcare power of corporate associate attorney: Ladi Castro (sister). Code status: Full code. Smoking status: Unknown if ever smoked Second hand tobacco smoke exposure: Yes Alcohol intake: unknown Substance use: unknown Substance use type: unknown Living arrangements: long term Additional living arrangements comments: Resident of [facility]. Spiritual care concerns: No Agree to blood products: Yes Meds Home Medications and Allergies Home Medications ?Medication ?Instructions ?Recorded ?Confirmed ?Type aspirin 81 mg tablet,delayed 81 mg PO DAILY 09/28/19 04/22/25 History release (Enteric Coated Aspirin) gabapentin 300 mg capsule 100 mg PO TID 09/28/19 04/22/25 History insulin glargine 100 unit/mL (3 15 unit subcut HS 09/28/19 04/22/25 History mL) subcutaneous pen (Basaglar KwikPen U-100 Insulin) memantine 10 mg tablet 10 mg PO BID 09/28/19 04/22/25 History famotidine 20 mg tablet 20 mg PO BID 06/28/23 04/22/25 History glucagon 1 mg/0.2 mL subcutaneous 1 mg subcut ONCE PRN Hypoglycemia 06/28/23 04/22/25 History syringe (Gvoke PFS 1-Pack) loratadine 10 mg tablet 10 mg PO DAILY 06/28/23 04/22/25 History metolazone 2.5 mg tablet 5 mg PO DAILY 06/28/23 04/22/25 History sennosides 8.6 mg-docusate sodium 1 tablet PO DAILY PRN Constipation 06/28/23 04/22/25 History 50 mg tablet (Senexon-S) metoprolol succinate 50 mg 25 mg (1/2 x 50 mg) PO HS #30 tabs 07/02/23 04/22/25 Rx tablet,extended release 24 hr polyethylene glycol 3350 17 gram 17 g PO QAM #30 ea 07/02/23 04/22/25 Rx oral powder packet (Miralax) acetaminophen 650 mg tablet 650 mg PO Q6H PRN Pain 01/19/24 04/22/25 History buspirone 10 mg tablet 10 mg PO TID 01/19/24 04/22/25 History cholecalciferol (vitamin D3) 1,250 1,250 mcg PO WEEKLY 01/19/24 04/22/25 History mcg (50,000 unit) tablet ferrous sulfate 324 mg (65 mg 324 mg PO DAILY 01/19/24 04/22/25 History iron) tablet,delayed release fluoxetine 20 mg capsule 40 mg PO DAILY 01/19/24 04/22/25 History furosemide 20 mg tablet 40 mg PO DAILY 01/19/24 04/22/25 History insulin aspart U-100 100 unit/mL 2 unit subcut TID 03/03/24 04/22/25 History subcutaneous solution (Novolog U-100 Insulin aspart) atorvastatin 20 mg tablet 20 mg PO HS #30 tabs 03/07/24 04/22/25 Rx nystatin 100,000 unit/gram topical 1 applic topical BID 04/22/25 04/22/25 History cream sacubitril 24 mg-valsartan 26 mg 1 tablet PO DAILY 04/22/25 04/22/25 History tablet (Entresto) Allergies Allergy/AdvReac Type Severity Reaction Status Date / Time Bleach (Sodium Hypochlorite) AdvReac Unknown Verified 04/22/25 18:45 perfume AdvReac Unknown Verified 04/22/25 18:45 Vital Signs Vital Signs - 24 hr 04/22/25 14:49 04/22/25 14:58 04/22/25 18:07 Temperature 97.7 F Pulse Rate 77 72 78 Respiratory Rate 16 17 Blood Pressure 90/49 L Pulse Oximetry 94 99 Oxygen Delivery Room Air Fraction of Inspired Oxygen 04/22/25 20:00 04/22/25 20:13 04/22/25 21:30 Temperature 97.8 F Pulse Rate 78 73 Respiratory Rate 20 Blood Pressure 98/60 L Pulse Oximetry 91 98 Oxygen Delivery Room Air Fraction of Inspired Oxygen 21 04/23/25 00:00 04/23/25 04:00 04/23/25 05:07 Temperature 97.4 F L Pulse Rate 66 76 74 Respiratory Rate 20 Blood Pressure 107/53 L Pulse Oximetry 94 Oxygen Delivery Fraction of Inspired Oxygen Exam 2 Narrative: Exam Narrative: Well developed well-nourished in no acute distress Skin is warm and dry without rash Head normocephalic atraumatic Eyes normal sclerae and conjunctivae Mouth normal lips teeth and gums Neck no nodes no thyromegaly no carotid bruits Axillae no nodes Back no CVA tenderness Lungs symmetric and clear to auscultation and percussion Heart regular rate and rhythm without rub or gallop Abdomen bowel sounds positive soft nontender, no HSM, masses, or bruits. Extremities no cyanosis, clubbing, or edema Pulses 2+ equal in radial arteries Psychological not anxious or depressed Neuro alert and oriented x3 motor 5/5 cranial nerves 2-12 intact reflexes 2+ and equal in the biceps and patellar tendons cerebellar normal rapid alternating movements Results Lab Results 04/23/25 05:15 04/23/25 05:15 Lab results: Most recent lab results Calcium 8.1 mg/dL (8.4-10.2) L 04/23/25 05:15 Phosphorus 4.9 mg/dL (2.5-4.5) H 04/23/25 05:15 Magnesium 2.2 mg/dL (1.6-2.3) 04/23/25 05:15
[2025-04-23] MEDS: ASPIRIN 81 MG ENTERIC TABLET PO (10:50)
[2025-04-23] MEDS: GABAPENTIN 100 MG CAPSULE PO ×3 (10:50→17:32)
[2025-04-23] MEDS: MEMANTINE 10 MG TABLET PO ×2 (10:50→17:32)
[2025-04-23] MEDS: LORATADINE 10 MG TABLET PO (10:51)
[2025-04-23] MEDS: FERROUS SULFATE 325 MG TABLET DR BY MOUTH (10:51)
[2025-04-23] MEDS: SACUBITRIL/VALSARTAN 24-26 MG TABLET 1 TAB PO (10:54)
[2025-04-23] MEDS: MICONAZOLE NITRATE 2% CREAM 30 GM TUBE 1 APPLIC TOPICAL (12:27)
[2025-04-23] MEDS: cefTRIAXone 1 GM in SODIUM CHLORIDE 0.9% IV 50 ML 100 ML IVPB (12:28)
[2025-04-23 12:37] LABS: Urea Random Urine 486 MG/DL
[2025-04-23 12:39] LABS: Total Protein Urine Random 17 mg/dL; Ur Ttl Prot Creatinine Ratio 0.19 mg/mg (0-0.20)
--- NOTE | 2025-04-23 13:49 | P.PNCROSS_ITS ---
Event Note Event Note Event Note: Nondiagnostic US RLE secondary to poor acoustic penetration and patient intoler ance to examination. Would not reattempt US at this time. Perhaps cross sectional imaging would provide additional information, if patient is clinically able. Also a Bariatric center may have better accommodations regarding table limits, etc. Findings and recommendations discussed with Hospitalist covering for Dr Porras.
[2025-04-23] MEDS: PERFLUTREN LIPID MICROSPHERES 1.5 ML VIAL DILUTED TO 10 ML TOTAL VOLUME IV PUSH (15:25)
--- NOTE | 2025-04-23 15:25 | IVDEFINITY ---
Prior to administration of IV Definity the patient was educated on the risks and benefits of the imaging enhancing agent including potential adverse side effects. The patient verbalized understanding. Allergies were verified. No exclusion criteria were identified and at least one of the following inclusion criteria were met: 1) physician request, 2) patient technically difficult to image (per the [place] [employer] guidelines of two or more segments not discernable within the apical view), or 3) questionable left ventricular function. ?
--- NOTE | 2025-04-23 16:06 | PC.NURSE ---
pt transferred to bariatric bed for comfort
--- NOTE | 2025-04-23 21:45 | ECHO_ITS ---
Patient Info Name: Dalila Rose Age: 64 years : 1960 Gender: Female Ht: 65 in Wt: 358 lbs BSA: 2.84 m2 HR: 71 bpm BP: 107 / 53 mmHg Heart Rhythm: Sinus Rhythm Technical Quality: Good Exam Date: 04/23/2025 2:00 PM Patient Status: I Admit Date: 04/23/2025 Exam Type: CA echo dop color flow w con Complete two-dimensional, color flow and Doppler transthoracic echocardiogram is performed with contrast to opacify the left ventricle and to improve the deliniation of the left ventricle endocardial borders. Staff Referring Physician: Kiet Almanza MD Transformer Molder: Gisela Adame Attending Provider: Iggy Washburn MD Contrast/Agitated Saline Contrast/Ag. Saline: Definity Amount: 2.00 ml Administered By: Gisela Adame Summary 1. Left ventricular chamber dimension is normal. 2. Left ventricular systolic function is normal, estimated at 55-60. 3. There is mildly increased left ventricular wall thickness. 4. The left ventricular diastolic function is grade II diastolic dysfunction. 5. Right ventricular chamber dimension is mildly enlarged. 6. Left atrial chamber dimension is mildly enlarged. 7. There is mild aortic valve regurgitation. 8. The mitral valve has thickened leaflets and a calcified annulus. 9. There is mild mitral valve stenosis. 10. There is moderate to severe mitral valve regurgitation. 11. There is severe tricuspid valve regurgitation. 12. Severe pulmonary hypertension, estimated pulmonary arterial systolic pressure is 86 mmHg. Left Ventricle Left ventricular chamber dimension is normal. Left ventricular systolic function is normal, estimated at 55-60. There is mildly increased left ventricular wall thickness. The left ventricular diastolic function is grade II diastolic dysfunction. Right Ventricle Right ventricular chamber dimension is mildly enlarged. Right ventricular systolic function is normal. Left Atria Left atrial chamber dimension is mildly enlarged. Right Atria Right atrial chamber dimension is normal. Atrial Septum Intact interatrial septum visualized by color flow imaging. Aortic Valve The aortic valve is trileaflet. There is mild aortic valve sclerosis. There is no aortic valve stenosis. There is mild aortic valve regurgitation. Pulmonic Valve The pulmonic valve is normal. There is no pulmonic valve stenosis. There is trace pulmonic regurgitation. Mitral Valve The mitral valve has thickened leaflets and a calcified annulus. There is mild mitral valve stenosis. There is moderate to severe mitral valve regurgitation. Tricuspid Valve The tricuspid valve leaflets are normal. There is no significant tricuspid valve stenosis. There is severe tricuspid valve regurgitation. Severe pulmonary hypertension, estimated pulmonary arterial systolic pressure is 86 mmHg. Pericardium/Pleural The pericardium appears normal. There is no pericardial effusion. Inferior Vena Cava Dilated inferior vena cava with <50% collapse upon inspiration consistent with elevated right atrial pressure, 10 mmHg. Aorta The aortic root size at the sinus of Valsalva is normal. Left Ventricular Outflow Tract Name Value Normal LVOT 2D LVOT Diameter 2.0 cm LVOT Doppler LVOT Peak Velocity 106 cm/s LVOT Peak Gradient 4 mmHg LVOT Mean Gradient 3 mmHg LVOT VTI 31 cm LVOT Stroke Volume 96 ml LVOT CO 6.9 l/min LVOT CI 2.4 l/min/m2 Pulmonic Valve Name Value Normal RVOT Doppler RVOT Peak Velocity 75 cm/s RVOT Peak Gradient 2 mmHg PV Doppler PV Peak Velocity 115 cm/s PV Peak Gradient 5 mmHg Mitral Valve Name Value Normal MV Doppler MV Peak Gradient 11 mmHg MV Mean Gradient 5 mmHg MV Area (Cont Eq VTI) 2.2 cm2 MV Diastolic Function MV E Peak Velocity 159 cm/s MV A Peak Velocity 87 cm/s MV E/A 1.8 MV Decel Time (PW) 242 ms MV Annular TDI MV E/e' (Septal) 21.8 MV E/e' (Lateral) 16.7 MV E/e' (Average) 19.2 Tricuspid Valve Name Value Normal TV Regurgitation Doppler TR Peak Velocity 436 cm/s TR Peak Gradient 76 mmHg Estimated PAP/RSVP RA Pressure 10 mmHg <=5 PA Systolic Pressure 86 mmHg <36 RV Systolic Pressure 86 mmHg <36 Aortic Valve Name Value Normal AV Doppler AV Peak Velocity 168 cm/s AV Peak Gradient 11 mmHg AV Area (Cont Eq Jens) 2.0 cm2 AV DI (Jens) 0.63 AV Regurgitation 2D LVOT Area 3.1 cm2 Ventricles Name Value Normal LV Dimensions 2D/MM IVS Diastolic Thickness (2D) 1.0 cm 0.6-1.0 LVID Diastole (2D) 4.7 cm 3.8-5.2 LVIW Diastolic Thickness (2D) 1.1 cm 0.6-0.9 LVID Systole (2D) 3.6 cm 2.2-3.5 LVOT Diameter 2.0 cm LV Mass (2D Cubed) 181.38 g 67.00-162.00 LV Mass Index (2D Cubed) 64 g/m2 43-95 Relative Wall Thickness (2D) 0.49 <=0.42 LV Fractional Shortening/Ejection Fraction 2D/MM LV Fractional Shortening (2D) 23 % 27-45 LV EF (2D Teichholz) 46 % LV Diastolic Volume (4C MOD) 138 ml LV EF (4C MOD) 59 % LV Diastolic Volume (2C MOD) 136 ml LV EF (2C MOD) 66 % LV Diastolic Volume (BP MOD) 139 ml 46-106 LV Diastolic Volume Index (BP MOD) 49 ml/m2 29-61 LV Systolic Volume (BP MOD) 53 ml 14-42 LV Systolic Volume Index (BP MOD) 19 ml/m2 8-24 LV EF (BP MOD) 62 % 54-74 LV Diastolic Length (4C) 7.9 cm LV Systolic Length (4C) 6.4 cm LV Stroke Volume (4C MOD) 81 ml Atria Name Value Normal LA Dimensions LA Volume (4C A-L) 87 ml LA Volume (BP A-L) 90 ml RA Dimensions RA Systolic Major [place] Length (4C) 5.7 cm 2.2-2.8 RA Area (4C) 18.0 cm2 <=18.0 Report Signatures
[2025-04-23] MEDS: ALBUMIN HUMAN 25% 25 GM/100 ML 200 ML IVPB (21:58)
[2025-04-23] MEDS: ATORVASTATIN 20 MG TABLET PO (22:05)
[2025-04-23] MEDS: FAMOTIDINE 20 MG TABLET PO (22:05)
[2025-04-23] MEDS: MIDODRINE HCL 10 MG TABLET PO (22:58)
[2025-04-24] VITALS (12 sets, daily range): BP systolic 90–116; BP diastolic 30–58; PULSE 72–103; RESP 20; TEMP 36.4–36.9; O2SAT 92–100
[2025-04-24] MEDS: ACETAMINOPHEN 325 MG TABLET 650 MG PO ×2 (01:29→09:57)
[2025-04-24 06:37] LABS: Albumin Level 3.2 g/dL (3.5-5.1); Anion Gap 8 mmol/L (4-12); Blood Urea Nitrogen 57 mg/dL (7-17); Calcium 8.5 mg/dL (8.4-10.2); Carbon Dioxide 23 mmol/L (22-30); Chloride 103 mmol/L (98-107); Estimated CRCL calculation 32 ml/min; Estimated Glomerular Filt Rate 19; Glucose 94 mg/dL (65-110); Potassium 5.1 mmol/L (3.4-5.0); Sodium 134 mmol/L (137-145)
--- NOTE | 2025-04-24 08:08 | P.PNIM_ITS ---
Progress Note: A&P Assessment and Plan (1) Acute on chronic renal failure: Code(s): N17.9 - Acute kidney failure, unspecified; N18.9 - Chronic kidney disease, unspecified Status: Acute (2) Heart failure with mildly reduced ejection fraction: Code(s): I50.20 - Unspecified systolic (congestive) heart failure Status: Acute (3) Anasarca: Code(s): R60.1 - Generalized edema Status: Acute (4) Macrocytic anemia: Code(s): D53.9 - Nutritional anemia, unspecified Status: Acute (5) Type 2 diabetes mellitus, with long-term current use of insulin: Qualifiers: Diabetes mellitus complication status: with hyperglycemia Qualified Code(s): E11.65 - Type 2 diabetes mellitus with hyperglycemia; Z79.4 - intermediate accountant (current) use of insulin Code(s): E11.9 - Type 2 diabetes mellitus without complications; Z79.4 - intermediate accountant (current) use of insulin Status: Acute (6) Bacteriuria with pyuria: Code(s): R82.71 - Bacteriuria; R82.81 - Pyuria Status: Acute Plan The patient presented to the emergency department for evaluation of increasing edema and decreased urine output MADAY on CKD Labs, imaging, EKG, a an acute on chronic renal failure with a creatinine of 3.06 today and a baseline creatinine which appears to range from 1.30 to 2.30. eating and drinking as per usual a she is on furosemide and metolazone daily and she may be intravascularly dry. received 1 L of lactated Ringer's in the ED and depending on her blood pressures this evening, Lopez catheter was inserted in the ED but there is no documentation to state how much urine was yielded upon insertion. Monitor strict I/O and daily weights. Nephrology has been consulted for recommendations. Continue D5 normal saline IV 100 mL/hour Renal function continued to improve Chronic heart failure Compensated on furosemide 40 mg daily. ,hold metolazone, and Entresto for now. UTI UA showed cloudy urine positive nitrate, pyuria, hematuria Urine culture pending Start ceftriaxone IV 1 g daily Anemia Check iron studies, B12, and folate for evaluation of anemia. Right arm and leg swelling Check venous Doppler ultrasound to rule out DVTs. per radiologist report, patient cannot tolerate because of pain Insulin-dependent diabetes Continue basal insulin. Initiate sliding scale insulin, Accu-Cheks, and hypoglycemic protocol. Subjective Date/time seen: 04/24/25 08:08 Interval history: I saw examined patient. Patient afebrile blood pressure stable Patient feels better today, appetite improving, denies abdomen pain nausea vomiting diarrhea a Creatinine is stable Exam Narrative: General: Morbidly obese female in the semi-Blunt position in no acute distress. She is in good spirits. Weight: 163 kg. BMI: 59.8. HEENT: PERRL, EOMI. Sclera anicteric. Tacky mucous membranes. Crowded oropharynx. Neck: Supple. Exam limited due to neck circumference. Respiratory: Respirations are nonlabored. Lung sounds are a bit diminished due to body habitus. Cardiovascular: Regular rate and rhythm with S1-S2. Systolic murmur heard at the left sternal border in apex. Gastrointestinal: Abdomen is morbidly obese with positive bowel sounds. She has pitting edema of the lower abdomen into the flanks and she is tender to palpation in this regions. Skin: Warm and dry. Faint erythema of the lower legs due to significant swelling. Shallow ulcerations noted on lower panniculus. Extremities: No cyanosis or clubbing. Significant pitting edema of the legs (right greater than left) to the abdomen. Upper extremities are also edematous, right greater than left. Neurological: Alert. No facial asymmetry. Speech is clear but she does have expressive aphasia. residual hemiplegia on the right. Psychiatric: Pleasant and cooperative. She is in good spirits. Objective Data Vital Signs Vital Signs: Vital Signs - 24 hr 04/23/25 12:00 04/23/25 13:51 04/23/25 16:00 Temperature 97.4 F L Pulse Rate 77 76 74 Respiratory Rate 14 Blood Pressure 90/69 L Pulse Oximetry 93 04/23/25 20:00 04/23/25 20:10 04/23/25 23:42 Temperature 98.2 F Pulse Rate 79 80 Respiratory Rate 20 Blood Pressure 86/44 L 88/30 L Pulse Oximetry 98 04/24/25 00:00 04/24/25 00:14 04/24/25 04:00 Temperature Pulse Rate 90 99 Respiratory Rate Blood Pressure 96/58 L Pulse Oximetry 04/24/25 06:00 Temperature 98.4 F Pulse Rate 79 Respiratory Rate 20 Blood Pressure 116/40 L Pulse Oximetry 92 Intake/Output Intake/Output: Intake & Output 04/21/25 04/22/25 04/23/25 04/24/25 23:59 23:59 23:59 23:59 Intake Total 1562 150 Output Total 600 550 700 Balance -600 1012 -550 Meds/Results Medications: Active Medications Generic Name Dose Route Start Last Admin Trade Name Freq PRN Reason Stop Dose Admin Acetaminophen 650 mg 04/22/25 21:47 04/24/25 01:29 Acetaminophen 325 Mg Tablet PO 650 mg Q6H PRN Administration Mild Pain (1-3) or Fever Aspirin 81 mg 04/23/25 09:00 04/23/25 10:50 Aspirin 81 Mg Enteric Tablet PO 81 mg DAILY BRIANNA Administration Atorvastatin Calcium 20 mg 04/23/25 21:00 04/23/25 22:05 Atorvastatin 20 Mg Tablet PO 20 mg HS BRIANNA Administration Buspirone HCl 10 mg 04/23/25 09:00 04/23/25 17:32 Buspirone Hcl 10 Mg Tablet PO 10 mg TID BRIANNA Administration Dextrose 12.5 gm 04/22/25 21:47 Dextrose 50% 25 Gm/50 Ml Syringe IV PUSH PRN PRN Hypoglycemia Protocol Ergocalciferol 1,250 mcg 04/28/25 09:00 Ergocalciferol (Vitamin D2) 1,250 Mcg (50,000 Units) Capsule PO Mo@0900 BRIANNA Famotidine 20 mg 04/23/25 21:00 04/23/25 22:05 Famotidine 20 Mg Tablet PO 20 mg HS BRIANNA Administration Ferrous Sulfate 325 mg 04/23/25 09:00 04/23/25 10:51 Ferrous Sulfate [address] BY MOUTH 325 mg DAILY BRIANNA Administration Fluoxetine HCl 40 mg 04/23/25 09:00 04/23/25 10:51 Fluoxetine Hcl 20 Mg Capsule PO 40 mg DAILY BRIANNA Administration Furosemide 40 mg 04/23/25 09:00 04/23/25 10:51 Furosemide 40 Mg Tablet PO Not Given DAILY BRIANNA Gabapentin 100 mg 04/23/25 09:00 04/23/25 17:32 Gabapentin 100 Mg Capsule PO 100 mg TID BRIANNA Administration Glucagon 1 mg 04/22/25 21:47 Glucagon For Inj 1 Mg Vial IM PRN PRN Hypoglycemia Protocol Glucose 15 gm 04/22/25 21:47 Glucose Oral Gel 15 Gm Of Glucse In 37.5 Gm Tube PO PRN PRN Hypoglycemia Protocol Heparin Sodium (Porcine) 5,000 units 04/23/25 09:00 04/23/25 22:04 Heparin Sodium 5,000 Units/Ml Vial SUB-Q 5,000 units Q12HR BRIANNA Administration Levofloxacin/Dextrose 750 mg in 150 mls @ 100 mls/hr 04/24/25 21:00 Levaquin 750 Mg/D5w 150 Ml IVPB Q48H BRIANNA Dextrose 1,000 mls @ 100 mls/hr 04/22/25 21:47 Dextrose 5% 1,000 Ml IVPB PRN PRN Hypoglycemia Protocol Ceftriaxone Sodium 1 gm/ 50 mls @ 100 mls/hr 04/23/25 12:00 04/23/25 12:58 Sodium Chloride IVPB Infused Q24H [facility] Infusion Insulin Aspart 2 - 4 units 04/22/25 21:55 04/23/25 22:50 Insulin Aspart (*Bkc) 100 Units/Ml SUB-Q Not Given HS [facility] Protocol Insulin Aspart 4 - 8 units 04/23/25 08:00 04/23/25 17:32 Insulin Aspart (*Bkc) 100 Units/Ml SUB-Q Not Given TIDWM [facility] Protocol Insulin Aspart 2 units 04/23/25 09:00 04/23/25 17:32 Insulin Aspart (*Bkc) 100 Units/Ml SUB-Q Not Given TID BRIANNA Insulin Glargine 15 units 04/23/25 21:00 04/23/25 22:50 Insulin Glargine (*Bkc) 100 Units/Ml SUB-Q Not Given HS [facility] Loratadine 10 mg 04/23/25 09:00 04/23/25 10:51 Loratadine 10 Mg Tablet PO 10 mg DAILY BRIANNA Administration Memantine 10 mg 04/23/25 09:00 04/23/25 17:32 Memantine 10 Mg Tablet PO 10 mg BID BRIANNA Administration Metoprolol Succinate 25 mg 04/23/25 21:00 04/23/25 22:50 Metoprolol Succinate Ext Rel 25 Mg Tabcr PO Not Given HS BRIANNA Miconazole Nitrate 1 applic 04/23/25 12:00 04/23/25 12:27 Miconazole Nitrate 2% Cream 30 Gm Tube TOPICAL 05/02/25 09:01 1 applic DAILY BRIANNA Administration Polyethylene Glycol 17 gm 04/23/25 09:00 04/23/25 10:54 Polyethylene Glycol 3350 17 Gm Powd.Pack PO Not Given QAM BRIANNA Sacubitril/Valsartan 1 tab 04/23/25 09:00 04/23/25 10:54 Sacubitril/Valsartan 24-26 Mg Tablet PO 1 tab DAILY BRIANNA Administration Senna/Docusate Sodium 1 tab 04/23/25 09:12 Senna/Docusate Sodium Tablet PO DAILY PRN Constipation Radiology Results: ITS Impressions Chest X-Ray 04/22/25 15:44 IMPRESSION: Pulmonary opacities, may represent interstitial edema in the appropriate clinical context. Subsegmental right basilar atelectasis/consolidation. Possible small right pleural effusion. Venous Doppler Study 04/22/25 21:20 IMPRESSION: Nondiagnostic ultrasound venous Doppler examination of the right lower extremity. Renal Ultrasound 04/23/25 16:08 IMPRESSION: Limited evaluation secondary to poor acoustic penetration (given patient's body habitus). Cross-sectional imaging may be performed, if the patient is clinically able. Labs Labs: Laboratory Results - last 24 hr 04/23/25 04/23/25 04/23/25 08:01 11:29 12:19 Sodium Potassium Chloride Carbon Dioxide Anion Gap BUN Creatinine Estim Creat Clear Calc Estimated GFR Glucose POC Capillary Glucose 97 95 Calcium Phosphorus Albumin U Random Total Protein 17 Ur Random Sodium 22 Ur Random Urea 486 Urine Creatinine 87.2 Protein/Creat Ratio 2 0.19 04/23/25 04/23/25 04/24/25 16:41 20:27 05:42 Sodium 134 L Potassium 5.1 H Chloride 103 Carbon Dioxide 23 Anion Gap 8 BUN 57 H Creatinine 2.61 H Estim Creat Clear Calc 32 Estimated GFR 19 L Glucose 94 POC Capillary Glucose 96 97 Calcium 8.5 Phosphorus 4.6 H Albumin 3.2 L U Random Total Protein Ur Random Sodium Ur Random Urea Urine Creatinine Protein/Creat Ratio 2 04/24/25 07:37 Sodium Potassium Chloride Carbon Dioxide Anion Gap BUN Creatinine Estim Creat Clear Calc Estimated GFR Glucose POC Capillary Glucose 100 Calcium Phosphorus Albumin U Random Total Protein Ur Random Sodium Ur Random Urea Urine Creatinine Protein/Creat Ratio 2
[2025-04-24 08:29] LABS: Hematocrit 29.2 % (37.0-47.0); Hemoglobin 8.8 g/dL (12.0-15.0); Immature Granulocyte Percent A 0.2 % (0-0.5); Lymphocytes Absolute Auto 0.69 K/mm3 (0.9-3.2); Mean Corpuscular HGB Conc 30.1 g/dl (32-36); Mean Corpuscular Hemoglobin 30.4 pg (26-34); Mean Corpuscular Volume 101.0 fl (80-100); Nucleated Red Blood Cells Absolute Auto 0.000 K/mm3 (0.0-0.012); Nucleated Red Blood Cells Perc 0.0 % (0.0-0.2); Platelet Count Result 148 k/mm3 (150-375); Red Blood Count 2.89 M/mm3 (4.2-5.4); White Blood Count 4.6 K/mm3 (4.5-10.0)
--- NOTE | 2025-04-24 08:37 | PM.PNNEP ---
Progress Note: A&P Assessment and Plan (1) Chronic kidney disease, stage 3b: Code(s): N18.32 - Chronic kidney disease, stage 3b Status: Acute Assessment and Plan: Patient has chronic kidney disease. Urine electrolytes are pre renal as well has her fractional excretion of urea CK is okay UA shows some white cells Not much protein in the urine This is likely related to longstanding hypertension and diabetes. She also has chronic pre renal azotemia due to her severe pulmonary hypertension, mild reduction in her EF, and chronic diuretics. (2) Acute kidney injury: Code(s): N17.9 - Acute kidney failure, unspecified Status: Acute Assessment and Plan: The patient's creatinine is higher than usual now. There are multiple possibilities for causes. The patient has pyuria. But the patient has a chronic Lopez as well. Unclear whether this is an infection or just colonization. Will see what the culture shows. This is still pending. So far no signs of severe infection The patient's blood pressure was low on admission. This is better now Over-diuresis is a possibility. Metolazone has been held. The creatinine has come down a bit. Will follow this. She is still on furosemide 40mg per day and she is still making some urine. (3) CHF (congestive heart failure): Qualifiers: Heart failure chronicity: acute on chronic Heart failure type: systolic Qualified Code(s): I50.23 - Acute on chronic systolic (congestive) heart failure Code(s): I50.9 - Heart failure, unspecified Status: Acute Assessment and Plan: The patient has a mildly low ejection fraction but more importantly has severe pulmonary hypertension with moderate tricuspid regurg. This is why she is so swollen. Is very difficult to treat this as the more diuretics we use the harder it is on the kidneys. She may end up needing a higher creatinine to treat to this swelling At this point will hold diuretics and see how much better the creatinine gets without letting the swelling get too much worse. (4) Insulin dependent diabetes mellitus: Status: Acute Assessment and Plan: Hospitalists to manage this (5) Kidney stone on right side: Code(s): N20.0 - Calculus of kidney Status: Acute Assessment and Plan: Renal ultrasound unable to be done. Will check a KUB As the renal function improves it makes it less likely that a stone is the problem (6) UTI (urinary tract infection): Qualifiers: Hematuria presence: without hematuria Urinary tract infection type: acute cystitis Qualified Code(s): N30.00 - Acute cystitis without hematuria Code(s): N39.0 - Urinary tract infection, site not specified Status: Acute Assessment and Plan: The patient has pyuria She has a chronic Lopez Peripheral white count is okay and there is no fever. The patient does not look toxic. Will see with culture show (7) History of CVA (cerebrovascular accident): Code(s): Z86.73 - Personal history of transient ischemic attack (TIA), and cerebral infarction without residual deficits Status: Acute Assessment and Plan: The patient is aphasic. She communicates really well though. She does follow command she seems to understand what I say and her answers seem appropriate. She does not look encephalopathic to me (8) Essential hypertension: Code(s): I10 - Essential (primary) hypertension Status: Acute Assessment and Plan: Blood pressure is under good control Will continue the Entresto but otherwise not give any other diuretics the size furosemide (9) Hyperlipidemia: Code(s): E78.5 - Hyperlipidemia, unspecified Status: Acute Assessment and Plan: She takes atorvastatin as an outpatient (10) Edema: Code(s): R60.9 - Edema, unspecified Status: Acute Assessment and Plan: There is some erythema present. And there is some discomfort as well. No white count and no fever. The erythema might be due to the skin reaction to the swelling. I will defer evaluation of this to Dr. Porras Subjective Date/time seen: 04/24/25 08:37 Interval history: Patient is in good spirits. She has pain in her legs. She is especially tender near her knees and upper aspects of her calves. No shortness of breath. She nods yes to my question of chest pain but hard to elaborate because of her aphasia. She does not look in any distress. Review of Systems Cardiovascular: Cardiovascular: Reports no additional cardiovascular complaints Respiratory: Respiratory: Reports no additional respiratory complaints Gastrointestinal: Gastrointestinal: Reports no additional gastrointestinal complaints Genitourinary: Genitourinary: Reports no additional female genitourinary complaints Exam Narrative: WDWN in NAD skin no rash or subQ nodules. Some erythema in the lower extremities head ncat lungs clear cor reg no rub abd BS+ nontender and soft ext 1 to 2+ bilateral lower extremity edema, right arm edema with some signs of excoriation, not much swelling in the left upper extremity. Objective Data Vital Signs Vital Signs: Vital Signs - 24 hr 04/23/25 12:00 04/23/25 13:51 04/23/25 16:00 Temperature 97.4 F L Pulse Rate 77 76 74 Respiratory Rate 14 Blood Pressure 90/69 L Pulse Oximetry 93 04/23/25 20:00 04/23/25 20:10 04/23/25 23:42 Temperature 98.2 F Pulse Rate 79 80 Respiratory Rate 20 Blood Pressure 86/44 L 88/30 L Pulse Oximetry 98 04/24/25 00:00 04/24/25 00:14 04/24/25 04:00 Temperature Pulse Rate 90 99 Respiratory Rate Blood Pressure 96/58 L Pulse Oximetry 04/24/25 06:00 Temperature 98.4 F Pulse Rate 79 Respiratory Rate 20 Blood Pressure 116/40 L Pulse Oximetry 92 Intake/Output Intake/Output: Intake & Output 04/21/25 04/22/25 04/23/25 04/24/25 23:59 23:59 23:59 23:59 Intake Total 1562 150 Output Total 600 550 700 Balance -600 1012 -550 Meds/Results Medications: Active Medications Generic Name Dose Route Start Last Admin Trade Name Freq PRN Reason Stop Dose Admin Acetaminophen 650 mg 04/22/25 21:47 04/24/25 01:29 Acetaminophen 325 Mg Tablet PO 650 mg Q6H PRN Administration Mild Pain (1-3) or Fever Aspirin 81 mg 04/23/25 09:00 04/23/25 10:50 Aspirin 81 Mg Enteric Tablet PO 81 mg DAILY BRIANNA Administration Atorvastatin Calcium 20 mg 04/23/25 21:00 04/23/25 22:05 Atorvastatin 20 Mg Tablet PO 20 mg HS BRIANNA Administration Buspirone HCl 10 mg 04/23/25 09:00 04/23/25 17:32 Buspirone Hcl 10 Mg Tablet PO 10 mg TID BRIANNA Administration Dextrose 12.5 gm 04/22/25 21:47 Dextrose 50% 25 Gm/50 Ml Syringe IV PUSH PRN PRN Hypoglycemia Protocol Ergocalciferol 1,250 mcg 04/28/25 09:00 Ergocalciferol (Vitamin D2) 1,250 Mcg (50,000 Units) Capsule PO Mo@0900 BRIANNA Famotidine 20 mg 04/23/25 21:00 04/23/25 22:05 Famotidine 20 Mg Tablet PO 20 mg HS BRIANNA Administration Ferrous Sulfate 325 mg 04/23/25 09:00 04/23/25 10:51 Ferrous Sulfate [address] BY MOUTH 325 mg DAILY BRIANNA Administration Fluoxetine HCl 40 mg 04/23/25 09:00 04/23/25 10:51 Fluoxetine Hcl 20 Mg Capsule PO 40 mg DAILY BRIANNA Administration Furosemide 40 mg 04/23/25 09:00 04/23/25 10:51 Furosemide 40 Mg Tablet PO Not Given DAILY BRIANNA Gabapentin 100 mg 04/23/25 09:00 04/23/25 17:32 Gabapentin 100 Mg Capsule PO 100 mg TID BRIANNA Administration Glucagon 1 mg 04/22/25 21:47 Glucagon For Inj 1 Mg Vial IM PRN PRN Hypoglycemia Protocol Glucose 15 gm 04/22/25 21:47 Glucose Oral Gel 15 Gm Of Glucse In 37.5 Gm Tube PO PRN PRN Hypoglycemia Protocol Heparin Sodium (Porcine) 5,000 units 04/23/25 09:00 04/23/25 22:04 Heparin Sodium 5,000 Units/Ml Vial SUB-Q 5,000 units Q12HR BRIANNA Administration Levofloxacin/Dextrose 750 mg in 150 mls @ 100 mls/hr 04/24/25 21:00 Levaquin 750 Mg/D5w 150 Ml IVPB Q48H BRIANNA Dextrose 1,000 mls @ 100 mls/hr 04/22/25 21:47 Dextrose 5% 1,000 Ml IVPB PRN PRN Hypoglycemia Protocol Ceftriaxone Sodium 1 gm/ 50 mls @ 100 mls/hr 04/23/25 12:00 04/23/25 12:58 Sodium Chloride IVPB Infused Q24H [facility] Infusion Insulin Aspart 2 - 4 units 04/22/25 21:55 04/23/25 22:50 Insulin Aspart (*Bkc) 100 Units/Ml SUB-Q Not Given HS [facility] Protocol Insulin Aspart 4 - 8 units 04/23/25 08:00 04/23/25 17:32 Insulin Aspart (*Bkc) 100 Units/Ml SUB-Q Not Given TIDWM [facility] Protocol Insulin Aspart 2 units 04/23/25 09:00 04/23/25 17:32 Insulin Aspart (*Bkc) 100 Units/Ml SUB-Q Not Given TID [facility] Insulin Glargine 15 units 04/23/25 21:00 04/23/25 22:50 Insulin Glargine (*Bkc) 100 Units/Ml SUB-Q Not Given HS BRIANNA Loratadine 10 mg 04/23/25 09:00 04/23/25 10:51 Loratadine 10 Mg Tablet PO 10 mg DAILY BRIANNA Administration Memantine 10 mg 04/23/25 09:00 04/23/25 17:32 Memantine 10 Mg Tablet PO 10 mg BID BRIANNA Administration Metoprolol Succinate 25 mg 04/23/25 21:00 04/23/25 22:50 Metoprolol Succinate Ext Rel 25 Mg Tabcr PO Not Given HS BRIANNA Miconazole Nitrate 1 applic 04/23/25 12:00 04/23/25 12:27 Miconazole Nitrate 2% Cream 30 Gm Tube TOPICAL 05/02/25 09:01 1 applic DAILY BRIANNA Administration Polyethylene Glycol 17 gm 04/23/25 09:00 04/23/25 10:54 Polyethylene Glycol 3350 17 Gm Powd.Pack PO Not Given QAM BRIANNA Sacubitril/Valsartan 1 tab 04/23/25 09:00 04/23/25 10:54 Sacubitril/Valsartan 24-26 Mg Tablet PO 1 tab DAILY BRIANNA Administration Senna/Docusate Sodium 1 tab 04/23/25 09:12 Senna/Docusate Sodium Tablet PO DAILY PRN Constipation Radiology Results: ITS Impressions Chest X-Ray 04/22/25 15:44 IMPRESSION: Pulmonary opacities, may represent interstitial edema in the appropriate clinical context. Subsegmental right basilar atelectasis/consolidation. Possible small right pleural effusion. Venous Doppler Study 04/22/25 21:20 IMPRESSION: Nondiagnostic ultrasound venous Doppler examination of the right lower extremity. Renal Ultrasound 04/23/25 16:08 IMPRESSION: Limited evaluation secondary to poor acoustic penetration (given patient's body habitus). Cross-sectional imaging may be performed, if the patient is clinically able. Labs Labs: Laboratory Results - last 24 hr 04/23/25 04/23/25 04/23/25 11:29 12:19 16:41 WBC RBC Hgb Hct MCV MCH MCHC RDW Plt Count MPV Immature Gran % (Auto) Neut % (Auto) Lymph % (Auto) [place] % (Auto) Eos % (Auto) Baso % (Auto) Lymph # (Auto) [place] # (Auto) Eos # (Auto) Baso # (Auto) Abs Immat Gran (auto) Absolute Neuts (auto) Absolute Nucleated RBC Nucleated RBC % Sodium Potassium Chloride Carbon Dioxide Anion Gap BUN Creatinine Estim Creat Clear Calc Estimated GFR Glucose POC Capillary Glucose 95 96 Calcium Phosphorus Albumin U Random Total Protein 17 Ur Random Sodium 22 Ur Random Urea 486 Urine Creatinine 87.2 Protein/Creat Ratio 2 0.19 04/23/25 04/24/25 04/24/25 20:27 05:42 07:37 WBC 4.6 RBC 2.89 L Hgb 8.8 L Hct 29.2 L MCV 101.0 H MCH 30.4 MCHC 30.1 L RDW 14.1 Plt Count 148 L MPV 11.2 H Immature Gran % (Auto) 0.2 Neut % (Auto) 70.2 Lymph % (Auto) 15.0 L [place] % (Auto) 10.4 H Eos % (Auto) 3.5 Baso % (Auto) 0.7 Lymph # (Auto) 0.69 L [place] # (Auto) 0.5 Eos # (Auto) 0.2 Baso # (Auto) 0.0 Abs Immat Gran (auto) 0.01 Absolute Neuts (auto) 3.2 Absolute Nucleated RBC 0.000 Nucleated RBC % 0.0 Sodium 134 L Potassium 5.1 H Chloride 103 Carbon Dioxide 23 Anion Gap 8 BUN 57 H Creatinine 2.61 H Estim Creat Clear Calc 32 Estimated GFR 19 L Glucose 94 POC Capillary Glucose 97 100 Calcium 8.5 Phosphorus 4.6 H Albumin 3.2 L U Random Total Protein Ur Random Sodium Ur Random Urea Urine Creatinine Protein/Creat Ratio 2
[2025-04-24 08:52] LABS: Anion Gap 9 mmol/L (4-12); Blood Urea Nitrogen 57 mg/dL (7-17); Calcium 8.4 mg/dL (8.4-10.2); Carbon Dioxide 22 mmol/L (22-30); Chloride 105 mmol/L (98-107); Estimated CRCL calculation 32 ml/min; Estimated Glomerular Filt Rate 19; Glucose 92 mg/dL (65-110); Magnesium 2.1 mg/dL (1.6-2.3); Potassium 5.2 mmol/L (3.4-5.0); Sodium 136 mmol/L (137-145)
--- NOTE | 2025-04-24 09:07 | P.CDI_ITS ---
CDI Query Clarification Request 1)Please clarify type and acuity of heart failure if known. * Acute * Chronic * Acute on Chronic * Unknown * Systolic * Diastolic * Combined Systolic and Diastolic * Unknown The medical chart reflects the following: hospitalist documented: The patient presented to the emergency department for evaluation of increasing edema and decreased urine output MADAY on CKD Labs, imaging, EKG, a an acute on chronic renal failure with a creatinine of 3.06 today and a baseline creatinine which appears to range from 1.30 to 2.30. eating and drinking as per usual a she is on furosemide and metolazone daily and she may be intravascularly dry. received 1 L of lactated Ringer's in the ED and depending on her blood pressures this evening, Lopez catheter was inserted in the ED but there is no documentation to state how much urine was yielded upon insertion. Monitor strict I/O and daily weights. Nephrology has been consulted for recommendations. Continue D5 normal saline IV 100 mL/hour Renal function continued to improve Chronic heart failure Compensated Hold furosemide, metolazone, and Entresto for now. UTI UA showed cloudy urine positive nitrate, pyuria, hematuria Urine culture pending Start ceftriaxone IV 1 g daily Anemia Check iron studies, B12, and folate for evaluation of anemia. Right arm and leg swelling Check venous Doppler ultrasound to rule out DVTs. per radiologist report, patient cannot tolerate because of pain Nephrology documented: The patient has pyuria. But the patient has a chronic Lopez as well. Unclear whether this is an infection or just colonization. Will see what the culture shows. This is still pending. So far no signs of severe infection The patient's blood pressure was low on admission. This is better now Over-diuresis is a possibility. Metolazone has been held. The creatinine has come down a bit. Will follow this. She is still on furosemide 40mg per day and she is still making some urine. (3) CHF (congestive heart failure): Qualifiers: Heart failure chronicity: acute on chronic Heart failure type: systolic Qualified Code(s): I50.23 - Acute on chronic systolic (congestive) heart failure Code(s): I50.9 - Heart failure, unspecified Status: Acute Assessment and Plan: The patient has a mildly low ejection fraction but more importantly has severe pulmonary hypertension with moderate tricuspid regurg. This is why she is so swollen. Is very difficult to treat this as the more diuretics we use the harder it is on the kidneys. She may end up needing a higher creatinine to treat to this swelling At this point will hold diuretics and see how much better the creatinine gets without letting the swelling get too much worse. ECHO:Summary 1. Left ventricular chamber dimension is normal. 2. Left ventricular systolic function is normal, estimated at 55-60. 3. There is mildly increased left ventricular wall thickness. 4. The left ventricular diastolic function is grade II diastolic dysfunction. 5. Right ventricular chamber dimension is mildly enlarged. 6. Left atrial chamber dimension is mildly enlarged. 7. There is mild aortic valve regurgitation. 8. The mitral valve has thickened leaflets and a calcified annulus. 9. There is mild mitral valve stenosis. 10. There is moderate to severe mitral valve regurgitation. 11. There is severe tricuspid valve regurgitation. 12. Severe pulmonary hypertension, estimated pulmonary arterial systolic pressure is 86 mmHg. BNP [id number] PO lasix IV bumex <Amina Tucker RN - Last Filed: 04/24/25 09:19> 1)Please clarify type and acuity of heart failure if known. * Acute * Chronic * Acute on Chronic * Unknown * Systolic * Diastolic * Combined Systolic and Diastolic * Unknown The medical chart reflects the following: hospitalist documented: The patient presented to the emergency department for evaluation of increasing edema and decreased urine output MADAY on CKD Labs, imaging, EKG, a an acute on chronic renal failure with a creatinine of 3.06 today and a baseline creatinine which appears to range from 1.30 to 2.30. eating and drinking as per usual a she is on furosemide and metolazone daily and she may be intravascularly dry. received 1 L of lactated Ringer's in the ED and depending on her blood pressures this evening, Lopez catheter was inserted in the ED but there is no documentation to state how much urine was yielded upon insertion. Monitor strict I/O and daily weights. Nephrology has been consulted for recommendations. Continue D5 normal saline IV 100 mL/hour Renal function continued to improve Chronic heart failure Compensated Hold furosemide, metolazone, and Entresto for now. UTI UA showed cloudy urine positive nitrate, pyuria, hematuria Urine culture pending Start ceftriaxone IV 1 g daily Anemia Check iron studies, B12, and folate for evaluation of anemia. Right arm and leg swelling Check venous Doppler ultrasound to rule out DVTs. per radiologist report, patient cannot tolerate because of pain Nephrology documented: The patient has pyuria. But the patient has a chronic Lopez as well. Unclear whether this is an infection or just colonization. Will see what the culture shows. This is still pending. So far no signs of severe infection The patient's blood pressure was low on admission. This is better now Over-diuresis is a possibility. Metolazone has been held. The creatinine has come down a bit. Will follow this. She is still on furosemide 40mg per day and she is still making some urine. (3) CHF (congestive heart failure): Qualifiers: Heart failure chronicity: acute on chronic Heart failure type: systolic Qualified Code(s): I50.23 - Acute on chronic systolic (congestive) heart failure Code(s): I50.9 - Heart failure, unspecified Status: Acute Assessment and Plan: The patient has a mildly low ejection fraction but more importantly has severe pulmonary hypertension with moderate tricuspid regurg. This is why she is so swollen. Is very difficult to treat this as the more diuretics we use the harder it is on the kidneys. She may end up needing a higher creatinine to treat to this swelling At this point will hold diuretics and see how much better the creatinine gets without letting the swelling get too much worse. ECHO:Summary 1. Left ventricular chamber dimension is normal. 2. Left ventricular systolic function is normal, estimated at 55-60. 3. There is mildly increased left ventricular wall thickness. 4. The left ventricular diastolic function is grade II diastolic dysfunction. 5. Right ventricular chamber dimension is mildly enlarged. 6. Left atrial chamber dimension is mildly enlarged. 7. There is mild aortic valve regurgitation. 8. The mitral valve has thickened leaflets and a calcified annulus. 9. There is mild mitral valve stenosis. 10. There is moderate to severe mitral valve regurgitation. 11. There is severe tricuspid valve regurgitation. 12. Severe pulmonary hypertension, estimated pulmonary arterial systolic pressure is 86 mmHg. BNP [id number] PO lasix IV bumex <Brenda Porras MD - Last Filed: 04/24/25 10:12> Clarified Diagnosis Clarified Diagnosis: Combined Systolic and Diastolic <Brenda Porras MD - Last Filed: 04/24/25 10:12>
[2025-04-24] MEDS: ASPIRIN 81 MG ENTERIC TABLET PO (09:58)
[2025-04-24] MEDS: FERROUS SULFATE 325 MG TABLET DR BY MOUTH (09:58)
[2025-04-24] MEDS: GABAPENTIN 100 MG CAPSULE PO ×3 (09:58→17:15)
[2025-04-24] MEDS: MEMANTINE 10 MG TABLET PO ×2 (09:58→17:15)
[2025-04-24] MEDS: SACUBITRIL/VALSARTAN 24-26 MG TABLET 1 TAB PO (09:58)
[2025-04-24] MEDS: LORATADINE 10 MG TABLET PO (09:58)
[2025-04-24] MEDS: MICONAZOLE NITRATE 2% CREAM 30 GM TUBE 1 APPLIC TOPICAL (09:59)
[2025-04-24] MEDS: cefTRIAXone 1 GM in SODIUM CHLORIDE 0.9% IV 50 ML 100 ML IVPB (12:35)
[2025-04-24] MEDS: INSULIN ASPART (*BKC) 100 UNITS/ML SUB-Q (12:37)
[2025-04-24] MEDS: ATORVASTATIN 20 MG TABLET PO (21:03)
[2025-04-24] MEDS: levoFLOXacin 750 MG/D5W 150 ML 750 MG/150 ML BAG 100 MG IVPB (21:04)
[2025-04-24] MEDS: FAMOTIDINE 20 MG TABLET PO (21:04)
[2025-04-25] VITALS (12 sets, daily range): BP systolic 94–120; BP diastolic 37–50; PULSE 83–100; RESP 14–20; TEMP 36.3–37.4; O2SAT 95–96
[2025-04-25] MEDS: ALBUMIN HUMAN 25% 25 GM/100 ML 100 ML IVPB ×2 (02:04→17:12)
[2025-04-25 06:43] LABS: Hematocrit 28.7 % (37.0-47.0); Hemoglobin 8.8 g/dL (12.0-15.0); Immature Granulocyte Percent A 0.5 % (0-0.5); Lymphocytes Absolute Auto 0.57 K/mm3 (0.9-3.2); Mean Corpuscular HGB Conc 30.7 g/dl (32-36); Mean Corpuscular Hemoglobin 31.0 pg (26-34); Mean Corpuscular Volume 101.1 fl (80-100); Nucleated Red Blood Cells Absolute Auto 0.000 K/mm3 (0.0-0.012); Nucleated Red Blood Cells Perc 0.0 % (0.0-0.2); Platelet Count Result 132 k/mm3 (150-375); Red Blood Count 2.84 M/mm3 (4.2-5.4); White Blood Count 4.1 K/mm3 (4.5-10.0)
[2025-04-25 07:10] LABS: Anion Gap 7 mmol/L (4-12); Blood Urea Nitrogen 52 mg/dL (7-17); Calcium 8.7 mg/dL (8.4-10.2); Carbon Dioxide 25 mmol/L (22-30); Chloride 105 mmol/L (98-107); Estimated CRCL calculation 34 ml/min; Estimated Glomerular Filt Rate 20; Glucose 93 mg/dL (65-110); Magnesium 2.1 mg/dL (1.6-2.3); Potassium 5.1 mmol/L (3.4-5.0); Sodium 137 mmol/L (137-145)
[2025-04-25] MEDS: FERROUS SULFATE 325 MG TABLET DR BY MOUTH (09:52)
[2025-04-25] MEDS: GABAPENTIN 100 MG CAPSULE PO ×3 (09:52→16:22)
[2025-04-25] MEDS: LORATADINE 10 MG TABLET PO (09:52)
[2025-04-25] MEDS: MEMANTINE 10 MG TABLET PO ×2 (09:52→16:22)
[2025-04-25] MEDS: ASPIRIN 81 MG ENTERIC TABLET PO (09:53)
[2025-04-25] MEDS: MICONAZOLE NITRATE 2% CREAM 30 GM TUBE 1 APPLIC TOPICAL (11:40)
--- NOTE | 2025-04-25 12:51 | PM.IMPN ---
Progress Note: A&P Assessment and Plan (1) Acute on chronic renal failure: Code(s): N17.9 - Acute kidney failure, unspecified; N18.9 - Chronic kidney disease, unspecified Status: Acute (2) Heart failure with mildly reduced ejection fraction: Code(s): I50.20 - Unspecified systolic (congestive) heart failure Status: Acute (3) Anasarca: Code(s): R60.1 - Generalized edema Status: Acute (4) Macrocytic anemia: Code(s): D53.9 - Nutritional anemia, unspecified Status: Acute (5) Type 2 diabetes mellitus, with long-term current use of insulin: Qualifiers: Diabetes mellitus complication status: with hyperglycemia Qualified Code(s): E11.65 - Type 2 diabetes mellitus with hyperglycemia; Z79.4 - assistant terminal manager (current) use of insulin Code(s): E11.9 - Type 2 diabetes mellitus without complications; Z79.4 - assistant terminal manager (current) use of insulin Status: Acute (6) Bacteriuria with pyuria: Code(s): R82.71 - Bacteriuria; R82.81 - Pyuria Status: Acute Plan The patient presented to the emergency department for evaluation of increasing edema and decreased urine output # MADAY on CKD an acute on chronic renal failure with a creatinine of 3.06 and a baseline creatinine which appears to range from 1.30 to 2.30. eating and drinking as per usual a she is on furosemide and metolazone daily and she may be intravascularly dry. received 1 L of lactated Ringer's in the ED Lopez catheter was inserted in the ED but there is no documentation to state how much urine was yielded upon insertion. Monitor strict I/O and daily weights. Nephrology has been consulted for recommendations. Renal function continued to improve # Chronic heart failure Compensated on furosemide 40 mg daily. ,hold Lasix metolazone, and Entresto for now. Echo with EF 55-60% grade 2 diastolic dysfunction moderate to severe MR severe TR severe pulmonary hypertension # hypotension in blood pressure medication on hold. Add Albumin. Monitor # UTI UA showed cloudy urine positive nitrate, pyuria, hematuria Urine culture pending On levofloxacin 750 mg every 48 hour # Anemia Check iron studies, B12, and folate for evaluation of anemia. # Right arm and leg swelling Check venous Doppler ultrasound to rule out DVTs. per radiologist report, patient cannot tolerate because of pain venous duplex RUE neg for dvt # Insulin-dependent diabetes Continue basal insulin. Initiate sliding scale insulin, Accu-Cheks, and hypoglycemic protocol. # DVT prpoh: Heparin subQ # Code status: DNR # NH resident # Hx of stroke wtih right residual hemiplegia Subjective Date/time seen: 04/25/25 12:51 Interval history: reports pain And swelling and right arm as well as leg. Labs reviewed. No other complaints. Review of Systems Review of Systems: All systems reviewed & are unremarkable except as noted in HPI and below Exam Narrative: General: Morbidly obese female in the semi-Blunt position in no acute distress. HEENT: PERRL, EOMI. Sclera anicteric. Neck: Supple. Exam limited due to neck circumference. Respiratory: Respirations are nonlabored. Lung sounds are a bit diminished due to body habitus. Cardiovascular: Regular rate and rhythm with S1-S2. Systolic murmur heard at the left sternal border in apex. Gastrointestinal: Abdomen is morbidly obese with positive bowel sounds. She has pitting edema of the lower abdomen into the flanks and she is tender to palpation in this regions. Skin: Warm and dry. Faint erythema of the lower legs due to significant swelling. Shallow ulcerations noted on lower panniculus. Extremities: No cyanosis or clubbing. Significant pitting edema of the legs (right greater than left) to the abdomen. Upper extremities are also edematous, right greater than left. right upper extremity edema noted Neurological: Alert. No facial asymmetry. Speech is clear but she does have expressive aphasia. residual hemiplegia on the right. Psychiatric: Pleasant and cooperative. She is in good spirits. Objective Data Vital Signs Vital Signs: Vital Signs - 24 hr 04/24/25 14:00 04/24/25 16:00 04/24/25 20:00 Temperature 97.5 F L Pulse Rate 75 73 103 H Respiratory Rate 20 Blood Pressure 90/43 L Pulse Oximetry 100 Oxygen Delivery Fraction of Inspired Oxygen 04/24/25 21:05 04/24/25 21:15 04/24/25 22:58 Temperature 97.9 F Pulse Rate 78 80 Respiratory Rate 20 Blood Pressure 92/40 L 96/30 L Pulse Oximetry 93 Oxygen Delivery Fraction of Inspired Oxygen 04/25/25 00:00 04/25/25 04:00 04/25/25 06:00 Temperature 97.8 F Pulse Rate 83 83 83 Respiratory Rate 16 Blood Pressure 98/37 L Pulse Oximetry 95 Oxygen Delivery Fraction of Inspired Oxygen 04/25/25 06:10 04/25/25 08:30 Temperature Pulse Rate Respiratory Rate Blood Pressure 94/50 L Pulse Oximetry 95 Oxygen Delivery Room Air Fraction of Inspired Oxygen 21 Intake/Output Intake/Output: Intake & Output 04/22/25 04/23/25 04/24/25 04/25/25 23:59 23:59 23:59 23:59 Intake Total 1562 690 300 Output Total 095 959 0819 800 Balance -600 1012 -1160 -500 Meds/Results Medications: Active Medications Generic Name Dose Route Start Last Admin Trade Name Freq PRN Reason Stop Dose Admin Acetaminophen 650 mg 04/22/25 21:47 04/24/25 09:57 Acetaminophen 325 Mg Tablet PO 650 mg Q6H PRN Administration Mild Pain (1-3) or Fever Aspirin 81 mg 04/23/25 09:00 04/25/25 09:53 Aspirin 81 Mg Enteric Tablet PO 81 mg DAILY BRIANNA Administration Atorvastatin Calcium 20 mg 04/23/25 21:00 04/24/25 21:03 Atorvastatin 20 Mg Tablet PO 20 mg HS BRIANNA Administration Buspirone HCl 10 mg 04/23/25 09:00 04/25/25 09:52 Buspirone Hcl 10 Mg Tablet PO 10 mg TID BRIANNA Administration Dextrose 12.5 gm 04/22/25 21:47 Dextrose 50% 25 Gm/50 Ml Syringe IV PUSH PRN PRN Hypoglycemia Protocol Ergocalciferol 1,250 mcg 04/28/25 09:00 Ergocalciferol (Vitamin D2) 1,250 Mcg (50,000 Units) Capsule PO Mo@0900 BRIANNA Famotidine 20 mg 04/23/25 21:00 04/24/25 21:04 Famotidine 20 Mg Tablet PO 20 mg HS BRIANNA Administration Ferrous Sulfate 325 mg 04/23/25 09:00 04/25/25 09:52 Ferrous Sulfate [address] BY MOUTH 325 mg DAILY BRIANNA Administration Fluoxetine HCl 40 mg 04/23/25 09:00 04/25/25 09:52 Fluoxetine Hcl 20 Mg Capsule PO 40 mg DAILY BRIANNA Administration Furosemide 40 mg 04/23/25 09:00 04/23/25 10:51 Furosemide 40 Mg Tablet PO Not Given DAILY BRIANNA Gabapentin 100 mg 04/23/25 09:00 04/25/25 09:52 Gabapentin 100 Mg Capsule PO 100 mg TID BRIANNA Administration Glucagon 1 mg 04/22/25 21:47 Glucagon For Inj 1 Mg Vial IM PRN PRN Hypoglycemia Protocol Glucose 15 gm 04/22/25 21:47 Glucose Oral Gel 15 Gm Of Glucse In 37.5 Gm Tube PO PRN PRN Hypoglycemia Protocol Heparin Sodium (Porcine) 5,000 units 04/23/25 09:00 04/25/25 09:53 Heparin Sodium 5,000 Units/Ml Vial SUB-Q 5,000 units Q12HR BRIANNA Administration Levofloxacin/Dextrose 750 mg in 150 mls @ 100 mls/hr 04/24/25 21:00 04/24/25 21:04 Levaquin 750 Mg/D5w 150 Ml IVPB 100 mls/hr Q48H BRIANNA Administration Dextrose 1,000 mls @ 100 mls/hr 04/22/25 21:47 Dextrose 5% 1,000 Ml IVPB PRN PRN Hypoglycemia Protocol Ceftriaxone Sodium 1 gm/ 50 mls @ 100 mls/hr 04/23/25 12:00 04/24/25 12:35 Sodium Chloride IVPB 100 mls/hr Q24H BRIANNA Administration Insulin Aspart 2 - 4 units 04/22/25 21:55 04/24/25 22:58 Insulin Aspart (*Bkc) 100 Units/Ml SUB-Q Not Given HS [facility] Protocol Insulin Aspart 4 - 8 units 04/23/25 08:00 04/25/25 09:50 Insulin Aspart (*Bkc) 100 Units/Ml SUB-Q Not Given TIDWM [facility] Protocol Insulin Aspart 2 units 04/25/25 08:00 04/25/25 09:51 Insulin Aspart (*Bkc) 100 Units/Ml SUB-Q Not Given TIDWM [facility] Insulin Glargine 15 units 04/23/25 21:00 04/24/25 23:00 Insulin Glargine (*Bkc) 100 Units/Ml SUB-Q Not Given HS [facility] Loratadine 10 mg 04/23/25 09:00 04/25/25 09:52 Loratadine 10 Mg Tablet PO 10 mg DAILY BRIANNA Administration Memantine 10 mg 04/23/25 09:00 04/25/25 09:52 Memantine 10 Mg Tablet PO 10 mg BID BRIANNA Administration Metoprolol Succinate 25 mg 04/23/25 21:00 04/24/25 22:58 Metoprolol Succinate Ext Rel 25 Mg Tabcr PO Not Given HS BRIANNA Miconazole Nitrate 1 applic 04/23/25 12:00 04/25/25 11:40 Miconazole Nitrate 2% Cream 30 Gm Tube TOPICAL 05/02/25 09:01 1 applic DAILY BRIANNA Administration Polyethylene Glycol 17 gm 04/23/25 09:00 04/25/25 11:37 Polyethylene Glycol 3350 17 Gm Powd.Pack PO 17 gm QAM BRIANNA Administration Sacubitril/Valsartan 1 tab 04/23/25 09:00 04/24/25 09:58 Sacubitril/Valsartan 24-26 Mg Tablet PO 1 tab DAILY BRIANNA Administration Senna/Docusate Sodium 1 tab 04/23/25 09:12 Senna/Docusate Sodium Tablet PO DAILY PRN Constipation Radiology Results: ITS Impressions Chest X-Ray 04/22/25 15:44 IMPRESSION: Pulmonary opacities, may represent interstitial edema in the appropriate clinical context. Subsegmental right basilar atelectasis/consolidation. Possible small right pleural effusion. Venous Doppler Study 04/22/25 21:20 IMPRESSION: Nondiagnostic ultrasound venous Doppler examination of the right lower extremity. Renal Ultrasound 04/23/25 16:08 IMPRESSION: Limited evaluation secondary to poor acoustic penetration (given patient's body habitus). Cross-sectional imaging may be performed, if the patient is clinically able. Abdomen X-Ray 04/24/25 10:12 Impression: 1: No acute abdominal abnormality. Labs Labs: Laboratory Results - last 24 hr 04/24/25 04/24/25 04/25/25 16:29 21:23 06:21 WBC 4.1 L RBC 2.84 L Hgb 8.8 L Hct 28.7 L MCV 101.1 H MCH 31.0 MCHC 30.7 L RDW 13.9 Plt Count 132 L MPV 10.6 H Immature Gran % (Auto) 0.5 Neut % (Auto) 72.6 Lymph % (Auto) 13.8 L [place] % (Auto) 9.0 H Eos % (Auto) 3.9 Baso % (Auto) 0.2 Lymph # (Auto) 0.57 L [place] # (Auto) 0.4 Eos # (Auto) 0.2 Baso # (Auto) 0.0 Abs Immat Gran (auto) 0.02 Absolute Neuts (auto) 3.0 Absolute Nucleated RBC 0.000 Nucleated RBC % 0.0 Sodium 137 Potassium 5.1 H Chloride 105 Carbon Dioxide 25 Anion Gap 7 BUN 52 H Creatinine 2.40 H Estim Creat Clear Calc 34 Estimated GFR 20 L Glucose 93 POC Capillary Glucose 89 114 H Calcium 8.7 Magnesium 2.1 04/25/25 04/25/25 07:46 11:17 WBC RBC Hgb Hct MCV MCH MCHC RDW Plt Count MPV Immature Gran % (Auto) Neut % (Auto) Lymph % (Auto) [place] % (Auto) Eos % (Auto) Baso % (Auto) Lymph # (Auto) [place] # (Auto) Eos # (Auto) Baso # (Auto) Abs Immat Gran (auto) Absolute Neuts (auto) Absolute Nucleated RBC Nucleated RBC % Sodium Potassium Chloride Carbon Dioxide Anion Gap BUN Creatinine Estim Creat Clear Calc Estimated GFR Glucose POC Capillary Glucose 88 112 H Calcium Magnesium
[2025-04-25] MEDS: cefTRIAXone 1 GM in SODIUM CHLORIDE 0.9% IV 50 ML 100 ML IVPB (13:00)
[2025-04-25] MEDS: INSULIN ASPART (*BKC) 100 UNITS/ML SUB-Q (13:07)
--- NOTE | 2025-04-25 13:36 | P.PNNP_ITS ---
Progress Note: A&P Assessment and Plan (1) Chronic kidney disease, stage 3b: Code(s): N18.32 - Chronic kidney disease, stage 3b Status: Acute Assessment and Plan: Patient has chronic kidney disease. Urine electrolytes are pre renal as well has her fractional excretion of urea CK is okay UA shows some white cells Not much protein in the urine This is likely related to longstanding hypertension and diabetes. She also has chronic pre renal azotemia due to her severe pulmonary hypertension, mild reduction in her EF, and chronic diuretics. (2) Acute kidney injury: Code(s): N17.9 - Acute kidney failure, unspecified Status: Acute Assessment and Plan: The patient's creatinine is higher than usual now. There are multiple possibilities for causes. The patient has pyuria. But the patient has a chronic Lopez as well. Unclear whether this is an infection or just colonization. Will see what the culture shows. This is still pending. So far no signs of severe infection The patient's blood pressure was low on admission. This is better now Over-diuresis is a possibility. Metolazone has been held. The creatinine has come down from 3.06-2.4. Lets restart her furosemide at a lower dose. (3) CHF (congestive heart failure): Qualifiers: Heart failure chronicity: acute on chronic Heart failure type: systolic Qualified Code(s): I50.23 - Acute on chronic systolic (congestive) heart failure Code(s): I50.9 - Heart failure, unspecified Status: Acute Assessment and Plan: The patient has a mildly low ejection fraction but more importantly has severe pulmonary hypertension with moderate tricuspid regurg. This is why she is so swollen. Is very difficult to treat this as the more diuretics we use the harder it is on the kidneys. She may end up needing a higher creatinine to treat to this swelling Creatinine is improving. Restart diuretics at a lower dose (4) Insulin dependent diabetes mellitus: Status: Acute Assessment and Plan: Hospitalists to manage this (5) Kidney stone on right side: Code(s): N20.0 - Calculus of kidney Status: Acute Assessment and Plan: Renal ultrasound unable to be done. KUB shows no stone As the renal function improves it makes it less likely that a stone is the problem (6) UTI (urinary tract infection): Qualifiers: Hematuria presence: without hematuria Urinary tract infection type: acute cystitis Qualified Code(s): N30.00 - Acute cystitis without hematuria Code(s): N39.0 - Urinary tract infection, site not specified Status: Acute Assessment and Plan: The patient has pyuria She has a chronic Lopez Peripheral white count is okay and there is no fever. The patient does not look toxic. Will see with culture show (7) History of CVA (cerebrovascular accident): Code(s): Z86.73 - Personal history of transient ischemic attack (TIA), and cerebral infarction without residual deficits Status: Acute Assessment and Plan: The patient is aphasic. no new findings (8) Essential hypertension: Code(s): I10 - Essential (primary) hypertension Status: Acute Assessment and Plan: Blood pressure is under good control Will continue the Entresto but otherwise not give any other diuretics the size furosemide (9) Hyperlipidemia: Code(s): E78.5 - Hyperlipidemia, unspecified Status: Acute Assessment and Plan: She takes atorvastatin as an outpatient (10) Edema: Code(s): R60.9 - Edema, unspecified Status: Acute Assessment and Plan: There is some erythema present. And there is some discomfort as well. No white count and no fever. The erythema might be due to the skin reaction to the swelling. I will defer evaluation of this to Dr. Porras Subjective Date/time seen: 04/25/25 13:36 Interval history: patient is feeling okay. Legs still hurt. No shortness of breath or chest pain. Exam Narrative: WDWN in NAD skin no rash or subQ nodules. Some erythema in the lower extremities head ncat lungs clear cor reg no rub abd BS+ nontender and soft ext 1 to 2+ bilateral lower extremity edema, right arm edema with some signs of excoriation, not much swelling in the left upper extremity. Objective Data Vital Signs Vital Signs: Vital Signs - 24 hr 04/24/25 14:00 04/24/25 16:00 04/24/25 20:00 Temperature 97.5 F L Pulse Rate 75 73 103 H Respiratory Rate 20 Blood Pressure 90/43 L Pulse Oximetry 100 Oxygen Delivery Fraction of Inspired Oxygen 04/24/25 21:05 04/24/25 21:15 04/24/25 22:58 Temperature 97.9 F Pulse Rate 78 80 Respiratory Rate 20 Blood Pressure 92/40 L 96/30 L Pulse Oximetry 93 Oxygen Delivery Fraction of Inspired Oxygen 04/25/25 00:00 04/25/25 04:00 04/25/25 06:00 Temperature 97.8 F Pulse Rate 83 83 83 Respiratory Rate 16 Blood Pressure 98/37 L Pulse Oximetry 95 Oxygen Delivery Fraction of Inspired Oxygen 04/25/25 06:10 04/25/25 08:30 Temperature Pulse Rate Respiratory Rate Blood Pressure 94/50 L Pulse Oximetry 95 Oxygen Delivery Room Air Fraction of Inspired Oxygen 21 Intake/Output Intake/Output: Intake & Output 04/22/25 04/23/25 04/24/25 04/25/25 23:59 23:59 23:59 23:59 Intake Total 1562 740 420 Output Total 488 860 0714 800 Balance -600 1012 -1110 -380 Meds/Results Medications: Active Medications Generic Name Dose Route Start Last Admin Trade Name Freq PRN Reason Stop Dose Admin Acetaminophen 650 mg 04/22/25 21:47 04/24/25 09:57 Acetaminophen 325 Mg Tablet PO 650 mg Q6H PRN Administration Mild Pain (1-3) or Fever Aspirin 81 mg 04/23/25 09:00 04/25/25 09:53 Aspirin 81 Mg Enteric Tablet PO 81 mg DAILY BRIANNA Administration Atorvastatin Calcium 20 mg 04/23/25 21:00 04/24/25 21:03 Atorvastatin 20 Mg Tablet PO 20 mg HS BRIANNA Administration Buspirone HCl 10 mg 04/23/25 09:00 04/25/25 13:00 Buspirone Hcl 10 Mg Tablet PO 10 mg TID BRIANNA Administration Dextrose 12.5 gm 04/22/25 21:47 Dextrose 50% 25 Gm/50 Ml Syringe IV PUSH PRN PRN Hypoglycemia Protocol Ergocalciferol 1,250 mcg 04/28/25 09:00 Ergocalciferol (Vitamin D2) 1,250 Mcg (50,000 Units) Capsule PO Mo@0900 BRIANNA Famotidine 20 mg 04/23/25 21:00 04/24/25 21:04 Famotidine 20 Mg Tablet PO 20 mg HS BRIANNA Administration Ferrous Sulfate 325 mg 04/23/25 09:00 04/25/25 09:52 Ferrous Sulfate [address] BY MOUTH 325 mg DAILY BRIANNA Administration Fluoxetine HCl 40 mg 04/23/25 09:00 04/25/25 09:52 Fluoxetine Hcl 20 Mg Capsule PO 40 mg DAILY BRIANNA Administration Furosemide 40 mg 04/23/25 09:00 04/23/25 10:51 Furosemide 40 Mg Tablet PO Not Given DAILY BRIANNA Gabapentin 100 mg 04/23/25 09:00 04/25/25 13:00 Gabapentin 100 Mg Capsule PO 100 mg TID BRIANNA Administration Glucagon 1 mg 04/22/25 21:47 Glucagon For Inj 1 Mg Vial IM PRN PRN Hypoglycemia Protocol Glucose 15 gm 04/22/25 21:47 Glucose Oral Gel 15 Gm Of Glucse In 37.5 Gm Tube PO PRN PRN Hypoglycemia Protocol Heparin Sodium (Porcine) 5,000 units 04/23/25 09:00 04/25/25 09:53 Heparin Sodium 5,000 Units/Ml Vial SUB-Q 5,000 units Q12HR BRIANNA Administration Levofloxacin/Dextrose 750 mg in 150 mls @ 100 mls/hr 04/24/25 21:00 04/24/25 21:04 Levaquin 750 Mg/D5w 150 Ml IVPB 100 mls/hr Q48H BRIANNA Administration Dextrose 1,000 mls @ 100 mls/hr 04/22/25 21:47 Dextrose 5% 1,000 Ml IVPB PRN PRN Hypoglycemia Protocol Ceftriaxone Sodium 1 gm/ 50 mls @ 100 mls/hr 04/23/25 12:00 04/25/25 13:00 Sodium Chloride IVPB 100 mls/hr Q24H BRIANNA Administration Insulin Aspart 2 - 4 units 04/22/25 21:55 04/24/25 22:58 Insulin Aspart (*Bkc) 100 Units/Ml SUB-Q Not Given HS [facility] Protocol Insulin Aspart 4 - 8 units 04/23/25 08:00 04/25/25 13:07 Insulin Aspart (*Bkc) 100 Units/Ml SUB-Q Not Given TIDWM [facility] Protocol Insulin Aspart 2 units 04/25/25 08:00 04/25/25 13:07 Insulin Aspart (*Bkc) 100 Units/Ml SUB-Q 2 units TIDWM BRIANNA Administration Insulin Glargine 15 units 04/23/25 21:00 04/24/25 23:00 Insulin Glargine (*Bkc) 100 Units/Ml SUB-Q Not Given HS BRIANNA Loratadine 10 mg 04/23/25 09:00 04/25/25 09:52 Loratadine 10 Mg Tablet PO 10 mg DAILY BRIANNA Administration Memantine 10 mg 04/23/25 09:00 04/25/25 09:52 Memantine 10 Mg Tablet PO 10 mg BID BRIANNA Administration Metoprolol Succinate 25 mg 04/23/25 21:00 04/24/25 22:58 Metoprolol Succinate Ext Rel 25 Mg Tabcr PO Not Given HS BRIANNA Miconazole Nitrate 1 applic 04/23/25 12:00 04/25/25 11:40 Miconazole Nitrate 2% Cream 30 Gm Tube TOPICAL 05/02/25 09:01 1 applic DAILY BRIANNA Administration Polyethylene Glycol 17 gm 04/23/25 09:00 04/25/25 11:37 Polyethylene Glycol 3350 17 Gm Powd.Pack PO 17 gm QAM BRIANNA Administration Sacubitril/Valsartan 1 tab 04/23/25 09:00 04/24/25 09:58 Sacubitril/Valsartan 24-26 Mg Tablet PO 1 tab DAILY BRIANNA Administration Senna/Docusate Sodium 1 tab 04/23/25 09:12 Senna/Docusate Sodium Tablet PO DAILY PRN Constipation Radiology Results: ITS Impressions Chest X-Ray 04/22/25 15:44 IMPRESSION: Pulmonary opacities, may represent interstitial edema in the appropriate clinical context. Subsegmental right basilar atelectasis/consolidation. Possible small right pleural effusion. Venous Doppler Study 04/22/25 21:20 IMPRESSION: Nondiagnostic ultrasound venous Doppler examination of the right lower extremity. Renal Ultrasound 04/23/25 16:08 IMPRESSION: Limited evaluation secondary to poor acoustic penetration (given patient's body habitus). Cross-sectional imaging may be performed, if the patient is clinically able. Abdomen X-Ray 04/24/25 10:12 Impression: 1: No acute abdominal abnormality. Labs Labs: Laboratory Results - last 24 hr 04/24/25 04/24/25 04/25/25 16:29 21:23 06:21 WBC 4.1 L RBC 2.84 L Hgb 8.8 L Hct 28.7 L MCV 101.1 H MCH 31.0 MCHC 30.7 L RDW 13.9 Plt Count 132 L MPV 10.6 H Immature Gran % (Auto) 0.5 Neut % (Auto) 72.6 Lymph % (Auto) 13.8 L [place] % (Auto) 9.0 H Eos % (Auto) 3.9 Baso % (Auto) 0.2 Lymph # (Auto) 0.57 L [place] # (Auto) 0.4 Eos # (Auto) 0.2 Baso # (Auto) 0.0 Abs Immat Gran (auto) 0.02 Absolute Neuts (auto) 3.0 Absolute Nucleated RBC 0.000 Nucleated RBC % 0.0 Sodium 137 Potassium 5.1 H Chloride 105 Carbon Dioxide 25 Anion Gap 7 BUN 52 H Creatinine 2.40 H Estim Creat Clear Calc 34 Estimated GFR 20 L Glucose 93 POC Capillary Glucose 89 114 H Calcium 8.7 Magnesium 2.1 04/25/25 04/25/25 07:46 11:17 WBC RBC Hgb Hct MCV MCH MCHC RDW Plt Count MPV Immature Gran % (Auto) Neut % (Auto) Lymph % (Auto) [place] % (Auto) Eos % (Auto) Baso % (Auto) Lymph # (Auto) [place] # (Auto) Eos # (Auto) Baso # (Auto) Abs Immat Gran (auto) Absolute Neuts (auto) Absolute Nucleated RBC Nucleated RBC % Sodium Potassium Chloride Carbon Dioxide Anion Gap BUN Creatinine Estim Creat Clear Calc Estimated GFR Glucose POC Capillary Glucose 88 112 H Calcium Magnesium
[2025-04-25] MEDS: FUROSEMIDE 20 MG TABLET PO (16:22)
[2025-04-25] MEDS: ACETAMINOPHEN 325 MG TABLET 650 MG PO (16:22)
[2025-04-25] MEDS: FAMOTIDINE 20 MG TABLET PO (21:06)
[2025-04-25] MEDS: ATORVASTATIN 20 MG TABLET PO (21:06)
[2025-04-26] VITALS (10 sets, daily range): BP systolic 108–130; BP diastolic 44–93; PULSE 66–119; RESP 16–20; TEMP 36–36.3; O2SAT 91–93
[2025-04-26] MEDS: ALBUMIN HUMAN 25% 25 GM/100 ML 100 ML IVPB ×5 (00:02→23:34)
[2025-04-26 06:42] LABS: Hematocrit 29.4 % (37.0-47.0); Hemoglobin 8.7 g/dL (12.0-15.0); Immature Granulocyte Percent A 0.6 % (0-0.5); Lymphocytes Absolute Auto 0.39 K/mm3 (0.9-3.2); Mean Corpuscular HGB Conc 29.6 g/dl (32-36); Mean Corpuscular Hemoglobin 29.9 pg (26-34); Mean Corpuscular Volume 101.0 fl (80-100); Nucleated Red Blood Cells Absolute Auto 0.000 K/mm3 (0.0-0.012); Nucleated Red Blood Cells Perc 0.0 % (0.0-0.2); Platelet Count Result 125 k/mm3 (150-375); Red Blood Count 2.91 M/mm3 (4.2-5.4); White Blood Count 3.4 K/mm3 (4.5-10.0)
[2025-04-26 07:01] LABS: Anion Gap 7 mmol/L (4-12); Blood Urea Nitrogen 44 mg/dL (7-17); Calcium 8.9 mg/dL (8.4-10.2); Carbon Dioxide 26 mmol/L (22-30); Chloride 101 mmol/L (98-107); Estimated CRCL calculation 38 ml/min; Estimated Glomerular Filt Rate 23; Glucose 98 mg/dL (65-110); Magnesium 2.0 mg/dL (1.6-2.3); Potassium 4.6 mmol/L (3.4-5.0); Sodium 134 mmol/L (137-145)
[2025-04-26 07:58] LABS: Schistocytes None Seen
[2025-04-26 07:59] LABS: Hypochromasia 2+
[2025-04-26] MEDS: MEMANTINE 10 MG TABLET PO ×2 (08:19→16:27)
[2025-04-26] MEDS: GABAPENTIN 100 MG CAPSULE PO ×3 (08:19→16:27)
[2025-04-26] MEDS: FERROUS SULFATE 325 MG TABLET DR BY MOUTH (08:19)
[2025-04-26] MEDS: LORATADINE 10 MG TABLET PO (08:19)
[2025-04-26] MEDS: FUROSEMIDE 20 MG TABLET PO ×2 (08:19→16:27)
[2025-04-26] MEDS: ASPIRIN 81 MG ENTERIC TABLET PO (08:19)
[2025-04-26] MEDS: MICONAZOLE NITRATE 2% CREAM 30 GM TUBE 1 APPLIC TOPICAL (08:20)
[2025-04-26] MEDS: ACETAMINOPHEN 325 MG TABLET 650 MG PO ×3 (10:23→22:15)
--- NOTE | 2025-04-26 10:39 | PM.PNNEP ---
Progress Note: A&P Assessment and Plan (1) Chronic kidney disease, stage 3b: Code(s): N18.32 - Chronic kidney disease, stage 3b Status: Acute Assessment and Plan: Patient has chronic kidney disease. Urine electrolytes are pre renal as well has her fractional excretion of urea CK is okay UA shows some white cells Not much protein in the urine This is likely related to longstanding hypertension and diabetes. She also has chronic pre renal azotemia due to her severe pulmonary hypertension, mild reduction in her EF, and chronic diuretics. (2) Acute kidney injury: Code(s): N17.9 - Acute kidney failure, unspecified Status: Acute Assessment and Plan: The patient's creatinine is higher than usual now. There are multiple possibilities for causes. The patient has pyuria. But the patient has a chronic Lopez as well. Unclear whether this is an infection or just colonization. Will see what the culture shows. This is still pending. So far no signs of severe infection The patient's blood pressure was low on admission. This is better now Over-diuresis is a possibility. Metolazone has been held. The creatinine has come down from 3.06->2.4-> 2.18. She is on furosemide 20mg twice a day now. (3) CHF (congestive heart failure): Qualifiers: Heart failure chronicity: acute on chronic Heart failure type: systolic Qualified Code(s): I50.23 - Acute on chronic systolic (congestive) heart failure Code(s): I50.9 - Heart failure, unspecified Status: Acute Assessment and Plan: The patient has a mildly low ejection fraction but more importantly has severe pulmonary hypertension with moderate tricuspid regurg. This is why she is so swollen. Is very difficult to treat this as the more diuretics we use the harder it is on the kidneys. She may end up needing a higher creatinine to treat to this swelling Creatinine is improving. Titrate diuretics going forward according to fluid status plus creatinine. Okay for discharge any time from the renal standpoint (4) Insulin dependent diabetes mellitus: Status: Acute Assessment and Plan: Hospitalists to manage this (5) Kidney stone on right side: Code(s): N20.0 - Calculus of kidney Status: Acute Assessment and Plan: Renal ultrasound unable to be done. KUB shows no stone (6) UTI (urinary tract infection): Qualifiers: Hematuria presence: without hematuria Urinary tract infection type: acute cystitis Qualified Code(s): N30.00 - Acute cystitis without hematuria Code(s): N39.0 - Urinary tract infection, site not specified Status: Acute Assessment and Plan: The patient has pyuria She has a chronic Lopez Peripheral white count is okay and there is no fever. The patient does not look toxic. Culture is negative (7) History of CVA (cerebrovascular accident): Code(s): Z86.73 - Personal history of transient ischemic attack (TIA), and cerebral infarction without residual deficits Status: Acute Assessment and Plan: The patient is aphasic. no new findings (8) Essential hypertension: Code(s): I10 - Essential (primary) hypertension Status: Acute Assessment and Plan: Blood pressure is under good control Will continue the Entresto andnow back on furosemide (9) Hyperlipidemia: Code(s): E78.5 - Hyperlipidemia, unspecified Status: Acute Assessment and Plan: She takes atorvastatin as an outpatient (10) Edema: Code(s): R60.9 - Edema, unspecified Status: Acute Assessment and Plan: There is some erythema present. And there is some discomfort as well. No white count and no fever. The erythema might be due to the skin reaction to the swelling. I will defer evaluation of this to Dr. Porras Subjective Date/time seen: 04/26/25 10:39 Interval history: Dalila is feeling better today. Legs are better with the wraps. No chest pain or shortness of Exam Narrative: WDWN in NAD skin no rash or subQ nodules. Some erythema in the lower extremities head ncat lungs clear bilaterally cor reg no rub abd BS+ nontender and soft ext 1 to 2+ bilateral lower extremity edema and Jose wraps are in place; right arm edema with some signs of excoriation, not much swelling in the left upper extremity. Objective Data Vital Signs Vital Signs: Vital Signs - 24 hr 04/25/25 12:00 04/25/25 14:00 04/25/25 16:00 Temperature 97.3 F L Pulse Rate 90 86 100 Respiratory Rate 14 Blood Pressure 120/40 L Pulse Oximetry 96 Oxygen Delivery 04/25/25 20:00 04/25/25 20:00 04/25/25 21:05 Temperature 99.3 F Pulse Rate 94 88 Respiratory Rate 20 Blood Pressure 109/42 L Pulse Oximetry 95 Oxygen Delivery Room Air 04/25/25 21:26 04/26/25 00:00 04/26/25 04:00 Temperature Pulse Rate 88 89 90 Respiratory Rate Blood Pressure Pulse Oximetry Oxygen Delivery 04/26/25 05:30 Temperature 97.4 F L Pulse Rate 92 Respiratory Rate 16 Blood Pressure 130/44 L Pulse Oximetry 93 Oxygen Delivery Intake/Output Intake/Output: Intake & Output 04/23/25 04/24/25 04/25/25 04/26/25 23:59 23:59 23:59 23:59 Intake Total 1562 890 890 490 Output Total 550 1850 2300 1300 Balance 1012 -960 -1410 -810 Meds/Results Medications: Active Medications Generic Name Dose Route Start Last Admin Trade Name Freq PRN Reason Stop Dose Admin Acetaminophen 650 mg 04/26/25 14:25 Acetaminophen 325 Mg Tablet PO Q4H PRN Mild Pain (1-3) or Fever Aspirin 81 mg 04/23/25 09:00 04/26/25 08:19 Aspirin 81 Mg Enteric Tablet PO 81 mg DAILY BRIANNA Administration Atorvastatin Calcium 20 mg 04/23/25 21:00 04/25/25 21:06 Atorvastatin 20 Mg Tablet PO 20 mg HS BRIANNA Administration Buspirone HCl 10 mg 04/23/25 09:00 04/26/25 08:19 Buspirone Hcl 10 Mg Tablet PO 10 mg TID BRIANNA Administration Dextrose 12.5 gm 04/22/25 21:47 Dextrose 50% 25 Gm/50 Ml Syringe IV PUSH PRN PRN Hypoglycemia Protocol Ergocalciferol 1,250 mcg 04/28/25 09:00 Ergocalciferol (Vitamin D2) 1,250 Mcg (50,000 Units) Capsule PO Mo@0900 BRIANNA Famotidine 20 mg 04/23/25 21:00 04/25/25 21:06 Famotidine 20 Mg Tablet PO 20 mg HS BRIANNA Administration Ferrous Sulfate 325 mg 04/23/25 09:00 04/26/25 08:19 Ferrous Sulfate [address] BY MOUTH 325 mg DAILY BRIANNA Administration Fluoxetine HCl 40 mg 04/23/25 09:00 04/26/25 08:19 Fluoxetine Hcl 20 Mg Capsule PO 40 mg DAILY BRIANNA Administration Furosemide 20 mg 04/25/25 17:00 04/26/25 08:19 Furosemide 20 Mg Tablet PO 20 mg BID BRIANNA Administration Gabapentin 100 mg 04/23/25 09:00 04/26/25 08:19 Gabapentin 100 Mg Capsule PO 100 mg TID BRIANNA Administration Glucagon 1 mg 04/22/25 21:47 Glucagon For Inj 1 Mg Vial IM PRN PRN Hypoglycemia Protocol Glucose 15 gm 04/22/25 21:47 Glucose Oral Gel 15 Gm Of Glucse In 37.5 Gm Tube PO PRN PRN Hypoglycemia Protocol Heparin Sodium (Porcine) 5,000 units 04/23/25 09:00 04/26/25 08:19 Heparin Sodium 5,000 Units/Ml Vial SUB-Q 5,000 units Q12HR BRIANNA Administration Levofloxacin/Dextrose 750 mg in 150 mls @ 100 mls/hr 04/24/25 21:00 04/24/25 22:34 Levaquin 750 Mg/D5w 150 Ml IVPB Infused Q48H BRIANNA Infusion Dextrose 1,000 mls @ 100 mls/hr 04/22/25 21:47 Dextrose 5% 1,000 Ml IVPB PRN PRN Hypoglycemia Protocol Ceftriaxone Sodium 1 gm/ 50 mls @ 100 mls/hr 04/23/25 12:00 04/25/25 13:30 Sodium Chloride IVPB Infused Q24H BRIANNA Infusion Albumin Human 100 mls @ 60 mls/hr 04/25/25 18:00 04/26/25 06:18 Albutein IVPB 60 mls/hr Q6HR BRIANNA Administration Insulin Aspart 2 - 4 units 04/22/25 21:55 04/25/25 21:25 Insulin Aspart (*Bkc) 100 Units/Ml SUB-Q Not Given HS [facility] Protocol Insulin Aspart 4 - 8 units 04/23/25 08:00 04/26/25 08:19 Insulin Aspart (*Bkc) 100 Units/Ml SUB-Q Not Given TIDWM [facility] Protocol Insulin Aspart 2 units 04/25/25 08:00 04/25/25 17:06 Insulin Aspart (*Bkc) 100 Units/Ml SUB-Q Not Given TIDWM [facility] Insulin Glargine 15 units 04/23/25 21:00 04/24/25 23:00 Insulin Glargine (*Bkc) 100 Units/Ml SUB-Q Not Given HS [facility] Loratadine 10 mg 04/23/25 09:00 04/26/25 08:19 Loratadine 10 Mg Tablet PO 10 mg DAILY BRIANNA Administration Memantine 10 mg 04/23/25 09:00 04/26/25 08:19 Memantine 10 Mg Tablet PO 10 mg BID BRIANNA Administration Metoprolol Succinate 25 mg 04/23/25 21:00 04/25/25 21:26 Metoprolol Succinate Ext Rel 25 Mg Tabcr PO Not Given HS BRIANNA Miconazole Nitrate 1 applic 04/23/25 12:00 04/26/25 08:20 Miconazole Nitrate 2% Cream 30 Gm Tube TOPICAL 05/02/25 09:01 1 applic DAILY BRIANNA Administration Polyethylene Glycol 17 gm 04/23/25 09:00 04/26/25 08:20 Polyethylene Glycol 3350 17 Gm Powd.Pack PO Not Given QAM BRIANNA Sacubitril/Valsartan 1 tab 04/23/25 09:00 04/25/25 09:58 Sacubitril/Valsartan 24-26 Mg Tablet PO Not Given DAILY BRIANNA Senna/Docusate Sodium 1 tab 04/23/25 09:12 Senna/Docusate Sodium Tablet PO DAILY PRN Constipation Radiology Results: ITS Impressions Renal Ultrasound 04/23/25 16:08 IMPRESSION: Limited evaluation secondary to poor acoustic penetration (given patient's body habitus). Cross-sectional imaging may be performed, if the patient is clinically able. Abdomen X-Ray 04/24/25 10:12 Impression: 1: No acute abdominal abnormality. Venous Doppler Study 04/25/25 14:06 IMPRESSION: 1. Patent right upper extremity veins. No evidence of deep venous thrombosis. Chest X-Ray 04/25/25 22:02 IMPRESSION: 1. Significant improvement in prior pulmonary edema with minimal residual pulmonary edema at the left lung base. Labs Labs: Laboratory Results - last 24 hr 04/25/25 04/25/25 04/25/25 11:17 15:50 21:06 WBC RBC Hgb Hct MCV MCH MCHC RDW Plt Count MPV Immature Gran % (Auto) Neut % (Auto) Lymph % (Auto) [place] % (Auto) Eos % (Auto) Baso % (Auto) Lymph # (Auto) [place] # (Auto) Eos # (Auto) Baso # (Auto) Abs Immat Gran (auto) Absolute Neuts (auto) Absolute Nucleated RBC Band Neutrophils % Nucleated RBC % Platelet Estimate Hypochromasia Schistocytes Sodium Potassium Chloride Carbon Dioxide Anion Gap BUN Creatinine Estim Creat Clear Calc Estimated GFR Glucose POC Capillary Glucose 112 H 90 100 Calcium Magnesium 04/26/25 04/26/25 06:25 08:14 WBC 3.4 L RBC 2.91 L Hgb 8.7 L Hct 29.4 L MCV 101.0 H MCH 29.9 MCHC 29.6 L RDW 14.1 Plt Count 125 L MPV 10.3 Immature Gran % (Auto) 0.6 H Neut % (Auto) 74.6 H Lymph % (Auto) 11.4 L [place] % (Auto) 9.3 H Eos % (Auto) 3.5 Baso % (Auto) 0.6 Lymph # (Auto) 0.39 L [place] # (Auto) 0.3 Eos # (Auto) 0.1 Baso # (Auto) 0.0 Abs Immat Gran (auto) 0.02 Absolute Neuts (auto) 2.6 Absolute Nucleated RBC 0.000 Band Neutrophils % Not Reportable Nucleated RBC % 0.0 Platelet Estimate Slightly decreased Hypochromasia 2+ Schistocytes None seen Sodium 134 L Potassium 4.6 Chloride 101 Carbon Dioxide 26 Anion Gap 7 BUN 44 H Creatinine 2.18 H Estim Creat Clear Calc 38 Estimated GFR 23 L Glucose 98 POC Capillary Glucose 98 Calcium 8.9 Magnesium 2.0
--- NOTE | 2025-04-26 12:05 | P.PNIM_ITS ---
Progress Note: A&P Assessment and Plan (1) Acute on chronic renal failure: Code(s): N17.9 - Acute kidney failure, unspecified; N18.9 - Chronic kidney disease, unspecified Status: Acute (2) Heart failure with mildly reduced ejection fraction: Code(s): I50.20 - Unspecified systolic (congestive) heart failure Status: Acute (3) Anasarca: Code(s): R60.1 - Generalized edema Status: Acute (4) Macrocytic anemia: Code(s): D53.9 - Nutritional anemia, unspecified Status: Acute (5) Type 2 diabetes mellitus, with long-term current use of insulin: Qualifiers: Diabetes mellitus complication status: with hyperglycemia Qualified Code(s): E11.65 - Type 2 diabetes mellitus with hyperglycemia; Z79.4 - exterminator termite (current) use of insulin Code(s): E11.9 - Type 2 diabetes mellitus without complications; Z79.4 - exterminator termite (current) use of insulin Status: Acute (6) Bacteriuria with pyuria: Code(s): R82.71 - Bacteriuria; R82.81 - Pyuria Status: Acute Plan The patient presented to the emergency department for evaluation of increasing edema and decreased urine output # MADAY on CKD an acute on chronic renal failure with a creatinine of 3.06 and a baseline creatinine which appears to range from 1.30 to 2.30. eating and drinking as per usual a she is on furosemide and metolazone daily and she may be intravascularly dry. received 1 L of lactated Ringer's in the ED Lopez catheter was inserted in the ED but there is no documentation to state how much urine was yielded upon insertion. Monitor strict I/O and daily weights. Nephrology has been consulted for recommendations. Renal function continued to improve # Chronic heart failure Compensated on furosemide 40 mg daily. ,hold Lasix metolazone, and Entresto for now. Echo with EF 55-60% grade 2 diastolic dysfunction moderate to severe MR severe TR severe pulmonary hypertension back on lasix now with albumin infusion. # hypotension in blood pressure medication on hold. Add Albumin. Monitor # UTI UA showed cloudy urine positive nitrate, pyuria, hematuria Urine culture pending On levofloxacin 750 mg every 48 hour # Anemia Check iron studies, B12, and folate for evaluation of anemia. # Right arm and leg swelling Check venous Doppler ultrasound to rule out DVTs. per radiologist report, patient cannot tolerate because of pain venous duplex RUE neg for dvt # Insulin-dependent diabetes Continue basal insulin. Initiate sliding scale insulin, Accu-Cheks, and hypoglycemic protocol. # DVT prpoh: Heparin subQ # Code status: DNR # MD resident # Hx of stroke wtih right residual hemiplegia Subjective Date/time seen: 04/26/25 12:05 Interval history: no overnight events, no nausea, vomiting. arm swelling is improving. no sob, chest pain. labs revewied Review of Systems Review of Systems: All systems reviewed & are unremarkable except as noted in HPI and below Exam Narrative: General: Morbidly obese female in the semi-Blunt position in no acute distress. HEENT: PERRL, EOMI. Sclera anicteric. Neck: Supple. Exam limited due to neck circumference. Respiratory: Respirations are nonlabored. Lung sounds are a bit diminished due to body habitus. Cardiovascular: Regular rate and rhythm with S1-S2. Systolic murmur heard at the left sternal border in apex. Gastrointestinal: Abdomen is morbidly obese with positive bowel sounds. She has pitting edema of the lower abdomen into the flanks and she is tender to palpation in this regions. Skin: Warm and dry. Faint erythema of the lower legs due to significant swelling. Shallow ulcerations noted on lower panniculus. Extremities: No cyanosis or clubbing. Significant pitting edema of the legs (right greater than left) to the abdomen. Upper extremities are also edematous, right greater than left. right upper extremity edema noted Neurological: Alert. No facial asymmetry. Speech is clear but she does have expressive aphasia. residual hemiplegia on the right. Psychiatric: Pleasant and cooperative. She is in good spirits. Objective Data Vital Signs Vital Signs: Vital Signs - 24 hr 04/25/25 14:00 04/25/25 16:00 04/25/25 20:00 Temperature 97.3 F L Pulse Rate 86 100 Respiratory Rate 14 Blood Pressure 120/40 L Pulse Oximetry 96 Oxygen Delivery Room Air 04/25/25 20:00 04/25/25 21:05 04/25/25 21:26 Temperature 99.3 F Pulse Rate 94 88 88 Respiratory Rate 20 Blood Pressure 109/42 L Pulse Oximetry 95 Oxygen Delivery 04/26/25 00:00 04/26/25 04:00 04/26/25 05:30 Temperature 97.4 F L Pulse Rate 89 90 92 Respiratory Rate 16 Blood Pressure 130/44 L Pulse Oximetry 93 Oxygen Delivery Intake/Output Intake/Output: Intake & Output 04/23/25 04/24/25 04/25/25 04/26/25 23:59 23:59 23:59 23:59 Intake Total 1562 890 890 490 Output Total 550 1850 2300 1300 Balance 1012 -960 -1410 -810 Meds/Results Medications: Active Medications Generic Name Dose Route Start Last Admin Trade Name Freq PRN Reason Stop Dose Admin Acetaminophen 650 mg 04/26/25 14:25 Acetaminophen 325 Mg Tablet PO Q4H PRN Mild Pain (1-3) or Fever Aspirin 81 mg 04/23/25 09:00 04/26/25 08:19 Aspirin 81 Mg Enteric Tablet PO 81 mg DAILY BRIANNA Administration Atorvastatin Calcium 20 mg 04/23/25 21:00 04/25/25 21:06 Atorvastatin 20 Mg Tablet PO 20 mg HS BRIANNA Administration Buspirone HCl 10 mg 04/23/25 09:00 04/26/25 08:19 Buspirone Hcl 10 Mg Tablet PO 10 mg TID BRIANNA Administration Dextrose 12.5 gm 04/22/25 21:47 Dextrose 50% 25 Gm/50 Ml Syringe IV PUSH PRN PRN Hypoglycemia Protocol Ergocalciferol 1,250 mcg 04/28/25 09:00 Ergocalciferol (Vitamin D2) 1,250 Mcg (50,000 Units) Capsule PO Mo@0900 BRIANNA Famotidine 20 mg 04/23/25 21:00 04/25/25 21:06 Famotidine 20 Mg Tablet PO 20 mg HS BRIANNA Administration Ferrous Sulfate 325 mg 04/23/25 09:00 04/26/25 08:19 Ferrous Sulfate [address] BY MOUTH 325 mg DAILY BRIANNA Administration Fluoxetine HCl 40 mg 04/23/25 09:00 04/26/25 08:19 Fluoxetine Hcl 20 Mg Capsule PO 40 mg DAILY BRIANNA Administration Furosemide 20 mg 04/25/25 17:00 04/26/25 08:19 Furosemide 20 Mg Tablet PO 20 mg BID BRIANNA Administration Gabapentin 100 mg 04/23/25 09:00 04/26/25 08:19 Gabapentin 100 Mg Capsule PO 100 mg TID BRIANNA Administration Glucagon 1 mg 04/22/25 21:47 Glucagon For Inj 1 Mg Vial IM PRN PRN Hypoglycemia Protocol Glucose 15 gm 04/22/25 21:47 Glucose Oral Gel 15 Gm Of Glucse In 37.5 Gm Tube PO PRN PRN Hypoglycemia Protocol Heparin Sodium (Porcine) 5,000 units 04/23/25 09:00 04/26/25 08:19 Heparin Sodium 5,000 Units/Ml Vial SUB-Q 5,000 units Q12HR BRIANNA Administration Levofloxacin/Dextrose 750 mg in 150 mls @ 100 mls/hr 04/24/25 21:00 04/24/25 22:34 Levaquin 750 Mg/D5w 150 Ml IVPB Infused Q48H BRIANNA Infusion Dextrose 1,000 mls @ 100 mls/hr 04/22/25 21:47 Dextrose 5% 1,000 Ml IVPB PRN PRN Hypoglycemia Protocol Ceftriaxone Sodium 1 gm/ 50 mls @ 100 mls/hr 04/23/25 12:00 04/25/25 13:30 Sodium Chloride IVPB Infused Q24H BRIANNA Infusion Albumin Human 100 mls @ 60 mls/hr 04/25/25 18:00 04/26/25 06:18 Albutein IVPB 60 mls/hr Q6HR BRIANNA Administration Insulin Aspart 2 - 4 units 04/22/25 21:55 04/25/25 21:25 Insulin Aspart (*Bkc) 100 Units/Ml SUB-Q Not Given HS [facility] Protocol Insulin Aspart 4 - 8 units 04/23/25 08:00 04/26/25 08:19 Insulin Aspart (*Bkc) 100 Units/Ml SUB-Q Not Given TIDWM [facility] Protocol Insulin Aspart 2 units 04/25/25 08:00 04/26/25 09:00 Insulin Aspart (*Bkc) 100 Units/Ml SUB-Q Not Given TIDWM BRIANNA Insulin Glargine 15 units 04/23/25 21:00 04/24/25 23:00 Insulin Glargine (*Bkc) 100 Units/Ml SUB-Q Not Given HS BRIANNA Loratadine 10 mg 04/23/25 09:00 04/26/25 08:19 Loratadine 10 Mg Tablet PO 10 mg DAILY BRIANNA Administration Memantine 10 mg 04/23/25 09:00 04/26/25 08:19 Memantine 10 Mg Tablet PO 10 mg BID BRIANNA Administration Metoprolol Succinate 25 mg 04/23/25 21:00 04/25/25 21:26 Metoprolol Succinate Ext Rel 25 Mg Tabcr PO Not Given HS BRIANNA Miconazole Nitrate 1 applic 04/23/25 12:00 04/26/25 08:20 Miconazole Nitrate 2% Cream 30 Gm Tube TOPICAL 05/02/25 09:01 1 applic DAILY BRIANNA Administration Polyethylene Glycol 17 gm 04/23/25 09:00 04/26/25 08:20 Polyethylene Glycol 3350 17 Gm Powd.Pack PO Not Given QAM BRIANNA Sacubitril/Valsartan 1 tab 04/23/25 09:00 04/25/25 09:58 Sacubitril/Valsartan 24-26 Mg Tablet PO Not Given DAILY BRIANNA Senna/Docusate Sodium 1 tab 04/23/25 09:12 Senna/Docusate Sodium Tablet PO DAILY PRN Constipation Tramadol HCl 50 mg 04/26/25 12:01 Tramadol Hcl (*Crx) 50 Mg Tablet PO 04/26/25 12:02 ONCE ONE Radiology Results: ITS Impressions Renal Ultrasound 04/23/25 16:08 IMPRESSION: Limited evaluation secondary to poor acoustic penetration (given patient's body habitus). Cross-sectional imaging may be performed, if the patient is clinically able. Abdomen X-Ray 04/24/25 10:12 Impression: 1: No acute abdominal abnormality. Venous Doppler Study 04/25/25 14:06 IMPRESSION: 1. Patent right upper extremity veins. No evidence of deep venous thrombosis. Chest X-Ray 04/25/25 22:02 IMPRESSION: 1. Significant improvement in prior pulmonary edema with minimal residual pulmonary edema at the left lung base. Labs Labs: Laboratory Results - last 24 hr 04/25/25 04/25/25 04/26/25 15:50 21:06 06:25 WBC 3.4 L RBC 2.91 L Hgb 8.7 L Hct 29.4 L MCV 101.0 H MCH 29.9 MCHC 29.6 L RDW 14.1 Plt Count 125 L MPV 10.3 Immature Gran % (Auto) 0.6 H Neut % (Auto) 74.6 H Lymph % (Auto) 11.4 L [place] % (Auto) 9.3 H Eos % (Auto) 3.5 Baso % (Auto) 0.6 Lymph # (Auto) 0.39 L [place] # (Auto) 0.3 Eos # (Auto) 0.1 Baso # (Auto) 0.0 Abs Immat Gran (auto) 0.02 Absolute Neuts (auto) 2.6 Absolute Nucleated RBC 0.000 Band Neutrophils % Not Reportable Nucleated RBC % 0.0 Platelet Estimate Slightly decreased Hypochromasia 2+ Schistocytes None seen Sodium 134 L Potassium 4.6 Chloride 101 Carbon Dioxide 26 Anion Gap 7 BUN 44 H Creatinine 2.18 H Estim Creat Clear Calc 38 Estimated GFR 23 L Glucose 98 POC Capillary Glucose 90 100 Calcium 8.9 Magnesium 2.0 04/26/25 08:14 WBC RBC Hgb Hct MCV MCH MCHC RDW Plt Count MPV Immature Gran % (Auto) Neut % (Auto) Lymph % (Auto) [place] % (Auto) Eos % (Auto) Baso % (Auto) Lymph # (Auto) [place] # (Auto) Eos # (Auto) Baso # (Auto) Abs Immat Gran (auto) Absolute Neuts (auto) Absolute Nucleated RBC Band Neutrophils % Nucleated RBC % Platelet Estimate Hypochromasia Schistocytes Sodium Potassium Chloride Carbon Dioxide Anion Gap BUN Creatinine Estim Creat Clear Calc Estimated GFR Glucose POC Capillary Glucose 98 Calcium Magnesium
[2025-04-26] MEDS: traMADol HCL (*CRX) 50 MG TABLET PO (12:21)
[2025-04-26] MEDS: cefTRIAXone 1 GM in SODIUM CHLORIDE 0.9% IV 50 ML 100 ML IVPB (12:22)
[2025-04-26 13:21] LABS: SARS-CoV-2 RNA PCR Positive (Negative)
--- NOTE | 2025-04-26 15:43 | PC.NURSE ---
1155 POC BG 410 taken on left hand. Tech reports sample was watery 1209 POC BG 111 taken on right hand Spoke with Dr. Hhan shortly after about these findings, and he agrees that the BG of 410 was likely inaccurate. He recommends to continue holding lantus and giving 2 units novolog scheduled TIDWM if pt is eating more than half of her tray.
[2025-04-26] MEDS: INSULIN ASPART (*BKC) 100 UNITS/ML SUB-Q (17:17)
[2025-04-26] MEDS: METOPROLOL SUCCINATE EXT REL 25 MG TABCR PO (22:12)
[2025-04-26] MEDS: ATORVASTATIN 20 MG TABLET PO (22:13)
[2025-04-26] MEDS: FAMOTIDINE 20 MG TABLET PO (22:13)
[2025-04-27] VITALS (10 sets, daily range): BP systolic 98–119; BP diastolic 46–70; PULSE 70–110; RESP 16–20; TEMP 35.6–36.7; O2SAT 93–95
[2025-04-27] MEDS: ALBUMIN HUMAN 25% 25 GM/100 ML 100 ML IVPB ×3 (06:12→17:15)
[2025-04-27 06:26] LABS: Hematocrit 28.7 % (37.0-47.0); Hemoglobin 8.8 g/dL (12.0-15.0); Immature Granulocyte Percent A 0.3 % (0-0.5); Immature Platelet Fraction Pct 4.3 % (0.9-11.2); Lymphocytes Absolute Auto 0.52 K/mm3 (0.9-3.2); Mean Corpuscular HGB Conc 30.7 g/dl (32-36); Mean Corpuscular Hemoglobin 30.9 pg (26-34); Mean Corpuscular Volume 100.7 fl (80-100); Nucleated Red Blood Cells Absolute Auto 0.000 K/mm3 (0.0-0.012); Nucleated Red Blood Cells Perc 0.0 % (0.0-0.2); Platelet Count Result 110 k/mm3 (150-375); Red Blood Count 2.85 M/mm3 (4.2-5.4); White Blood Count 3.2 K/mm3 (4.5-10.0)
[2025-04-27 06:43] LABS: Alanine Aminotransferase 10 U/L (6-35); Albumin Level 3.8 g/dL (3.5-5.1); Alkaline Phosphatase 114 U/L (38-126); Anion Gap 10 mmol/L (4-12); Aspartate Amino Transferase 25 U/L (14-36); Bilirubin,Total 0.5 mg/dL (0.2-1.3); Blood Urea Nitrogen 41 mg/dL (7-17); Calcium 9.0 mg/dL (8.4-10.2); Carbon Dioxide 23 mmol/L (22-30); Chloride 105 mmol/L (98-107); Estimated CRCL calculation 41 ml/min; Estimated Glomerular Filt Rate 25; Glucose 95 mg/dL (65-110); Magnesium 2.0 mg/dL (1.6-2.3); Potassium 4.5 mmol/L (3.4-5.0); Sodium 138 mmol/L (137-145); Total Protein 6.3 g/dL (6.3-8.2)
[2025-04-27] MEDS: INSULIN ASPART (*BKC) 100 UNITS/ML SUB-Q ×3 (08:40→17:11)
[2025-04-27] MEDS: GABAPENTIN 100 MG CAPSULE PO ×3 (08:47→17:16)
[2025-04-27] MEDS: MEMANTINE 10 MG TABLET PO ×2 (08:47→17:16)
[2025-04-27] MEDS: LORATADINE 10 MG TABLET PO (08:47)
[2025-04-27] MEDS: FUROSEMIDE 20 MG TABLET PO ×2 (08:47→17:16)
[2025-04-27] MEDS: FERROUS SULFATE 325 MG TABLET DR BY MOUTH (08:47)
[2025-04-27] MEDS: ASPIRIN 81 MG ENTERIC TABLET PO (08:48)
[2025-04-27] MEDS: MICONAZOLE NITRATE 2% CREAM 30 GM TUBE 1 APPLIC TOPICAL (08:48)
--- NOTE | 2025-04-27 09:29 | PC.NURSE ---
Called sister Sapna back with update on patient. All questions answered at length. No further needs identified at this time.
--- NOTE | 2025-04-27 09:43 | P.PNNP_ITS ---
Progress Note: A&P Assessment and Plan (1) Chronic kidney disease, stage 3b: Code(s): N18.32 - Chronic kidney disease, stage 3b Status: Acute Assessment and Plan: Patient has chronic kidney disease. Urine electrolytes are pre renal as well has her fractional excretion of urea CK is okay UA shows some white cells Not much protein in the urine This is likely related to longstanding hypertension and diabetes. She also has chronic pre renal azotemia due to her severe pulmonary hypertension, mild reduction in her EF, and chronic diuretics. (2) Acute kidney injury: Code(s): N17.9 - Acute kidney failure, unspecified Status: Acute Assessment and Plan: The patient's creatinine is higher than usual now but improved.. There are multiple possibilities for causes. The patient has pyuria. But the patient has a chronic Lopez as well. Unclear whether this is an infection or just colonization. Will see what the culture shows. This is still pending. So far no signs of severe infection The patient's blood pressure was low on admission. This is better now Over-diuresis is a possibility. Metolazone has been held. The creatinine has come down from 3.06->2.4-> 2.18->2. She is on furosemide 20mg twice a day now. Will continue this dose as the creatinine continues to improve even on this furosemide (3) CHF (congestive heart failure): Qualifiers: Heart failure chronicity: acute on chronic Heart failure type: systolic Qualified Code(s): I50.23 - Acute on chronic systolic (congestive) heart failure Code(s): I50.9 - Heart failure, unspecified Status: Acute Assessment and Plan: The patient has a mildly low ejection fraction but more importantly has severe pulmonary hypertension with moderate tricuspid regurg. This is why she is so swollen. Is very difficult to treat this as the more diuretics we use the harder it is on the kidneys. She may end up needing a higher creatinine to treat to this swelling Creatinine is improving. it is unclear if she will get back to her baseline or if not, what her new baseline will be. Titrate diuretics going forward as an outpatient according to fluid status plus creatinine. Okay for discharge any time from the renal standpoint (4) Insulin dependent diabetes mellitus: Status: Acute Assessment and Plan: Hospitalists to manage this (5) Kidney stone on right side: Code(s): N20.0 - Calculus of kidney Status: Acute Assessment and Plan: Renal ultrasound unable to be done. KUB shows no stone (6) UTI (urinary tract infection): Qualifiers: Hematuria presence: without hematuria Urinary tract infection type: acute cystitis Qualified Code(s): N30.00 - Acute cystitis without hematuria Code(s): N39.0 - Urinary tract infection, site not specified Status: Acute Assessment and Plan: The patient has pyuria She has a chronic Lopez Peripheral white count is okay and there is no fever. The patient does not look toxic. Culture is negative (7) History of CVA (cerebrovascular accident): Code(s): Z86.73 - Personal history of transient ischemic attack (TIA), and cerebral infarction without residual deficits Status: Acute Assessment and Plan: The patient is aphasic. thinking clearly no new findings (8) Essential hypertension: Code(s): I10 - Essential (primary) hypertension Status: Acute Assessment and Plan: Blood pressure is under good control Will continue the Entresto and now back on furosemide (9) Hyperlipidemia: Code(s): E78.5 - Hyperlipidemia, unspecified Status: Acute Assessment and Plan: She takes atorvastatin as an outpatient (10) Edema: Code(s): R60.9 - Edema, unspecified Status: Acute Assessment and Plan: There is some erythema present. And there is some discomfort as well. No white count and no fever. The erythema might be due to the skin reaction to the swelling. I will defer evaluation of this to Dr. Vern Maurer patient has COVID. No major symptoms. No hypoxia. Subjective Date/time seen: 04/27/25 09:43 Interval history: patient is alert. Feels okay. Eating okay. Just diagnosed with COVID. She was tested because her facility has COVID running through it. Exam Narrative: WDWN in NAD skin no rash or subQ nodules. Some erythema in the lower extremities head ncat lungs clear to auscultation cor reg no rub Or gallop abd BS+ nontender and soft ext 1 to 2+ bilateral lower extremity edema and Jose wraps are in place; right arm edema with some signs of excoriation, not much swelling in the left upper extremity. Objective Data Vital Signs Vital Signs: Vital Signs - 24 hr 04/26/25 12:00 04/26/25 14:00 04/26/25 16:00 Temperature 96.8 F L Pulse Rate 119 H 107 H 94 Respiratory Rate 18 Blood Pressure 126/93 H Pulse Oximetry 91 04/26/25 20:00 04/26/25 20:10 04/26/25 22:12 Temperature 97 F L Pulse Rate 66 97 111 H Respiratory Rate 20 Blood Pressure 108/56 L Pulse Oximetry 91 04/27/25 00:00 04/27/25 04:00 04/27/25 06:00 Temperature 96.9 F L Pulse Rate 98 74 73 Respiratory Rate 20 Blood Pressure 98/46 L Pulse Oximetry 94 Intake/Output Intake/Output: Intake & Output 04/24/25 04/25/25 04/26/25 04/27/25 23:59 23:59 23:59 23:59 Intake Total 651 363 9255 550 Output Total 1850 2300 2700 1750 Balance -387 -8461 -7336 -1200 Meds/Results Medications: Active Medications Generic Name Dose Route Start Last Admin Trade Name Freq PRN Reason Stop Dose Admin Acetaminophen 650 mg 04/26/25 14:25 04/26/25 22:15 Acetaminophen 325 Mg Tablet PO 650 mg Q4H PRN Administration Mild Pain (1-3) or Fever Aspirin 81 mg 04/23/25 09:00 04/27/25 08:48 Aspirin 81 Mg Enteric Tablet PO 81 mg DAILY BRIANNA Administration Atorvastatin Calcium 20 mg 04/23/25 21:00 04/26/25 22:13 Atorvastatin 20 Mg Tablet PO 20 mg HS BRIANNA Administration Buspirone HCl 10 mg 04/23/25 09:00 04/27/25 08:48 Buspirone Hcl 10 Mg Tablet PO 10 mg TID BRIANNA Administration Dextrose 12.5 gm 04/22/25 21:47 Dextrose 50% 25 Gm/50 Ml Syringe IV PUSH PRN PRN Hypoglycemia Protocol Ergocalciferol 1,250 mcg 04/28/25 09:00 Ergocalciferol (Vitamin D2) 1,250 Mcg (50,000 Units) Capsule PO Mo@0900 BRIANNA Famotidine 20 mg 04/23/25 21:00 04/26/25 22:13 Famotidine 20 Mg Tablet PO 20 mg HS BRIANNA Administration Ferrous Sulfate 325 mg 04/23/25 09:00 04/27/25 08:47 Ferrous Sulfate [address] BY MOUTH 325 mg DAILY BRIANNA Administration Fluoxetine HCl 40 mg 04/23/25 09:00 04/27/25 08:46 Fluoxetine Hcl 20 Mg Capsule PO 40 mg DAILY BRIANNA Administration Furosemide 20 mg 04/25/25 17:00 04/27/25 08:47 Furosemide 20 Mg Tablet PO 20 mg BID BRIANNA Administration Gabapentin 100 mg 04/23/25 09:00 04/27/25 08:47 Gabapentin 100 Mg Capsule PO 100 mg TID BRIANNA Administration Glucagon 1 mg 04/22/25 21:47 Glucagon For Inj 1 Mg Vial IM PRN PRN Hypoglycemia Protocol Glucose 15 gm 04/22/25 21:47 Glucose Oral Gel 15 Gm Of Glucse In 37.5 Gm Tube PO PRN PRN Hypoglycemia Protocol Heparin Sodium (Porcine) 5,000 units 04/23/25 09:00 04/27/25 08:48 Heparin Sodium 5,000 Units/Ml Vial SUB-Q Not Given Q12HR BRIANNA Dextrose 1,000 mls @ 100 mls/hr 04/22/25 21:47 Dextrose 5% 1,000 Ml IVPB PRN PRN Hypoglycemia Protocol Ceftriaxone Sodium 1 gm/ 50 mls @ 100 mls/hr 04/23/25 12:00 04/26/25 12:22 Sodium Chloride IVPB 100 mls/hr Q24H BRIANNA Administration Albumin Human 100 mls @ 60 mls/hr 04/25/25 18:00 04/27/25 06:12 Albutein IVPB 60 mls/hr Q6HR BRIANNA Administration Insulin Aspart 2 - 4 units 04/22/25 21:55 04/26/25 21:54 Insulin Aspart (*Bkc) 100 Units/Ml SUB-Q Not Given HS [facility] Protocol Insulin Aspart 4 - 8 units 04/23/25 08:00 04/27/25 08:39 Insulin Aspart (*Bkc) 100 Units/Ml SUB-Q Not Given TIDWM [facility] Protocol Insulin Aspart 2 units 04/25/25 08:00 04/27/25 08:40 Insulin Aspart (*Bkc) 100 Units/Ml SUB-Q 2 units TIDWM BRIANNA Administration Insulin Glargine 15 units 04/23/25 21:00 04/24/25 23:00 Insulin Glargine (*Bkc) 100 Units/Ml SUB-Q Not Given HS [facility] Loratadine 10 mg 04/23/25 09:00 04/27/25 08:47 Loratadine 10 Mg Tablet PO 10 mg DAILY BRIANNA Administration Memantine 10 mg 04/23/25 09:00 04/27/25 08:47 Memantine 10 Mg Tablet PO 10 mg BID BRIANNA Administration Metoprolol Succinate 25 mg 04/23/25 21:00 04/26/25 22:12 Metoprolol Succinate Ext Rel 25 Mg Tabcr PO 25 mg HS BRIANNA Administration Miconazole Nitrate 1 applic 04/23/25 12:00 04/27/25 08:48 Miconazole Nitrate 2% Cream 30 Gm Tube TOPICAL 05/02/25 09:01 1 applic DAILY BRIANNA Administration Polyethylene Glycol 17 gm 04/23/25 09:00 04/27/25 08:40 Polyethylene Glycol 3350 17 Gm Powd.Pack PO 17 gm QAM BRIANNA Administration Sacubitril/Valsartan 1 tab 04/23/25 09:00 04/25/25 09:58 Sacubitril/Valsartan 24-26 Mg Tablet PO Not Given DAILY BRIANNA Senna/Docusate Sodium 1 tab 04/23/25 09:12 Senna/Docusate Sodium Tablet PO DAILY PRN Constipation Radiology Results: ITS Impressions Renal Ultrasound 04/23/25 16:08 IMPRESSION: Limited evaluation secondary to poor acoustic penetration (given patient's body habitus). Cross-sectional imaging may be performed, if the patient is clinically able. Abdomen X-Ray 04/24/25 10:12 Impression: 1: No acute abdominal abnormality. Venous Doppler Study 04/25/25 14:06 IMPRESSION: 1. Patent right upper extremity veins. No evidence of deep venous thrombosis. Chest X-Ray 04/25/25 22:02 IMPRESSION: 1. Significant improvement in prior pulmonary edema with minimal residual pulmonary edema at the left lung base. Labs Labs: Laboratory Results - last 24 hr 04/26/25 04/26/25 04/26/25 11:55 12:09 12:31 WBC RBC Hgb Hct MCV MCH MCHC RDW Plt Count MPV Immature Gran % (Auto) Neut % (Auto) Lymph % (Auto) [place] % (Auto) Eos % (Auto) Baso % (Auto) Lymph # (Auto) [place] # (Auto) Eos # (Auto) Baso # (Auto) Abs Immat Gran (auto) Absolute Neuts (auto) Absolute Nucleated RBC Nucleated RBC % % Immature Plt Fraction Sodium Potassium Chloride Carbon Dioxide Anion Gap BUN Creatinine Estim Creat Clear Calc Estimated GFR Glucose POC Capillary Glucose 410 H 111 H Calcium Magnesium Total Bilirubin AST ALT Alkaline Phosphatase Total Protein Albumin SARS-CoV-2 RNA (RT-PCR) Positive A 04/26/25 04/26/25 04/27/25 17:16 20:07 05:56 WBC 3.2 L RBC 2.85 L Hgb 8.8 L Hct 28.7 L MCV 100.7 H MCH 30.9 MCHC 30.7 L RDW 14.1 Plt Count 110 L MPV 10.9 H Immature Gran % (Auto) 0.3 Neut % (Auto) 66.8 Lymph % (Auto) 16.5 L [place] % (Auto) 11.1 H Eos % (Auto) 4.7 H Baso % (Auto) 0.6 Lymph # (Auto) 0.52 L [place] # (Auto) 0.4 Eos # (Auto) 0.2 Baso # (Auto) 0.0 Abs Immat Gran (auto) 0.01 Absolute Neuts (auto) 2.1 Absolute Nucleated RBC 0.000 Nucleated RBC % 0.0 % Immature Plt Fraction 4.3 Sodium 138 Potassium 4.5 Chloride 105 Carbon Dioxide 23 Anion Gap 10 BUN 41 H Creatinine 2.00 H Estim Creat Clear Calc 41 Estimated GFR 25 L Glucose 95 POC Capillary Glucose 99 112 H Calcium 9.0 Magnesium 2.0 Total Bilirubin 0.5 AST 25 ALT 10 Alkaline Phosphatase 114 Total Protein 6.3 Albumin 3.8 SARS-CoV-2 RNA (RT-PCR) 04/27/25 07:23 WBC RBC Hgb Hct MCV MCH MCHC RDW Plt Count MPV Immature Gran % (Auto) Neut % (Auto) Lymph % (Auto) [place] % (Auto) Eos % (Auto) Baso % (Auto) Lymph # (Auto) [place] # (Auto) Eos # (Auto) Baso # (Auto) Abs Immat Gran (auto) Absolute Neuts (auto) Absolute Nucleated RBC Nucleated RBC % % Immature Plt Fraction Sodium Potassium Chloride Carbon Dioxide Anion Gap BUN Creatinine Estim Creat Clear Calc Estimated GFR Glucose POC Capillary Glucose 103 Calcium Magnesium Total Bilirubin AST ALT Alkaline Phosphatase Total Protein Albumin SARS-CoV-2 RNA (RT-PCR)
--- NOTE | 2025-04-27 11:36 | P.PNIM_ITS ---
Progress Note: A&P Assessment and Plan (1) Acute on chronic renal failure: Code(s): N17.9 - Acute kidney failure, unspecified; N18.9 - Chronic kidney disease, unspecified Status: Acute (2) Heart failure with mildly reduced ejection fraction: Code(s): I50.20 - Unspecified systolic (congestive) heart failure Status: Acute (3) Anasarca: Code(s): R60.1 - Generalized edema Status: Acute (4) Macrocytic anemia: Code(s): D53.9 - Nutritional anemia, unspecified Status: Acute (5) Type 2 diabetes mellitus, with long-term current use of insulin: Qualifiers: Diabetes mellitus complication status: with hyperglycemia Qualified Code(s): E11.65 - Type 2 diabetes mellitus with hyperglycemia; Z79.4 - tank terminal gauger (current) use of insulin Code(s): E11.9 - Type 2 diabetes mellitus without complications; Z79.4 - tank terminal gauger (current) use of insulin Status: Acute (6) Bacteriuria with pyuria: Code(s): R82.71 - Bacteriuria; R82.81 - Pyuria Status: Acute Plan The patient presented to the emergency department for evaluation of increasing edema and decreased urine output # MADAY on CKD an acute on chronic renal failure with a creatinine of 3.06 and a baseline creatinine which appears to range from 1.30 to 2.30. eating and drinking as per usual a she is on furosemide and metolazone daily and she may be intravascularly dry. received 1 L of lactated Ringer's in the ED Lopez catheter was inserted in the ED but there is no documentation to state how much urine was yielded upon insertion. Monitor strict I/O and daily weights. Nephrology has been consulted for recommendations. Renal function continued to improve # Chronic heart failure Compensated on furosemide 40 mg daily. ,hold Lasix metolazone, and Entresto for now. Echo with EF 55-60% grade 2 diastolic dysfunction moderate to severe MR severe TR severe pulmonary hypertension back on lasix now with albumin infusion. . Will reinitiate interest to # hypotension in blood pressure medication on hold. Add Albumin. Monitor # UTI UA showed cloudy urine positive nitrate, pyuria, hematuria Urine culture pending On levofloxacin 750 mg every 48 hour # COVID positive no respiratory symptoms currently improving. Will monitor # Anemia Check iron studies, B12, and folate for evaluation of anemia. # Right arm and leg swelling Check venous Doppler ultrasound to rule out DVTs. per radiologist report, patient cannot tolerate because of pain venous duplex RUE neg for dvt # Insulin-dependent diabetes Continue basal insulin. Initiate sliding scale insulin, Accu-Cheks, and hypoglycemic protocol. # DVT prpoh: Heparin subQ # Code status: DNR # NH resident # Hx of stroke wtih right residual hemiplegia Subjective Date/time seen: 04/27/25 11:36 Interval history: No overnight events. She tested positive COVID. No cough or shortness of breath reported by the patient. Feels well. Labs reviewed. Review of Systems Review of Systems: All systems reviewed & are unremarkable except as noted in HPI and below Exam Narrative: General: Morbidly obese female in the semi-Blunt position in no acute distress. HEENT: PERRL, EOMI. Sclera anicteric. Neck: Supple. Exam limited due to neck circumference. Respiratory: Respirations are nonlabored. Lung sounds are a bit diminished due to body habitus. Cardiovascular: Regular rate and rhythm with S1-S2. Systolic murmur heard at the left sternal border in apex. Gastrointestinal: Abdomen is morbidly obese with positive bowel sounds. She has pitting edema of the lower abdomen into the flanks and she is tender to palpation in this regions. Skin: Warm and dry. Faint erythema of the lower legs due to significant sw elling. Shallow ulcerations noted on lower panniculus. Extremities: No cyanosis or clubbing. Significant pitting edema of the legs (right greater than left) to the abdomen. Upper extremities are also edematous, right greater than left. right upper extremity edema noted Neurological: Alert. No facial asymmetry. Speech is clear but she does have ex pressive aphasia. residual hemiplegia on the right. Psychiatric: Pleasant and cooperative. She is in good spirits. Objective Data Vital Signs Vital Signs: Vital Signs - 24 hr 04/26/25 12:00 04/26/25 14:00 04/26/25 16:00 Temperature 96.8 F L Pulse Rate 119 H 107 H 94 Respiratory Rate 18 Blood Pressure 126/93 H Pulse Oximetry 91 04/26/25 20:00 04/26/25 20:10 04/26/25 22:12 Temperature 97 F L Pulse Rate 66 97 111 H Respiratory Rate 20 Blood Pressure 108/56 L Pulse Oximetry 91 04/27/25 00:00 04/27/25 04:00 04/27/25 06:00 Temperature 96.9 F L Pulse Rate 98 74 73 Respiratory Rate 20 Blood Pressure 98/46 L Pulse Oximetry 94 Intake/Output Intake/Output: Intake & Output 04/24/25 04/25/25 04/26/25 04/27/25 23:59 23:59 23:59 23:59 Intake Total 837 044 0486 790 Output Total 1850 2300 2700 1750 Balance -960 -1410 -1670 -960 Meds/Results Medications: Active Medications Generic Name Dose Route Start Last Admin Trade Name Freq PRN Reason Stop Dose Admin Acetaminophen 650 mg 04/26/25 14:25 04/26/25 22:15 Acetaminophen 325 Mg Tablet PO 650 mg Q4H PRN Administration Mild Pain (1-3) or Fever Aspirin 81 mg 04/23/25 09:00 04/27/25 08:48 Aspirin 81 Mg Enteric Tablet PO 81 mg DAILY BRIANNA Administration Atorvastatin Calcium 20 mg 04/23/25 21:00 04/26/25 22:13 Atorvastatin 20 Mg Tablet PO 20 mg HS BRIANNA Administration Buspirone HCl 10 mg 04/23/25 09:00 04/27/25 08:48 Buspirone Hcl 10 Mg Tablet PO 10 mg TID BRIANNA Administration Dextrose 12.5 gm 04/22/25 21:47 Dextrose 50% 25 Gm/50 Ml Syringe IV PUSH PRN PRN Hypoglycemia Protocol Ergocalciferol 1,250 mcg 04/28/25 09:00 Ergocalciferol (Vitamin D2) 1,250 Mcg (50,000 Units) Capsule PO Mo@0900 BRIANNA Famotidine 20 mg 04/23/25 21:00 04/26/25 22:13 Famotidine 20 Mg Tablet PO 20 mg HS BRIANNA Administration Ferrous Sulfate 325 mg 04/23/25 09:00 04/27/25 08:47 Ferrous Sulfate [address] BY MOUTH 325 mg DAILY BRIANNA Administration Fluoxetine HCl 40 mg 04/23/25 09:00 04/27/25 08:46 Fluoxetine Hcl 20 Mg Capsule PO 40 mg DAILY BRIANNA Administration Furosemide 20 mg 04/25/25 17:00 04/27/25 08:47 Furosemide 20 Mg Tablet PO 20 mg BID BRIANNA Administration Gabapentin 100 mg 04/23/25 09:00 04/27/25 08:47 Gabapentin 100 Mg Capsule PO 100 mg TID BRIANNA Administration Glucagon 1 mg 04/22/25 21:47 Glucagon For Inj 1 Mg Vial IM PRN PRN Hypoglycemia Protocol Glucose 15 gm 04/22/25 21:47 Glucose Oral Gel 15 Gm Of Glucse In 37.5 Gm Tube PO PRN PRN Hypoglycemia Protocol Heparin Sodium (Porcine) 5,000 units 04/23/25 09:00 04/27/25 08:48 Heparin Sodium 5,000 Units/Ml Vial SUB-Q Not Given Q12HR BRIANNA Dextrose 1,000 mls @ 100 mls/hr 04/22/25 21:47 Dextrose 5% 1,000 Ml IVPB PRN PRN Hypoglycemia Protocol Ceftriaxone Sodium 1 gm/ 50 mls @ 100 mls/hr 04/23/25 12:00 04/26/25 12:22 Sodium Chloride IVPB 100 mls/hr Q24H BRIANNA Administration Albumin Human 100 mls @ 60 mls/hr 04/25/25 18:00 04/27/25 06:12 Albutein IVPB 60 mls/hr Q6HR BRIANNA Administration Insulin Aspart 2 - 4 units 04/22/25 21:55 04/26/25 21:54 Insulin Aspart (*Bkc) 100 Units/Ml SUB-Q Not Given HS [facility] Protocol Insulin Aspart 4 - 8 units 04/23/25 08:00 04/27/25 08:39 Insulin Aspart (*Bkc) 100 Units/Ml SUB-Q Not Given TIDWM [facility] Protocol Insulin Aspart 2 units 04/25/25 08:00 04/27/25 08:40 Insulin Aspart (*Bkc) 100 Units/Ml SUB-Q 2 units TIDWM BRIANNA Administration Insulin Glargine 15 units 04/23/25 21:00 04/24/25 23:00 Insulin Glargine (*Bkc) 100 Units/Ml SUB-Q Not Given HS [facility] Loratadine 10 mg 04/23/25 09:00 04/27/25 08:47 Loratadine 10 Mg Tablet PO 10 mg DAILY BRIANNA Administration Memantine 10 mg 04/23/25 09:00 04/27/25 08:47 Memantine 10 Mg Tablet PO 10 mg BID BRIANNA Administration Metoprolol Succinate 25 mg 04/23/25 21:00 04/26/25 22:12 Metoprolol Succinate Ext Rel 25 Mg Tabcr PO 25 mg HS BRIANNA Administration Miconazole Nitrate 1 applic 04/23/25 12:00 04/27/25 08:48 Miconazole Nitrate 2% Cream 30 Gm Tube TOPICAL 05/02/25 09:01 1 applic DAILY BRIANNA Administration Polyethylene Glycol 17 gm 04/23/25 09:00 04/27/25 08:40 Polyethylene Glycol 3350 17 Gm Powd.Pack PO 17 gm QAM BRIANNA Administration Sacubitril/Valsartan 1 tab 04/23/25 09:00 04/25/25 09:58 Sacubitril/Valsartan 24-26 Mg Tablet PO Not Given DAILY BRIANNA Senna/Docusate Sodium 1 tab 04/23/25 09:12 Senna/Docusate Sodium Tablet PO DAILY PRN Constipation Radiology Results: ITS Impressions Renal Ultrasound 04/23/25 16:08 IMPRESSION: Limited evaluation secondary to poor acoustic penetration (given patient's body habitus). Cross-sectional imaging may be performed, if the patient is clinically able. Abdomen X-Ray 04/24/25 10:12 Impression: 1: No acute abdominal abnormality. Venous Doppler Study 04/25/25 14:06 IMPRESSION: 1. Patent right upper extremity veins. No evidence of deep venous thrombosis. Chest X-Ray 04/25/25 22:02 IMPRESSION: 1. Significant improvement in prior pulmonary edema with minimal residual pulmonary edema at the left lung base. Labs Labs: Laboratory Results - last 24 hr 04/26/25 04/26/25 04/26/25 11:55 12:09 12:31 WBC RBC Hgb Hct MCV MCH MCHC RDW Plt Count MPV Immature Gran % (Auto) Neut % (Auto) Lymph % (Auto) [place] % (Auto) Eos % (Auto) Baso % (Auto) Lymph # (Auto) [place] # (Auto) Eos # (Auto) Baso # (Auto) Abs Immat Gran (auto) Absolute Neuts (auto) Absolute Nucleated RBC Nucleated RBC % % Immature Plt Fraction Sodium Potassium Chloride Carbon Dioxide Anion Gap BUN Creatinine Estim Creat Clear Calc Estimated GFR Glucose POC Capillary Glucose 410 H 111 H Calcium Magnesium Total Bilirubin AST ALT Alkaline Phosphatase Total Protein Albumin SARS-CoV-2 RNA (RT-PCR) Positive A 04/26/25 04/26/25 04/27/25 17:16 20:07 05:56 WBC 3.2 L RBC 2.85 L Hgb 8.8 L Hct 28.7 L MCV 100.7 H MCH 30.9 MCHC 30.7 L RDW 14.1 Plt Count 110 L MPV 10.9 H Immature Gran % (Auto) 0.3 Neut % (Auto) 66.8 Lymph % (Auto) 16.5 L [place] % (Auto) 11.1 H Eos % (Auto) 4.7 H Baso % (Auto) 0.6 Lymph # (Auto) 0.52 L [place] # (Auto) 0.4 Eos # (Auto) 0.2 Baso # (Auto) 0.0 Abs Immat Gran (auto) 0.01 Absolute Neuts (auto) 2.1 Absolute Nucleated RBC 0.000 Nucleated RBC % 0.0 % Immature Plt Fraction 4.3 Sodium 138 Potassium 4.5 Chloride 105 Carbon Dioxide 23 Anion Gap 10 BUN 41 H Creatinine 2.00 H Estim Creat Clear Calc 41 Estimated GFR 25 L Glucose 95 POC Capillary Glucose 99 112 H Calcium 9.0 Magnesium 2.0 Total Bilirubin 0.5 AST 25 ALT 10 Alkaline Phosphatase 114 Total Protein 6.3 Albumin 3.8 SARS-CoV-2 RNA (RT-PCR) 04/27/25 07:23 WBC RBC Hgb Hct MCV MCH MCHC RDW Plt Count MPV Immature Gran % (Auto) Neut % (Auto) Lymph % (Auto) [place] % (Auto) Eos % (Auto) Baso % (Auto) Lymph # (Auto) [place] # (Auto) Eos # (Auto) Baso # (Auto) Abs Immat Gran (auto) Absolute Neuts (auto) Absolute Nucleated RBC Nucleated RBC % % Immature Plt Fraction Sodium Potassium Chloride Carbon Dioxide Anion Gap BUN Creatinine Estim Creat Clear Calc Estimated GFR Glucose POC Capillary Glucose 103 Calcium Magnesium Total Bilirubin AST ALT Alkaline Phosphatase Total Protein Albumin SARS-CoV-2 RNA (RT-PCR)
[2025-04-27] MEDS: SACUBITRIL/VALSARTAN 12-13 MG TABLET 1 TAB PO (12:50)
[2025-04-27] MEDS: cefTRIAXone 1 GM in SODIUM CHLORIDE 0.9% IV 50 ML 100 ML IVPB (13:40)
[2025-04-27] MEDS: FAMOTIDINE 20 MG TABLET PO (20:08)
[2025-04-27] MEDS: ATORVASTATIN 20 MG TABLET PO (20:08)
[2025-04-27] MEDS: METOPROLOL SUCCINATE EXT REL 25 MG TABCR PO (20:09)
[2025-04-27] MEDS: [UNRECOGNIZED DRUG - REMARK] XX (23:36)
[2025-04-28] VITALS (8 sets, daily range): BP systolic 108–114; BP diastolic 42–68; PULSE 68–74; RESP 16–20; TEMP 35.7–36.4; O2SAT 96–98
[2025-04-28] MEDS: ALBUMIN HUMAN 25% 25 GM/100 ML 100 ML IVPB ×3 (00:34→12:09)
[2025-04-28] MEDS: TRIAMCINOLONE ACET 0.1% CREAM 80 GM TUBE 1 APPLIC TOPICAL (00:34)
[2025-04-28] MEDS: [UNRECOGNIZED DRUG - REMARK] XX (00:43)
[2025-04-28 06:26] LABS: Hematocrit 29.5 % (37.0-47.0); Hemoglobin 8.8 g/dL (12.0-15.0); Immature Granulocyte Percent A 0.5 % (0-0.5); Lymphocytes Absolute Auto 0.79 K/mm3 (0.9-3.2); Mean Corpuscular HGB Conc 29.8 g/dl (32-36); Mean Corpuscular Hemoglobin 30.6 pg (26-34); Mean Corpuscular Volume 102.4 fl (80-100); Nucleated Red Blood Cells Absolute Auto 0.000 K/mm3 (0.0-0.012); Nucleated Red Blood Cells Perc 0.0 % (0.0-0.2); Platelet Count Result 116 k/mm3 (150-375); Red Blood Count 2.88 M/mm3 (4.2-5.4); White Blood Count 3.9 K/mm3 (4.5-10.0)
[2025-04-28 06:42] LABS: Alanine Aminotransferase 9 U/L (6-35); Albumin Level 3.9 g/dL (3.5-5.1); Alkaline Phosphatase 103 U/L (38-126); Anion Gap 10 mmol/L (4-12); Aspartate Amino Transferase 22 U/L (14-36); Bilirubin,Total 0.4 mg/dL (0.2-1.3); Blood Urea Nitrogen 40 mg/dL (7-17); Calcium 9.1 mg/dL (8.4-10.2); Carbon Dioxide 26 mmol/L (22-30); Chloride 104 mmol/L (98-107); Estimated CRCL calculation 40 ml/min; Estimated Glomerular Filt Rate 24; Glucose 100 mg/dL (65-110); Magnesium 1.9 mg/dL (1.6-2.3); Potassium 4.1 mmol/L (3.4-5.0); Sodium 140 mmol/L (137-145); Total Protein 6.3 g/dL (6.3-8.2)
[2025-04-28] MEDS: INSULIN ASPART (*BKC) 100 UNITS/ML SUB-Q ×3 (09:32→17:56)
[2025-04-28] MEDS: FUROSEMIDE 20 MG TABLET PO (09:33)
[2025-04-28] MEDS: GABAPENTIN 100 MG CAPSULE PO ×3 (09:34→17:56)
[2025-04-28] MEDS: MEMANTINE 10 MG TABLET PO ×2 (09:34→17:56)
[2025-04-28] MEDS: FERROUS SULFATE 325 MG TABLET DR BY MOUTH (09:34)
[2025-04-28] MEDS: LORATADINE 10 MG TABLET PO (09:34)
[2025-04-28] MEDS: ASPIRIN 81 MG ENTERIC TABLET PO (09:34)
[2025-04-28] MEDS: SACUBITRIL/VALSARTAN 12-13 MG TABLET 1 TAB PO (09:34)
[2025-04-28] MEDS: MICONAZOLE NITRATE 2% CREAM 30 GM TUBE 1 APPLIC TOPICAL (09:37)
[2025-04-28] MEDS: ERGOCALCIFEROL (VITAMIN D2) 1,250 MCG (50,000 UNITS) CAPSULE 1250 MCG PO (10:03)
[2025-04-28] MEDS: traMADol HCL (*CRX) 50 MG TABLET PO ×2 (10:03→17:56)
--- NOTE | 2025-04-28 11:01 | P.PNNP_ITS ---
Progress Note: A&P Assessment and Plan (1) Acute kidney injury: Code(s): N17.9 - Acute kidney failure, unspecified Status: Acute Assessment and Plan: * slow improvement noted * as noted on presentation/admission * suspect multifactorial etiology: * infection ( COVID +/- UTI) * relative hypotension * overdiuresis * CHF * evaluation to date noted: * Urine electrolytes pre-renal * CK okay * UA shows some white cells * not much protein in the urine * tolerating gentle diuresis * follow trend of repeat labs and UOP (2) Chronic kidney disease, stage 3b: Code(s): N18.32 - Chronic kidney disease, stage 3b Status: Chronic Assessment and Plan: * baseline creatinine runs ~ 1.5 - 2.omg/dl * most likely due to hypertension, diabetes, chronic prerenal azotemia from pulmonary HTN, CHF, and necessity of diuretic therapy * may have a new baseline given element of CKD progression +/- recent MADAY/ARF (3) CHF (congestive heart failure): Qualifiers: Heart failure chronicity: acute on chronic Heart failure type: systolic Qualified Code(s): I50.23 - Acute on chronic systolic (congestive) heart failure Code(s): I50.9 - Heart failure, unspecified Status: Acute Assessment and Plan: * known history * Echo (04/23) noted: * left ventricular systolic function is normal, estimated at 55-60% * left ventricular diastolic function is grade II diastolic dysfunction * mild aortic valve regurgitation * mild mitral valve stenosis * moderate to severe mitral valve regurgitation * severe tricuspid valve regurgitation * severe pulmonary hypertension, estimated pulmonary arterial systolic pressure is 86 mmHg * swelling/edema likely a manifestation of her severe pulmonary hypertension with moderate tricuspid regurg * difficult to treat this as the more diuretics we use, the harder it is on the kidneys... * she may end up needing a higher creatinine to treat/stabilize this swelling/edema * titrate diuretics going forward as an outpatient according to fluid status plus creatinine. (4) UTI (urinary tract infection): Qualifiers: Hematuria presence: without hematuria Urinary tract infection type: a cute cystitis Qualified Code(s): N30.00 - Acute cystitis without hematuria Code(s): N39.0 - Urinary tract infection, site not specified Status: Acute Assessment and Plan: * admission UA suggestive * pyruia noted * however, she has a chronic Lopez * culture negative to date (5) Essential hypertension: Code(s): I10 - Essential (primary) hypertension Status: Chronic Assessment and Plan: * reasonable control * follow trend of hemodynamics (6) Insulin dependent diabetes mellitus: Status: Acute Assessment and Plan: * follow accu-cheks * glycemic control per hospitalist Not opposed to discharge from renal perspective if otherwise medically stable. Will continue to follow. L Subjective Date/time seen: 04/28/25 11:01 Interval history: Follow-up for acute kidney injury/acute renal failure on chronic kidney disease. Chart reviewed -- assuming care from Dr. Almanza; no apparent distress voiced other than pain/discomfort in her lower extremities; renal function/creatinine remains relatively stable with reasonable urine output; no other issues/events overnight or earlier this morning. Exam 2 Narrative: General: large but WD/WN female in NAD Heart: normal S1 and S2; no rub Lungs: clear anteriorly; decreased at bases Abdomen: obese but soft, nontender, nondistended, positive bowel sounds Extremities: no cyanosis or clubbing; 1-2+ edema in LEs and right UE Skin: JIGNA wraps to LEs; some excoriations in right UE Objective Data Vital Signs Vital Signs: Vital Signs Temp Pulse Resp BP Pulse Ox O2 Del Method 04/28/25 08:00 74 04/28/25 08:00 96 Room Air 04/28/25 06:00 97.6 F 69 20 108/42 L 96 04/28/25 03:47 70 04/28/25 00:00 72 04/27/25 20:55 96.1 F L 78 20 119/50 L 93 04/27/25 20:09 79 04/27/25 20:00 79 Intake/Output Intake/Output: Intake & Output 04/25/25 04/26/25 04/27/25 04/28/25 23:59 23:59 23:59 23:59 Intake Total 890 1080 1500 730 Output Total 2300 2700 2500 550 Balance -1410 -1620 -1000 180 Meds/Results Medications: Active Medications Generic Name Dose Route Start Last Admin Trade Name Freq PRN Reason Stop Dose Admin Acetaminophen 650 mg 04/26/25 14:25 04/26/25 22:15 Acetaminophen 325 Mg Tablet PO 650 mg Q4H PRN Administration Mild Pain (1-3) or Fever Aspirin 81 mg 07/23/25 09:00 04/28/25 09:34 Aspirin 81 Mg Enteric Tablet PO 81 mg DAILY BRIANNA Administration Atorvastatin Calcium 20 mg 04/23/25 21:00 04/27/25 20:08 Atorvastatin 20 Mg Tablet PO 20 mg HS BRIANNA Administration Buspirone HCl 10 mg 04/23/25 09:00 04/28/25 12:10 Buspirone Hcl 10 Mg Tablet PO 10 mg TID BRIANNA Administration Dextrose 12.5 gm 04/22/25 21:47 Dextrose 50% 25 Gm/50 Ml Syringe IV PUSH PRN PRN Hypoglycemia Protocol Ergocalciferol 1,250 mcg 04/28/25 09:00 04/28/25 10:03 Ergocalciferol (Vitamin D2) 1,250 Mcg (50,000 Units) Capsule PO 1,250 mcg Mo@0900 BRIANNA Administration Famotidine 20 mg 04/23/25 21:00 04/27/25 20:08 Famotidine 20 Mg Tablet PO 20 mg HS BRIANNA Administration Ferrous Sulfate 325 mg 04/23/25 09:00 04/28/25 09:34 Ferrous Sulfate [address] BY MOUTH 325 mg DAILY BRIANNA Administration Fluoxetine HCl 40 mg 04/23/25 09:00 04/28/25 09:34 Fluoxetine Hcl 20 Mg Capsule PO 40 mg DAILY BRIANNA Administration Furosemide 20 mg 04/25/25 17:00 04/28/25 09:33 Furosemide 20 Mg Tablet PO 20 mg BID BRIANNA Administration Gabapentin 100 mg 04/23/25 09:00 04/28/25 12:10 Gabapentin 100 Mg Capsule PO 100 mg TID BRIANNA Administration Glucagon 1 mg 04/22/25 21:47 Glucagon For Inj 1 Mg Vial IM PRN PRN Hypoglycemia Protocol Glucose 15 gm 04/22/25 21:47 Glucose Oral Gel 15 Gm Of Glucse In 37.5 Gm Tube PO PRN PRN Hypoglycemia Protocol Heparin Sodium (Porcine) 5,000 units 04/23/25 09:00 04/28/25 09:34 Heparin Sodium 5,000 Units/Ml Vial SUB-Q 5,000 units Q12HR BRIANNA Administration Dextrose 1,000 mls @ 100 mls/hr 04/22/25 21:47 Dextrose 5% 1,000 Ml IVPB PRN PRN Hypoglycemia Protocol Albumin Human 100 mls @ 60 mls/hr 04/25/25 18:00 04/28/25 12:09 Albutein IVPB 60 mls/hr Q6HR BRIANNA Administration Insulin Aspart 2 - 4 units 04/22/25 21:55 04/27/25 23:07 Insulin Aspart (*Bkc) 100 Units/Ml SUB-Q Not Given HS [facility] Protocol Insulin Aspart 4 - 8 units 04/23/25 08:00 04/28/25 11:44 Insulin Aspart (*Bkc) 100 Units/Ml SUB-Q Not Given TIDWM [facility] Protocol Insulin Aspart 2 units 04/25/25 08:00 04/28/25 12:10 Insulin Aspart (*Bkc) 100 Units/Ml SUB-Q 2 units TIDWM BRIANNA Administration Insulin Glargine 15 units 04/23/25 21:00 04/24/25 23:00 Insulin Glargine (*Bkc) 100 Units/Ml SUB-Q Not Given HS BRIANNA Levofloxacin 750 mg 04/28/25 14:05 04/28/25 14:41 Levofloxacin 750 Mg Tablet PO 04/30/25 14:06 750 mg Q48H BRIANNA Administration Loratadine 10 mg 04/23/25 09:00 04/28/25 09:34 Loratadine 10 Mg Tablet PO 10 mg DAILY BRIANNA Administration Memantine 10 mg 04/23/25 09:00 04/28/25 09:34 Memantine 10 Mg Tablet PO 10 mg BID BRIANNA Administration Metoprolol Succinate 25 mg 04/23/25 21:00 04/27/25 20:09 Metoprolol Succinate Ext Rel 25 Mg Tabcr PO 25 mg HS BRIANNA Administration Miconazole Nitrate 1 applic 04/23/25 12:00 04/28/25 09:37 Miconazole Nitrate 2% Cream 30 Gm Tube TOPICAL 05/02/25 09:01 1 applic DAILY BRIANNA Administration Miscellaneous Information 0 each 04/27/25 00:01 04/28/25 00:43 Triamcinolone Please Add Site Of Use XX 05/27/25 00:00 1 each CLARIFY BRIANNA Administration Polyethylene Glycol 17 gm 04/23/25 09:00 04/28/25 09:38 Polyethylene Glycol 3350 17 Gm Powd.Pack PO Not Given QAM BRIANNA Sacubitril/Valsartan 1 tab 04/27/25 12:15 04/28/25 09:34 Sacubitril/Valsartan 12-13 Mg Tablet PO 1 tab DAILY BRIANNA Administration Senna/Docusate Sodium 1 tab 04/23/25 09:12 Senna/Docusate Sodium Tablet PO DAILY PRN Constipation Tramadol HCl 50 mg 04/28/25 09:50 04/28/25 10:03 Tramadol Hcl (*Crx) 50 Mg Tablet PO 50 mg Q6H PRN Administration Pain Rated 4-6 Triamcinolone Acetonide 1 applic 04/27/25 23:11 04/28/25 00:34 Triamcinolone Acet 0.1% Cream 80 Gm Tube TOPICAL 1 applic Q12HR PRN Administration itching Radiology Results: ITS Impressions Renal Ultrasound 04/23/25 16:08 IMPRESSION: Limited evaluation secondary to poor acoustic penetration (given patient's body habitus). Cross-sectional imaging may be performed, if the patient is clinically able. Abdomen X-Ray 04/24/25 10:12 Impression: 1: No acute abdominal abnormality. Venous Doppler Study 04/25/25 14:06 IMPRESSION: 1. Patent right upper extremity veins. No evidence of deep venous thrombosis. Chest X-Ray 04/25/25 22:02 IMPRESSION: 1. Significant improvement in prior pulmonary edema with minimal residual pulmonary edema at the left lung base. Labs Labs: Laboratory Tests 04/28/25 05:44 04/28/25 05:44 Calcium 9.1 Magnesium 1.9 Total Bilirubin 0.4 AST 22 ALT 9 Alkaline Phosphatase 103 Total Protein 6.3 Albumin 3.9
[2025-04-28] MEDS: cefTRIAXone 1 GM in SODIUM CHLORIDE 0.9% IV 50 ML 100 ML IVPB (11:43)
--- NOTE | 2025-04-28 12:08 | PM.DS ---
DS: Admitting Diagnosis Discharge Date 04/28/2025 Admitting Diagnosis renal failure DS: Discharge Diagnosis Discharge Diagnosis (1) Acute on chronic renal failure: Code(s): N17.9 - Acute kidney failure, unspecified; N18.9 - Chronic kidney disease, unspecified Status: Acute (2) Heart failure with mildly reduced ejection fraction: Code(s): I50.20 - Unspecified systolic (congestive) heart failure Status: Acute (3) Anasarca: Code(s): R60.1 - Generalized edema Status: Acute (4) Macrocytic anemia: Code(s): D53.9 - Nutritional anemia, unspecified Status: Acute (5) Type 2 diabetes mellitus, with long-term current use of insulin: Qualifiers: Diabetes mellitus complication status: with hyperglycemia Qualified Code(s): E11.65 - Type 2 diabetes mellitus with hyperglycemia; Z79.4 - oil heaterman (current) use of insulin Code(s): E11.9 - Type 2 diabetes mellitus without complications; Z79.4 - FDC (current) use of insulin Status: Acute (6) Bacteriuria with pyuria: Code(s): R82.71 - Bacteriuria; R82.81 - Pyuria Status: Acute DS: Summary Hospital Course Hospital Course: The patient presented to the emergency department for evaluation of increasing edema and decreased urine output # MADAY on CKD an acute on chronic renal failure with a creatinine of 3.06 and a baseline creatinine which appears to range from 1.30 to 2.30. eating and drinking as per usual a she is on furosemide and metolazone daily and she may be intravascularly dry. received 1 L of lactated Ringer's in the ED Lopez catheter was inserted in the ED but there is no documentation to state how much urine was yielded upon insertion. Monitor strict I/O and daily weights. Nephrology has been consulted for recommendations. Renal function continued to improve # Chronic heart failure Compensated on furosemide 40 mg daily. ,hold Lasix metolazone, and Entresto for now. Echo with EF 55-60% grade 2 diastolic dysfunction moderate to severe MR severe TR severe pulmonary hypertension back on lasix now with albumin infusion. re-initiated Entresto and tolerated well. # hypotension in blood pressure medication on hold. Add Albumin. Monitor and improved # UTI UA showed cloudy urine positive nitrate, pyuria, hematuria On ceftriaxone. Urine culture with no growth # COVID positive no respiratory symptoms currently improving. Will monitor # Anemia Check iron studies, B12, and folate for evaluation of anemia. # Right arm and leg swelling Check venous Doppler ultrasound to rule out DVTs. per radiologist report, patient cannot tolerate because of pain venous duplex RUE neg for dvt # lower extremity pain: likey due to peripheral neuropathy. on tramadol prn # Insulin-dependent diabetes Continue basal insulin. Initiate sliding scale insulin, Accu-Cheks, and hypoglycemic protocol. # DVT prpoh: Heparin subQ # Code status: DNR # NH resident # Hx of stroke wtih right residual hemiplegia Time Spent with Patient Time attestation: Total time spent providing and/or coordinating discharge services:45 minutes Exam Narrative: General: Morbidly obese female in the semi-Blunt position in no acute distress. HEENT: PERRL, EOMI. Sclera anicteric. Neck: Supple. Exam limited due to neck circumference. Respiratory: Respirations are nonlabored. Lung sounds are a bit diminished due to body habitus. Cardiovascular: Regular rate and rhythm with S1-S2. Systolic murmur heard at the left sternal border in apex. Gastrointestinal: Abdomen is morbidly obese with positive bowel sounds. She has pitting edema of the lower abdomen into the flanks and she is tender to palpation in this regions. Skin: Warm and dry. Faint erythema of the lower legs due to significant swelling. Shallow ulcerations noted on lower panniculus. Extremities: No cyanosis or clubbing. Significant pitting edema of the legs (right greater than left) to the abdomen. Upper extremities are also edematous, right greater than left. right upper extremity edema noted improving Neurological: Alert. No facial asymmetry. Speech is clear but she does have expressive aphasia. residual hemiplegia on the right. Psychiatric: Pleasant and cooperative. She is in good spirits. DS: Data Data Completed and Pending Labs on day of discharge: Labs from last 24 hours 04/28/25 04/28/25 04/28/25 11:28 08:00 05:44 WBC 3.9 L RBC 2.88 L Hgb 8.8 L Hct 29.5 L MCV 102.4 H MCH 30.6 MCHC 29.8 L RDW 14.1 Plt Count 116 L MPV 11.3 H Immature Gran % (Auto) 0.5 Neut % (Auto) 61.5 Lymph % (Auto) 20.3 [place] % (Auto) 10.5 H Eos % (Auto) 6.7 H Baso % (Auto) 0.5 Lymph # (Auto) 0.79 L [place] # (Auto) 0.4 Eos # (Auto) 0.3 Baso # (Auto) 0.0 Abs Immat Gran (auto) 0.02 Absolute Neuts (auto) 2.4 Absolute Nucleated RBC 0.000 Nucleated RBC % 0.0 Sodium 140 Potassium 4.1 Chloride 104 Carbon Dioxide 26 Anion Gap 10 BUN 40 H Creatinine 2.06 H Estim Creat Clear Calc 40 Estimated GFR 24 L Glucose 100 POC Capillary Glucose 96 97 Calcium 9.1 Magnesium 1.9 Total Bilirubin 0.4 AST 22 ALT 9 Alkaline Phosphatase 103 Total Protein 6.3 Albumin 3.9 04/27/25 04/27/25 21:01 17:01 WBC RBC Hgb Hct MCV MCH MCHC RDW Plt Count MPV Immature Gran % (Auto) Neut % (Auto) Lymph % (Auto) [place] % (Auto) Eos % (Auto) Baso % (Auto) Lymph # (Auto) [place] # (Auto) Eos # (Auto) Baso # (Auto) Abs Immat Gran (auto) Absolute Neuts (auto) Absolute Nucleated RBC Nucleated RBC % Sodium Potassium Chloride Carbon Dioxide Anion Gap BUN Creatinine Estim Creat Clear Calc Estimated GFR Glucose POC Capillary Glucose 122 H 106 H Calcium Magnesium Total Bilirubin AST ALT Alkaline Phosphatase Total Protein Albumin Preliminary micro results at discharge 04/22/25 20:32 Blood Culture - Preliminary Blood 04/22/25 20:32 Blood Culture - Preliminary Blood Imaging Radiologist's impression: ITS Impressions Chest X-Ray 04/22/25 15:44 IMPRESSION: Pulmonary opacities, may represent interstitial edema in the appropriate clinical context. Subsegmental right basilar atelectasis/consolidation. Possible small right pleural effusion. Venous Doppler Study 04/22/25 21:20 IMPRESSION: Nondiagnostic ultrasound venous Doppler examination of the right lower extremity. Renal Ultrasound 04/23/25 16:08 IMPRESSION: Limited evaluation secondary to poor acoustic penetration (given patient's body habitus). Cross-sectional imaging may be performed, if the patient is clinically able. Abdomen X-Ray 04/24/25 10:12 Impression: 1: No acute abdominal abnormality. Venous Doppler Study 04/25/25 14:06 IMPRESSION: 1. Patent right upper extremity veins. No evidence of deep venous thrombosis. Chest X-Ray 04/25/25 22:02 IMPRESSION: 1. Significant improvement in prior pulmonary edema with minimal residual pulmonary edema at the left lung base. Discharge Plan Discharge Attending physician on discharge: Theo Hahn Consulting providers: Kiet Almanza Discharging Clinician: Theo Hahn Anticipated Discharge Date/Time: 04/28/25 12:16 Patient Disposition: SNF Activity: as tolerated Diet: heart healthy and renal Patient Instructions: Heart Failure (GEN) Patient Language: Croatian Stand Alone Forms: General Discharge Information Follow-up/Referrals: PHYSICIAN NOT ON STAFF,NONSTAFF [Primary Care Provider] - 1 Week Discharge Medications: New tramadol 50 mg Tablet 50 mg PO Q6H PRN (Reason: Pain Rated 4-6) Qty: 20 0RF furosemide 20 mg Tablet 20 mg PO BID Qty: 60 0RF Continued sennosides-docusate sodium [Senexon-S] 8.6-50 mg Tablet 1 tablet PO DAILY PRN (Reason: Constipation) famotidine 20 mg tablet 20 mg PO BID loratadine 10 mg Tablet 10 mg PO DAILY Gvoke PFS 1-Pack Syringe 1 mg/0.2 mL syringe 1 mg SUBCUT ONCE PRN (Reason: Hypoglycemia) Rx Instructions: if blood sugar <80 polyethylene glycol 3350 [Miralax] 17 gram Powder In Packet 17 g PO QAM Qty: 30 0RF metoprolol succinate 50 mg Tablet Extended Release 24 Hr 25 mg PO HS Qty: 30 0RF acetaminophen 650 mg Tablet 650 mg PO Q6H PRN (Reason: Pain) buspirone 10 mg Tablet 10 mg PO TID fluoxetine 20 mg Capsule 40 mg PO DAILY ferrous sulfate 324 mg (65 mg iron) Tablet,Delayed Release (Dr/Ec) 324 mg PO DAILY cholecalciferol (vitamin D3) 1,250 mcg (50,000 unit) Tablet 1,250 mcg PO WEEKLY Rx Instructions: takes on Monday gabapentin 300 mg capsule 100 mg PO TID memantine 10 mg tablet 10 mg PO BID aspirin [Enteric Coated Aspirin] 81 mg Tablet,Delayed Release (Dr/Ec) 81 mg PO DAILY insulin aspart U-100 [Novolog U-100 Insulin aspart] 100 unit/mL Solution 2 unit SUBCUT TID atorvastatin 20 mg Tablet 20 mg PO HS Qty: 30 0RF nystatin 100,000 unit/gram cream 1 applic topical BID Entresto 24-26 mg Tablet 1 tablet PO DAILY Discontinued metolazone 2.5 mg tablet 5 mg PO DAILY furosemide 20 mg tablet 40 mg PO DAILY insulin glargine [Basaglar KwikPen U-100 Insulin] 100 unit/mL (3 mL) insulin pen 15 unit SUBCUT HS Date of admission: 04/23/25 10:12 Primary Care Provider: PHYSICIAN NOT ON STAFF,NONSTAFF Admitting Provider: Iggy Washburn Attending physician on admission: Iggy Washburn Condition: Stable Hospitalist MIPS Heart Failure (Exclusion) Patient has history of Heart Transplant or Left Ventricular Assistive Device?: No IF YES, STOP HERE Heart Failure (Qualifier) Patient has current or prior documentation of LVEF less than or equal to 40%, or mod/servere depressed LVSF?: No IF NO, STOP HERE
--- NOTE | 2025-04-28 17:37 | P.PNIM_ITS ---
Progress Note: A&P Assessment and Plan (1) Acute on chronic renal failure: Code(s): N17.9 - Acute kidney failure, unspecified; N18.9 - Chronic kidney disease, unspecified Status: Acute (2) Heart failure with mildly reduced ejection fraction: Code(s): I50.20 - Unspecified systolic (congestive) heart failure Status: Acute (3) Anasarca: Code(s): R60.1 - Generalized edema Status: Acute (4) Macrocytic anemia: Code(s): D53.9 - Nutritional anemia, unspecified Status: Acute (5) Type 2 diabetes mellitus, with long-term current use of insulin: Qualifiers: Diabetes mellitus complication status: with hyperglycemia Qualified Code(s): E11.65 - Type 2 diabetes mellitus with hyperglycemia; Z79.4 - intermodal customer service (current) use of insulin Code(s): E11.9 - Type 2 diabetes mellitus without complications; Z79.4 - intermodal customer service (current) use of insulin Status: Acute (6) Bacteriuria with pyuria: Code(s): R82.71 - Bacteriuria; R82.81 - Pyuria Status: Acute Plan The patient presented to the emergency department for evaluation of increasing edema and decreased urine output # MADAY on CKD an acute on chronic renal failure with a creatinine of 3.06 and a baseline creatinine which appears to range from 1.30 to 2.30. eating and drinking as per usual a she is on furosemide and metolazone daily and she may be intravascularly dry. received 1 L of lactated Ringer's in the ED Lopez catheter was inserted in the ED but there is no documentation to state how much urine was yielded upon insertion. Monitor strict I/O and daily weights. Nephrology has been consulted for recommendations. Renal function continued to improve # Chronic heart failure Compensated on furosemide 40 mg daily. ,hold Lasix metolazone, and Entresto for now. Echo with EF 55-60% grade 2 diastolic dysfunction moderate to severe MR severe TR severe pulmonary hypertension back on lasix now with albumin infusion. . Will reinitiate Entresto # hypotension in blood pressure medication on hold. Add Albumin. Monitor # UTI UA showed cloudy urine positive nitrate, pyuria, hematuria Urine culture pending On levofloxacin 750 mg every 48 hour # COVID positive no respiratory symptoms currently improving. Will monitor # Anemia Check iron studies, B12, and folate for evaluation of anemia. # Right arm and leg swelling Check venous Doppler ultrasound to rule out DVTs. per radiologist report, patient cannot tolerate because of pain venous duplex RUE neg for dvt # Insulin-dependent diabetes Continue basal insulin. Initiate sliding scale insulin, Accu-Cheks, and hypoglycemic protocol. # DVT prpoh: Heparin subQ # Code status: DNR # [facility] resident # Hx of stroke wtih right residual hemiplegia Subjective Date/time seen: 04/28/25 17:37 Interval history: No overnight events. Complains of leg pain. Lopez catheter removed. Patient has not Peed yet. Review of Systems Review of Systems: All systems reviewed & are unremarkable except as noted in HPI and below Exam Narrative: General: Morbidly obese female in the semi-Blunt position in no acute distress. HEENT: PERRL, EOMI. Sclera anicteric. Neck: Supple. Exam limited due to neck circumference. Respiratory: Respirations are nonlabored. Lung sounds are a bit diminished due to body habitus. Cardiovascular: Regular rate and rhythm with S1-S2. Systolic murmur heard at the left sternal border in apex. Gastrointestinal: Abdomen is morbidly obese with positive bowel sounds. She has pitting edema of the lower abdomen into the flanks and she is tender to palpation in this regions. Skin: Warm and dry. Faint erythema of the lower legs due to significant swelling. Shallow ulcerations noted on lower panniculus. Extremities: No cyanosis or clubbing. Significant pitting edema of the legs (right greater than left) to the abdomen. Upper extremities are also edematous, right greater than left. right upper extremity edema noted improving Neurological: Alert. No facial asymmetry. Speech is clear but she does have expressive aphasia. residual hemiplegia on the right. Psychiatric: Pleasant and cooperative. She is in good spirits. Objective Data Vital Signs Vital Signs: Vital Signs - 24 hr 04/27/25 20:00 04/27/25 20:09 04/27/25 20:55 Temperature 96.1 F L Pulse Rate 79 79 78 Respiratory Rate 20 Blood Pressure 119/50 L Pulse Oximetry 93 Oxygen Delivery 04/28/25 00:00 04/28/25 03:47 04/28/25 06:00 Temperature 97.6 F Pulse Rate 72 70 69 Respiratory Rate 20 Blood Pressure 108/42 L Pulse Oximetry 96 Oxygen Delivery 04/28/25 08:00 04/28/25 08:00 04/28/25 12:00 Temperature Pulse Rate 74 70 Respiratory Rate Blood Pressure Pulse Oximetry 96 Oxygen Delivery Room Air 04/28/25 14:00 Temperature 97.5 F L Pulse Rate 68 Respiratory Rate 20 Blood Pressure 114/68 Pulse Oximetry 96 Oxygen Delivery Intake/Output Intake/Output: Intake & Output 04/25/25 04/26/25 04/27/25 04/28/25 23:59 23:59 23:59 23:59 Intake Total 890 1080 1500 730 Output Total 2300 2700 2500 550 Balance -1410 -1620 -1000 180 Meds/Results Medications: Active Medications Generic Name Dose Route Start Last Admin Trade Name Freq PRN Reason Stop Dose Admin Acetaminophen 650 mg 04/26/25 14:25 04/26/25 22:15 Acetaminophen 325 Mg Tablet PO 650 mg Q4H PRN Administration Mild Pain (1-3) or Fever Aspirin 81 mg 04/23/25 09:00 04/28/25 09:34 Aspirin 81 Mg Enteric Tablet PO 81 mg DAILY BRIANNA Administration Atorvastatin Calcium 20 mg 04/23/25 21:00 04/27/25 20:08 Atorvastatin 20 Mg Tablet PO 20 mg HS BRIANNA Administration Buspirone HCl 10 mg 04/23/25 09:00 04/28/25 12:10 Buspirone Hcl 10 Mg Tablet PO 10 mg TID BRIANNA Administration Dextrose 12.5 gm 04/22/25 21:47 Dextrose 50% 25 Gm/50 Ml Syringe IV PUSH PRN PRN Hypoglycemia Protocol Ergocalciferol 1,250 mcg 04/28/25 09:00 04/28/25 10:03 Ergocalciferol (Vitamin D2) 1,250 Mcg (50,000 Units) Capsule PO 1,250 mcg Mo@0900 BRIANNA Administration Famotidine 20 mg 04/23/25 21:00 04/27/25 20:08 Famotidine 20 Mg Tablet PO 20 mg HS BRIANNA Administration Ferrous Sulfate 325 mg 04/23/25 09:00 04/28/25 09:34 Ferrous Sulfate [address] BY MOUTH 325 mg DAILY BRIANNA Administration Fluoxetine HCl 40 mg 04/23/25 09:00 04/28/25 09:34 Fluoxetine Hcl 20 Mg Capsule PO 40 mg DAILY BRIANNA Administration Furosemide 20 mg 04/25/25 17:00 04/28/25 09:33 Furosemide 20 Mg Tablet PO 20 mg BID BRIANNA Administration Gabapentin 100 mg 04/23/25 09:00 04/28/25 12:10 Gabapentin 100 Mg Capsule PO 100 mg TID BRIANNA Administration Glucagon 1 mg 04/22/25 21:47 Glucagon For Inj 1 Mg Vial IM PRN PRN Hypoglycemia Protocol Glucose 15 gm 04/22/25 21:47 Glucose Oral Gel 15 Gm Of Glucse In 37.5 Gm Tube PO PRN PRN Hypoglycemia Protocol Heparin Sodium (Porcine) 5,000 units 04/23/25 09:00 04/28/25 09:34 Heparin Sodium 5,000 Units/Ml Vial SUB-Q 5,000 units Q12HR BRIANNA Administration Dextrose 1,000 mls @ 100 mls/hr 04/22/25 21:47 Dextrose 5% 1,000 Ml IVPB PRN PRN Hypoglycemia Protocol Albumin Human 100 mls @ 60 mls/hr 04/25/25 18:00 04/28/25 12:09 Albutein IVPB 60 mls/hr Q6HR BRIANNA Administration Insulin Aspart 2 - 4 units 04/22/25 21:55 04/27/25 23:07 Insulin Aspart (*Bkc) 100 Units/Ml SUB-Q Not Given HS BRIANNA Protocol Insulin Aspart 4 - 8 units 04/23/25 08:00 04/28/25 11:44 Insulin Aspart (*Bkc) 100 Units/Ml SUB-Q Not Given [facility] Protocol Insulin Aspart 2 units 04/25/25 08:00 04/28/25 12:10 Insulin Aspart (*Bkc) 100 Units/Ml SUB-Q 2 units TIDWM BRIANNA Administration Insulin Glargine 15 units 04/23/25 21:00 04/24/25 23:00 Insulin Glargine (*Bkc) 100 Units/Ml SUB-Q Not Given HS BRIANNA Levofloxacin 750 mg 04/28/25 14:05 04/28/25 14:41 Levofloxacin 750 Mg Tablet PO 04/30/25 14:06 750 mg Q48H BRIANNA Administration Loratadine 10 mg 04/23/25 09:00 04/28/25 09:34 Loratadine 10 Mg Tablet PO 10 mg DAILY BRIANNA Administration Memantine 10 mg 04/23/25 09:00 04/28/25 09:34 Memantine 10 Mg Tablet PO 10 mg BID BRIANNA Administration Metoprolol Succinate 25 mg 04/23/25 21:00 04/27/25 20:09 Metoprolol Succinate Ext Rel 25 Mg Tabcr PO 25 mg HS BRIANNA Administration Miconazole Nitrate 1 applic 04/23/25 12:00 04/28/25 09:37 Miconazole Nitrate 2% Cream 30 Gm Tube TOPICAL 05/02/25 09:01 1 applic DAILY BRIANNA Administration Miscellaneous Information 0 each 04/27/25 00:01 04/28/25 00:43 Triamcinolone Please Add Site Of Use XX 05/27/25 00:00 1 each CLARIFY BRIANNA Administration Polyethylene Glycol 17 gm 04/23/25 09:00 04/28/25 09:38 Polyethylene Glycol 3350 17 Gm Powd.Pack PO Not Given QAM BRIANNA Sacubitril/Valsartan 1 tab 04/27/25 12:15 04/28/25 09:34 Sacubitril/Valsartan 12-13 Mg Tablet PO 1 tab DAILY BRIANNA Administration Senna/Docusate Sodium 1 tab 04/23/25 09:12 Senna/Docusate Sodium Tablet PO DAILY PRN Constipation Tramadol HCl 50 mg 04/28/25 09:50 04/28/25 10:03 Tramadol Hcl (*Crx) 50 Mg Tablet PO 50 mg Q6H PRN Administration Pain Rated 4-6 Triamcinolone Acetonide 1 applic 04/27/25 23:11 04/28/25 00:34 Triamcinolone Acet 0.1% Cream 80 Gm Tube TOPICAL 1 applic Q12HR PRN Administration itching Radiology Results: ITS Impressions Renal Ultrasound 04/23/25 16:08 IMPRESSION: Limited evaluation secondary to poor acoustic penetration (given patient's body habitus). Cross-sectional imaging may be performed, if the patient is clinically able. Abdomen X-Ray 04/24/25 10:12 Impression: 1: No acute abdominal abnormality. Venous Doppler Study 04/25/25 14:06 IMPRESSION: 1. Patent right upper extremity veins. No evidence of deep venous thrombosis. Chest X-Ray 04/25/25 22:02 IMPRESSION: 1. Significant improvement in prior pulmonary edema with minimal residual pulmonary edema at the left lung base. Labs Labs: Laboratory Results - last 24 hr 04/27/25 04/28/25 04/28/25 21:01 05:44 08:00 WBC 3.9 L RBC 2.88 L Hgb 8.8 L Hct 29.5 L MCV 102.4 H MCH 30.6 MCHC 29.8 L RDW 14.1 Plt Count 116 L MPV 11.3 H Immature Gran % (Auto) 0.5 Neut % (Auto) 61.5 Lymph % (Auto) 20.3 [place] % (Auto) 10.5 H Eos % (Auto) 6.7 H Baso % (Auto) 0.5 Lymph # (Auto) 0.[address] [place] # (Auto) 0.4 Eos # (Auto) 0.3 Baso # (Auto) 0.0 Abs Immat Gran (auto) 0.02 Absolute Neuts (auto) 2.4 Absolute Nucleated RBC 0.000 Nucleated RBC % 0.0 Sodium 140 Potassium 4.1 Chloride 104 Carbon Dioxide 26 Anion Gap 10 BUN 40 H Creatinine 2.06 H Estim Creat Clear Calc 40 Estimated GFR 24 L Glucose 100 POC Capillary Glucose 122 H 97 Calcium 9.1 Magnesium 1.9 Total Bilirubin 0.4 AST 22 ALT 9 Alkaline Phosphatase 103 Total Protein 6.3 Albumin 3.9 04/28/25 04/28/25 11:28 16:33 WBC RBC Hgb Hct MCV MCH MCHC RDW Plt Count MPV Immature Gran % (Auto) Neut % (Auto) Lymph % (Auto) [place] % (Auto) Eos % (Auto) Baso % (Auto) Lymph # (Auto) [place] # (Auto) Eos # (Auto) Baso # (Auto) Abs Immat Gran (auto) Absolute Neuts (auto) Absolute Nucleated RBC Nucleated RBC % Sodium Potassium Chloride Carbon Dioxide Anion Gap BUN Creatinine Estim Creat Clear Calc Estimated GFR Glucose POC Capillary Glucose 96 107 H Calcium Magnesium Total Bilirubin AST ALT Alkaline Phosphatase Total Protein Albumin
[2025-04-28] MEDS: FAMOTIDINE 20 MG TABLET PO (20:37)
[2025-04-28] MEDS: ATORVASTATIN 20 MG TABLET PO (20:37)
[2025-04-28] MEDS: METOPROLOL SUCCINATE EXT REL 25 MG TABCR PO (20:39)
[2025-04-29] MEDS: traMADol HCL (*CRX) 50 MG TABLET PO ×2 (02:03→08:39)
[2025-04-29 05:20] VITALS: BP 118/64; PULSE 70; RESP 18; TEMP 36.6; O2SAT 93
[2025-04-29 08:00] VITALS: O2SAT 93
[2025-04-29] MEDS: INSULIN ASPART (*BKC) 100 UNITS/ML SUB-Q (08:38)
[2025-04-29] MEDS: GABAPENTIN 100 MG CAPSULE PO (08:39)
[2025-04-29] MEDS: ASPIRIN 81 MG ENTERIC TABLET PO (08:39)
[2025-04-29] MEDS: FUROSEMIDE 20 MG TABLET PO (08:40)
[2025-04-29] MEDS: SACUBITRIL/VALSARTAN 12-13 MG TABLET 1 TAB PO (08:40)
[2025-04-29] MEDS: MEMANTINE 10 MG TABLET PO (08:40)
[2025-04-29] MEDS: MICONAZOLE NITRATE 2% CREAM 30 GM TUBE 1 APPLIC TOPICAL (08:40)
[2025-04-29] MEDS: LORATADINE 10 MG TABLET PO (08:40)
[2025-04-29] MEDS: FERROUS SULFATE 325 MG TABLET DR BY MOUTH (08:40)
[2025-04-29 08:43] LABS: Hematocrit 30.0 % (37.0-47.0); Hemoglobin 9.0 g/dL (12.0-15.0); Immature Granulocyte Percent A 0.3 % (0-0.5); Lymphocytes Absolute Auto 0.68 K/mm3 (0.9-3.2); Mean Corpuscular HGB Conc 30.0 g/dl (32-36); Mean Corpuscular Hemoglobin 30.2 pg (26-34); Mean Corpuscular Volume 100.7 fl (80-100); Nucleated Red Blood Cells Absolute Auto 0.000 K/mm3 (0.0-0.012); Nucleated Red Blood Cells Perc 0.0 % (0.0-0.2); Platelet Count Result 112 k/mm3 (150-375); Red Blood Count 2.98 M/mm3 (4.2-5.4); White Blood Count 3.6 K/mm3 (4.5-10.0)
[2025-04-29 09:12] LABS: Alanine Aminotransferase 8 U/L (6-35); Albumin Level 3.6 g/dL (3.5-5.1); Alkaline Phosphatase 95 U/L (38-126); Anion Gap 9 mmol/L (4-12); Aspartate Amino Transferase 19 U/L (14-36); Bilirubin,Total 0.3 mg/dL (0.2-1.3); Blood Urea Nitrogen 40 mg/dL (7-17); Calcium 8.6 mg/dL (8.4-10.2); Carbon Dioxide 26 mmol/L (22-30); Chloride 104 mmol/L (98-107); Estimated CRCL calculation 40 ml/min; Estimated Glomerular Filt Rate 24; Glucose 93 mg/dL (65-110); Magnesium 1.8 mg/dL (1.6-2.3); Potassium 4.0 mmol/L (3.4-5.0); Sodium 139 mmol/L (137-145); Total Protein 6.1 g/dL (6.3-8.2)
--- NOTE | 2025-04-29 10:32 | PCNWS ---
Weekly nutritional screen. Patient is tolerating current heart healthy diet with adequate intake 75%. No weight loss reported. No nutritional recommendations at this time.
--- NOTE | 2025-04-29 12:08 | PM.DS ---
DS: Admitting Diagnosis Discharge Date 04/29/2025 Admitting Diagnosis renal failure DS: Discharge Diagnosis Discharge Diagnosis (1) Acute on chronic renal failure: Code(s): N17.9 - Acute kidney failure, unspecified; N18.9 - Chronic kidney disease, unspecified Status: Acute (2) Heart failure with mildly reduced ejection fraction: Code(s): I50.20 - Unspecified systolic (congestive) heart failure Status: Acute (3) Anasarca: Code(s): R60.1 - Generalized edema Status: Acute (4) Macrocytic anemia: Code(s): D53.9 - Nutritional anemia, unspecified Status: Acute (5) Type 2 diabetes mellitus, with long-term current use of insulin: Qualifiers: Diabetes mellitus complication status: with hyperglycemia Qualified Code(s): E11.65 - Type 2 diabetes mellitus with hyperglycemia; Z79.4 - dedicated intermodal truck driver (current) use of insulin Code(s): E11.9 - Type 2 diabetes mellitus without complications; Z79.4 - retirement (current) use of insulin Status: Acute (6) Bacteriuria with pyuria: Code(s): R82.71 - Bacteriuria; R82.81 - Pyuria Status: Acute DS: Summary Hospital Course Hospital Course: The patient presented to the emergency department for evaluation of increasing edema and decreased urine output # MADAY on CKD an acute on chronic renal failure with a creatinine of 3.06 and a baseline creatinine which appears to range from 1.30 to 2.30. eating and drinking as per usual a she is on furosemide and metolazone daily and she may be intravascularly dry. received 1 L of lactated Ringer's in the ED Lopez catheter was inserted in the ED but there is no documentation to state how much urine was yielded upon insertion. Monitor strict I/O and daily weights. Nephrology has been consulted for recommendations. Renal function continued to improve to stable # Chronic heart failure Compensated on furosemide 40 mg daily. ,hold Lasix metolazone, and Entresto for now. Echo with EF 55-60% grade 2 diastolic dysfunction moderate to severe MR severe TR severe pulmonary hypertension back on lasix now with albumin infusion. . Will reinitiate Entresto and tolerated well # hypotension in blood pressure medication on hold. Add Albumin. Monitor and improved # UTI UA showed cloudy urine positive nitrate, pyuria, hematuria Urine culture no growth On levofloxacin 750 mg every 48 hour to complete the course 1 more dose left at discharge # COVID positive no respiratory symptoms currently improving. Will monitor # Anemia Check iron studies, B12, and folate for evaluation of anemia. # Right arm and leg swelling Check venous Doppler ultrasound to rule out DVTs. per radiologist report, patient cannot tolerate because of pain venous duplex RUE neg for dvt # lower extremity pain: Likely due to peripheral neuropathy. On tramadol p.r.n. # Insulin-dependent diabetes Continue basal insulin. Initiate sliding scale insulin, Accu-Cheks, and hypoglycemic protocol.. Stop Lantus at discharge A1c at 5.3 blood sugar has been very well controlled # DVT prpoh: Heparin subQ # Code status: DNR # [facility] resident # Hx of stroke wtih right residual hemiplegia Time Spent with Patient Time attestation: Total time spent providing and/or coordinating discharge services:45 minutes Exam Narrative: General: Morbidly obese female in the semi-Blunt position in no acute distress. HEENT: PERRL, EOMI. Sclera anicteric. Neck: Supple. Exam limited due to neck circumference. Respiratory: Respirations are nonlabored. Lung sounds are a bit diminished due to body habitus. Cardiovascular: Regular rate and rhythm with S1-S2. Systolic murmur heard at the left sternal border in apex. Gastrointestinal: Abdomen is morbidly obese with positive bowel sounds. She has pitting edema of the lower abdomen into the flanks and she is tender to palpation in this regions. Skin: Warm and dry. Faint erythema of the lower legs due to significant swelling. Shallow ulcerations noted on lower panniculus. Extremities: No cyanosis or clubbing. Significant pitting edema of the legs (right greater than left) to the abdomen. Upper extremities are also edematous, right greater than left. right upper extremity edema noted improving Neurological: Alert. No facial asymmetry. Speech is clear but she does have expressive aphasia. residual hemiplegia on the right. Psychiatric: Pleasant and cooperative. She is in good spirits. DS: Data Data Completed and Pending Labs on day of discharge: Labs from last 24 hours 04/29/25 04/29/25 04/29/25 11:23 08:24 07:32 WBC 3.6 L RBC 2.98 L Hgb 9.0 L Hct 30.0 L MCV 100.7 H MCH 30.2 MCHC 30.0 L RDW 13.9 Plt Count 112 L MPV 11.0 H Immature Gran % (Auto) 0.3 Neut % (Auto) 65.3 Lymph % (Auto) 18.7 [place] % (Auto) 7.4 Eos % (Auto) 7.7 H Baso % (Auto) 0.6 Lymph # (Auto) 0.68 L [place] # (Auto) 0.3 Eos # (Auto) 0.3 Baso # (Auto) 0.0 Abs Immat Gran (auto) 0.01 Absolute Neuts (auto) 2.4 Absolute Nucleated RBC 0.000 Nucleated RBC % 0.0 Sodium 139 Potassium 4.0 Chloride 104 Carbon Dioxide 26 Anion Gap 9 BUN 40 H Creatinine 2.05 H Estim Creat Clear Calc 40 Estimated GFR 24 L Glucose 93 POC Capillary Glucose 93 92 Calcium 8.6 Magnesium 1.8 Total Bilirubin 0.3 AST 19 ALT 8 Alkaline Phosphatase 95 Total Protein 6.1 L Albumin 3.6 04/28/25 04/28/25 20:46 16:33 WBC RBC Hgb Hct MCV MCH MCHC RDW Plt Count MPV Immature Gran % (Auto) Neut % (Auto) Lymph % (Auto) [place] % (Auto) Eos % (Auto) Baso % (Auto) Lymph # (Auto) [place] # (Auto) Eos # (Auto) Baso # (Auto) Abs Immat Gran (auto) Absolute Neuts (auto) Absolute Nucleated RBC Nucleated RBC % Sodium Potassium Chloride Carbon Dioxide Anion Gap BUN Creatinine Estim Creat Clear Calc Estimated GFR Glucose POC Capillary Glucose 120 H 107 H Calcium Magnesium Total Bilirubin AST ALT Alkaline Phosphatase Total Protein Albumin Preliminary micro results at discharge 04/22/25 20:32 Blood Culture - Preliminary Blood 04/22/25 20:32 Blood Culture - Preliminary Blood Imaging Radiologist's impression: ITS Impressions Chest X-Ray 04/22/25 15:44 IMPRESSION: Pulmonary opacities, may represent interstitial edema in the appropriate clinical context. Subsegmental right basilar atelectasis/consolidation. Possible small right pleural effusion. Venous Doppler Study 04/22/25 21:20 IMPRESSION: Nondiagnostic ultrasound venous Doppler examination of the right lower extremity. Renal Ultrasound 04/23/25 16:08 IMPRESSION: Limited evaluation secondary to poor acoustic penetration (given patient's body habitus). Cross-sectional imaging may be performed, if the patient is clinically able. Abdomen X-Ray 04/24/25 10:12 Impression: 1: No acute abdominal abnormality. Venous Doppler Study 04/25/25 14:06 IMPRESSION: 1. Patent right upper extremity veins. No evidence of deep venous thrombosis. Chest X-Ray 04/25/25 22:02 IMPRESSION: 1. Significant improvement in prior pulmonary edema with minimal residual pulmonary edema at the left lung base. Discharge Plan Discharge Attending physician on discharge: Theo Hahn Consulting providers: Kiet Almanza Discharging Clinician: Theo Hahn Anticipated Discharge Date/Time: 04/29/25 12:10 Patient Disposition: SNF Activity: as tolerated Diet: heart healthy and renal Patient Instructions: Heart Failure (GEN) Patient Language: American Stand Alone Forms: General Discharge Information, Fpc Discharge Follow-up/Referrals: PHYSICIAN NOT ON STAFF,NONSTAFF [Primary Care Provider] - 1 Week Discharge Medications: New tramadol 50 mg Tablet 50 mg PO Q6H PRN (Reason: Pain Rated 4-6) Qty: 20 0RF furosemide 20 mg Tablet 20 mg PO BID Qty: 60 0RF Continued sennosides-docusate sodium [Senexon-S] 8.6-50 mg Tablet 1 tablet PO DAILY PRN (Reason: Constipation) famotidine 20 mg tablet 20 mg PO BID loratadine 10 mg Tablet 10 mg PO DAILY Gvoke PFS 1-Pack Syringe 1 mg/0.2 mL syringe 1 mg SUBCUT ONCE PRN (Reason: Hypoglycemia) Rx Instructions: if blood sugar <80 polyethylene glycol 3350 [Miralax] 17 gram Powder In Packet 17 g PO QAM Qty: 30 0RF metoprolol succinate 50 mg Tablet Extended Release 24 Hr 25 mg PO HS Qty: 30 0RF acetaminophen 650 mg Tablet 650 mg PO Q6H PRN (Reason: Pain) buspirone 10 mg Tablet 10 mg PO TID fluoxetine 20 mg Capsule 40 mg PO DAILY ferrous sulfate 324 mg (65 mg iron) Tablet,Delayed Release (Dr/Ec) 324 mg PO DAILY cholecalciferol (vitamin D3) 1,250 mcg (50,000 unit) Tablet 1,250 mcg PO WEEKLY Rx Instructions: takes on Monday gabapentin 300 mg capsule 100 mg PO TID memantine 10 mg tablet 10 mg PO BID aspirin [Enteric Coated Aspirin] 81 mg Tablet,Delayed Release (Dr/Ec) 81 mg PO DAILY insulin aspart U-100 [Novolog U-100 Insulin aspart] 100 unit/mL Solution 2 unit SUBCUT TID atorvastatin 20 mg Tablet 20 mg PO HS Qty: 30 0RF nystatin 100,000 unit/gram cream 1 applic topical BID Entresto 24-26 mg Tablet 1 tablet PO DAILY Discontinued metolazone 2.5 mg tablet 5 mg PO DAILY furosemide 20 mg tablet 40 mg PO DAILY insulin glargine [Basaglar KwikPen U-100 Insulin] 100 unit/mL (3 mL) insulin pen 15 unit SUBCUT HS Other Ambulatory Orders: Basic Metabolic Panel (Routine) Timeframe: 1 Week Location: Determined by Patient Ordered By: Theo Hahn Complete Blood Count with Diff (Routine) Timeframe: 1 Week Location: Determined by Patient Ordered By: Theo Hahn Date of admission: 04/23/25 10:12 Primary Care Provider: PHYSICIAN NOT ON STAFF,NONSTAFF Admitting Provider: Iggy Washburn Attending physician on admission: Iggy Washburn Condition: Stable Hospitalist MIPS Heart Failure (Exclusion) Patient has history of Heart Transplant or Left Ventricular Assistive Device?: No IF YES, STOP HERE Heart Failure (Qualifier) Patient has current or prior documentation of LVEF less than or equal to 40%, or mod/servere depressed LVSF?: No IF NO, STOP HERE
== END 2025-04-29 12:40 | DRG 682 ==
LOC: ANHED 17:40 → ANH3MEDSUR 18:06
PROVIDERS: Hospitalist; Internal Medicine Nephrology; Physician Assistant; Admitting Provider Family Medicine; Emergency Provider Emergency Medicine; Visit Provider Internal Medicine
DX: N17.9 Acute kidney failure, unspecified (principal); U07.1 COVID-19; I13.0 Hypertensive heart and chronic kidney disease with heart failure and stage 1 through stage 4 chronic kidney disease, or unspecified chronic kidney disease; I69.351 Hemiplegia and hemiparesis following cerebral infarction affecting right dominant side; Z68.43 Body mass index [BMI] 50.0-59.9, adult; I50.42 Chronic combined systolic (congestive) and diastolic (congestive) heart failure; I27.20 Pulmonary hypertension, unspecified; I36.1 Nonrheumatic tricuspid (valve) insufficiency; N18.32 Chronic kidney disease, stage 3b; D64.9 Anemia, unspecified; E66.01 Morbid (severe) obesity due to excess calories; E78.00 Pure hypercholesterolemia, unspecified; E11.22 Type 2 diabetes mellitus with diabetic chronic kidney disease; E78.5 Hyperlipidemia, unspecified; E55.9 Vitamin D deficiency, unspecified; N20.0 Calculus of kidney; R82.71 Bacteriuria; R60.1 Generalized edema; F03.90 Unspecified dementia, unspecified severity, without behavioral disturbance, psychotic disturbance, mood disturbance, and anxiety; G47.33 Obstructive sleep apnea (adult) (pediatric); I69.320 Aphasia following cerebral infarction; Z79.82 Long term (current) use of aspirin; Z79.4 Long term (current) use of insulin; Z74.01 Bed confinement status
CPT/HCPCS: 36415; 71045; 74018; 76775; 80048; 80053; 80069; 81001; 82550; 82570; 82607; 82728; 82746; 82948; 83036; 83540; 83550; 83735; 83880; 84100; 84156; 84300; 84439; 84443; 84480; 84540; 85025; 85027; 85055; 87040; 87086; 87635; 93005; 93971; 96365; 99285; A9270; C8929; G0378; J0696; J1644; J1815; J1956; J7120; P9047; Q9957